=== PATIENT | male | born 1955 | race Caucasian/White ===

== ENCOUNTER → 2023-09-26 09:40 | Outpatient (REF) | payer MEDICARE, SELFPAY | LOC: RAD 09:40 | PROVIDERS: ATTENDING PHYSICIAN Family Medicine | DX: K52.9 Noninfective gastroenteritis and colitis, unspecified (principal); R10.9 Unspecified abdominal pain; G89.29 Other chronic pain; Z87.19 Personal history of other diseases of the digestive system | CPT/HCPCS: 74177; Q9967 ==

== ENCOUNTER → 2024-05-30 08:57 | Outpatient (REF) | payer MEDICARE, SELFPAY | LOC: RCS 08:57 | PROVIDERS: ATTENDING PHYSICIAN Internal Medicine Cardiovascular Disease; FAMILY PHYSICIAN Family Medicine | DX: I50.20 Unspecified systolic (congestive) heart failure (principal) | CPT/HCPCS: 93306 ==

== ENCOUNTER → 2024-09-03 07:52 | Outpatient (REF) | payer MEDICARE, SELFPAY | LOC: RAD 07:52 | PROVIDERS: ATTENDING PHYSICIAN Physician Assistant Medical | DX: M25.511 Pain in right shoulder (principal); S16.1XXA Strain of muscle, fascia and tendon at neck level, initial encounter; M54.50 Low back pain, unspecified | CPT/HCPCS: 72052; 72110; 73030 ==

== ENCOUNTER 2024-09-18 09:47 | Outpatient (RCR) | payer MEDICARE, SELFPAY | END 2024-09-18 23:59 | disposition home or self-care (01) | LOC: RPT 09:47 | PROVIDERS: ATTENDING PHYSICIAN Physician Assistant Medical; FAMILY PHYSICIAN Family Medicine | DX: S16.1XXD Strain of muscle, fascia and tendon at neck level, subsequent encounter (principal); M25.511 Pain in right shoulder; M54.59 Other low back pain; Z73.6 Limitation of activities due to disability; R26.89 Other abnormalities of gait and mobility; M19.90 Unspecified osteoarthritis, unspecified site | CPT/HCPCS: 97010; 97110; 97163; 97535 ==

== ENCOUNTER 2024-10-05 08:52 | Outpatient (RCR) | payer MEDICARE, SELFPAY | END 2024-10-05 23:59 | disposition home or self-care (01) | LOC: RPT 08:52 | PROVIDERS: ATTENDING PHYSICIAN Physician Assistant Medical; FAMILY PHYSICIAN Family Medicine | DX: S16.1XXD Strain of muscle, fascia and tendon at neck level, subsequent encounter (principal); M25.511 Pain in right shoulder; M54.59 Other low back pain; Z73.6 Limitation of activities due to disability; R26.89 Other abnormalities of gait and mobility; M19.90 Unspecified osteoarthritis, unspecified site | CPT/HCPCS: 97010; 97110; 97140 ==

== ENCOUNTER 2024-10-08 23:24 | Inpatient (IN) | payer MEDICARE, SELFPAY ==
[2024-10-08 13:17] VITALS: BP 144/75
[2024-10-08 13:48] LABS: % Basophils 0.7 % (0-2); % Eosinophils 1.4 % (0-6); % Immature Granulocytes 0.3 % (0-0.5); % Lymphocytes 15.9 % (20.5-51.1); % Monocytes 7.4 % (1.7-9.3); % Neutrophils 74.3 % (42.2-75.2); Absolute Basophils 0.1 10^3/uL (0-0.2); Absolute Eosinophils 0.1 10^3/uL (0-0.7); Absolute Lymphocytes 1.5 10^3/uL (1.2-3.4); Absolute Monocytes 0.7 10^3/uL (0.1-0.6); Absolute Neutrophils 7.1 10^3/uL (1.4-6.5); Hematocrit 37.6 % (39.0-52.0); Hemoglobin 12.9 g/dL (13.0-18.0); Mean Corp Hgb Conc. 34.3 g/dL (33.0-37.0); Mean Corpuscular Hgb 29.9 pg (27.0-31.0); Mean Platelet Volume 10.6 fL (7.4-10.4); Nucleated Red Blood Cells % 0 % (-); Platelet Count 225 10^3/uL (130-400); Red Blood Cell Count 4.32 10^6/uL (4.70-6.10); Red Cell Dist. Width 12.9 % (11.5-14.5); White Blood Cell Count 9.5 10^3/uL (4.8-10.8)
[2024-10-08 13:51] LABS: ALT (SGPT) 25 U/L (0-50); AST (SGOT) 25 U/L (17-59); Albumin 3.6 g/dl (3.5-5.0); Alkaline Phosphatase 584 U/L (38-126); Blood Urea Nitrogen 22 mg/dl (9-20); Calcium 8.5 mg/dl (8.4-10.2); Carbon Dioxide 26 mmol/L (22-30); Chloride 110 mmol/L (98-107); Glucose 141 mg/dl (70-99); Potassium 3.8 mmol/L (3.5-5.1); Sodium 141 mmol/L (135-145); Total Bilirubin 0.9 mg/dl (0.2-1.3); Total Protein 6.7 g/dl (6.3-8.2); eGFR > 60.00
[2024-10-08 14:03] LABS: NT-proBNP 2250 pg/ml; Troponin I < 0.012 ng/ml
[2024-10-08 14:04] LABS: Lipase 43 U/L (23-300)
--- NOTE | 2024-10-08 17:01 | ED.GENMED ---
History of Present Illness
General
Chief Complaint: Chest Pain
Source: patient
Exam Limitations: none
Time Seen by Provider: 10/08/24 16:52
Nursing documentation reviewed up to this point in time: agreed with
History of Present Illness
History of Present Illness:
Patient to ED with complaint of upper abdominal pain (R>L) and lower rib pain. Symptoms started approx 4 days ago. Taking ibuprofen for pain to back which started a few months ago. States this new pain is not responding to med. Brought to ED by
daughter for eval.
Past History
Past History
ED Past Medical History: GERD, HTN and Other (Kidney stone)
ED Past Surgical History: None
Social History
Tobacco: Non-smoker
Alcohol: Occasional
Personal:
Living: with family
Review of Systems
Review of Systems
Allergies reviewed?: Yes
All Other Systems: ROS reviewed and negative except as documented in HPI and ROS
Constitutional: Reports no symptoms
EENT: Reports no symptoms
Respiratory: Reports no symptoms
Cardiac: Reports no symptoms
ABD/GI: Reports abdominal pain (upper abdominal pain)
: Reports no symptoms
Musculoskeletal: Reports no symptoms
Skin: Reports no symptoms
Neurological: Reports no symptoms
Phy Exam
General Physical Exam
General Presentation: mild distress
General age: appears stated age
General Skin: warm and dry
General Habitus: normal
Cardiovascular Exam
Cardiovascular Exam: regular rate/rhythm and no edema
Pulmonary Exam
Pulmonary Exam: lungs clear and no respiratory distress
Gastrointestinal Exam
Gastrointestinal Exam: normal bowel sounds, soft, no organomegaly, no pulsatile mass, non distended and no cva tenderness
Palpation: left upper quadrant: Mild tenderness, left lower quadrant: No tenderness, right upper quadrant: Moderate tenderness and right lower quadrant: No tenderness
Neurological Exam
Neurological Exam: alert, oriented x3, CN II-XII intact, no motor deficits, no sensory deficits and speech normal
Musculoskeletal Exam
Musculoskeletal Exam: full ROM and no edema (trace edema bilateral ankles)
Skin Exam
Skin Exam: normal color, warm/dry and no rash
Psychiatric Exam
Psychiatric Exam: normal mood/affect
Scores
Heart Score for Chest Pain Patients
STEMI patient?: No
History: Slightly or Non-Suspicious
ECG: Normal
Age: >/= 65 years
Risk Factors: 1 or 2 Risk Factors
Troponin: </= Normal Limit
Heart Score for Chest Pain Patients: 3
Heart Score Risk: 2.5% MACE over next 6 weeks
Course
Orders/Labs/Results
Orders:
Orders
10/08/24 13:18
Electrocardiogram (*1) Urgent
Reason for Study: Chest Pain
10/08/24 13:31
BNP [NT-proBNP] Urgent
Complete Blood Count/With Diff Urgent
Comprehensive Metabolic Panel Urgent
Lipase Urgent
Troponin I Urgent
10/08/24 16:59
US Abdomen Complete/Upper Urgent
Comment:
Reason For Exam: upper abd. pain
10/08/24 17:00
CR Chest - 2 Views Urgent
Comment:
Reason For Exam: pain
10/08/24 18:38
Urinalysis Reflex To Culture Urgent
Date Specimen was Collected: 10/08/24
Time Specimen was Collected: 18:37
Urine Microscopic Reflex Cult Urgent
Urine Culture Urgent
CHEMO Source: U
Specimen Description:
Date Specimen was Collected: 10/08/24
Time Specimen was Collected: 18:37
10/08/24 18:52
CT Abd/pelvis W Iv Cont Urgent
Comment:
Reason For Exam: upper abd pain. Elevated alk phos
10/08/24 22:34
HYDROmorphone [Dilaudid] 0.5 mg IV NOW STA
Ondansetron Injectable [Zofran] 4 mg IV NOW STA
10/08/24 22:43
ONCOLOGY CONSULT Urgent
Consulting Provider: Meghann Quiros
Was physician already notified: Yes
10/08/24 23:00
Flush (0.9% Sodium Chloride) [Flush (Nss)] See Dose Instructions IV PER PROTOCOL
10/08/24 23:07
Admit/Transfer Patient As Directed
Co-Sign Provider:
Level of Care: Inpatient admission
Assign to:: Medical/Surgical
Physician / Group: shukri
Diagnosis: metastatic cancer
Reason for Hospitalization: metastatic cancer
Expected length of stay greater than two midnights?: Yes
ELOS- Estimated Length of Stay in days: 2
I certify the patient meets the requirements for IP care: Yes
Code Status As Directed
Resuscitation Status: Full Code
PRN Pain Medication Management As Directed
May give lesser potent ordered pain med per pt: Yes
preference::
Protocol:: Medication orders for pain may be administered in a
manner that supports deferring to patient preference
when the pt is:
- Requesting an ordered lesser potent pain medication.
Least to most potent pain medications are defined
as: acetaminophen < NSAID < tramadol < opioids
(morphine, oxycodone, hydromorphone).
- Requesting a lesser dose of the same medication IF
ORDERED.
- Requesting a less intrusive route of administration
if both routes are prescribed by the provider (PO <
IV).
10/09/24 01:28
HYDROmorphone [Dilaudid] 0.5 mg IV Q4HPRN PRN
10/09/24 01:28
Activity As Directed
Activity Level: As Tolerated
Vital Signs As Directed
Frequency: Per unit guidelines
DX Deep Vein Thrombosis Video Routine
10/09/24 05:26
Complete Blood Count/With Diff IN AM
Comprehensive Metabolic Panel IN AM
10/09/24 Breakfast
Regular
At Your Request: Full Participation
Does patient need a safe tray?: No
Reason for opting out of Assistance Coordinator order writing: Provider Decision
10/09/24 08:00
Heparin 5,000 units SC Q12
Abnormal Lab Results
10/08/24 10/08/24
13:31 18:38
RBC 4.32 L 10^6/uL
(4.70-6.10)
Hgb 12.9 L g/dL
(13.0-18.0)
Hct 37.6 L %
(39.0-52.0)
MPV 10.6 H fL
(7.4-10.4)
Absolute Neuts (auto) 7.1 H 10^3/uL
(1.4-6.5)
Absolute Monos (auto) 0.7 H 10^3/uL
(0.1-0.6)
Lymphocytes % 15.9 L %
(20.5-51.1)
Chloride 110 H mmol/L
(98-107)
BUN 22 H mg/dl
(9-20)
Glucose 141 H mg/dl
(70-99)
Alkaline Phosphatase 584 H U/L
(38-126)
Ur Occult Blood Reflex 1+ A
(Negative)
Urine WBC (Reflex) 11-15 A /HPF
(0-5)
Urine Bacteria (Reflex) Few A
(Negative)
Urine Albumin (Reflex) 1+ A
(Neg - Trace)
10/08/24 13:31
10/08/24 13:31
Vital Signs
Initial and Last Documented VS:
Initial Vital Signs
Temp Pulse Resp BP Pulse Ox
98.5 F 69 18 144/75 98
10/08/24 13:17 10/08/24 13:17 10/08/24 13:17 10/08/24 13:17 10/08/24 13:17
Last Documented Vital Signs
Temp Pulse Resp BP Pulse Ox
98.9 F 79 18 116/71 96
10/11/24 14:54 10/11/24 14:54 10/11/24 14:54 10/11/24 14:54 10/11/24 14:54
*Radiology
Radiology exam reviewed: radiology read reviewed
*Pulse Oximetry
Patient hypoxic: no
*Critical Care Note
Total Time (30-74mins, 75-104mins- exclusive of procedures): Not Applicable
Update Note
Update Note:
Patient to ED with complaint of upper abdominal pain, pain to lower ribs and back. Back pain has been ongoing for several weeks. Abdominal pain started this weekend. Labs reviewed. Alk phos of [address] tonight reveals mulitple hepatic
lesions suspicious for metastatic disease. Sclerotic lesions of vertebrae -lower thoracic and lumbar- suspicious for metastatic disease, concern for urothelial neoplasm. Case discussed with Dr. Garcia. Patient to be admitted to hospitalist
service and she will consult in AM. Discussed findings with patient and spouse.
ED Attending Note
-
Portions of this chart may have been created with voice recognition software.� Occasional wrong word or��sound alike� substitutions may have occurred due to the inherent limitations of voice recognition software.
Discharge Plan
Departure
Patient Disposition: Admit
Date of Disposition: 10/08/24
Time of Disposition: 22:35
Presentation/result/management discussed w/ accepting MD/DO: Hospitalist
Patient with high blood pressure during this ER visit?: No
Condition: Good
Covid-19: Not Applicable
Discharge Problem:
Liver lesion, Metastatic cancer to bone, Pain of metastatic malignancy
Interventions
Interventions:
*Risk Screen - Suicide Last Done: 10/08/24 13:17
*General Assessment Last Done: 10/08/24 13:17
*Neglect/Abuse Screening Last Done: 10/08/24 22:25
*ED- Fall Risk Assessment Last Done: 10/08/24 22:25
*ED COVID-19 Vaccine History Last Done: 10/08/24 22:25
*Nursing Disposition Last Done: 10/09/24 00:55
Discharge Date and Time
Discharge Date/Time: 10/09/24 00:56
[2024-10-08 17:06] VITALS: BP 146/96
[2024-10-08 18:15] VITALS: BP 139/92
[2024-10-08 18:45] LABS: Urine Albumin 1+ (Neg - Trace); Urine Bilirubin Negative (Negative); Urine Character Clear (Clear); Urine Color Yellow; Urine Glucose Negative (Negative); Urine Ketone Negative (Negative); Urine Leukocyte Negative (Negative); Urine Nitrite Negative (Negative); Urine Occult Blood 1+ (Negative); Urine Urobilinogen Negative (Neg - 1+)
[2024-10-08 18:57] LABS: Urine Red Blood Cell 0-2 /HPF (0-2); Urine Squamous Cell 0-2 /LPF (Few)
[2024-10-08 18:58] LABS: Urine Bacteria Few (Negative)
[2024-10-08 22:23] VITALS: BP 137/72
[2024-10-08] MEDS: DILAUDID 0.5 MG IV (22:49)
[2024-10-08] MEDS: ZOFRAN 4 MG IV (22:50)
[2024-10-08 23:00] VITALS: BP 141/84
--- NOTE | 2024-10-08 23:09 | HPS.HSE ---
Addendum entered and electronically signed by Junie Hudson MD 10/08/24 23:14:
Chronic lower swelling from CHF although not in CHF exacerbation.
Original Note:
Family Physician
-
Family Physician: Mike Terry PA-C
Chief Complaint
-
abdominal pain
History of Present Illness
69-year-old male past medical history of cardiomyopathy, CAD, GERD, paroxysmal vertigo, hypertension, hyperlipidemia, presenting with back pain for the past several months for which she has been taking ibuprofen with improvement. 4 days ago he
started having pain under his ribs worse on the right side. He denies nausea vomiting or diarrhea or constipation. He has gained a bit of weight and denies weight loss. Denies any urinary symptoms such as difficulty urinating, blood in the urine.
Denies chest pain. Occasionally has shortness of breath. Denies any fevers or chills.
He smokes marijuana sometimes. Denies nicotine. Alcohol rarely.
He has chronic lower extremity swelling which is stable.
His mother had leukemia requiring pheresis.
Medical History
Past Medical History
Past Medical History: Reports Other (cardiomyopathy, CAD, GERD, paroxysmal vertigo, hypertension, hyperlipidemia)
Past Surgical History: Reports None
Social History
Tobacco: Non-smoker
Alcohol: Occasional
Drug: Marijuana
Family History
Family History: Not pertinent
Allergies / Home Medications
Allergies reflects when Allergies were last updated in [employer].
Home Medications with original date entered in [employer]
Allergy/Medication List:
Allergies
Allergy/AdvReac Type Severity Reaction Status Date / Time
NKA - No Known Allergies Allergy Unknown Uncoded 10/08/24 13:19
Home Medications
aspirin 325 mg tablet 325 mg PO DAILY 12/16/20
carvedilol 12.5 mg tablet 12.5 mg PO DAILY 12/16/20
lisinopril 30 mg tablet (Zestril) 30 mg PO DAILY 12/16/20
acetaminophen 325 mg tablet 650 mg (2 x 325 mg) PO Q4HPRN PRN mild pain #1 tab 12/17/20
ibuprofen 200 mg tablet 400 - 600 mg (2 - 3 x 200 mg) PO Q6HPRN PRN moderate pain #1 tab 12/17/20
oxycodone 5 mg tablet 5 mg PO Q4HPRN PRN breakthrough/severe pain #10 tabs 12/17/20
Review of Systems
-
History Source: Patient
A 12 point ROS was completed and negative except as noted: Yes
Constitutional: Reports No Symptoms
EENT: Reports No Symptoms
Respiratory: Reports No Symptoms
Cardiac: Reports No Symptoms
Abdomen/GI: Reports No Symptoms
: Reports No Symptoms
Musculoskeletal: Reports No Symptoms
Skin: Reports No Symptoms
Neurological: Reports No Symptoms
Endocrine: Reports No Symptoms
Hematologic/Lymphatic: Reports No Symptoms
Psych: Reports No Symptoms
Physical Exam
Vital Signs
Vital Signs
Temp Pulse Resp BP Pulse Ox
98.3 F 85 25 137/72 99
10/08/24 21:11 10/08/24 22:23 10/08/24 22:23 10/08/24 22:23 10/08/24 22:23
Physical Exam
General: Well Developed, Well Nourished and No Apparent Distress
HEENT: NormoCephalic, Moist mucous membranes and Atraumatic
Respiratory: Clear
Cardiac: S1/S2 and Regular Rhythm; No Murmur or Rub
GI: Soft, Non Tender, Non Distended and Normal Bowel Sounds; No Organomegaly
Rectal: Deferred by Provider
Musculoskeletal: No Clubbing, No Cyanosis and No Edema
Skin: No Rash
Neuro: Nonfocal/grossly intact
Laboratory Results
-
10/08/24 13:31
05/19/25 13:31
Laboratory Results
Total Bilirubin 0.9 mg/dl (0.2-1.3) 10/08/24 13:31
AST 25 U/L (17-59) 10/08/24 13:31
ALT 25 U/L (0-50) 10/08/24 13:31
Alkaline Phosphatase 584 U/L (38-126) H 10/08/24 13:31
Troponin I < 0.012 ng/ml 10/08/24 13:31
Lipase 43 U/L (23-300) 10/08/24 13:31
Data Reviewed
-
Lab Data: Labs Reviewed by me
Old Records: Reviewed
Impression/Plan
-
IMPRESSION:
PLAN:
# Metastatic hepatic lesions, metastatic thoracic/lumbar spine lesions possibly secondary to urothelial neoplasm versus prostate carcinoma
-No urinary symptoms
- CT abdomen pelvis showed multiple low-density hepatic lesions which are highly suspicious for hepatic metastatic disease, sclerotic lesions within the visualized skeleton most prominent in the lower thoracic and lumbar spine likely bony metastatic
disease, duplicated left collecting system, greater dilation of the calyces of the lower pole moiety with narrowing near the left ureteropelvic junction suggesting urothelial neoplasm versus prostate carcinoma
-Abdominal ultrasound shows slightly contracted gallbladder
- UA unremarkable
- Chest x-ray negative
- Oncology consulted
- May need IR biopsy of liver lesion to discover primary
- Dilaudid for pain
CAD
- Continue aspirin
Cardiomyopathy
- Continue Lasix, spironolactone
- Continue Coreg
GERD
Paroxysmal vertigo
Essential hypertension
Hyperlipidemia
- Noncompliant with statin
Full code
DVT prophylaxis�heparin
Regular diet
[2024-10-09] VITALS: BP 124/63
[2024-10-09 01:04] VITALS: BP 120/83; BMI 27.9
[2024-10-09] MEDS: DILAUDID 0.5 MG IV ×7 (02:28→22:09)
[2024-10-09 06:52] LABS: % Basophils 0.5 % (0-2); % Eosinophils 0.6 % (0-6); % Immature Granulocytes 0.6 % (0-0.5); % Lymphocytes 18.1 % (20.5-51.1); % Monocytes 9.5 % (1.7-9.3); % Neutrophils 70.7 % (42.2-75.2); Absolute Basophils 0.1 10^3/uL (0-0.2); Absolute Eosinophils 0.1 10^3/uL (0-0.7); Absolute Immature Granulocytes 0.1 10^3/uL (0-0.05); Absolute Lymphocytes 1.8 10^3/uL (1.2-3.4); Absolute Monocytes 0.9 10^3/uL (0.1-0.6); Absolute Neutrophils 6.8 10^3/uL (1.4-6.5); Hematocrit 37.2 % (39.0-52.0); Mean Corp Hgb Conc. 34.9 g/dL (33.0-37.0); Mean Corpuscular Hgb 29.9 pg (27.0-31.0); Mean Corpuscular Volume 85.5 fL (80.0-94.0); Mean Platelet Volume 11.5 fL (7.4-10.4); Nucleated Red Blood Cells % 0 % (-); Platelet Count 246 10^3/uL (130-400); Red Blood Cell Count 4.35 10^6/uL (4.70-6.10); Red Cell Dist. Width 12.7 % (11.5-14.5); White Blood Cell Count 9.7 10^3/uL (4.8-10.8)
[2024-10-09 07:05] VITALS: BP 123/80
[2024-10-09 07:18] LABS: ALT (SGPT) 21 U/L (0-50); AST (SGOT) 23 U/L (17-59); Albumin 3.4 g/dl (3.5-5.0); Alkaline Phosphatase 593 U/L (38-126); Blood Urea Nitrogen 18 mg/dl (9-20); Calcium 8.5 mg/dl (8.4-10.2); Carbon Dioxide 26 mmol/L (22-30); Chloride 108 mmol/L (98-107); Estimated Creatinine Clearance 73 ml/min; Glucose 102 mg/dl (70-99); Sodium 140 mmol/L (135-145); Total Bilirubin 1.2 mg/dl (0.2-1.3); Total Protein 6.6 g/dl (6.3-8.2); eGFR > 60.00
[2024-10-09] MEDS: HEPARIN SC (09:13)
[2024-10-09] MEDS: LASIX 40 MG PO (09:40)
[2024-10-09] MEDS: COREG 12.5 MG PO (09:41)
[2024-10-09] MEDS: ALDACTONE 25 MG PO (09:41)
[2024-10-09] MEDS: ZESTRIL 40 MG PO (09:43)
[2024-10-09 09:58] LABS: PSA, Total - Diagnostic 1.55 ng/ml (0.0-4.0)
--- NOTE | 2024-10-09 10:57 | CM ---
CM following re: discharge planning.
Reviewed pt's chart, met with pt. pt's spouse and daughter Carmen at bedside.
Pt is a 69 year old male, admitted with primary dx of Abdominal [pain. PMH includes: cardiomyopathy, CAD, GERD, paroxysmal vertigo, hypertension, hyperlipidemia.
Pt reports he lives with spouse 2SH, 1 step to enter, has 2 supportive children. pt described himself as independent in all areas [employer]. No DME, VN or SNF history. Pt expressed his desire to return back home at discharge.
AD information provided and printed out AD form given to the pt.
PCP: Mike Terry
Pharmacy: [facility].
D/C plan:L home with anticipated no needs. family to transport at discharge.
CM will follow with discharge plan updates provided.
[2024-10-09 15:00] VITALS: BP 122/78
--- NOTE | 2024-10-09 15:15 | CON.ONC ---
Consultation
-
Date Consultation Requested: 10/08/24
Date Consultation Performed: 10/09/24
Requesting Provider: JOSE Payne
Performing Provider: Mariann Garzon MD
Reason for Consultation: metastatic disease
Impression
Impression
back/rib pain
bone mets, liver mets, suspected left ureter mass
Plan
Plan
Await MRI C/T spine
Pending results, may benefit from steroids, rad onc consult, neurosurg consult
Biopsy of liver lesion in IR
Will order urine cytology
Would start long acting (low dose) opioid (MS Contin 15mg q12h), with short acting opioid for breakthrough pain
Bowel regimen
Patient History
History of Present Illness
This is a 69yo M who noted increasing back pain over the past few months, recently worse in the right UQ and right ribs. He was ordered for outpatient MRIs, but not scheduled until December. He presented to the ER, where CT scans showed liver lesions,
bone mets, and a suspected left ureter mass.
He's been taking Advil ATC at home with some relief, better relief with opioids here in the hospital.
MRI C/T spine have been ordered to be done inpatient.
His family is at bedside.
Past-Medical/Surgical History
Past Medical History
Past Medical History: Reports Other (cardiomyopathy, CAD, GERD, paroxysmal vertigo, hypertension, hyperlipidemia)
Past Surgical History: Reports None
Social History
Tobacco: Non-smoker
Alcohol: Occasional
Drug: Marijuana
Family History
Family History: mother had leukemia
Patient Medication
�Medication �Instructions �Recorded �Confirmed �Last Taken �Type
aspirin 325 mg tablet 325 mg PO DAILY Blood Clot 12/16/20 10/09/24 10/08/24 07:00 History
Prevention/Tx
carvedilol 12.5 mg tablet 12.5 mg PO DAILY Blood Pressure 12/16/20 10/09/24 12/17/20 05:00 History
lisinopril 30 mg tablet (Zestril) 40 mg PO DAILY Blood Pressure 12/16/20 10/09/24 1 Day Ago History
~10/08/24
40
acetaminophen 325 mg tablet 650 mg (2 x 325 mg) PO Q4HPRN PRN 12/17/20 10/09/24 Unknown Rx
mild pain #1 tab
ibuprofen 200 mg tablet 400 - 600 mg (2 - 3 x 200 mg) PO 12/17/20 10/09/24 Unknown Rx
Q6HPRN PRN moderate pain #1 tab
oxycodone 5 mg tablet 5 mg PO Q4HPRN PRN 12/17/20 10/09/24 Unknown Rx
breakthrough/severe pain #10 tabs
Lasix 40 mg PO 1XD Fluid 10/09/24 10/09/24 1 Day Ago History
Retention/Swelling ~10/08/24
spironolactone 25 mg DAILY Fluid 10/09/24 10/09/24 1 Day Ago History
Retention/Swelling ~10/08/24
Active Medications
Generic Name Dose Route Start Last Admin
Trade Name Freq PRN Reason Stop Dose Admin
Carvedilol 12.5 mg 10/10/24 08:00
Carvedilol 12.5 Mg Tablet PO 11/07/24 07:59
DAILY VALERIA
Furosemide 40 mg 10/09/24 10:00 10/09/24 09:40
Furosemide 40 Mg Tablet PO 11/06/24 09:59 40 mg
DAILY VALERIA Administration
Heparin Sodium 5,000 units 10/09/24 08:00 10/09/24 09:13
Heparin 5,000 Units/Ml 1 Ml Vial SC 11/06/24 07:59 Not Given
Q12 VALERIA
Hydromorphone HCl 0.5 mg 10/09/24 02:02 10/09/24 15:04
Hydromorphone 0.5 Mg/0.5 Ml Syringe IV 10/23/24 16:00 0.5 mg
Q2HPRN PRN Administration
severe pain
Lisinopril 40 mg 10/09/24 10:00 10/09/24 09:43
Lisinopril 20 Mg Tablet PO 11/06/24 09:59 40 mg
DAILY VALERIA Administration
Morphine Sulfate 15 mg 10/09/24 20:00
Morphine 15 Mg Extended Release Tablet PO 10/23/24 19:59
Q12 VALERIA
Oxycodone HCl 5 mg 10/09/24 12:47
Oxycodone 5 Mg Regular Release Tablet PO 10/23/24 12:46
Q4HPRN PRN
breakthrough pain
Sodium Chloride 0 flush 10/08/24 23:00
Sodium Chloride 0.9% (Flush) Syringe IV 11/05/24 22:59
PER PROTOCOL VALERIA
Review of Systems
-
History Source: Patient
All Other Systems: Not reviewed unless documented
Constitutional: Reports Weight Loss, No Appetite and Sleep Disturbance
Respiratory: Denies Trouble Breathing
: Denies Dysuria, Frequency, Bleeding or Dark Urine
Musculoskeletal: Reports Joint Swelling and Other (back pain)
Physical Exam
-
General: Well Developed, Well Nourished and No Apparent Distress
HEENT: Negative Jaundice
Cardiology: Normal Sinus Rhythm
Pulmonary: Clear
GI: Soft
Musculoskeletal: Edema, Right Lower Extrem and Edema, Left Lower Extrem
Extremities: No C/C/E
Neurology: Non Focal and No Lateralizing Symptoms
Skin: Warm and Dry
Hematologic / Lymphatic: No Lymphadenopathy
Psych: Calm and Intact Judgement/Insight
Labs
Lab Results
WBC 9.7 10^3/uL (4.8-10.8) 10/09/24 05:26
RBC 4.35 10^6/uL (4.70-6.10) L 10/09/24 05:26
Hgb 13.0 g/dL (13.0-18.0) 10/09/24 05:26
Hct 37.2 % (39.0-52.0) L 10/09/24 05:26
MCV 85.5 fL (80.0-94.0) 10/09/24 05:26
MCH 29.9 pg (27.0-31.0) 10/09/24 05:26
MCHC 34.9 g/dL (33.0-37.0) 10/09/24 05:26
RDW 12.7 % (11.5-14.5) 10/09/24 05:26
Plt Count 246 10^3/uL (130-400) 10/09/24 05:26
MPV 11.5 fL (7.4-10.4) H 10/09/24 05:26
Abs Immat Gran (auto) 0.1 10^3/uL (0-0.05) H 10/09/24 05:26
Absolute Neuts (auto) 6.8 10^3/uL (1.4-6.5) H 10/09/24 05:26
Absolute Lymphs (auto) 1.8 10^3/uL (1.2-3.4) 10/09/24 05:26
Absolute Monos (auto) 0.9 10^3/uL (0.1-0.6) H 10/09/24 05:26
Absolute Eos (auto) 0.1 10^3/uL (0-0.7) 10/09/24 05:26
Absolute Basos (auto) 0.1 10^3/uL (0-0.2) 10/09/24 05:26
Immature Gran % 0.6 % (0-0.5) H 10/09/24 05:26
Neutrophils % 70.7 % (42.2-75.2) 10/09/24 05:26
Lymphocytes % 18.1 % (20.5-51.1) L 10/09/24 05:26
Monocytes % 9.5 % (1.7-9.3) H 10/09/24 05:26
Eosinophils % 0.6 % (0-6) 10/09/24 05:
Basophils % 0.5 % (0-2) 10/09/24 05:
Creatinine 1.0 mg/dL (0.7-1.3) 10/09/24 05:26
Vital Signs
Vital Signs
Temp Pulse Resp BP Pulse Ox
99.1 F 82 16 123/80 96
10/09/24 07:05 10/09/24 09:40 10/09/24 07:05 10/09/24 09:40 10/09/24 10:38
--- NOTE | 2024-10-09 15:51 | W.PN.HOSP.TC ---
Addendum entered and electronically signed by Iron Nunez MD 10/10/24 14:13:
69 male history of cardiomyopathy CAD GERD paroxysmal vertigo hypertension hyperlipidemia presented with back pain for several months and then unfortunately began to follow-up pain under his ribs that was worse on the right side with weight gain but
without weight loss. Some occasional shortness of breath no fevers or chills. Imaging studies demonstrating concerning findings for unknown primary lesion with mets to the liver thoracic/lumbar spine.
Metastatic disease with unclear primary
Will require biopsy discussing with IR to have this completed as outpatient
Continue analgesic support
If discharged home today will send with oxycodone 3 times daily for 3 days and then will need to follow-up with PCP for continued prescriptions
As we do not know the primary lesion as of right now we will need to obtain biopsies. However this can likely be done as outpatient with IR support. I am awaiting to hear back from IR if they can schedule him in the next week for this biopsy.
After this his PCP Mike Terry should receive the results and set him up with oncology follow-up.
Fortunately after evaluating him he has significant amount of neck stiffness and pain. Obtaining a MRI cervical and thoracic spine. Will rule out cord compression. May require additional support with orthopedics versus radiation oncology
depending on MRI findings.
Personally discussed case with with oncology. Will start long-acting analgesics with breakthrough short acting and continue Dilaudid for severe
Original Note:
Today's Communication/Plan
-
Pain medication switched.
As needed bowel regimen.
Plan for biopsy tomorrow.
N.p.o. midnight for procedure.
Assessment / Plan
Assessment / Plan
Assessment-69 years old male with PMHx significant for cardiomyopathy, CAD, GERD, HTN, HLD presents with back pain x 3 months and is diagnosed with metastatic lytic lesions in spine and liver. Unknown primary.
Plan-
Acute on chronic pain (for 3 months)
Secondary to metastatic lesions-hepatic, thoracic, lumbar lytic lesions as noted on the CT abdomen pelvis
Thinning of the ureteropelvic junction that suggest urothelial neoplasm versus prostate carcinoma based on radiology.
Abdominal ultrasound with evidence for slightly contracted gallbladder.
Oncology consult done, recommends inpatient liver biopsy.
IR consulted for liver biopsy. Appreciate oncology, IR service.
Aspirin last dose was in the a.m. yesterday. Will be 48-hour washout by a.m. tomorrow
Make n.p.o. after midnight for the procedure.
Pain management discussed with the patient-changed to long-acting opioids and short acting opioids.
Long-acting for management of chronic pain, short-acting for breakthrough pain.
Neck pain-
Suspect secondary to C-spine lesions.
MRI C-spine, T-spine ordered to assess for the extent of metastasis versus disc herniation or compression pain
Currently patient on optimal pain management.
Will add a prophylactic bowel regimen to prevent opioid-induced constipation.
Cardiomyopathy/clinical CHF-
Continue GDMT-carvedilol, lisinopril, spironolactone at home doses.
Continue Lasix 40 mg once a day for fluid retention/pedal edema.
Essential hypertension-
continue lisinopril and spironolactone.
DVT prophylaxis-
Patient was on heparin, held heparin for now.
Switch to sequential compression devices for procedure tomorrow.
CODE STATUS-
Full code
Anticipated Discharge: Within 24 hours
Subjective/Interval History
-
Date of Service: October 09, 2024
Patient reports of severe pain 10/10 in his neck, mostly isolated in right side of his neck, and his right hip that radiates down his right legs. He also states that he feels weak in his bilateral legs
Objective Data
-
Labs:
Laboratory Results
10/09/24
05:26
WBC 9.7
Hgb 13.0
Hct 37.2 L
Plt Count 246
Sodium 140
Potassium 4.0
Chloride 108 H
Carbon Dioxide 26
BUN 18
Creatinine 1.0
Glucose 102 H
Calcium 8.5
Total Bilirubin 1.2
AST 23
ALT 21
Alkaline Phosphatase 593 H
Vital Signs:
Vital Signs
Temp Pulse Resp BP Pulse Ox
99.1 F 82 16 123/80 96
10/09/24 07:05 10/09/24 09:40 10/09/24 07:05 10/09/24 09:40 10/09/24 10:38
Review of Systems
-
History Source: Patient
Constitutional: Reports Fatigue
EENT: Reports No Symptoms Reported
Respiratory: Reports No Symptoms
Cardiac: Reports No Symptoms
Abdomen/GI: Reports No Symptoms
Genitourinary: Reports No Symptoms
Musculoskeletal: Reports No Symptoms
Neuro: Reports Weakness
Endocrine: Reports No Symptoms
Hematologic / Lymphatic: Reports No Symptoms
Allergy / Immunology: Reports No Symptoms
Physical Exam
-
General: Pain
HEENT: Moist Mucous Membranes
Respiratory: Clear to Auscultation; Negative Wheezes, Rales, Rhonchi or Crackles
Cardiac: Regular Rhythm and S1/S2; Negative Murmur, Rub or Gallop
GI: Soft, Nontender, Nondistended and Normal Bowel Sounds
Musculoskeletal: Other (Straight leg raise test positive, bilateral 1+ pitting edema up to mid shins.)
Neuro: AO x 3, No Motor Deficits, DTR's Intact & Symmetrica and Other (No pronator drift, no dysdiadochokinesia, she will do hints test negative, Romberg's negative, [id number] test negative, )
Psych: Calm
Data Reviewed
-
Diagnostic Radiology: Image personally visualized and interpreted and Report Reviewed by me
CT Scan: Image personally visualized and interpreted and Report Reviewed by me
Labs: Labs Reviewed by me, Discussed with Physician and Discussed with Nurse
[2024-10-09] MEDS: HEPARIN 5000 UNITS SC (19:40)
[2024-10-09] MEDS: MS CONTIN (EXTENDED RELEASE) 15 MG PO (19:41)
[2024-10-10] VITALS (9 sets, daily range): BP systolic 95–125; BP diastolic 58–83; PULSE 76; O2SAT 92
[2024-10-10] MEDS: DILAUDID 0.5 MG IV ×3 (03:22→18:41)
[2024-10-10 06:34] LABS: % Basophils 0.5 % (0-2); % Eosinophils 0.8 % (0-6); % Immature Granulocytes 0.5 % (0-0.5); % Lymphocytes 17.9 % (20.5-51.1); % Monocytes 10.6 % (1.7-9.3); % Neutrophils 69.7 % (42.2-75.2); Absolute Basophils 0.1 10^3/uL (0-0.2); Absolute Eosinophils 0.1 10^3/uL (0-0.7); Absolute Immature Granulocytes 0.1 10^3/uL (0-0.05); Absolute Lymphocytes 1.7 10^3/uL (1.2-3.4); Absolute Neutrophils 6.6 10^3/uL (1.4-6.5); Hematocrit 34.9 % (39.0-52.0); Hemoglobin 12.1 g/dL (13.0-18.0); Mean Corp Hgb Conc. 34.7 g/dL (33.0-37.0); Mean Corpuscular Hgb 29.8 pg (27.0-31.0); Mean Platelet Volume 10.7 fL (7.4-10.4); Nucleated Red Blood Cells % 0 % (-); Platelet Count 212 10^3/uL (130-400); Red Blood Cell Count 4.06 10^6/uL (4.70-6.10); Red Cell Dist. Width 12.4 % (11.5-14.5); White Blood Cell Count 9.5 10^3/uL (4.8-10.8)
[2024-10-10 06:56] LABS: ALT (SGPT) 19 U/L (0-50); AST (SGOT) 23 U/L (17-59); Albumin 3.1 g/dl (3.5-5.0); Alkaline Phosphatase 636 U/L (38-126); Blood Urea Nitrogen 20 mg/dl (9-20); Calcium 8.1 mg/dl (8.4-10.2); Carbon Dioxide 25 mmol/L (22-30); Chloride 108 mmol/L (98-107); Estimated Creatinine Clearance 73 ml/min; Glucose 97 mg/dl (70-99); Potassium 3.8 mmol/L (3.5-5.1); Sodium 137 mmol/L (135-145); Total Bilirubin 1.5 mg/dl (0.2-1.3); Total Protein 6.1 g/dl (6.3-8.2); eGFR > 60.00
--- NOTE | 2024-10-10 07:19 | W.PN.ONC2 ---
Today's Communication / Plan
-
Increase/adjust narcotics for pain
Await liver biopsy and urine cytology
Await radiology interpretation of MRI of the C/T-spine.
Impression
Impression
back/rib pain
bone mets, liver mets, suspected left ureter mass
Plan
Plan
Await MRI C/T spine. It was done but has not been read.
Pending results, may benefit from steroids, rad onc consult, neurosurg consult
Biopsy of liver lesion in IR ordered and pending.
Urine cytology.
Increase narcotics from MS Contin 15 mg to 30 mg every 12; and increased breakthrough Dilaudid from 0.5 to 1 mg every 2 as needed
Bowel regimen
Subjective/Objective
Chief Complaint
ACS Heme Onc
Subjective
Patient with stiff neck. Currently pain score 6/10 but as high as 8-9/10. Patient just took Dilaudid. MRI of spine completed but not read. Liver biopsy ordered.
Vital Signs:
Vital Signs
Temp Pulse Resp BP Pulse Ox
99.4 F 81 18 122/78 96
10/09/24 15:00 10/09/24 15:00 10/09/24 15:00 10/09/24 15:00 10/09/24 15:00
Lab Results:
Laboratory Data
WBC 9.5 10^3/uL (4.8-10.8) 10/10/24 06:02
Hgb 12.1 g/dL (13.0-18.0) L 10/10/24 06:02
Plt Count 212 10^3/uL (130-400) 10/10/24 06:02
eGFR > 60.00 10/10/24 06:02
Physical Exam
Appears uncomfortable but reasonably okay without movement
HEENT: No Jaundice
Cardiology: S1 and S2
Pulmonary: Clear
GI: Soft
Extremities: No C/C/E
Orders
Orders
Orders From Last 24 Hours
10/10/24 07:19
HYDROmorphone [Dilaudid] 1 mg IV Q2HPRN PRN
10/10/24 07:19
Morphine Sulfate Extended Rel. [Ms Contin (Extended Release)] 30 mg PO Q12
[2024-10-10] MEDS: MS CONTIN (EXTENDED RELEASE) 30 MG PO ×2 (08:21→20:58)
[2024-10-10] MEDS: ZESTRIL 40 MG PO (08:21)
[2024-10-10] MEDS: COREG 12.5 MG PO (08:21)
[2024-10-10] MEDS: LASIX 40 MG PO (08:22)
[2024-10-10] MEDS: HEPARIN SC ×2 (08:22→08:48)
[2024-10-10] MEDS: DILAUDID 1 MG IV ×2 (08:31→12:49)
[2024-10-10] MEDS: ALDACTONE 25 MG PO (10:12)
--- NOTE | 2024-10-10 10:37 | PTCARENOTE ---
This RN communicated with IR, per IR patient cannot get liver biopsy today d/t taking high dose aspirin Tuesday morning, stated aspirin needs to be flushed out of patient 3-5 days, patient tentatively scheduled to get biopsy Tuesday now. This RN
communicated with MD and resident, regular diet order re-entered per this RN, patient and family member at bedside made aware.
--- NOTE | 2024-10-10 11:46 | CM ---
CM following re: discharge planning.
Reviewed pt's chart, met with pt.
Per chart review, biopsy today, Oncology following, continue supportive care.
Pt lives with spouse 2SH, 1 step to enter, has 2 supportive children and pt is independent in all areas [employer]. No DME, VN or SNF history. Pt expressed his desire to return back home at discharge.
D/C plan:L home with anticipated no needs. Family to transport at discharge.
CM will follow with discharge plan updates as hospitalization progresses
[2024-10-10] MEDS: SENOKOT-S 1 TABLET PO (15:14)
--- NOTE | 2024-10-10 15:42 | W.PN.HOSP.TC ---
Addendum entered and electronically signed by Iron Nunez MD 10/11/24 14:44:
69 male history of cardiomyopathy CAD GERD paroxysmal vertigo hypertension hyperlipidemia presented with back pain for several months and then unfortunately began to follow-up pain under his ribs that was worse on the right side with weight gain but
without weight loss. Some occasional shortness of breath no fevers or chills. Imaging studies demonstrating concerning findings for unknown primary lesion with mets to the liver thoracic/lumbar spine.
Metastatic disease with unclear primary
Will require biopsy discussing with IR to have this completed as outpatient
Continue analgesic support
If discharged home today will send with oxycodone 3 times daily for 3 days and then will need to follow-up with PCP for continued prescriptions
As we do not know the primary lesion as of right now we will need to obtain biopsies. However this can likely be done as outpatient with IR support. I am awaiting to hear back from IR if they can schedule him in the next week for this biopsy.
After this his PCP Mike Terry should receive the results and set him up with oncology follow-up.
Was able to obtain MRI thoracic cervical spine. Without evidence of cord compression/pathologic fracture. However there was abnormal signal findings with the MRI stating could possibly be hematologic in nature or myeloproliferative disorder.
Reached out to oncology about these results via [facility] or at least my resident that who states that this is all related to metastatic disease to the vertebral column. was updated.
Unfortunately unable to obtain IR guided biopsy of the liver today as he is on aspirin and is required a 72-hour to 60-hour washout. Hopefully on Tuesday able to complete. Informed him and he is agreeable with this plan that if his current pain
regimen is able to control symptomatology/pain then he can be discharged home with outpatient liver biopsy scheduled otherwise we will continue giving IV analgesic support with titration of oral agents and plan for IR guided biopsy on Tuesday.
Original Note:
Today's Communication/Plan
-
Holding parameters on Dilaudid.
Add Tylenol and ibuprofen for optimal pain management.
Lower losartan dose from a.m. tomorrow.
Assessment / Plan
Assessment / Plan
Assessment-69 years old male with PMHx significant for cardiomyopathy, CAD, GERD, HTN, HLD presents with back pain x 3 months and is diagnosed with metastatic lytic lesions in spine and liver. Unknown primary.
Plan-
Acute on chronic pain (for 3 months)
Secondary to metastatic lesions-hepatic, thoracic, lumbar lytic lesions as noted on the CT abdomen pelvis
Thinning of the ureteropelvic junction that suggest urothelial neoplasm versus prostate carcinoma based on radiology.
Abdominal ultrasound with evidence for slightly contracted gallbladder.
Oncology consult done, recommends inpatient liver biopsy.
IR consulted for liver biopsy. Appreciate oncology, IR service.
Aspirin last dose was in the a.m. yesterday. Will be 48-hour washout by a.m. tomorrow
N.p.o. changed to low-sodium diet.
Pain management discussed with the patient-changed to long-acting opioids and short acting opioids.
Long-acting for management of chronic pain, short-acting breakthrough pain, holding parameters on Dilaudid.
Soft blood pressures-
Probably secondary to opioids in the setting of essential hypertension.
Holding parameters on Dilaudid.
Reduce lisinopril dosing to 50 mg.
Continue spironolactone at 25 mg.
Add Tylenol and ibuprofen for breakthrough pain.
Neck pain-
Suspect secondary to C-spine lesions.
MRI C-spine, T-spine ordered to assess for the extent of metastasis versus disc herniation or compression pain
Currently patient on optimal pain management.
Will add a prophylactic bowel regimen to prevent opioid-induced constipation.
Cardiomyopathy/clinical CHF-
Continue GDMT-carvedilol, lisinopril, spironolactone at home doses.
Continue Lasix 40 mg once a day for fluid retention/pedal edema.
Essential hypertension-
continue lisinopril and spironolactone.
DVT prophylaxis-
Patient was on heparin, held heparin for now.
Switch to sequential compression devices for procedure tomorrow.
CODE STATUS-
Full code
Scheduled outpatient IR biopsy for Tuesday, currently patient is being kept overnight for optimal pain management.
Also coordinated with primary care physician for close follow-up.
Patient is aware to make a call to primary care physician tomorrow.
Plan for discharge tomorrow.
Anticipated Discharge: Within 24 hours
Subjective/Interval History
-
Date of Service: October 10, 2024
Patient still reports of pain.
His pain is worse in neck and right hip.
Objective Data
-
Labs:
Laboratory Results
10/10/24
06:02
WBC 9.5
Hgb 12.1 L
Hct 34.9 L
Plt Count 212
Sodium 137
Potassium 3.8
Chloride 108 H
Carbon Dioxide 25
BUN 20
Creatinine 1.0
Glucose 97
Calcium 8.1 L
Total Bilirubin 1.5 H
AST 23
ALT 19
Alkaline Phosphatase 636 H
Vital Signs:
Vital Signs
Temp Pulse Resp BP Pulse Ox
97.9 F 90 18 125/83 94
10/10/24 07:05 10/10/24 10:12 10/10/24 07:05 10/10/24 10:12 10/10/24 09:39
I&O
10/09/24 10/10/24 10/11/24
06:59 06:59 06:59
Intake Total 1680 / 1680
Output Total 975 / 975
Balance 705 / 705
Review of Systems
-
History Source: Patient
Constitutional: Reports Fatigue
Respiratory: Reports No Symptoms
Cardiac: Reports No Symptoms
Abdomen/GI: Reports No Symptoms
Breast: Reports No Symptoms
Musculoskeletal: Reports Muscle Pain, Muscle Weakness and Other (Back pain, right hip pain, neck pain.)
Neuro: Reports Weakness
Hematologic / Lymphatic: Reports No Symptoms
Allergy / Immunology: Reports No Symptoms
Physical Exam
-
General: No Apparent Distress and Comfortable
HEENT: Moist Mucous Membranes
Respiratory: Clear to Auscultation; Negative Wheezes, Rales, Rhonchi or Crackles
Cardiac: Regular Rhythm and S1/S2; Negative Murmur, Rub or Gallop
GI: Soft, Nontender, Nondistended and Normal Bowel Sounds
Musculoskeletal: No Clubbing, No Cyanosis, Edema, Right Lower Extrem and Edema, Left Lower Extrem
Neuro: AO x 3 and No Motor Deficits
Psych: Calm
--- NOTE | 2024-10-10 16:04 | PTCARENOTE ---
Patient's automatic BP taken by tech 98/63, 94/59, and 101/60 HR 76; manual BP taken by this RN 102/62 RUE. Patient laying in bed and states no complaints, says pain is controlled at this time. MD and resident made aware, holding parameters for PRN
IV Dilaudid as well as orders for PRN Tylenol and Motrin to be added by resident. Scheduled Ms Contin and PRN IV Dilaudid doses increased per onc this AM, resident aware of dosage increases.
--- NOTE | 2024-10-10 17:26 | PTOTSP ---
Pt with dx of metastatic cancer. Reports pain in L shoulder, neck, abdomen, low back and b/l hips. Currently at mod I level with basic self care, transfers and mobility in his room and bathroom without AD. No further skilled OT indicated at this
time.
[2024-10-10 18:47] LABS: Glucose - Point of Care 122 mg/dl (70-99)
[2024-10-10] MEDS: HEPARIN 5000 UNITS SC (20:51)
[2024-10-11] MEDS: DILAUDID 0.5 MG IV ×2 (02:55→10:25)
[2024-10-11 03:00] VITALS: BP 120/64
[2024-10-11 06:11] LABS: Hematocrit 32.8 % (39.0-52.0); Hemoglobin 11.2 g/dL (13.0-18.0); Mean Corp Hgb Conc. 34.1 g/dL (33.0-37.0); Mean Corpuscular Hgb 29.7 pg (27.0-31.0); Mean Platelet Volume 10.3 fL (7.4-10.4); Platelet Count 213 10^3/uL (130-400); Red Blood Cell Count 3.77 10^6/uL (4.70-6.10); Red Cell Dist. Width 12.3 % (11.5-14.5); White Blood Cell Count 8.3 10^3/uL (4.8-10.8)
[2024-10-11 06:37] LABS: Blood Urea Nitrogen 27 mg/dl (9-20); Calcium 8.2 mg/dl (8.4-10.2); Carbon Dioxide 27 mmol/L (22-30); Chloride 105 mmol/L (98-107); Estimated Creatinine Clearance 67 ml/min; Glucose 103 mg/dl (70-99); Potassium 3.9 mmol/L (3.5-5.1); Sodium 136 mmol/L (135-145); eGFR > 60.00
[2024-10-11 07:06] VITALS: BP 109/65
[2024-10-11] MEDS: MS CONTIN (EXTENDED RELEASE) 30 MG PO (08:38)
[2024-10-11] MEDS: HEPARIN SC ×2 (08:41→08:44)
--- NOTE | 2024-10-11 09:24 | PN.CDI ---
CDI
- -
CDI:
Physician Documentation Request
Admit Date: 10/08/24 23:24
Dear Doctor,
Please review the following and provide your response in the progress notes.
Clinical Indicators:
- 10/09 H&P 'Chronic lower swelling from CHF although not in CHF exacerbation'
- Progress notes 'Cardiomyopathy/clinical CHF'
- 'Continue GDMT...Continue Lasix'
Laboratory Tests
10/08/24
13:31
[id number] Pept 2250
Please provide further specificity regarding the most likely type and acuity of CHF you are evaluating, treating or monitoring.
Type Acuity
Systolic Acute
Diastolic Chronic
Combined Systolic/Diastolic Acute on Chronic
Other
Use of terms such as suspected, likely, concern for, or probable (associated with a specific diagnosis that is being evaluated, monitored, or treated as if it exists) are acceptable and can be coded in the inpatient setting, when documented at the
time of discharge.
Thank you,
Leobardo Antony RN
CDI Specialist
Please use your independent medical judgment in providing your response.
--- NOTE | 2024-10-11 09:59 | W.PN.ONC2 ---
Today's Communication / Plan
-
.
Impression
Impression
p/w back/rib pain
bone mets, liver mets, suspected left ureter mass
MRI C and T spine Abnormal bone marrow signal intensity is demonstrated throughout the thoracic spine. No vertebral compression deformity.
Plan
Plan
Plan for liver biopsy 10/16 11am in IR outpatient once ASA wash out
f/u Urine cytology.
Continue MS Contin 30 mg every 12, Currently using Dilaudid IV prn for break through pain, will need to transition to PO prn. Pt plans to follow up with PCP for refills of narcotics for now after discharge
Bowel regimen
f/u CT head
f/u CT neck
f/u Jak2
f/u SPEP
close OP follow up will be arranged upon discharge
and daughter at bedside, updates provided and questions answered
Subjective/Objective
Subjective
improved pain control
Vital Signs:
Vital Signs
Temp Pulse Resp BP Pulse Ox
98.9 F 80 16 109/65 96
10/11/24 07:06 10/11/24 07:06 10/11/24 07:06 10/11/24 07:06 10/11/24 07:06
Lab Results:
Laboratory Data
WBC 8.3 10^3/uL (4.8-10.8) 10/11/24 05:49
Hgb 11.2 g/dL (13.0-18.0) L 10/11/24 05:49
Plt Count 213 10^3/uL (130-400) 10/11/24 05:49
eGFR > 60.00 10/11/24 05:49
Physical Exam
HEENT: Moist Mucous Membranes; No Jaundice
Cardiology: Normal Sinus Rhythm
Pulmonary: Clear
GI: Soft
Extremities: Pulses Present; No Edema
--- NOTE | 2024-10-11 10:11 | W.PN.HOSP.TC ---
Addendum entered and electronically signed by Nimco Oconnell MD, Resident 10/12/24 07:50:
Chronic CHF - HFrEF - EF - 25-30% based on echocardiogram from 05/30/24.
No acute exacerbation
Addendum entered and electronically signed by Iron Nunez MD 10/11/24 15:02:
69 male history of cardiomyopathy CAD GERD paroxysmal vertigo hypertension hyperlipidemia presented with back pain for several months and then unfortunately began to follow-up pain under his ribs that was worse on the right side with weight gain but
without weight loss. Some occasional shortness of breath no fevers or chills. Imaging studies demonstrating concerning findings for unknown primary lesion with mets to the liver thoracic/lumbar spine.
Metastatic disease with unclear primary
Will require biopsy discussing with IR to have this completed as outpatient
He likely has a neck spasms. He Baldus neck pain. I was at bedside and I noted
Continue analgesic support
If discharged home today will send with oxycodone 3 times daily for 3 days/ ms cotiin for 3 days and then will need to follow-up with PCP for continued prescriptions
As we do not know the primary lesion as of right now we will need to obtain biopsies. This will be completed on Tuesday as outpatient in the morning.
Antihypertensives agents have been adjusted and decreased as blood pressure has been on the lower end after initiating analgesic therapy. PCP and cardiology was made aware of this via [place] [facility]
However this can likely be done as outpatient with IR support. I am awaiting to hear back from IR if they can schedule him in the next week for this biopsy.
PCP appointment made for Tuesday morning.
Original Note:
Today's Communication/Plan
-
Lisinopril 20 mg with holding parameters
Carvedilol 12.5 mg holding parameters
Lasix 40 mg once a day.
Aldactone 12.5 mg.
Morphine extended release-30 mg twice daily
Oxycodone 5 mg as needed Q4 hourly as needed. Plan for discharge.
Ordered a CT of the brain without contrast and soft tissue neck with contrast to evaluate for mets. Please discharge patient after the results.
Assessment / Plan
Assessment / Plan
Assessment-69 years old male with PMHx significant for cardiomyopathy, CAD, GERD, HTN, HLD presents with back pain x 3 months and is diagnosed with metastatic lytic lesions in spine and liver. Unknown primary.
Plan-
Acute on chronic pain (for 3 months)
Secondary to metastatic lesions-hepatic, thoracic, lumbar lytic lesions as noted on the CT abdomen pelvis
Thinning of the ureteropelvic junction that suggest urothelial neoplasm versus prostate carcinoma based on radiology.
Abdominal ultrasound with evidence for slightly contracted gallbladder.
Oncology consult done, recommends inpatient liver biopsy.
IR consulted for liver biopsy. Appreciate oncology, IR service.
Aspirin last dose was in the a.m. yesterday. Will be 48-hour washout by a.m. tomorrow
N.p.o. changed to low-sodium diet.
Pain management discussed with the patient-changed to long-acting opioids and short acting opioids.
Long-acting for management of chronic pain, short-acting breakthrough pain, holding parameters on Dilaudid.
Soft blood pressures-
Probably secondary to opioids in the setting of essential hypertension.
Holding parameters on Dilaudid.
Reduce lisinopril dosing to 20mg.
Continue spironolactone at 12.5mg.
Add Tylenol and ibuprofen for breakthrough pain.
Neck pain-
Suspect secondary to C-spine lesions.
MRI C-spine, T-spine ordered to assess for the extent of metastasis versus disc herniation or compression pain
Currently patient on optimal pain management.
Will add a prophylactic bowel regimen to prevent opioid-induced constipation.
chronic CHF-given his softer blood pressures-
Continue Lasix 40 mg once a day for fluid retention/pedal edema.
His medications were changed to half the doses of lisinopril and spironolactone.
Carvedilol-holding parameters were added on carvedilol.
Essential hypertension-
continue lisinopril and spironolactone.
DVT prophylaxis-
Patient was on heparin, held heparin for now.
Switch to sequential compression devices for procedure tomorrow.
CODE STATUS-
Full code
Scheduled outpatient IR biopsy for Tuesday, currently patient is being kept overnight for optimal pain management.
Also coordinated with primary care physician for close follow-up.
Patient is aware to make a call to primary care physician tomorrow.
Plan for discharge tomorrow.
Anticipated Discharge: Today
Subjective/Interval History
-
Date of Service: October 11, 2024
Patient has episodes of softer blood pressures yesterday
Medication changes were made to his regimen, however he did not get his new medication regimen yet.
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
Objective Data
-
Labs:
Laboratory Results
10/11/24
05:49
WBC 8.3
Hgb 11.2 L
Hct 32.8 L
Plt Count 213
Sodium 136
Potassium 3.9
Chloride 105
Carbon Dioxide 27
BUN 27 H
Creatinine 1.1
Glucose 103 H
Calcium 8.2 L
Vital Signs:
Vital Signs
Temp Pulse Resp BP Pulse Ox
98.9 F 80 16 109/65 96
10/11/24 07:06 10/11/24 07:06 10/11/24 07:06 10/11/24 07:06 10/11/24 07:06
I&O
10/10/24 10/11/24 10/12/24
06:59 06:59 06:59
Intake Total 1680 / 1680 1560 / 1560
Output Total 975 / 975 350 / 350
Balance 705 / 705 1210 / 1210
Review of Systems
-
History Source: Patient
Constitutional: Reports Fatigue and Other (Pain.)
Respiratory: Reports No Symptoms
Cardiac: Reports No Symptoms
Abdomen/GI: Reports No Symptoms
Genitourinary: Reports No Symptoms
Musculoskeletal: Reports No Symptoms
Physical Exam
-
General: No Apparent Distress and Comfortable
HEENT: Moist Mucous Membranes, Anicteric and [place] Conjunctivae; Negative Thrush
Respiratory: Clear to Auscultation; Negative Wheezes, Rales, Rhonchi or Crackles
Cardiac: Regular Rhythm and S1/S2; Negative Murmur, Rub or Gallop
GI: Soft, Nontender, Nondistended and Normal Bowel Sounds
Musculoskeletal: No Clubbing, No Cyanosis, Edema, Right Lower Extrem (1+ pitting around the ankle) and Edema, Left Lower Extrem (1+ pitting around the ankle)
Skin: Warm
Neuro: No Motor Deficits
Psych: Calm
Data Reviewed
-
CT Scan: Image personally visualized and interpreted, Report Reviewed by me and Discussed with Physician
MRI: Report Reviewed by me and Discussed with Physician
Labs: Labs Reviewed by me and Discussed with Physician
[2024-10-11] MEDS: COREG PO (10:20)
[2024-10-11] MEDS: MIRALAX 17 GRAMS PO (10:25)
[2024-10-11] MEDS: ALDACTONE 12.5 MG PO (10:26)
[2024-10-11] MEDS: ZESTRIL 20 MG PO (10:26)
[2024-10-11] MEDS: LASIX 40 MG PO (10:26)
--- NOTE | 2024-10-11 10:31 | W.DCSUMMARY ---
Discharge Summary
Discharge Data
Date of Admission: 10/08/24
Date of Discharge: 10/11/24
Discharge Plan
-
Patient Disposition: Home (Routine Discharge)
Discharge Diagnosis/Procedures: Acute pain syndrome, secondary to metastatic malignancy-primary unknown, scheduled for biopsy.
Condition: Fair
Diet: No restrictions and As tolerated
Activity: No restrictions
Driving Restrictions: As prior to admission
Activity Restrictions/Additional Instructions:
You have medication changes in the hospital.
Your primary care Dr. Portillo, your hunting guide Dr. Cisneros-both are updated about your medication changes.
Opioids can cause sedation, low blood pressure, low respiratory rate.
If you are breathing less than 10 times a minute, hold off your next opioid dose.
Recommend staying abstinent from alcohol if you feel sedated from opioids.
Your lisinopril is cut down to 20 mg a day.
your spironolactone/Aldactone is cut down to 12.5 mg a day.
Monitor your blood pressure at home regularly, if your blood pressure is running lower than 100-systolic or 60-diastolic please hold off taking your carvedilol.
Follow-up with your primary care physician and cardiology.
You are scheduled for a liver biopsy on Tuesday-10/11/2024.
Referrals:
Mariann Garzon MD [Active] - in one to two weeks (Schedule a follow-up appointment with Dr. Garzon in 2 weeks,-oncology.)
Neel Hayward MD [Active] - in four to six weeks
Mike Terry PA-C [Family Provider] - in one to two days
Prescriptions:
New
polyethylene glycol 3350 17 gram Powder In Packet
17 g PO DAILYPRN PRN (Reason: constipation) 30 Days Qty: 0 0RF
ibuprofen 800 mg Tablet
800 mg PO Q6HPRN PRN (Reason: mild pain) Qty: 0 0RF
lisinopril 20 mg Tablet
20 mg PO DAILY 30 Days Qty: 30 0RF
morphine 15 mg Tablet Extended Release
30 mg PO Q12 3 Days Qty: 12 0RF
Rx Instructions:
do not use if sedated or low respiratory rate <10
oxycodone 5 mg Tablet
5 mg PO Q4HPRN PRN (Reason: breakthrough pain) 3 Days Qty: 18 0RF
Rx Instructions:
do not use if sedated or low respiratory rate <10
spironolactone 25 mg Tablet
12.5 mg PO DAILY 30 Days Qty: 15 1RF
Continued
carvedilol 12.5 MG tablet
12.5 mg PO DAILY
acetaminophen 325 MG tablet
650 mg PO Q4HPRN PRN (Reason: mild pain) Qty: 1 0RF
Lasix
40 mg PO 1XD
Held
aspirin 325 MG tablet
325 mg PO DAILY
Hold Instructions: Resume on 10/18/24. Resume taking aspirin 48 hours after your biopsy.
Discontinued
lisinopril [Zestril] 30 MG tablet
40 mg PO DAILY
ibuprofen 200 MG tablet
400 - 600 mg PO Q6HPRN PRN (Reason: moderate pain) Qty: 1 0RF
oxycodone 5 MG tablet
5 mg PO Q4HPRN PRN (Reason: breakthrough/severe pain) Qty: 10 0RF
spironolactone
25 mg DAILY
Discharge Orders:
Discharge Patient (As Directed); Ordered 10/11/24
Ordered By: Nimco Oconnell
Discharge Date and Time
Print Language: COOK ISLANDER
[2024-10-11] MEDS: ALDACTONE PO (10:41)
--- NOTE | 2024-10-11 11:48 | CM ---
CM following re: discharge planning.
Reviewed pt's chart, met with pt. pt's spouse and daughter at bedside.
Discharge order noted. Both pt and his spouse and daughter are aware, expressed their agreement with discharge. IMM reviewed, placed on chart, pt has a copy.
No after care VN services indicated. pt is independent with functional ability.
D/C plan: home no needs. Spouse to transport.
--- NOTE | 2024-10-11 11:48 | W.DCSUMMARY ---
Discharge Summary
Discharge Data
Date of Admission: 10/08/24
Date of Discharge: 10/11/24
-
Pending Results: Yes
Additional Pending Results:
Serum protein electrophoresis, BILLY, kappa, lambda light chains, heavy chains.
Hospital Course
Assessment- 69 years old male with PMHx significant for cardiomyopathy, CAD, GERD, HTN, HLD presents with back pain x 3 months and is diagnosed with metastatic lytic lesions in spine and liver. Unknown primary.
PCP - Merline Jimenez DO
Hospital course -
Upon admission to the hospital for evaluation of back pain and pain under the ribs, patient is diagnosed with multiple metastatic lesions to the liver and the spine. His pain progressed to be acute and severe in his neck and in his right hip
resulting in weakness in his right leg. Hence there was suspicion for pathological fracture from lytic lesions to the bone for which an MRI of the C-spine and the thoracic spine were obtained in the hospital both of which were negative. An
oncology consult was initiated to establish patient's care with oncologist, and patient was in the hospital for 3 days for optimal pain management.
He required morphine extended release 30 Mg twice daily for his acute pain and oxycodone was prescribed for his breakthrough pain alternating with ibuprofen at a maximum dose. Tylenol was of no help for patient during the breakthrough pain.
Upon initiation of high doses of opioids patient also started to have constipation and softer blood pressures. Given his history of congestive heart failure, his medication regimens were cut down into half and holding parameters were put on his
GDMT. Also, there is a discussion about his biopsy-decision was made to proceed with liver biopsy, per ACR guideline recommendations 3 to 5 days of aspirin washout time is required but unfortunately patient received his last dose of aspirin on 10/08
before admission. Hence an outpatient liver biopsy was set up with interventional radiology for Tuesday a.m. Patient is also scheduled for a close follow-up with his primary care physician and is discharged home with a 3-day supply of opioids.
Investigative workup in the hospital-
USG abdomen - 10/08/24
IMPRESSION:
Gallbladder is slightly contracted, as patient is not nothing by mouth.
Common tail artifact arising from the gallbladder wall, which is usually associated with adenomyomatosis.
No evidence for biliary ductal dilation.
The pancreas is unable to be visualized. The upper abdominal IVC and the upper abdominal aorta are also unable to visualize.
Bilateral simple renal cysts.
Chest X ray -10/08/24
IMPRESSION:
No evidence of active cardiopulmonary disease
Abdomen/pelvis CT -10/08/24
IMPRESSION: Multiple low-density hepatic lesions, which are highly suspicious for hepatic metastatic disease.
Sclerotic lesions within the visualized skeleton, most prominent in the lower thoracic and lumbar spine, very likely representing bony metastatic disease.
Duplicated left collecting system. Greater dilation of the calyces of the lower pole moiety, with narrowing near the left ureteropelvic junction. Findings raise concern for urothelial neoplasm.
Given the sclerotic bony metastatic disease, another consideration would be prostate carcinoma.
Cervical spine MRI - 10/09/24 -
IMPRESSION:
Marrow signal alteration. Possible considerations may include normal variant, marrow reconversion, heavy smoker, obesity, metastatic disease, marrow replacement disorder, anemia, myeloproliferative disorder (multiple myeloma, leukemia, polycythemia
Vera, myelofibrosis).
No compression deformity.
Degenerative changes, as described.
C2-3: Minor right foraminal narrowing.
C3-4: Mild to moderate central canal narrowing. No cord compression. Moderate to advanced bilateral foraminal stenosis.
C4-5: Advanced left and moderate to advanced right foraminal narrowing.
C5-6: Moderate bilateral foraminal stenosis.
C6-7: Moderate central canal narrowing. Mild cord compression. Mild to moderate foraminal narrowing.
Incidental rounded 7 mm right level 5A cervical lymph node, nonspecific.
Thoracic Spine MRI - 10/09/24 -
IMPRESSION:
Abnormal bone marrow signal intensity is demonstrated throughout the thoracic spine. Possible considerations may include normal variant, marrow reconversion, metastatic disease, marrow replacement disorder, anemia, myeloproliferative disorder
(multiple myeloma, leukemia, polycythemia Vera, myelofibrosis).
No vertebral compression deformity.
No focal disc protrusion. No significant central canal or foraminal stenosis.
Neck CT-10/11/2024-
IMPRESSION:
1. No pathologic lymphadenopathy or large mass within the neck.
2. Small lung nodules within the right upper lobe measuring up to 4 mm in diameter. As per Fleischner Society recommendations, follow-up chest CT is suggested in approximately 1 year.
3. Mild degenerative disc disease within the cervical spine, most pronounced at C6-7.
Head CT-10/11/2024-
IMPRESSION:
No evidence of intracranial metastasis.
Discharge Plan
-
Patient Disposition: Home (Routine Discharge)
Discharge Diagnosis/Procedures: Acute pain syndrome, secondary to metastatic malignancy-primary unknown, scheduled for biopsy.
Condition: Fair
Diet: No restrictions and As tolerated
Activity: No restrictions
Driving Restrictions: As prior to admission
Activity Restrictions/Additional Instructions:
You have medication changes in the hospital.
Your primary care Dr. Portillo, your content production specialist Dr. Cisneros-both are updated about your medication changes.
Opioids can cause sedation, low blood pressure, low respiratory rate.
If you are breathing less than 10 times a minute, hold off your next opioid dose.
Recommend staying abstinent from alcohol if you feel sedated from opioids.
Your lisinopril is cut down to 20 mg a day.
your spironolactone/Aldactone is cut down to 12.5 mg a day.
Monitor your blood pressure at home regularly, if your blood pressure is running lower than 100-systolic or 60-diastolic please hold off taking your carvedilol.
Follow-up with your primary care physician and cardiology.
You are scheduled for a liver biopsy on Tuesday-10/11/2024.
Referrals:
Mariann Garzon MD [Active] - in one to two weeks (Schedule a follow-up appointment with Dr. Garzon in 2 weeks,-oncology.)
Neel Hayward MD [Active] - in four to six weeks
Mike Terry PA-C [Family Provider] - in one to two days
Prescriptions:
New
polyethylene glycol 3350 17 gram Powder In Packet
17 g PO DAILYPRN PRN (Reason: constipation) 30 Days Qty: 0 0RF
ibuprofen 800 mg Tablet
800 mg PO Q6HPRN PRN (Reason: mild pain) Qty: 0 0RF
lisinopril 20 mg Tablet
20 mg PO DAILY 30 Days Qty: 30 0RF
morphine 15 mg Tablet Extended Release
30 mg PO Q12 3 Days Qty: 12 0RF
Rx Instructions:
do not use if sedated or low respiratory rate <10
oxycodone 5 mg Tablet
5 mg PO Q4HPRN PRN (Reason: breakthrough pain) 3 Days Qty: 18 0RF
Rx Instructions:
do not use if sedated or low respiratory rate <10
spironolactone 25 mg Tablet
12.5 mg PO DAILY 30 Days Qty: 15 1RF
Continued
carvedilol 12.5 MG tablet
12.5 mg PO DAILY
acetaminophen 325 MG tablet
650 mg PO Q4HPRN PRN (Reason: mild pain) Qty: 1 0RF
Lasix
40 mg PO 1XD
Held
aspirin 325 MG tablet
325 mg PO DAILY
Hold Instructions: Resume on 10/18/24. Resume taking aspirin 48 hours after your biopsy.
Discontinued
lisinopril [Zestril] 30 MG tablet
40 mg PO DAILY
ibuprofen 200 MG tablet
400 - 600 mg PO Q6HPRN PRN (Reason: moderate pain) Qty: 1 0RF
oxycodone 5 MG tablet
5 mg PO Q4HPRN PRN (Reason: breakthrough/severe pain) Qty: 10 0RF
spironolactone
25 mg DAILY
Discharge Orders:
Discharge Patient (As Directed); Ordered 10/11/24
Ordered By: Nimco Oconnell
Discharge Date and Time
Print Language: MAURITANIAN
--- NOTE | 2024-10-11 11:56 | W.DS.TRANS ---
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
-
Discharge Instructions:
Discharge Diagnosis/Procedures Acute pain syndrome, secondary to metastatic
malignancy-primary unknown, scheduled for biopsy
.
Diet No restrictions,As tolerated
Activity No restrictions
Driving Restrictions As prior to admission
Instructions:
Stand-Alone Forms:
Changes to Home Medications: Yes
Discharge Medications:
DC Medications w/original date entered in ICU Metrix
aspirin 325 mg tablet 325 mg PO DAILY Blood Clot Prevention/Tx 12/16/20
carvedilol 12.5 mg tablet 12.5 mg PO DAILY Blood Pressure 12/16/20
acetaminophen 325 mg tablet 650 mg (2 x 325 mg) PO Q4HPRN PRN mild pain #1 tab 12/17/20
Lasix 40 mg PO 1XD Fluid Retention/Swelling 10/09/24
ibuprofen 800 mg tablet 800 mg PO Q6HPRN PRN mild pain #0 tabs 10/11/24
lisinopril 20 mg tablet 20 mg PO DAILY 30 days #30 tabs 10/11/24
morphine 15 mg tablet,extended release 30 mg (2 x 15 mg) PO Q12 3 days #12 tabs 10/11/24
oxycodone 5 mg tablet 5 mg PO Q4HPRN PRN breakthrough pain 3 days #18 tabs 10/11/24
polyethylene glycol 3350 17 gram oral powder packet 17 g PO DAILYPRN PRN constipation 30 days #0 ea 10/11/24
spironolactone 25 mg tablet 12.5 mg (1/2 x 25 mg) PO DAILY Cardiac 30 days #15 tabs 10/11/24
Home Medication Changes
Aspirin on hold
Carvedilol 12.5 mg has holding parameters.
Lisinopril 20 mg once a day
Spironolactone 12.5 mg once a day
Bowel regimen-MiraLAX once a day
Morphine extended release-30 mg twice a day for 2 days
Oxycodone 5 mg every 4 hours as needed for 3 days.
Pending Results: Yes
[2024-10-11 14:54] VITALS: BP 116/71
[2024-10-13 15:02] LABS: Albumin 2.84 g/dL (3.75-5.01); Alpha 1 Globulin 0.43 g/dL (0.19-0.46); Alpha 2 Globulin 0.95 g/dL (0.48-1.05); Free Kappa Light Chains,Quant 36.87 mg/L (3.30-19.40); Free Lambda Light Chains,Quant 27.08 mg/L (5.71-26.30); IgA 115 mg/dL (68-408); IgG 1271 mg/dL (768-1632); IgM 67 mg/dL (35-263); Immunofixation Electrophoresis IFE Done; Kappa/Lambda Fr Light Ratio 1.36 (0.26-1.65); Total Protein-Electrophoresis 6.1 g/dL (6.3-8.2)
[2024-10-14 14:35] LABS: Albumin 2.65 g/dL (3.75-5.01); Alpha 1 Globulin 0.45 g/dL (0.19-0.46); Alpha 2 Globulin 0.86 g/dL (0.48-1.05); Free Kappa Light Chains,Quant 38.72 mg/L (3.30-19.40); Free Lambda Light Chains,Quant 29.87 mg/L (5.71-26.30); IgA 104 mg/dL (68-408); IgG 1203 mg/dL (768-1632); IgM 66 mg/dL (35-263); Immunofixation Electrophoresis IFE Done; Total Protein-Electrophoresis 5.8 g/dL (6.3-8.2)
[2024-10-17 00:07] LABS: JAK2 Qual Mutation by PCR Not Detected; JAK2-PCR Source Whole Blood
== END 2024-10-11 16:16 | disposition home or self-care (01) | DRG 723 ==
LOC: 2 NORTH 23:24
PROVIDERS: Emergency Medicine; Nurse Practitioner; Student in an Organized Health Care Education/Training Program; ADMITTING PHYSICIAN Hospitalist; ATTENDING PHYSICIAN Hospitalist; EMERGENCY PHYSICIAN Student in an Organized Health Care Education/Training Program; FAMILY PHYSICIAN Physician Assistant Medical; OTHER PHYSICIAN Internal Medicine Hematology & Oncology
DX: C61 Malignant neoplasm of prostate (principal); C78.7 Secondary malignant neoplasm of liver and intrahepatic bile duct; C79.51 Secondary malignant neoplasm of bone; I42.8 Other cardiomyopathies; I50.22 Chronic systolic (congestive) heart failure; G89.3 Neoplasm related pain (acute) (chronic); M50.30 Other cervical disc degeneration, unspecified cervical region; M48.02 Spinal stenosis, cervical region; I25.10 Atherosclerotic heart disease of native coronary artery without angina pectoris; K21.9 Gastro-esophageal reflux disease without esophagitis; I11.0 Hypertensive heart disease with heart failure; E78.5 Hyperlipidemia, unspecified; K59.00 Constipation, unspecified; Z79.82 Long term (current) use of aspirin; Z79.899 Other long term (current) drug therapy; Z80.6 Family history of leukemia; Z91.148 Patient's other noncompliance with medication regimen for other reason
CPT/HCPCS: 70450; 70491; 71046; 72141; 72146; 74177; 76700; 80048; 80053; 81003; 81015; 81270; 82784; 82962; 83521; 83690; 83880; 84153; 84155; 84165; 84484; 85025; 85027; 86334; 87086; 88112; 93005; 96374; 96375; 97162; 97165; 97535; 99285; Q9967

== ENCOUNTER 2024-10-16 10:26 | Outpatient (REF) | payer MEDICARE, SELFPAY ==
[2024-10-16] VITALS (7 sets, daily range): BP systolic 51–142; BP diastolic 73–94; BMI 27.1
[2024-10-16 10:59] LABS: Hemoglobin 12.5 g/dL (13.0-18.0); Mean Corp Hgb Conc. 35.7 g/dL (33.0-37.0); Mean Corpuscular Hgb 29.6 pg (27.0-31.0); Mean Corpuscular Volume 82.9 fL (80.0-94.0); Mean Platelet Volume 11.7 fL (7.4-10.4); Platelet Count 256 10^3/uL (130-400); Red Blood Cell Count 4.22 10^6/uL (4.70-6.10); White Blood Cell Count 7.1 10^3/uL (4.8-10.8)
[2024-10-16 11:16] LABS: INR 1.12; PT 14.7 Sec (11.4-14.6)
[2024-10-16] MEDS: TYLENOL 650 MG PO (14:40)
== END 2024-10-16 15:30 | disposition home or self-care (01) ==
LOC: RADI 10:26
PROVIDERS: ATTENDING PHYSICIAN Family Medicine; FAMILY PHYSICIAN Physician Assistant
DX: C78.7 Secondary malignant neoplasm of liver and intrahepatic bile duct (principal); Z79.01 Long term (current) use of anticoagulants; C68.9 Malignant neoplasm of urinary organ, unspecified
CPT/HCPCS: 88307; 36415; 47000; 76942; 85027; 85610; 88341; 88342; 99152; 99153

== ENCOUNTER → 2024-10-24 12:40 | Outpatient (REF) | payer MEDICARE, SELFPAY | LOC: RAD 12:40 | PROVIDERS: ATTENDING PHYSICIAN Physician Assistant Medical | DX: R60.0 Localized edema (principal); C79.9 Secondary malignant neoplasm of unspecified site; C79.10 Secondary malignant neoplasm of unspecified urinary organs | CPT/HCPCS: 93970 ==

== ENCOUNTER → 2024-11-08 09:49 | Outpatient (REF) | payer MEDICARE, SELFPAY ==
[2024-11-08 10:16] VITALS: BP 130/70; BP_SYST 73
[2024-11-08 11:55] VITALS: BP 127/86; BP_SYST 81
[2024-11-08] MEDS: ANCEF 10 IV (11:59)
[2024-11-08 12:05] VITALS: BP 125/56
[2024-11-08 12:22] VITALS: BP 123/77
== END ==
LOC: RADI 09:49
PROVIDERS: ATTENDING PHYSICIAN Internal Medicine Hematology & Oncology; FAMILY PHYSICIAN Family Medicine
DX: C66.2 Malignant neoplasm of left ureter (principal); C78.7 Secondary malignant neoplasm of liver and intrahepatic bile duct
CPT/HCPCS: 36561; 76937; 77001; 99152; 99153

== ENCOUNTER → 2024-11-26 09:55 | Outpatient (REF) | payer MEDICARE, SELFPAY ==
[2024-11-26 10:53] LABS: Hematocrit 29.4 % (39.0-52.0); Hemoglobin 10.2 g/dL (13.0-18.0); Mean Corp Hgb Conc. 34.7 g/dL (33.0-37.0); Mean Corpuscular Volume 81.2 fL (80.0-94.0); Nucleated Red Blood Cells % 0 % (-); Platelet Count 253 10^3/uL (130-400); Red Cell Dist. Width 13.1 % (11.5-14.5)
[2024-11-26 11:42] LABS: ALT (SGPT) 30 U/L (0-50); AST (SGOT) 42 U/L (17-59); Albumin 3.3 g/dl (3.5-5.0); Blood Urea Nitrogen 47 mg/dl (9-20); Calcium 7.6 mg/dl (8.4-10.2); Carbon Dioxide 24 mmol/L (22-30); Chloride 104 mmol/L (98-107); Glucose 144 mg/dl (70-99); Potassium 3.3 mmol/L (3.5-5.1); Sodium 137 mmol/L (135-145)
[2024-11-26 11:55] LABS: Total Protein 6.5 g/dl (6.3-8.2); eGFR 49.77
[2024-11-26 12:12] LABS: Cortisol, Random 15.7 ug/dl; TSH 3.95 uIU/ml (0.47-4.68)
[2024-11-26 12:16] LABS: Alkaline Phosphatase 1305 U/L (38-126)
== END ==
LOC: REG 09:55
PROVIDERS: ATTENDING PHYSICIAN Internal Medicine
DX: Z51.11 Encounter for antineoplastic chemotherapy (principal); Z51.12 Encounter for antineoplastic immunotherapy; C79.51 Secondary malignant neoplasm of bone; C78.7 Secondary malignant neoplasm of liver and intrahepatic bile duct; C79.72 Secondary malignant neoplasm of left adrenal gland; C66.2 Malignant neoplasm of left ureter; E78.5 Hyperlipidemia, unspecified; D64.9 Anemia, unspecified
CPT/HCPCS: 36415; 80053; 82533; 84439; 84443; 85025

== ENCOUNTER → 2024-12-03 09:16 | Outpatient (REF) | payer MEDICARE, SELFPAY ==
[2024-12-04 03:24] LABS: Hepatitis B Surface Antigen Negative (Negative)
[2024-12-04 03:42] LABS: Hepatitis C Antibody Negative (Negative)
== END ==
LOC: REG 09:16
PROVIDERS: ATTENDING PHYSICIAN Internal Medicine; FAMILY PHYSICIAN Family Medicine
DX: Z51.11 Encounter for antineoplastic chemotherapy (principal); Z51.12 Encounter for antineoplastic immunotherapy; C78.7 Secondary malignant neoplasm of liver and intrahepatic bile duct; C79.72 Secondary malignant neoplasm of left adrenal gland; C66.2 Malignant neoplasm of left ureter
CPT/HCPCS: 36415; 86704; 86706; 86803; 87340

== ENCOUNTER → 2024-12-04 10:02 | Outpatient (REF) | payer MEDICARE, SELFPAY ==
[2024-12-04 10:39] LABS: Hematocrit 27.1 % (39.0-52.0); Hemoglobin 9.7 g/dL (13.0-18.0); Mean Corp Hgb Conc. 35.8 g/dL (33.0-37.0); Mean Corpuscular Volume 78.6 fL (80.0-94.0); Nucleated Red Blood Cells % 0 % (-); Platelet Count 233 10^3/uL (130-400); Red Cell Dist. Width 13.3 % (11.5-14.5)
[2024-12-04 12:18] LABS: ALT (SGPT) 48 U/L (0-50); AST (SGOT) 69 U/L (17-59); Albumin 3.0 g/dl (3.5-5.0); Blood Urea Nitrogen 24 mg/dl (9-20); Calcium 6.8 mg/dl (8.4-10.2); Carbon Dioxide 22 mmol/L (22-30); Chloride 104 mmol/L (98-107); Glucose 133 mg/dl (70-99); Potassium 2.9 mmol/L (3.5-5.1); Sodium 134 mmol/L (135-145); Total Protein 6.1 g/dl (6.3-8.2); eGFR > 60.00
[2024-12-04 12:21] LABS: Alkaline Phosphatase 1213 U/L (38-126)
== END ==
LOC: REG 10:02
PROVIDERS: ATTENDING PHYSICIAN Internal Medicine; FAMILY PHYSICIAN Family Medicine
DX: Z51.11 Encounter for antineoplastic chemotherapy (principal); Z51.12 Encounter for antineoplastic immunotherapy; C79.51 Secondary malignant neoplasm of bone; C78.7 Secondary malignant neoplasm of liver and intrahepatic bile duct; C79.72 Secondary malignant neoplasm of left adrenal gland; C66.2 Malignant neoplasm of left ureter
CPT/HCPCS: 36415; 80053; 85025

== ENCOUNTER → 2024-12-17 09:52 | Outpatient (REF) | payer MEDICARE, SELFPAY ==
[2024-12-17 10:50] LABS: Hematocrit 27.3 % (39.0-52.0); Hemoglobin 9.2 g/dL (13.0-18.0); Mean Corp Hgb Conc. 33.7 g/dL (33.0-37.0); Mean Corpuscular Volume 83.2 fL (80.0-94.0); Nucleated Red Blood Cells % 1.2 % (-); Platelet Count 277 10^3/uL (130-400); Red Cell Dist. Width 14.9 % (11.5-14.5)
[2024-12-17 11:16] LABS: ALT (SGPT) 22 U/L (0-50); AST (SGOT) 27 U/L (17-59); Albumin 3.2 g/dl (3.5-5.0); Alkaline Phosphatase 750 U/L (38-126); Blood Urea Nitrogen 24 mg/dl (9-20); Calcium 8.4 mg/dl (8.4-10.2); Carbon Dioxide 24 mmol/L (22-30); Chloride 103 mmol/L (98-107); Glucose 166 mg/dl (70-99); Potassium 3.9 mmol/L (3.5-5.1); Sodium 134 mmol/L (135-145); Total Protein 6.2 g/dl (6.3-8.2); eGFR 54.07
[2024-12-17 11:46] LABS: TSH 1.83 uIU/ml (0.47-4.68)
== END ==
LOC: REG 09:52
PROVIDERS: ATTENDING PHYSICIAN Registered Nurse Oncology
DX: C66.2 Malignant neoplasm of left ureter (principal); R53.83 Other fatigue
CPT/HCPCS: 36415; 80053; 84443; 85025

== ENCOUNTER → 2024-12-25 08:49 | Outpatient (REF) | payer MEDICARE, SELFPAY | LOC: RST 08:49 | PROVIDERS: ATTENDING PHYSICIAN Internal Medicine; FAMILY PHYSICIAN Family Medicine | DX: C79.2 Secondary malignant neoplasm of skin (principal); Z51.11 Encounter for antineoplastic chemotherapy; Z51.12 Encounter for antineoplastic immunotherapy; C66.2 Malignant neoplasm of left ureter; C78.7 Secondary malignant neoplasm of liver and intrahepatic bile duct; C79.51 Secondary malignant neoplasm of bone; C79.72 Secondary malignant neoplasm of left adrenal gland; R13.10 Dysphagia, unspecified | CPT/HCPCS: 74230; 92611 ==

== ENCOUNTER 2024-12-31 12:47 | Inpatient (IN) | payer MEDICARE, SELFPAY ==
[2024-12-31] VITALS (15 sets, daily range): BP systolic 100–137; BP diastolic 49–72; BMI 23.4; BMI 23.7
--- NOTE | 2024-12-31 08:54 | ED.GENMED ---
History of Present Illness
General
Chief Complaint: Breathing Problem
Time Seen by Provider: 12/31/24 08:17
History of Present Illness
History of Present Illness:
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 Patient notes that he recently started chemotherapy, is on his second treatment. He had a second treatment last week and
yesterday started to feel increasingly short of breath and very dry. He feels dehydrated. He has been following with [facility] Roberts. He is getting Padcev with Keytruda. Notes after his first chemotherapy, started to develop a diffuse rash with
erythema which oncology is aware of. Denies chest pain. Denies cough. Notes some chronic lower extremity edema. Denies abdominal pain or vomiting. Patient somewhat limited historian given his work of breathing. No additional history obtained
at this time.
Past History
Past History
ED Past Medical History: GERD, HTN and Other (Kidney stone)
ED Past Surgical History: None
Social History
Tobacco: Non-smoker
Alcohol: Occasional
Personal:
Living: with family
Phy Exam
Physical Exam
Physical Exam:
General: Well-appearing, dry mucous membranes, nontoxic and in no acute distress
HEENT: protecting airway
Neck: appears supple
CV: Normal heart rate, regular rhythm, no evidence of cyanosis
Resp: Tachypneic, lungs clear to auscultation bilaterally
Abd: Soft and non-distended, no tenderness to palpation
Extremities: No deformities, +1 pitting edema bilaterally
Neuro: alert, no focal neurologic deficit
: deferred
Rectal: deferred
Psych: Normal affect
Skin: Diffuse rash to the extremities and the back with scabbing and excoriations, erythema
Scores
Heart Failure Risk
Heart Failure Risk Score: Not Applicable
Course
Orders/Labs/Results
Orders:
Orders
12/31/24 08:39
Electrocardiogram (*1) Stat
Reason for Study: Other
Other Reason for Exam: chest pain
EKG- Treatment ONCE
0.9% Sodium Chloride 1000 ml [Nss] 1,000 ml IV BOLUS
CR Chest - 2 Views Urgent
Comment:
Reason For Exam: SOB
12/31/24 08:58
C-Reactive Protein Urgent
Comment: ADD ON
Complete Blood Count/With Diff Urgent
Comprehensive Metabolic Panel Urgent
Ferritin Urgent
Comment: ADD ON
Folate Urgent
Comment: ADD ON
Iron Urgent
Comment: ADD ON
NT-proBNP Urgent
PTT Urgent
Phosphorus Urgent
Comment: ADD ON
Prothrombin Time Urgent
Total Iron Binding Urgent
Comment: ADD ON
Uric Acid Urgent
Comment: ADD ON
Vitamin B12 Urgent
Comment: ADD ON
12/31/24 10:02
Calcium Gluconate 1,000 mg IV NOW STA
12/31/24 10:38
* Blood Bank Products Urgent
Blood Bank Products: *Packed RBC Leuko(PRBC's)
Quantity: 1
Transfuse Today: Yes
Reason: Anemia
12/31/24 11:00
Add On- LAB Routine
Tests Added?: ferritin, TIBC, iron level, B12 level, Folate level
12/31/24 11:04
Add On- LAB Urgent
Tests Added?: phosphate level, uric acid level
12/31/24 11:05
ONCOLOGY CONSULT Routine
Consulting Provider: Meghann Quiros
Was physician already notified: Yes
12/31/24 11:10
Type And Crossmatch [Type+Screen] Urgent
12/31/24 11:38
Add On- LAB Routine
Tests Added?: urine sodium, urine creatinine
VQ Scan [NM Lung Scan Vent/perf ] Routine
Comment:
Reason For Exam: SOB, metastatic cancer, eval for VTE
US Legs, Bilateral [US Periph Venous LOWER Ext Magdi] Urgent
Comment:
Reason For Exam: SOB, metastatic cancer, eval for VTE
12/31/24 11:39
Admit/Transfer Patient As Directed
Co-Sign Provider:
Level of Care: Inpatient admission
Assign to:: IMU- Intermediate Care
Physician / Group: Romelia/hospitalist
Diagnosis: BERTA, hypocalcemia
Reason for Hospitalization: BERTA, hypocalcemia
Expected length of stay greater than two midnights?: Yes
ELOS- Estimated Length of Stay in days: 3
I certify the patient meets the requirements for IP care: Yes
Bladder Scan As Directed
Follow Bladder Retention/Intermittent Cath Algorithm?: Yes
PRN if no void in __ hours: 6
Frequency: Per Retention Algorithm
If Bladder Scan Result >: 400
then:: Straight cath
Straight Cath As Directed
Frequency: Per Retention Algorithm
Additional Instructions: straight cath as needed per acute urinary retention algorithm for 24 hrs
Additional Instructions: for bladder scan greater than 400 mL
PRN Pain Medication Management As Directed
May give lesser potent ordered pain med per pt: Yes
preference::
Protocol:: Medication orders for pain may be administered in a
manner that supports deferring to patient preference
when the pt is:
- Requesting an ordered lesser potent pain medication.
Least to most potent pain medications are defined
as: acetaminophen < NSAID < tramadol < opioids
(morphine, oxycodone, hydromorphone).
- Requesting a lesser dose of the same medication IF
ORDERED.
- Requesting a less intrusive route of administration
if both routes are prescribed by the provider (PO <
IV).
12/31/24 11:41
Code Status As Directed
Resuscitation Status: Full Code
12/31/24 11:44
ABO2 Urgent
BBK Wristband Number:
Associate notified that ABO2 has been ordered: [id number]
Date: 12/31/24
Time: 11:15
[employer] ID: [id number]
Ionized Calcium Urgent
12/31/24 11:45
Add On- LAB Routine
Tests Added?: CRP
Blood Culture Q30M
CHEMO Source: Blood/Venous
Specimen Description:
0.9% Sodium Chloride 1000 ml [Nss] 1,000 ml IV 80 mls/hr
12/31/24 12:15
Blood Culture Q30M
CHEMO Source: Blood/Venous
Specimen Description:
12/31/24 12:47
STOOL [C difficile Antigen & Toxins] Routine
CHEMO Source: Feces/Stool
Specimen Description:
Stool Culture Routine
CHEMO Source: Feces/Stool
Specimen Description:
Abnormal Lab Results
12/31/24 12/31/24 12/31/24
08:58 11:10 11:44
WBC 3.8 L 10^3/uL
(4.8-10.8)
RBC 2.51 L 10^6/uL
(4.70-6.10)
Hgb 7.1 L g/dL
(13.0-18.0)
Hct 20.1 L* %
(39.0-52.0)
RDW 16.7 H %
(11.5-14.5)
Abs Immat Gran (auto) 0.1 H 10^3/uL
(0-0.05)
Absolute Lymphs (auto) 0.5 L 10^3/uL
(1.2-3.4)
Immature Gran % 2.4 H %
(0-0.5)
Lymphocytes % 13.8 L %
(20.5-51.1)
Monocytes % 12.0 H %
(1.7-9.3)
PT 17.1 H Sec
(11.4-14.6)
Sodium 133 L mmol/L
(135-145)
Chloride 108 H mmol/L
(98-107)
Carbon Dioxide 12 L* mmol/L
(22-30)
BUN 53 H mg/dl
(9-20)
Creatinine 2.3 H mg/dL
(0.7-1.3)
Glucose 101 H mg/dl
(70-99)
Uric Acid 12.2 H mg/dl
(3.5-8.5)
Calcium 4.8 L* mg/dl
(8.4-10.2)
Ionized Calcium 0.72 L mMOL/L
(1.15-1.33)
TIBC 200 L ug/dl
(261-462)
Ferritin 3040.0 H ng/ml
(17.9-464.0)
Alkaline Phosphatase 239 H U/L
(38-126)
C-Reactive Protein 170.70 H mg/L
(0.0-10.00)
Total Protein 5.8 L g/dl
(6.3-8.2)
Albumin 2.9 L g/dl
(3.5-5.0)
Crossmatch IS Only See Detail
12/31/24 08:58
12/31/24 08:58
Vital Signs
Initial and Last Documented VS:
Initial Vital Signs
Pulse Resp Pulse Ox
90 24 100
12/31/24 08:11 12/31/24 08:11 12/31/24 08:11
Last Documented Vital Signs
Temp Pulse Resp BP Pulse Ox
99.8 F 93 24 103/51 99
12/31/24 13:38 12/31/24 13:38 12/31/24 13:38 12/31/24 13:38 12/31/24 13:26
MDM/Problems Addressed
MDM/Problems Addressed:
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 Vital signs on arrival are normal.
On exam, patient in no acute distress, however does appear dyspneic with increased work of breathing. However, oxygenation within normal limits, no tachycardia. Lungs are clear to auscultation. Patient afebrile, lower suspicion for pneumonia.
Does have lower extremity edema, however reports chronic. Possible pulmonary edema. Patient placed on supplemental O2 for comfort. PE is a consideration history of active cancer. Again however, no hypoxia or tachycardia. Will continue to
monitor. Patient continues to report feeling dehydrated. Will start patient IV fluids and obtain laboratory analysis to evaluate for any electrolyte derangement. Chest x-ray imaging.
10:00 -chest x-ray without significant pathology. Patient is improved after 1 L of fluids. Multiple abnormalities on laboratory analysis. Patient is anemic, 7.1. Also hypocalcemic with BERTA. Will replete calcium and continue IV fluids for acute
dehydration. Did update family at bedside. Will call patient's oncologist, Dr. June for update as well. Plan for admission for acute dehydration and hypocalcemia
10:45 -did call discussed with patient's oncologist, confirms lab abnormalities. Advises transfusion, calcium repletion, fluids. Also advised to use steroid taper for rash. Communicated to hospitalist.
*Pulse Oximetry
SaO2: 99
Nasal Cannula flow liters per minute: 2
Patient hypoxic: no
*EKG
Interpreted by ED Provider?: Yes
EKG Intrepretation Date: 12/31/24
EKG Intrepretation Time: 09:51
Interpretation: abnormal
Heart Rate: 92
Rate: normal
Rhythm: sinus and PVC's
[place]: normal axis
Interval: long QT
QRS Pattern: normal QRS
Ischemia: non-specific ST changes
*Critical Care Note
Total Time (30-74mins, 75-104mins- exclusive of procedures): 37
comment:
The high probability of a clinically significant, sudden or life threatening deterioration, dehydration and electrolyte derangements/anemia, required my full and direct attention, intervention and personal management. The aggregate critical care
time was 37 minutes. This time is in addition to time spent performing reported procedures but includes the following:
[x] Data Review and interpretation
[x] Patient assessment and monitoring of vital signs
[x] Documentation
[x] Medication orders and management
ED Attending Note
-
Portions of this chart may have been created with voice recognition software.� Occasional wrong word or��sound alike� substitutions may have occurred due to the inherent limitations of voice recognition software.
Discharge Plan
Departure
Patient Disposition: Admit
Date of Disposition: 12/31/24
Time of Disposition: 10:39
Presentation/result/management discussed w/ accepting MD/DO: Hospitalist
Patient with high blood pressure during this ER visit?: No
Condition: Fair
Discharge Problem:
Shortness of breath, BERTA (acute kidney injury), Hypocalcemia
Interventions
Interventions:
*General Assessment Last Done: 12/31/24 12:24
*Neglect/Abuse Screening Last Done: 12/31/24 12:24
*ED COVID-19 Vaccine History Last Done: 12/31/24 12:23
ED- Cardiac Assessment Last Done: 12/31/24 13:25
ED- Pulmonary Assessment Last Done: 12/31/24 13:26
[2024-12-31] MEDS: NSS 1000 IV ×2 (09:07→16:55)
[2024-12-31 09:38] LABS: APTT 32.0 Sec (23.4-35.0); INR 1.36; PT 17.1 Sec (11.4-14.6)
[2024-12-31 09:50] LABS: Hematocrit 20.1 % (39.0-52.0); Hemoglobin 7.1 g/dL (13.0-18.0); Mean Corp Hgb Conc. 35.3 g/dL (33.0-37.0); Mean Corpuscular Volume 80.1 fL (80.0-94.0); Platelet Count 271 10^3/uL (130-400); Red Cell Dist. Width 16.7 % (11.5-14.5)
[2024-12-31 09:55] LABS: ALT (SGPT) 14 U/L (0-50); AST (SGOT) 27 U/L (17-59); Albumin 2.9 g/dl (3.5-5.0); Alkaline Phosphatase 239 U/L (38-126); Blood Urea Nitrogen 53 mg/dl (9-20); Calcium 4.8 mg/dl (8.4-10.2); Carbon Dioxide 12 mmol/L (22-30); Chloride 108 mmol/L (98-107); Estimated Creatinine Clearance 32 ml/min; Glucose 101 mg/dl (70-99); Potassium 3.8 mmol/L (3.5-5.1); Sodium 133 mmol/L (135-145); Total Protein 5.8 g/dl (6.3-8.2); eGFR 29.80
[2024-12-31] MEDS: CALCIUM GLUCONATE 1000 MG IV (10:15)
[2024-12-31 10:36] LABS: Nucleated Red Blood Cells % 0.5 % (-)
--- NOTE | 2024-12-31 10:53 | HPS.HSE ---
Family Physician
-
Family Physician: Merline Portillo
Chief Complaint
-
SOB
History of Present Illness
HPI: 69-year-old male with PMH metastatic ureteral cancer (follows at [facility] with Dr June [phone]), recent chemo s/p second treatment (Padcev with Keytruda) this past week; p/w shortness of breath, poor po intake and feeling dehydrated.
He also noted development of diffuse rash with erythema which his oncology is aware of.
Denies to other symptoms such as chest pain, cough, abd pain, change in BM etc.
He has chronic lower extremity edema.
Medical History
Past Medical History
Past Medical History: Reports Other
Additional Past Medical History:
cardiomyopathy,
CAD,
GERD,
paroxysmal vertigo,
hypertension,
hyperlipidemia
Metastatic ureteral cancer
Past Surgical History: Reports None
Social History
Tobacco: Non-smoker
Alcohol: Occasional
Living: With Family ( )
Family History
Family History: Not pertinent
Allergies / Home Medications
Allergies reflects when Allergies were last updated in [facility].
Home Medications with original date entered in [facility]
Allergy/Medication List:
Allergies
Allergy/AdvReac Type Severity Reaction Status Date / Time
No Known Allergies Allergy Verified 10/10/24 16:10
Home Medications
carvedilol 12.5 mg tablet 12.5 mg PO DAILY Blood Pressure 12/16/20
furosemide 40 mg tablet (Lasix) 60 mg PO DAILY Fluid Retention/Swelling ##0 10/09/24
buprenorphine HCl 2 mg sublingual tablet 1 mg sublingual DAILY Pain 12/31/24
calcium carbonate (Calcium 500) 1,000 mg PO DAILY Supplement 12/31/24
calcium carbonate (Calcium 500) 500 mg PO QPM Supplement 12/31/24
ibuprofen 200 mg tablet (Advil) 400 mg PO Q6H Pain 12/31/24
loperamide 2 mg tablet 2 mg PO BIDPRN PRN diarrhea 12/31/24
potassium chloride 20 mEq oral packet 20 meq PO BID Electrolyte Repletion 12/31/24
Review of Systems
-
Respiratory: Reports See HPI and Trouble Breathing; Denies Cough or Hemoptysis
Cardiac: Denies Chest Pain
Physical Exam
Vital Signs
Vital Signs
Temp Pulse Resp BP Pulse Ox
36.9 C 88 28 116/64 99
12/31/24 08:12 12/31/24 08:15 12/31/24 08:15 12/31/24 08:12 12/31/24 08:57
Physical Exam
General: Well Developed, Well Nourished, Comfortable and Appears Chronically Ill
HEENT: NormoCephalic, Moist mucous membranes, Atraumatic and Oxygen (2L NC)
Respiratory: Clear and Non Labored Respirations; No Accessory Resp Muscle Use
Cardiac: S1/S2 and Regular Rhythm; No Murmur or Rub
GI: Soft, Non Tender, Non Distended and Normal Bowel Sounds; No Organomegaly
Rectal: Deferred by Provider
Musculoskeletal: No Clubbing, No Cyanosis, Edema, Left Lower Extremity and Edema, Right Lower Extremity
Skin: Rash (diffuse erythematous rash ) and IV/Catheter Site (chemoport )
Neuro: Awake and Alert
Psych: Calm and Intact Judgment/Insight
Laboratory Results
-
12/31/24 08:58
12/31/24 08:58
Laboratory Results
PT 17.1 Sec (11.4-14.6) H 12/31/24 08:58
INR 1.36 12/31/24 08:58
APTT 32.0 Sec (23.4-35.0) 12/31/24 08:58
Total Bilirubin 1.0 mg/dl (0.2-1.3) 12/31/24 08:58
AST 27 U/L (17-59) 08/11/25 08:58
ALT 14 U/L (0-50) 12/31/24 08:58
Alkaline Phosphatase 239 U/L (38-126) H 12/31/24 08:58
Data Reviewed
-
Diagnostic Radiology: Image Personally Visualized and interpreted and Report Reviewed by me
Lab Data: Labs Reviewed by me
Impression/Plan
-
HPI: 69-year-old male with PMH metastatic ureteral cancer (follows at [facility] with Dr June [phone]), recent chemo s/p second treatment (Padcev with Keytruda) this past week; p/w shortness of breath, poor po intake and feeling dehydrated.
He also noted development of diffuse rash with erythema which his oncology is aware of.
Denies to other symptoms such as chest pain, cough, abd pain, change in BM etc.
He has chronic lower extremity edema.
A/P:
# Dyspnea, ?2/2 anemia vs others
Placed on 2L NC for symptoms
CXR NAD
Noted BNP 4000 on admission
Hgb 7.1 on admission, from baseline 9.7
transfuse 1 units PRBC
Check iron panel, B12/folate
Monitor Hb
Check BL LE US and VQ scan for VTE eval as part of dyspnea work up in setting of metastatic cancer
# Poor PO intake, dehydration, Prerenal BERTA
# Metabolic acidosis
SCr 2.3 from baseline around 1.0
s/p 1 L NSS IVF, cont maintenance IVF
Monitor SCr
bladder scan and straight cath PRN
Consider renal CS if SCr does not improve
Clears liquid diet for now, can advance after evaluated/cleared by SPL
# hypocalcemia
corrected calcium level 5.7
concern for tumor lysis syndrome with recent chemo treatment
stat uric acid high at 12
follow phosphate level
s/p calcium gluconate 1000 mg, to give additional 2000 mg
Cont IVF
Onc CS and eval for rasburicase
# Diffuse skin rash
ED d/w outpt oncologist Dr June, who recc steroid over 2 weeks
Start empiric prednisone 40 mg
wound care CS
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
pt c/o intermittent chills at home, check CRP and blood culture for empiric infection r/o
low dose IV lasix 20 mg BID for chronic edema and pt receiving blood/IVF
DVT ppx: HSQ
FC for now until further notified by pt
DW daughter at bedside
DW Oncologist
CC timr 45 min
[2024-12-31 11:33] LABS: Iron 67 ug/dl (49-181); Uric Acid 12.2 mg/dl (3.5-8.5)
--- NOTE | 2024-12-31 11:35 | CON.ONC ---
Consultation
-
Date Consultation Requested: 12/31/24
Date Consultation Performed: 12/31/24
Requesting Provider: Dr. Jayla León
Performing Provider: Dr. Modesta Quiros
Reason for Consultation: metastatic urethelial carcinoma
Impression
Impression
metastatic urothelial carcinoma s/p C2 Padcev with keytruda at [facility] last week
rash secondary to antineoplastic therapy
hypocalcemia secondary to xgeva
jazmin likely dehydration with poor oral intake, diarrhea, and continue lasix use at home
cancer pain
SOB
Anemia
leukopenia/lymphopenia
elevated BNP
Plan
Plan
Padcev most common SE include but not limited to fatigue, peripheral neuropathy, decreased appetite, rash, nausea, diarrhea
monitor for immune mediated SE of keytruda. He
symptoms support, antiemetics
calcium repletion, hold xgeva for resolution of hypocalcemia
prednisone 1mg/kg/day -taper as outpatient by primary oncologist- PPI while on steroids
if stool culture and c.diff negative then Imodium prn
transfuse prn
OP follow up with [facility] upon discharge for continued management of metastatic urothelial carcinoma
Patient History
History of Present Illness
69yo M presented to with shortness of breath. His SOB started yesterday. He also notes poor oral intake resulting in dehydration. His initial evaluation is notable for WBC 3.8, ANC 2.5, ALC 0.5, Hgb 7.1g/dL, MCV 80, platelet count 271,000, Na
133, BUN 53, creatinine 2.3, urate 12.2, calcium 4.8, Tbili 1, AST 27, ALT 14, Alk phos 239, CRP 170, BNP 4290, albumin 2.9. His CXR showed no acute cardiopulmonary abnormality.
In brief, he presented to September 2024 with back and rib pain. His imaging showed a suspected left ureter mass, liver lesions, and bone mets. Urine cytology was positive for high grade carcinoma. Liver biopsy showed metastatic carcinoma consistent
with urothelial primary. He opted to follow up with [facility] for systemic therapy. He tells me that he received his 2nd cycle of chemotherapy last week, Padcev with keytruda. He has also received xgeva for bone ppx. His treatment course has been
complicated by rash with erythema, poor oral intake, decreased urine output, and diarrhea. His diarrhea over the weekend was responsive to imodium. He has lost at least 20lb since September 2024. His MS contin was recently changed to buprenorphine for
cancer pain.
Afebrile, no hypotension, 2L NC
at bedside provided updates and questions anwered.
Past-Medical/Surgical History
PMH cardiomyopathy, CAD, GERD, paroxysmal vertigo, hypertension, hyperlipidemia
PSH liver biopsy
Family mother lymphoma
Social: never smoker, denies ETOH, uses marijuana, Lives with
Patient Medication
�Medication �Instructions �Recorded �Confirmed �Last Taken �Type
carvedilol 12.5 mg tablet 12.5 mg PO DAILY Blood Pressure 12/16/20 12/31/24 12/30/24 History
furosemide 40 mg tablet (Lasix) 60 mg PO DAILY Fluid 10/09/24 12/31/24 12/30/24 History
Retention/Swelling ##0
buprenorphine HCl 2 mg sublingual 1 mg sublingual DAILY Pain 12/31/24 12/31/24 12/30/24 History
tablet
calcium carbonate (Calcium 500) 1,000 mg PO DAILY Supplement 12/31/24 12/31/24 12/30/24 History
calcium carbonate (Calcium 500) 500 mg PO QPM Supplement 12/31/24 12/31/24 12/30/24 History
ibuprofen 200 mg tablet (Advil) 400 mg PO Q6H Pain 12/31/24 12/31/24 12/30/24 History
loperamide 2 mg tablet 2 mg PO BIDPRN PRN diarrhea 12/31/24 12/31/24 12/30/24 History
potassium chloride 20 mEq oral 20 meq PO BID Electrolyte Repletion 0812/31/24 12/30/24 History
packet
Review of Systems
-
ROS is notable for HPI, otherwise negative
Physical Exam
-
General: Respiratory Distress and Appears in Distress
HEENT: Other (dry); Negative Jaundice
Cardiology: Normal Sinus Rhythm
Pulmonary: Clear
GI: Soft; Negative Distended
Extremities: Pulses Present and Edema (b/l LE)
Neurology: Non Focal
Skin: Rash (diffuse dry skin with diffuse pruritic rash with scabs from itching)
Psych: Calm
Labs
Lab Results
WBC 3.8 10^3/uL (4.8-10.8) L 12/31/24 08:58
RBC 2.51 10^6/uL (4.70-6.10) L 12/31/24 08:58
Hgb 7.1 g/dL (13.0-18.0) L 12/31/24 08:58
Hct 20.1 % (39.0-52.0) L* 12/31/24 08:58
MCV 80.1 fL (80.0-94.0) 12/31/24 08:58
MCH 28.3 pg (27.0-31.0) 12/31/24 08:58
MCHC 35.3 g/dL (33.0-37.0) 12/31/24 08:58
RDW 16.7 % (11.5-14.5) H 12/31/24 08:58
Plt Count 271 10^3/uL (130-400) 12/31/24 08:58
MPV 10.0 fL (7.4-10.4) 12/31/24 08:58
Abs Immat Gran (auto) 0.1 10^3/uL (0-0.05) H 12/31/24 08:58
Absolute Neuts (auto) 2.5 10^3/uL (1.4-6.5) 12/31/24 08:58
Absolute Lymphs (auto) 0.5 10^3/uL (1.2-3.4) L 12/31/24 08:58
Absolute Monos (auto) 0.5 10^3/uL (0.1-0.6) 12/31/24 08:58
Absolute Eos (auto) 0.2 10^3/uL (0-0.7) 12/31/24 08:58
Absolute Basos (auto) 0.0 10^3/uL (0-0.2) 12/31/24 08:58
Immature Gran % 2.4 % (0-0.5) H 12/31/24 08:58
Neutrophils % 66.7 % (42.2-75.2) 12/31/24 08:58
Lymphocytes % 13.8 % (20.5-51.1) L 12/31/24 08:58
Monocytes % 12.0 % (1.7-9.3) H 12/31/24 08:58
Eosinophils % 4.3 % (0-6) 12/31/24 08:58
Basophils % 0.8 % (0-2) 12/31/24 08:58
Creatinine 2.3 mg/dL (0.7-1.3) H 12/31/24 08:58
Vital Signs
Vital Signs
Temp Pulse Resp BP Pulse Ox
98.4 F 88 28 116/64 99
12/31/24 08:12 12/31/24 08:15 12/31/24 08:15 12/31/24 08:12 12/31/24 08:57
[2024-12-31 11:45] LABS: Total Iron Binding Capacity 200 ug/dl (261-462)
[2024-12-31 12:20] LABS: C-Reactive Protein 170.70 mg/L (0.0-10.00)
[2024-12-31 12:36] LABS: Folate 3.7 ng/ml (2.76-20); Vitamin B12 485 pg/ml (239-931)
[2024-12-31 12:55] LABS: Ferritin 3040.0 ng/ml (17.9-464.0)
[2024-12-31] MEDS: MORPHINE SULFATE 4 MG IV (13:07)
--- NOTE | 2024-12-31 14:01 | CM ---
Met with patient's at the bedside in the ED; patient was asleep
Pharmacy verified: [facility] [place] @ [address]
No medication plan; utilizes [facility]
reported they live in a multilevel home; 1 step to enter another step to Living Room; railings on stairs; powder room 1st floor; he uses 2nd floor bath w/ stall shower
PLOF: reported he was independent w/ ambulation, stairs and ADLs; Drives; Retired
No DME
No SNF or Home Health utilization history
/family will provide transport home
Plan: Discharge to home when medically stable with home health services; agency options identified; preference is [facility]; referral sent to liaison via [facility]
[2024-12-31] MEDS: CALCIUM GLUCONATE 100 IV (16:56)
[2024-12-31] MEDS: DILAUDID 0.5 MG IV ×2 (18:26→22:26)
[2024-12-31] MEDS: DECADRON 4 MG IV (18:27)
[2024-12-31] MEDS: OSCAL CAL 500 PO (18:29)
[2024-12-31] MEDS: NSS (PRESERVATIVE FREE) 10 ML IV (18:29)
[2024-12-31] MEDS: PROTONIX IV 40 MG IV (18:29)
--- NOTE | 2024-12-31 18:32 | PTCARENOTE ---
Patient arrived to the IMU with diagnosis BERTA, hypocalcemia. Patient was unable to void, bladder scan 686, patient straight cath for 700 of sabino urine. Pain on back treated with Dilaudid with relief. Patient oriented to the room and family educated
about plan of care, isolation precautions. Enhanced precautions due to recent diarrhea,Patient is NPO due to signs of aspiration and recent history of choking on food. Full body rash assessed along with MASD on buttocks.
[2024-12-31] MEDS: HEPARIN 5000 UNITS SC (20:55)
[2024-12-31] MEDS: LASIX 20 MG IV (20:57)
--- NOTE | 2024-12-31 21:45 | PTCARENOTE ---
Caring for pt overnight. aaox3, but forgetful, pt pulling gown off and attempting to get OOB. Bed alarm on. NSR frequent PVC mono, poly, bigeminy. BP sable. Remains on RA 97% but tachypneic & SOB at rest. Seems anxious & forgetful. +2 BLE edema,
good pulses. Urinal at bedside, DTV @ midnight. Rash throughout body, denies itchiness, 2 areas raw & open--R elbow & L armpit, dressings applied. No Bm's so far. Pt c.o diff. swallowing, clear liquid diet ordered. Swallow screen preformed bedside
with this RN, pt able to swallow but is slow and has to think about it before doing so, no gurgle or wet voice after, no coughing. Allowing pt to sip on clears with HOB 90degrees and supervised. SPL eval tomorrow. IVF running. Rport. IVsteroids,
IVlasix. unable to take PO meds. No other issues. Will continue to monitor.
[2025-01-01] VITALS (26 sets, daily range): BP systolic 98–169; BP diastolic 48–100; BMI 24.1
[2025-01-01] MEDS: DECADRON 4 MG IV (01:20)
[2025-01-01 02:09] LABS: Hematocrit 23.4 % (39.0-52.0); Hemoglobin 8.2 g/dL (13.0-18.0); Mean Corp Hgb Conc. 35.0 g/dL (33.0-37.0); Mean Corpuscular Volume 78.8 fL (80.0-94.0); Platelet Count 291 10^3/uL (130-400); Red Cell Dist. Width 16.7 % (11.5-14.5)
[2025-01-01 02:47] LABS: Blood Urea Nitrogen 46 mg/dl (9-20); Calcium 5.1 mg/dl (8.4-10.2); Carbon Dioxide 10 mmol/L (22-30); Chloride 113 mmol/L (98-107); Estimated Creatinine Clearance 49 ml/min; Glucose 116 mg/dl (70-99); Magnesium 1.6 mg/dl (1.6-2.3); Potassium 3.5 mmol/L (3.5-5.1); Sodium 138 mmol/L (135-145); Uric Acid 12.0 mg/dl (3.5-8.5); eGFR 49.77
[2025-01-01] MEDS: ATIVAN PO (03:17)
[2025-01-01] MEDS: CALCIUM GLUCONATE 100 IV ×2 (03:23→09:47)
[2025-01-01] MEDS: MAGNESIUM SULFATE 50 IV ×2 (03:37→22:56)
[2025-01-01] MEDS: ATIVAN 0.25 MG PO ×2 (03:44→23:17)
[2025-01-01 03:45] LABS: Troponin I 0.035 ng/ml
[2025-01-01] MEDS: NSS 1000 IV (05:27)
--- NOTE | 2025-01-01 07:28 | W.PN.UPDATE ---
Update Note
Progress Note Update
~ Midnight, Pt unable to void, bladder scanned for > 823 mls. Order placed for huffman for urinary retention.
Patient having panic attacks, hyper ventilating, saying he is cold and doesn't feel well. Vital signs are stable: BP 106/60, HR 94, RR 30, 98% on room air, oral temp 98.0.
Ordered Ativan 0.25 mg PO x 1 dose. AM labs drawn early. Ordered Troponin, result 0.035�
~�@ 2:31:47 Patient had approximately 76 beats of Vtach that self-terminated.�
Ca 5.1,� ordered Calcium 2g IV
Mag 1.6, �Ordered Magnesium 2 g IV due to cardiac arrythmias
--- NOTE | 2025-01-01 07:31 | PTCARENOTE ---
Pt hyperventilating most of the night d/t anxiety. Towards 2am pt getting very restless & not feeling well, despite all VSS. Pt couldnt specify what hsi symptoms were. 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 Around 0230 pt went into 50 beat run VT, pt
awake and talking, never lost a pulse. BP stable at that time. Labs came back, Ca rider & mg rider ordered and given. During infusion pt went into another 20 beat VT, pt was symptomatic this time, staring & unresponsive asking what is happening. BP
stable. IVF running. After iv riders no other runs of VT. Though, pt continues to have frequent PVC, mono, poly, triplet, & bigeminy. Pt still hyperventilating and very anxious, was able to have pt swallow 0.25 ativan. After ativan pt slept & resp.
WNL. called multiple times, she was updated on the phone, said she would be in around 0830. Will continue to monitor.
--- NOTE | 2025-01-01 08:16 | W.PN.HOSP.TC ---
Today's Communication/Plan
-
see A/P
Assessment / Plan
Assessment / Plan
HPI: 69-year-old male with PMH metastatic ureteral cancer (follows at [facility] with Dr June [phone]), recent chemo s/p second treatment (Padcev with Keytruda) this past week; p/w shortness of breath, poor po intake and feeling dehydrated.
He also noted development of diffuse rash with erythema which his oncology is aware of.
Denies to other symptoms such as chest pain, cough, abd pain, change in BM etc.
He has chronic lower extremity edema.
A/P:
# Dyspnea, ?2/2 anemia vs others
Placed on 2L NC for symptoms, sat 100%
CXR NAD
Hgb 7.1 on admission (from baseline 9.7), transfused 1 units PRBC, Hgb today 8.2, cont to monitor
iron panel consistent with ACD, B12/folate WNL
BL LE US neg for DVT,
check VQ scan for VTE eval as part of dyspnea work up in setting of metastatic cancer
Noted BNP 4000 on admission
low dose IV lasix 20 mg BID for chronic edema and pt received blood/IVF
# Poor PO intake, dehydration, Prerenal and postrenal BERTA
# Metabolic acidosis
# Obstructive uropathy
SCr 2.3 -> 1.5; baseline SCr around 1.0
Change IVF to Bicarb drip low rate
Monitor SCr
huffman placed 12/31 for urinary retention
Cont clears liquid diet for now, can advance after evaluated/cleared by SPL
# hypocalcemia
corrected calcium level at 6 today
Less likely tumor lysis syndrome per discussion with Onc
replete calcium IV
# non-sustained VT noted on tele
replete Mag and Calcium IV
Also improve K level with K rider
Card CS
# Hyperuricemia likely 2/2 BERTA per Onc, less likely tumor lysis syndrome
# Diffuse skin rash
ED d/w outpt oncologist Dr June, who recc steroid over 2 weeks
IV Decadron ordered , GI ppx with IV Protonix
wound care CS
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
pt c/o intermittent chills at home, CRP elevated (could be 2/2 current inflammatory response), follow blood cultures for empiric infection r/o
DVT ppx: HSQ
FC for now until further notified by pt
DW RN
updated on the phone
CC Mx for severe electrolyte abnormality, CC time 45 min
Anticipated Discharge: > 48 hours
Subjective/Interval History
-
Date of Service: January 01, 2025
Objective Data
-
Labs:
Laboratory Results
01/01/25 01/01/25
01:50 01:50
WBC 2.9 L
Hgb 8.2 L
Hct 23.4 L
Plt Count 291
Sodium 138
Potassium 3.5
Chloride 113 H
Carbon Dioxide 10 L*
BUN 46 H
Creatinine 1.5 H
Glucose 116 H
Calcium 5.1 L* 5.1 L*
Vital Signs:
Vital Signs
Temp Pulse Resp BP Pulse Ox
36.9 C 95 23 144/78 100
01/01/25 07:15 01/01/25 06:00 01/01/25 06:00 01/01/25 06:00 01/01/25 06:00
I&O
12/31/24 01/01/25 01/02/25
06:59 06:59 06:59
Intake Total 250 / 250
Output Total 1675 / 1675
Balance -1425 / -1425
Review of Systems
-
History Source: Patient
Respiratory: Reports Trouble Breathing (improved )
Physical Exam
-
General: Well Developed, No Apparent Distress, Comfortable, Conversant and Appears Chronically Ill
HEENT: Oxygen (2L NC placed for comfort ); Negative Thrush
Respiratory: Clear to Auscultation and Non Labored Respirations; Negative Wheezes, Rales, Rhonchi, Crackles or Accessory Resp Muscle Use
Cardiac: Regular Rhythm and S1/S2; Negative Murmur, Rub or Gallop
GI: Soft, Nontender, Nondistended and Normal Bowel Sounds
Musculoskeletal: No Clubbing, No Cyanosis, Edema, Right Lower Extrem (improved ) and Edema, Left Lower Extrem (improved )
Skin: Warm
Neuro: Awake
Psych: Calm and Intact Judgement/Insight
Data Reviewed
-
Ultrasound: Report Reviewed by me
Labs: Labs Reviewed by me, Discussed with Nurse, Discussed with Patient and Discussed with Family
--- NOTE | 2025-01-01 08:20 | PTCARENOTE ---
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 Patient resting comfortably in room. AAO, VSS. Patient is currently on 2L N/C, usually Room Air, will try and wean. Patient with 50 beat V-tach run overnight followed by a 20 beat run with some chest pain,
troponin was drawn. Labs were drawn early and magnesium and calcium repleated. No complaints of pain at this time. Continuing steroids. Patient scheduled for V/Q scan, no other testing scheduled at this time. Call whitman in reach.
--- NOTE | 2025-01-01 09:12 | W.PN.ONC2 ---
Today's Communication / Plan
-
continue dexamethasone, added topical hydrocort, claritin
f/u stool cx & C.diff
at bedside provided updates and questions answered
Impression
Impression
metastatic urothelial carcinoma s/p C2 Padcev with keytruda at [facility] last week
rash secondary to antineoplastic therapy
hypocalcemia secondary to xgeva
jazmin likely dehydration with poor oral intake, diarrhea, and continue NSAIDs & lasix use at home -improved creatinine to 1.5 today
cancer pain
SOB
Anemia s/p 1U prbc 01/01 with Hgb improved to >8g/dL
leukopenia/lymphopenia
elevated BNP
diarrhea
Plan
Plan
Padcev most common SE include but not limited to fatigue, peripheral neuropathy, decreased appetite, rash, nausea, diarrhea
monitor for immune mediated SE of keytruda.
symptoms support, antiemetics
calcium repletion, hold xgeva for resolution of hypocalcemia
claritin daily, topical hydrocortisone to skin folds, prednisone 1mg/kg/day -transitioned to 12mg dexamethasone until able to tolerate orals -taper as outpatient by primary oncologist- PPI while on steroids
f/u wound consult
if stool culture and c.diff negative then Imodium prn
transfuse prn
OP follow up with [facility] upon discharge for continued management of metastatic urothelial carcinoma
Subjective/Objective
Subjective
improved rash and itching
improved SOB
denies overt pain
improved diarrhea
Vital Signs:
Vital Signs
Temp Pulse Resp BP Pulse Ox
98.5 F 95 23 144/78 100
01/01/25 07:15 01/01/25 06:00 01/01/25 06:00 01/01/25 06:00 01/01/25 06:00
Lab Results:
Laboratory Data
WBC 2.9 10^3/uL (4.8-10.8) L 01/01/25 01:50
Hgb 8.2 g/dL (13.0-18.0) L 01/01/25 01:50
Plt Count 291 10^3/uL (130-400) 01/01/25 01:50
PT 17.1 Sec (11.4-14.6) H 12/31/24 08:58
INR 1.36 12/31/24 08:58
APTT 32.0 Sec (23.4-35.0) 12/31/24 08:58
eGFR 49.77 01/01/25 01:50
Physical Exam
improved erythematous rash
HEENT: Moist Mucous Membranes; No Jaundice
Pulmonary: Other (unlabored)
GI: Soft
Extremities: Pulses Present and Edema
Neuro: Non Focal
Orders
Orders
Orders From Last 24 Hours
12/31/24 12:47
STOOL [C difficile Antigen & Toxins] Routine
Stool Culture Routine
12/31/24 13:41
Stool for occult blood [Hemetest Stools] As Directed
12/31/24 15:00
Pantoprazole [Protonix] 40 mg PO DAILY
Prednisone [Deltasone] 80 mg PO DAILY
01/01/25 01:50
PTH Related Peptide LC-MS/MS [S] IN AM
PTH [Intact PTH Includes Calcium] IN AM
--- NOTE | 2025-01-01 09:53 | CON.CAR ---
Addendum entered and electronically signed by Brady Peguero DO 01/01/25 21:10:
I saw and examined the patient.
The Machine Iii Coremaker's note was reviewed and I agree with the note.
Comment:
Plan:
He presented 12/30/2024 with worsening shortness of breath, edema, significant fatigue with poor oral intake, nausea and diffuse rash and was found to have acute anemia with metabolic acidosis and electrolyte derangement.
-BERTA with creat 2.3 on presentation likely secondary to dehydration with poor oral intake, diarrhea, and continued Lasix use at home. Improved to 1.5 following IVF resuscitation. He had episode of VT Jan 01 and PVCs in setting of electrolyte
imbalance.
Cont to replete lytes as needed including keep in K>4 and Mg >2.
Cont monitor
Cont Coreg
Cont gentle diuresis with NICM EF 25-30% hx. Consider echo prior to d/c however currently in a lot of skin pain so will try to defer echo for now.
Cont med tx of nonMI trop and trend until it peaks.
Metastatic urothelial carcinoma s/p C2 Padcev with keytruda at [facility] last week. Has started with rash secondary to antineoplastic therapy. Oncology following with recommendations of continuing dexamethasone, topical hydrocortisone and Claritin
Original Note:
Consultation
Consultation Request
Date/Time Consultation Requested: 01/01/2025
Date/Time Consultation Performed: 01/01/2025
Requesting Provider: Dr. León
Performing Provider: Lorelei Rojas PA-C for Dr. Peguero
Reason for Consultation: Ventricular tachycardia
Medical History
-
History of Present Illness:
Patient is a 77-year-old male with past medical history of longstanding nonischemic cardiomyopathy (declined ICD in past), heart failure with reduced ejection fraction, frequent PVCs, hypertension, hyperlipidemia and recently diagnosed metastatic
urethral carcinoma with recent initiation of Padcev with keytruda at [facility] (Dr. June) who presents to emergency department 12/31/2024 with worsening shortness of breath, edema, significant fatigue with poor oral intake, nausea and diffuse rash with
erythema which started after initiation of cancer treatment. On presentation patient noted to have acute anemia with hemoglobin of 7.1 and was transfused 1 unit of packed RBCs. Also found to have elevated proBNP 4290. Found to have metabolic
acidosis with BERTA with creatinine of 2.3 and electrolyte derangements. Troponin 0.035. EKG demonstrated sinus rhythm with frequent PVCs. Lower extremity Doppler was negative for DVT. Chest x-ray showed no acute cardiopulmonary abnormality.
Patient underwent IV fluid resuscitation for BERTA with improvement of creatinine. Electrolytes ongoing repletion. Cardiology being asked to see patient for sustained ventricular tachycardia. Patient was rather asymptomatic except had somewhat of a
blank stare per nursing.
PMH:
Longstanding nonischemic cardiomyopathy
Chronic heart failure with reduced ejection fraction
Frequent PVCs
Hypertension
Hyperlipidemia
Metastatic urethral carcinoma s/p C2 Padcev with keytruda at [facility] (Dr. June)
Past Medical History
Past Medical History: Other (See HPI)
Past Surgical History: Tonsilectomy and Other (Right inguinal hernia repair in 2020)
Social History
Tobacco: Non-Smoker
Alcohol: Other (rare)
Drug: Narcotics (Opioids for metastatic cancer)
Personal:
Living: With Family
Family History
Family History: Other (Father at 81 had stroke, Mother at 86 of leukemia)
Allergies / Home Medications
Allergy/AdvReac Type Severity Reaction Status Date / Time
No Known Allergies Allergy Verified 10/10/24 16:10
�Medication �Instructions �Recorded �Confirmed �Type
carvedilol 12.5 mg tablet 12.5 mg PO DAILY Blood Pressure 12/16/20 12/31/24 History
furosemide 40 mg tablet (Lasix) 60 mg PO DAILY Fluid 10/09/24 12/31/24 History
Retention/Swelling ##0
buprenorphine HCl 2 mg sublingual 1 mg sublingual DAILY Pain 12/31/24 12/31/24 History
tablet
calcium carbonate (Calcium 500) 1,000 mg PO DAILY Supplement 12/31/24 12/31/24 History
calcium carbonate (Calcium 500) 500 mg PO QPM Supplement 12/31/24 12/31/24 History
ibuprofen 200 mg tablet (Advil) 400 mg PO Q6H Pain 12/31/24 12/31/24 History
loperamide 2 mg tablet 2 mg PO BIDPRN PRN diarrhea 12/31/24 12/31/24 History
potassium chloride 20 mEq oral 20 meq PO BID Electrolyte Repletion 12/31/24 12/31/24 History
packet
Review of Systems
-
History Source: Patient and Family
All other systems: Negative unless noted
Physical Exam
Vital Signs
Temp Pulse Resp BP Pulse Ox
98.5 F 95 23 144/78 100
01/01/25 07:15 01/01/25 06:00 01/01/25 06:00 01/01/25 06:00 01/01/25 06:00
GEN: Chronically ill gentleman, sitting in bed, awake no acute distress
HEENT: supple, anicteric, mmm
LUNGS: CTA, no wheezes/rales
CV: Reg with occasional ectopy, S1/S2, no murmur, rub or gallop
ABD: soft, BS+, NT/ND
EXT: +1 LE edema, trace to +1 edema in upper extremities
NEURO: Gross non-focal, flat affect
SKIN: Diffuse rash with erythema
Lab Results
01/01/25 01:50
01/01/25 01:50
Troponin I 0.035 ng/ml H* 01/01/25 02:47
Izl-W-Ftslxvrijyt Pept 4290 pg/ml 12/31/24 08:58
Impression / Plan
-
PCP: Merline Portillo
Landscaping Manager: Neel Suarez
Oncologist: Dr. June [facility]
Impression:
Presents 12/30/2024 with worsening shortness of breath, edema, significant fatigue with poor oral intake, nausea and diffuse rash
Acute anemia
Status post 1 unit packed RBCs 12/30/2024
Hypocalcemia secondary to xgeva
Hypomagnesemia
Hypokalemia
BERTA likely secondary to dehydration with poor oral intake, diarrhea, and continued lasix use at home
Metastatic urothelial carcinoma s/p C2 Padcev with keytruda at [facility] last week
Rash secondary to antineoplastic therapy
leukopenia/lymphopenia
Acute on chronic heart failure with reduced ejection fraction, proBNP 4290
Abnormal troponin, suspect nonischemic myocardial injury
VT in setting of severe electrolyte derangement, BERTA
Longstanding nonischemic cardiomyopathy
Chronic heart failure with reduced ejection fraction
Frequent PVCs
Hypertension
Hyperlipidemia
Echo May 2024: EF 25 to 30%, mildly reduced RV systolic function, mild MR, severe left atrial dilation
Lexiscan nuclear stress test December 2015: Small area of mildly decreased perfusion that is fixed in apical segment. No evidence of reversible ischemia. Global hypokinesis, EF 31%
Cardiac catheterization 2005: Mild nonobstructive coronary artery disease
Plan:
-Presents 12/30/2024 with worsening shortness of breath, edema, significant fatigue with poor oral intake, nausea and diffuse rash and was found to have acute anemia with metabolic acidosis and electrolyte derangement.
-BERTA (creat 2.3)on presentation likely secondary to dehydration with poor oral intake, diarrhea, and continued Lasix use at home. Improved to 1.5 following IVF resuscitation. Would be cautious not to give too much volume given patient has history
of longstanding nonischemic cardiomyopathy with EF of 25 to 30%
-Significant electrolyte derangement with hypocalcemia, hypomagnesemia and hypokalemia. Ongoing electrolyte repletion.
-Ventricular tachycardia (50 beats) 01/01/2025 and frequent PVCs in setting of electrolyte derangement. Patient was rather asymptomatic and spontaneously converted. Continue to replete electrolytes. Keep K+ greater than 4, magnesium greater than
2. Continue Coreg. Patient was only getting once a day. Will change to 6.25 mg twice daily. Can be uptitrated as blood pressure allows
-Acute on chronic heart failure with reduced ejection fraction, proBNP 4290. Initially presented with BERTA. Creatinine has improved to 1.5 with IV fluid. Would continue gentle IV diuresis with Lasix 20 mg IV twice daily and close monitoring of
renal function and electrolytes
-Abnormal troponin, 0.035. Suspect nonischemic myocardial injury secondary to electrolyte derangement, acute anemia, metabolic acidosis. Continue to trend to peak.
-Will need eventual echo once patient is more stable
-Acute anemia, s/p 1 unit packed RBCs 12/30/2024. Hgb stable improved 8.2
-Metastatic urothelial carcinoma s/p C2 Padcev with keytruda at [facility] last week. Has started with rash secondary to antineoplastic therapy. Oncology following with recommendations of continuing dexamethasone, topical hydrocortisone and Claritin
Plan discussed with patient, patient's at bedside, nursing and hospitalist.
I spent 76 minutes reviewing outpatient records from multiple collaborating providers, inpatient records from multiple collaborating providers, laboratory studies, imaging, [id number] encounter, treatment plan and decision and documentation
HPI 01/01/2025:
Patient is a 77-year-old male with past medical history of longstanding nonischemic cardiomyopathy (declined ICD in past), heart failure with reduced ejection fraction, frequent PVCs, hypertension, hyperlipidemia and recently diagnosed metastatic
urethral carcinoma with recent initiation of Padcev with keytruda at [facility] (Dr. June) who presents to emergency department 12/31/2024 with worsening shortness of breath, edema, significant fatigue with poor oral intake, nausea and diffuse rash with
erythema which started after initiation of cancer treatment. On presentation patient noted to have acute anemia with hemoglobin of 7.1 and was transfused 1 unit of packed RBCs. Also found to have elevated proBNP 4290. Found to have metabolic
acidosis with BERTA with creatinine of 2.3 and electrolyte derangements. Troponin 0.035. EKG demonstrated sinus rhythm with frequent PVCs. Lower extremity Doppler was negative for DVT. Chest x-ray showed no acute cardiopulmonary abnormality.
Patient underwent IV fluid resuscitation for BERTA with improvement of creatinine. Electrolytes ongoing repletion. Cardiology being asked to see patient for sustained ventricular tachycardia. Patient was rather asymptomatic except had somewhat of a
blank stare per nursing.
Data Reviewed
-
EKG: Report Reviewed by me, Discussed with Physician, Discussed with Nurse, Discussed with Patient and Discussed with Family
Radiology: Report Reviewed by me, Discussed with Physician, Discussed with Nurse, Discussed with Patient and Discussed with Family
Ultrasound: Report Reviewed by me, Discussed with Physician, Discussed with Nurse, Discussed with Patient and Discussed with Family
Labs: Labs Reviewed by me, Discussed with Physician, Discussed with Nurse, Discussed with Patient and Discussed with Family
Old Records: Reviewed
[2025-01-01] MEDS: DECADRON 12 MG IV (09:54)
[2025-01-01] MEDS: LASIX 20 MG IV ×2 (09:54→17:24)
[2025-01-01] MEDS: PROTONIX IV 40 MG IV (09:54)
[2025-01-01] MEDS: NSS (PRESERVATIVE FREE) 10 ML IV (09:54)
[2025-01-01] MEDS: CLARITIN 10 MG PO (09:55)
[2025-01-01] MEDS: COREG 12.5 MG PO (09:55)
[2025-01-01] MEDS: HEPARIN 5000 UNITS SC ×2 (09:55→21:30)
[2025-01-01] MEDS: SUBUTEX 1 MG SL (09:55)
[2025-01-01] MEDS: KCL 270 MEQ IV (09:56)
[2025-01-01] MEDS: OSCAL CAL 500 PO ×2 (09:56→17:24)
[2025-01-01] MEDS: SODIUM BICARBONATE 1150 MEQ IV (09:56)
--- NOTE | 2025-01-01 12:38 | VNURNOTE ---
Home Health Liaison met with patient, spouse, and daughter at bedside to discuss [facility] nurse/therapy, visits, schedule and homebound status. Patient is agreeable and understands that visits at home will be 2-3 x per week to assess and teach
medical management. Patient is aware that [facility] will contact them for start of care in 1-2 days after discharge from . Noted pt on 02 nasal cannula- will watch for home 02 needs.
[facility] referral completed in Care Port.
[2025-01-01 12:46] LABS: Troponin I 0.030 ng/ml
--- NOTE | 2025-01-01 12:56 | PTOTSP ---
Speech Therapy Evaluation:
Pt with acute on chronic risk factors of dysphagia including hx of metastatic ureteral cancer and GERD, compounded by generalized weakness in the setting of dehydration and very limited PO intake over the past week.
Recent OP VSE completed 12/25/2024 due to complaints of difficulty initiating swallow. During assessment, pt unable to initiate AP transfer with pudding, resulting in expectoration. With thin and thickened liquids, oral and pharyngeal stages of
swallow WFL with no persistent penetration/aspiration. Recommendations made for thin liquids and soft/moist solids.
At bedside, pt without s/sx of aspiration with thin liquids or puree, however pt endorsed globus sensation and demonstrated multiple swallows per bolus. RR and O2 stable.
Given improvement in ability to transfer small amounts of puree at bedside, no overt s/sx of aspiration, low O2 requirement, and CXR without pneumonia, recommend initiation of puree and thin liquids.
Recommend:
1. Puree and thin liquids
2. Medications as best tolerated one at a time
3. Strict aspiration and GERD precautions
4. Close supervision with PO intake following diet initiation
5. D/c oral diet if pt demonstrating worsening in swallow function or if c/f aspiration arises
6. STAMPING MACHINE OPERATOR to closely follow to monitor tolerance of diet and determine if pt requires further modifications/repeat imaging, however repeat imaging does not appear warranted at this time given adequate airway protection on VSE with no oral/pharyngeal
weakness
[2025-01-01] MEDS: HYDROCORTISONE 1% CREAM 1 APPLIC TOPICAL ×2 (14:10→21:36)
[2025-01-01] MEDS: DILAUDID 0.5 MG IV ×2 (14:11→21:29)
--- NOTE | 2025-01-01 14:20 | CM ---
CM reviewed chart- pt in IMU
PT/OT evals holding until outcome of VQ scan
Referral made for [facility] by previous CM and pt accepted for service
CM will continue to follow for dc planning
Discharge Disposition- anticipate home with [facility]
--- NOTE | 2025-01-01 15:25 | WOUNDNOTE ---
[facility] RN note: Patient admitted with shortness of breath, acute kidney injury and hypocalcemia.
See H&P for complete history. Lives with at home.
PMH: HPI: 69-year-old male with PMH metastatic ureteral cancer (follows at [facility] with Dr June [phone]), recent chemo s/p second treatment (Padcev with Keytruda) this past week; p/w shortness of breath, poor po intake and feeling dehydrated.
He also noted development of diffuse rash with erythema which his oncology is aware of.
Wound Location and type/assessment: Patient admitted with: rash all over body, mostly scabbed but has weepy areas on b/l antecubital's and axilla's. at bedside reports rash improving since on IV steroids. Medial feet with serous filled
blisters, no drainage. b/l Forefoot with small blisters. Oncologist following patient, reviewed note and states that rash is a reaction to recent chemotherapy. Topical steroid cream on order, nurse Gallo applied to weeping area under R axilla,
patient tolerated. Drainage serous and scant. Patient turned self to sides, back with scattered dry scabs and buttocks with few shallow dry open blisters. Heels intact.
Appetite: Poor, on clears.
Pressure redistribution devices in place: On air mattress, turns self. Pillow under calves.
Plan: local wound care applied with Vaseline gauze and dry dressing to weeping areas. Vaseline gauze and silicone foams on medial feet applied. Will order mineral oil to apply remainder of dry scabs on body.
Will confirm orders with hospitalist and updated nurse.
Updated care plan and will follow as needed.
Note to case management of equipment requested for discharge: VN
Recommend follow up with oncologist.
[2025-01-01] MEDS: BENADRYL 25 MG PO (17:24)
[2025-01-01] MEDS: COREG 6.25 MG PO (21:30)
[2025-01-01 22:12] LABS: ALT (SGPT) 15 U/L (0-50); AST (SGOT) 27 U/L (17-59); Albumin 2.7 g/dl (3.5-5.0); Alkaline Phosphatase 175 U/L (38-126); Blood Urea Nitrogen 41 mg/dl (9-20); Calcium 4.5 mg/dl (8.4-10.2); Carbon Dioxide 19 mmol/L (22-30); Chloride 111 mmol/L (98-107); Estimated Creatinine Clearance 67 ml/min; Glucose 172 mg/dl (70-99); Magnesium 1.7 mg/dl (1.6-2.3); Potassium 3.6 mmol/L (3.5-5.1); Sodium 137 mmol/L (135-145); Total Protein 5.4 g/dl (6.3-8.2); eGFR > 60.00
--- NOTE | 2025-01-01 22:23 | W.PN.UPDATE ---
Update Note
Progress Note Update
Discussed with nursing. Checked CMP and Mg. Will replete with KCL 40 meq Elixir and 2gm Magnesium rider. Keep K>4 and Mg >2
[2025-01-01] MEDS: KCL ELIXIR 40 MEQ PO (23:00)
[2025-01-02] VITALS (20 sets, daily range): BP systolic 118–160; BP diastolic 53–109; PULSE 86; O2SAT 99
--- NOTE | 2025-01-02 00:31 | PTCARENOTE ---
Repeat labs requested by Cariology (Sudhir), mag and k replenishment ordered by night FAMILY NURSE PRACTITIONER at request of Cardiology after resulted. Pt having complaints of anxiety. Pt having complaitns of pain in bottom/ back. Repositioning attempted creating more
pain prn pain medication given, see mar. Pt saying it is 'everything going on'. FAMILY NURSE PRACTITIONER made aware, order placed for one time Ativan.
[2025-01-02 05:33] LABS: Hematocrit 22.3 % (39.0-52.0); Hemoglobin 7.7 g/dL (13.0-18.0); Mean Corp Hgb Conc. 34.5 g/dL (33.0-37.0); Mean Corpuscular Volume 79.6 fL (80.0-94.0); Platelet Count 270 10^3/uL (130-400); Red Cell Dist. Width 17.1 % (11.5-14.5)
[2025-01-02 05:50] LABS: Blood Urea Nitrogen 40 mg/dl (9-20); Calcium 4.4 mg/dl (8.4-10.2); Carbon Dioxide 21 mmol/L (22-30); Chloride 112 mmol/L (98-107); Estimated Creatinine Clearance 73 ml/min; Glucose 159 mg/dl (70-99); Magnesium 2.2 mg/dl (1.6-2.3); Potassium 4.0 mmol/L (3.5-5.1); Sodium 137 mmol/L (135-145); Uric Acid 10.6 mg/dl (3.5-8.5); eGFR > 60.00
[2025-01-02] MEDS: DILAUDID 0.5 MG IV ×2 (05:57→11:21)
--- NOTE | 2025-01-02 06:10 | PTCARENOTE ---
Pt morning labs resulting WBC 2.3 Ca 4.4. Night STAIN REMOVER made aware.
[2025-01-02] MEDS: CALCIUM GLUCONATE 100 IV ×2 (06:47→07:49)
--- NOTE | 2025-01-02 08:25 | W.PN.ONC2 ---
Today's Communication / Plan
-
Continue current steroid dose. Dex 12 mg is equivalent to Prednisone 80 mg PO QD (1 mg/kg). Can be switched to PO when taking Po w/o difficulty.
Impression
Impression
metastatic urothelial carcinoma s/p C2 Padcev with keytruda at [facility] last week
rash secondary to antineoplastic therapy
hypocalcemia secondary to xgeva
jazmin likely dehydration with poor oral intake, diarrhea, and continue NSAIDs & lasix use at home -improved creatinine to 1.5 today
cancer pain
SOB
Anemia s/p 1U prbc 01/01 with Hgb improved to >8g/dL
leukopenia/lymphopenia
elevated BNP
diarrhea
Plan
Plan
Padcev most common SE include but not limited to fatigue, peripheral neuropathy, decreased appetite, rash, nausea, diarrhea
monitor for immune mediated SE of keytruda.
symptoms support, antiemetics
calcium repletion, hold xgeva for resolution of hypocalcemia
claritin daily, topical hydrocortisone to skin folds, prednisone 1mg/kg/day - transitioned to 12mg dexamethasone (Dex 12 mg is equivalent to Prednisone 80 mg PO QD (1 mg/kg) - until able to tolerate orals -taper as outpatient by primary oncologist-
PPI while on steroids
f/u wound consult
if stool culture and c.diff negative then Imodium prn
transfuse prn
OP follow up with [facility] upon discharge for continued management of metastatic urothelial carcinoma
Subjective/Objective
Chief Complaint
ACS Heme Onc
Subjective
Still has 'terrible' rash. Leg swelling. SOB. Very weak. Seems no better today although stated it was improving yesterday.
Vital Signs:
Vital Signs
Temp Pulse Resp BP Pulse Ox
98 F 83 28 141/73 99
01/02/25 06:07 01/02/25 06:00 01/02/25 06:00 01/02/25 06:00 01/02/25 06:00
Lab Results:
Laboratory Data
WBC 2.3 10^3/uL (4.8-10.8) L* 01/02/25 05:08
Hgb 7.7 g/dL (13.0-18.0) L 01/02/25 05:08
Plt Count 270 10^3/uL (130-400) 01/02/25 05:08
PT 17.1 Sec (11.4-14.6) H 12/31/24 08:58
INR 1.36 12/31/24 08:58
APTT 32.0 Sec (23.4-35.0) 12/31/24 08:58
eGFR > 60.00 01/02/25 05:08
Physical Exam
HEENT: Moist Mucous Membranes; No Jaundice
Cardiology: S1 and S2
Pulmonary: Clear
GI: Soft
Extremities: Edema and Other (angry erythematous rash.)
--- NOTE | 2025-01-02 08:27 | W.PN.HOSP.TC ---
Addendum entered and electronically signed by Jayla León MD 01/02/25 16:08:
Okay to start soft and bite-size solids per speech therapist, ordered
Addendum entered and electronically signed by Jayla León MD 01/02/25 13:05:
per RN, pt c/o huffman irritation. Can remover huffman and start TOV today. Cont bladder scan when huffman removed.
Addendum entered and electronically signed by Jayla León MD 01/02/25 12:35:
# nonischemic myocardial injury
Addendum entered and electronically signed by Jayla León MD 01/02/25 09:21:
admission blood cultures x2 came back positive for GPC.
Start empiric vancomycin and ceftriaxone, check repeat blood cultures today and tmr, ID CS
Original Note:
Today's Communication/Plan
-
see A/P
Assessment / Plan
Assessment / Plan
HPI: 69-year-old male with PMH metastatic ureteral cancer (follows at [facility] with Dr June [phone]), recent chemo s/p second treatment (Padcev with Keytruda) this past week; p/w shortness of breath, poor po intake and feeling dehydrated.
He also noted development of diffuse rash with erythema which his oncology is aware of.
Denies to other symptoms such as chest pain, cough, abd pain, change in BM etc.
He has chronic lower extremity edema.
A/P:
# Dyspnea, ?2/2 anemia vs others
Placed on 2L NC for symptoms, sat 100%
CXR NAD
Hgb 7.1 on admission (from baseline 9.7), transfused 1 units PRBC, Hgb today 7.7, cont to monitor
iron panel consistent with ACD, B12/folate WNL
BL LE US neg for DVT,
check VQ scan for VTE eval as part of dyspnea work up in setting of metastatic cancer
Noted BNP 4000 on admission
cont low dose IV lasix 20 mg BID for chronic edema
# Poor PO intake, dehydration, Prerenal and postrenal BERTA
# Metabolic acidosis , improved
# Obstructive uropathy
SCr 2.3 -> 1.0; baseline SCr around 1.0
s/p Bicarb drip low rate
Monitor SCr
huffman placed 12/31 for urinary retention
diet advanced to pureed per SPL
# hypocalcemia
[place] likely 2/2 xgeva S/E
Less likely tumor lysis syndrome per discussion with Onc
corrected calcium level at 5.4 today
replete calcium IV and monitor level
# non-sustained VT noted on tele
# non-CA troponin elevation
replete Calcium IV
Cont Coreg
Card on board
# Hyperuricemia likely 2/2 BERTA per Onc, less likely tumor lysis syndrome
# Diffuse skin rash
ED d/w outpt oncologist Dr June, who recc steroid over 2 weeks
IV Decadron started, GI ppx with IV Protonix
wound care on board
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
pt c/o intermittent chills at home, CRP elevated (could be 2/2 current inflammatory response), blood cultures x2 so far negative
DVT ppx: HSQ
FC for now until further notified by pt
DW RN
updated on the phone
CC Mx for severe electrolyte abnormality, CC time 45 min
Anticipated Discharge: > 48 hours
Subjective/Interval History
-
Date of Service: January 02, 2025
Objective Data
-
Labs:
Laboratory Results
01/01/25 01/02/25
21:34 05:08
WBC 2.3 L*
Hgb 7.7 L
Hct 22.3 L
Plt Count 270
Sodium 137 137
Potassium 3.6 4.0
Chloride 111 H 112 H
Carbon Dioxide 19 L 21 L
BUN 41 H 40 H
Creatinine 1.1 1.0
Glucose 172 H 159 H
Calcium 4.5 L* 4.4 L*
Total Bilirubin 0.7
AST 27
ALT 15
Alkaline Phosphatase 175 H
Vital Signs:
Vital Signs
Temp Pulse Resp BP Pulse Ox
36.6 C 83 28 141/73 99
01/02/25 06:07 01/02/25 06:00 01/02/25 06:00 01/02/25 06:00 01/02/25 06:00
I&O
01/01/25 01/02/25 01/03/25
06:59 06:59 06:59
Intake Total 250 / 250 1500 / 1500
Output Total 1675 / 1675 2400 / 2400
Balance -1425 / -1425 -900 / -900
Review of Systems
-
History Source: Patient
All other systems: Reviewed and negative
Physical Exam
-
General: Well Developed, No Apparent Distress, Comfortable, Conversant and Appears Chronically Ill
HEENT: Oxygen (2L NC placed for comfort ); Negative Thrush
Respiratory: Clear to Auscultation and Non Labored Respirations; Negative Wheezes, Rales, Rhonchi, Crackles or Accessory Resp Muscle Use
Cardiac: Regular Rhythm and S1/S2; Negative Murmur, Rub or Gallop
GI: Soft, Nontender, Nondistended and Normal Bowel Sounds
Musculoskeletal: No Clubbing, No Cyanosis, Edema, Right Lower Extrem and Edema, Left Lower Extrem
Skin: Warm
Neuro: Awake
Psych: Calm and Intact Judgement/Insight
Data Reviewed
-
Ultrasound: Report Reviewed by me
Labs: Labs Reviewed by me, Discussed with Nurse, Discussed with Patient and Discussed with Family
--- NOTE | 2025-01-02 09:05 | PTCARENOTE ---
Patient received from film processing shift supervisor. Patient resting comfortably in room. AAO, VSS. Patient remains on 2L N/C, will try to wean usually Room Air, will try and wean. Patient with 25 beat V-tach run at shift change, hospitalist and cardiology made
aware. Patient already receiving Ca. Continues with complaints of whole body pain due to the rash and scabs. Continuing steroids. No testing scheduled at this time. Call whitman in reach.
[2025-01-02] MEDS: OSCAL CAL 500 PO ×2 (09:19→16:45)
--- NOTE | 2025-01-02 09:21 | W.PN.CARDCBS ---
Today's Communication / Plan
-
Asymptomatic run of nonsustained VT this a.m.
Continue to replete Ca/K/Mg
Continue BB
Monitor on tele
Impression / Plan
-
PCP: Merline Portillo
Cushion Cover Inspector: Neel Hayward
Oncologist: Dr. [facility]
Impression:
Presents 12/30/2024 with worsening shortness of breath, edema, significant fatigue with poor oral intake, nausea and diffuse rash
Acute anemia
Status post 1 unit packed RBCs 12/30/2024
Hypocalcemia secondary to xgeva
Hypomagnesemia
Hypokalemia
BERTA likely secondary to dehydration with poor oral intake, diarrhea, and continued lasix use at home
Metastatic urothelial carcinoma s/p C2 Padcev with keytruda at [facility] last week
Rash secondary to antineoplastic therapy
leukopenia/lymphopenia
Acute on chronic heart failure with reduced ejection fraction, proBNP 4290
Abnormal troponin, suspect nonischemic myocardial injury
VT in setting of severe electrolyte derangement, BERTA
Longstanding nonischemic cardiomyopathy
Chronic heart failure with reduced ejection fraction
Frequent PVCs
Hypertension
Hyperlipidemia
Echo May 2024: EF 25 to 30%, mildly reduced RV systolic function, mild MR, severe left atrial dilation
Lexiscan nuclear stress test December 2015: Small area of mildly decreased perfusion that is fixed in apical segment. No evidence of reversible ischemia. Global hypokinesis, EF 31%
Cardiac catheterization 2006: Mild nonobstructive coronary artery disease
Plan:
-Presents 12/30/2024 with worsening shortness of breath, edema, significant fatigue with poor oral intake, nausea and diffuse rash and was found to have acute anemia with metabolic acidosis and electrolyte derangement.
-BERTA (creat 2.3) on presentation likely secondary to dehydration with poor oral intake, diarrhea and continued Lasix use at home. Improved to 1.0 following IVF resuscitation. Would be cautious not to give too much volume given patient has history
of longstanding nonischemic cardiomyopathy with EF of 25 to 30%
-Significant electrolyte derangement with hypocalcemia, hypomagnesemia and hypokalemia. Ongoing electrolyte repletion.
-Ventricular tachycardia (50 beats) 01/01/2025 and frequent PVCs in setting of electrolyte derangement. Patient was rather asymptomatic and spontaneously converted. Continue to replete electrolytes. Keep K+ greater than 4, magnesium greater than
2. Continue Coreg. Patient was only getting once a day. Will change to 6.25 mg twice daily. Can be uptitrated as blood pressure allows.
-Acute on chronic heart failure with reduced ejection fraction, proBNP 4290. Initially presented with BERTA. Would continue gentle IV diuresis with Lasix 20 mg IV twice daily and close monitoring of renal function and electrolytes.
-Abnormal troponin, 0.035. Suspect nonischemic myocardial injury secondary to electrolyte derangement, acute anemia, metabolic acidosis. Continue to trend to peak.
-Metastatic urothelial carcinoma s/p C2 Padcev with keytruda at [facility] last week. Has started with rash secondary to antineoplastic therapy. Oncology following with recommendations of continuing dexamethasone, topical hydrocortisone and Claritin
HPI 01/01/2025:
Patient is a 77-year-old male with past medical history of longstanding nonischemic cardiomyopathy (declined ICD in past), heart failure with reduced ejection fraction, frequent PVCs, hypertension, hyperlipidemia and recently diagnosed metastatic
urethral carcinoma with recent initiation of Padcev with keytruda at [facility] (Dr. June) who presents to emergency department 12/31/2024 with worsening shortness of breath, edema, significant fatigue with poor oral intake, nausea and diffuse rash with
erythema which started after initiation of cancer treatment. On presentation patient noted to have acute anemia with hemoglobin of 7.1 and was transfused 1 unit of packed RBCs. Also found to have elevated proBNP 4290. Found to have metabolic
acidosis with BERTA with creatinine of 2.3 and electrolyte derangements. Troponin 0.035. EKG demonstrated sinus rhythm with frequent PVCs. Lower extremity Doppler was negative for DVT. Chest x-ray showed no acute cardiopulmonary abnormality.
Patient underwent IV fluid resuscitation for BERTA with improvement of creatinine. Electrolytes ongoing repletion. Cardiology being asked to see patient for sustained ventricular tachycardia. Patient was rather asymptomatic except had somewhat of a
blank stare per nursing.
Progress Note - Cushion Cover Inspector
Subjective
Date of Service: January 02, 2025
NAOE. Remais in IMU. No cardiac complaints. Tells me his main issues are pruritic rash and ongoing anxiety. Tele reviewed, run of NSVT this AM, patient was asymptomatic with this.
Objective
Labs:
01/02/25 05:08
01/02/25 05:08
Labs
Hgb 7.7 g/dL (13.0-18.0) L 01/02/25 05:08
Hct 22.3 % (39.0-52.0) L 01/02/25 05:08
Plt Count 270 10^3/uL (130-400) 01/02/25 05:08
PT 17.1 Sec (11.4-14.6) H 12/31/24 08:58
INR 1.36 12/31/24 08:58
APTT 32.0 Sec (23.4-35.0) 12/31/24 08:58
Sodium 137 mmol/L (135-145) 01/02/25 05:08
Potassium 4.0 mmol/L (3.5-5.1) 01/02/25 05:08
BUN 40 mg/dl (9-20) H 01/02/25 05:08
Creatinine 1.0 mg/dL (0.7-1.3) 01/02/25 05:08
Glucose 159 mg/dl (70-99) H 01/02/25 05:08
Troponins
01/01/25 01/01/25 01/01/25
02:47 12:00 18:45
Troponin I 0.035 H* 0.030 Cancelled
Vital Signs and I&O:
Vital Signs
Temp Pulse Resp BP Pulse Ox
98 F 83 28 141/73 99
01/02/25 06:07 01/02/25 06:00 01/02/25 06:00 01/02/25 06:00 01/02/25 06:00
Vital Signs
Temp Pulse Resp BP Pulse Ox
98 F 83 28 141/73 99
01/02/25 06:07 01/02/25 06:00 01/02/25 06:00 01/02/25 06:00 01/02/25 06:00
Intake & Output
12/31/24 01/01/25 01/02/25 01/03/25
06:59 06:59 06:59 06:59
Intake Total 250 / 250 1500 / 1500
Output Total 1675 / 1675 2400 / 2400
Balance -1425 / -1425 -900 / -900
Physical Exam
Physical Exam
Gen: NAD, AA
HEENT: NC/AT, sclera anicteric
Neck: No JVD
CV: RRR, NL s1/s2
Lungs: No increase WOB on 2L O2
Abd: S/ND
Ext: Trace LE edema
Skin: Warm, dry, skin excoriations
Neuro: Non-focal
[2025-01-02] MEDS: COREG 6.25 MG PO ×2 (09:33→20:49)
[2025-01-02] MEDS: SUBUTEX 1 MG SL (09:33)
[2025-01-02] MEDS: CLARITIN 10 MG PO (09:34)
--- NOTE | 2025-01-02 09:34 | PHA.VAN.IN ---
Assessment
- Assessment
Renal Function: Unknown baseline (SCR decreased from admission 2.3 --> 1)
Concomitant Antimicrobials: ceftriaxone
AUC Dosing Plan
- Dosing Variables
Dosing Weight (kg): 78
Dosing CrCl (ml/min): 73
Vd coefficient (L/kg): 0.7
- Empiric Dosing
Initial / Loading Dose: 1000mg - administration pending
Maintenance Regimen: Vanc 750mg Q12H starting at 1800 in lieu of load
Estimated AUC (mcg*h/mL): 436
Estimated Peak (mcg*h/mL): 25.4
Estimated Trough (mcg/ml): 12.4
Estimated Half Life (H): 10.7
- Monitoring
No levels ordered at this time: consider in next few days; follow BUN trend
Pharmacokinetics Vancomycin I
- -
Patient Age: 69
Patient Sex: Male
Vancomycin Day #: 1
Indication: Bacteremia
Requesting Provider: Dr. León
Pertinent Antimicrobial Allergies:
NKDA
Height / Weight:
Height 5 ft 11 in
Actual Weight 78.2 kg
Pertinent Past Medical History: Metastatic ureteral cancer
- Vital Signs / Lab Results
Temp Pulse Resp BP Pulse Ox
98 F 83 28 141/73 99
01/02/25 06:07 01/02/25 06:00 01/02/25 06:00 01/02/25 06:00 01/02/25 06:00
Lab Results - Hematology
12/31/24 01/01/25 01/02/25
08:58 01:50 05:08
WBC 3.8 L 2.9 L 2.3 L*
Lab Results - Chemistry
12/31/24 01/01/25 01/01/25
08:58 01:50 21:34
BUN 53 H 46 H 41 H
Creatinine 2.3 H 1.5 H 1.1
Estimated Creat Clear 32 49 67
Albumin 2.9 L 2.7 L
01/02/25
05:08
BUN 40 H
Creatinine 1.0
Estimated Creat Clear 73
Albumin
Microbiology Results
01/01/25 02:00 Blood Culture - Preliminary
Blood/Venous Positive culture in progress
Gram Stain - Preliminary
01/01/25 02:48 Blood Culture - Preliminary
Blood/Venous Positive culture in progress
Gram Stain - Preliminary
01/01/25 01:50 MRSA Screen - Final
Nose No Methicillin Resistant Staphylococcus aureus isolated.
[2025-01-02] MEDS: NSS (PRESERVATIVE FREE) 10 ML IV (09:35)
[2025-01-02] MEDS: ROCEPHIN 2000 MG IV (09:35)
[2025-01-02] MEDS: PROTONIX IV 40 MG IV (09:35)
[2025-01-02] MEDS: STERILE WATER FOR INJECTION 20 ML IV (09:35)
[2025-01-02] MEDS: LASIX 20 MG IV ×2 (09:35→16:45)
[2025-01-02] MEDS: HYDROCORTISONE 1% CREAM 1 APPLIC TOPICAL (09:36)
[2025-01-02] MEDS: DECADRON 12 MG IV (09:36)
[2025-01-02] MEDS: HEPARIN 5000 UNITS SC ×2 (09:36→20:48)
[2025-01-02] MEDS: HYDROPHOR 1 APPLIC TOPICAL (09:37)
--- NOTE | 2025-01-02 10:58 | CON.ID ---
Consultation
-
Date/Time Consultation Requested: 01/02/2025 0914
Date/Time Consultation Performed: 01/02/2025 1050
Requesting Provider: Dr. León
Performing Provider: Dr. Mcghee
Reason for Consultation: Bacteremia
Chief Complaint / Past History
History of Present Illness
Darrius Carmona is a 69-year-old man with a significant past medical history of ureteral cancer (followed at [facility]) being evaluated at the request of Dr. León in regards to bacteremia. History is obtained from chart review, along with patient interview.
The patient presents to [facility] on 12/31 following progressive shortness of breath, poor oral intake and dehydration over the past several days to week. Additionally, he developed an outpatient diffuse rash. He recently received his
second treatment of Padcev and Keytruda.
Late on 12/31, he was found to be in urinary retention, with bladder scanning showing greater than 823 mL and a Denny catheter was placed. Blood cultures were obtained at admission, and are now positive for Staph aureus. Infectious Diseases is asked
to comment upon further antimicrobial management.
Per the patient's who is present at the bedside patient has been having constant diarrhea for 5 to 6 days prior to admission and decreased oral intake for several days just prior to admission. He has had a rash develop on his body starting
late last week, which is known to his heme-onc physician. No history of fevers. No history of blood in the stool.
Port-A-Cath was placed around October 30.
Past History
Additional Past Medical History:
Metastatic ureteral cancer (bone, liver)
Cardiomyopathy
CAD
GERD
Vertigo
HTN
HLD
Additional Past Surgical History:
Right ACW Port-A-Cath placement (10/30/2024)
Allergy History:
No Known Allergies Allergy (Verified 10/10/24 16:10)
Medications Reviewed: Yes
Current Antibiotics:
Ceftriaxone 2 gm IV q.24 hours
Vancomycin 750 mg IV q.12 hours
Social History
Tobacco: Non-Smoker
Alcohol: Occasional
Drug: None
Personal:
Living: With Family
Employment: Retired
Family History
Family History: Not Pertinent
Review of Systems
Vital Signs
Temp Pulse Resp BP Pulse Ox
98 F 90 28 133/74 99
01/02/25 06:07 01/02/25 09:33 01/02/25 06:00 01/02/25 09:33 01/02/25 06:00
Physical Exam
Physical Exam
Constitutional: Acutely Ill, Chronically Ill and Non-toxic
Head: Normocephalic
Eyes: Pupils Equal, Pupils Round, No Conjunctival Hemorrhage and Sclera Anicteric
Cardiovascular: Regular Rate and S1/S2; Negative S3/S4 or Murmur
Pulmonary: Clear and Non Labored; Negative Wheezes or Rales
Gastrointestinal: Soft, Non Tender, Non Distended and Normal Bowel Sounds
Genito-Urinary: Denny and Clear Urine; Negative Turbid Urine
Extremities: Edema
Wound: Other (Diffuse crusted rash over extremities and trunk. Right upper extremity rash appears somewhat purulent.)
Neurological: Awake and Alert
Psychological: Calm
.
Lab / Diagnostic Study Results
01/02/25 05:08
01/02/25 05:08
Abs Immat Gran (auto) 0.1 10^3/uL (0-0.05) H 12/31/24 08:58
Absolute Neuts (auto) 2.5 10^3/uL (1.4-6.5) 12/31/24 08:58
Absolute Lymphs (auto) 0.5 10^3/uL (1.2-3.4) L 12/31/24 08:58
Absolute Monos (auto) 0.5 10^3/uL (0.1-0.6) 12/31/24 08:58
Absolute Basos (auto) 0.0 10^3/uL (0-0.2) 12/31/24 08:58
Immature Gran % 2.4 % (0-0.5) H 12/31/24 08:58
Neutrophils % 66.7 % (42.2-75.2) 12/31/24 08:58
Lymphocytes % 13.8 % (20.5-51.1) L 12/31/24 08:58
Monocytes % 12.0 % (1.7-9.3) H 12/31/24 08:58
Eosinophils % 4.3 % (0-6) 12/31/24 08:58
Basophils % 0.8 % (0-2) 12/31/24 08:58
PT 17.1 Sec (11.4-14.6) H 12/31/24 08:58
INR 1.36 12/31/24 08:58
C-Reactive Protein 170.70 mg/L (0.0-10.00) H 12/31/24 08:58
Microbiology Results
Micro:
01/01/25 02:00 Blood Culture - Preliminary
Blood/Venous Staphylococcus aureus
Gram Stain - Preliminary
01/01/25 02:48 Blood Culture - Preliminary
Blood/Venous Positive culture in progress
Gram Stain - Preliminary
01/01/25 01:50 MRSA Screen - Final
Nose No Methicillin Resistant Staphylococcus aureus isolated.
Imaging:
12/31/2024 CXR (2 view): no focal airspace disease noted. No pleural effusion or pneumothorax.
Assessment / Plan
Staph aureus bacteremia
- Potential source: port, skin, urine, other
Leukopenia
Anemia
BERTA; improved
Elevated CRP
Metastatic ureteral cancer (liver, bone; followed at [facility], on Padcev and Keytruda)
Cardiomyopathy
CAD
GERD
Vertigo
HTN
HLD
Recommendations:
Patient has been started on empiric vancomycin and ceftriaxone.
PCR testing of isolate does not reveal MEC gene, making MRSA less likely.
Repeat blood cultures been ordered. Follow to assess clearance.
Transition ceftriaxone to cefazolin. Continue vancomycin until isolate confirmed to not be MRSA.
Monitor white count and temperature curve.
Monitor Vanco levels to prevent nephrotoxicity.
Further recommendations as additional data is returned.
[2025-01-02] MEDS: VANCOCIN 200 IV (11:21)
--- NOTE | 2025-01-02 11:38 | PN.CDI ---
CDI
- -
CDI:
Physician Documentation Request
Admit Date: 12/31/24 12:47
Dear Doctor Romelia,
Patient admitted for BERTA, dyspnea, hypocalcemia.
Troponin noted to be elevated.
Hospitalist note states ' non-[place] troponin elevation'
Cardiology note states 'Abnormal troponin, suspect nonischemic myocardial injury
In an attempt to clarify potentially conflicting documentation, please clarify the etiology of the elevated troponin
nonischemic myocardial injury
non-[place] troponin elevation
Other
Use of terms such as suspected, likely, concern for, or probable (associated with a specific diagnosis that is being evaluated, monitored, or treated as if it exists) are acceptable and can be coded in the inpatient setting, when documented at the
time of discharge.
Thank you,
Rebecca Brasher RN, BSN
CDI Specialist
tiger text
Please use your independent medical judgment in providing your response.
--- NOTE | 2025-01-02 13:04 | CM ---
CM following for discharge planning. Pt referred to [facility] for home care services, however current recommendation is for SNF transfer pending medical stability.
Plan: CM will continue to follow for dc planning to SNF based on recommendation of PT/OT.
[2025-01-02] MEDS: ANCEF 10 IV ×2 (13:54→20:48)
--- NOTE | 2025-01-02 17:00 | PTCARENOTE ---
Blood cultures drawn at 1649 were through the sub q port. Spoke with Infectious Disease and they ok'd the draw. Due to patient total body rash and scabs and extremely limited space to draw blood cultures.
[2025-01-02] MEDS: VANCOCIN 150 IV (17:36)
--- NOTE | 2025-01-02 21:19 | PTCARENOTE ---
Caring for patient overnight. aaox3, anxious involving care. at bedside. NSR PVC. VSS. Rash throughout body. IVF, IvABX. R port. Sitting up and standing on side of bed, weak but pt states its better than when he first come to the hospital.
huffman was pulled during day shift, DTV at 2030 but pt voided 350cc, will bladder scan appropriately. Bed alarm on. PT able to swallow pills with water but coughed a couple times. no other issues. Will monitor.
[2025-01-03] VITALS (13 sets, daily range): BP systolic 128–164; BP diastolic 58–88; BMI 23.7
[2025-01-03] MEDS: BENADRYL 25 MG PO (00:06)
[2025-01-03] MEDS: HYDROCORTISONE 1% CREAM TOPICAL ×2 (00:08→20:43)
[2025-01-03 00:41] LABS: Blood Urea Nitrogen 42 mg/dl (9-20); Calcium 4.6 mg/dl (8.4-10.2); Carbon Dioxide 22 mmol/L (22-30); Chloride 109 mmol/L (98-107); Estimated Creatinine Clearance 73 ml/min; Glucose 129 mg/dl (70-99); Magnesium 1.9 mg/dl (1.6-2.3); Potassium 4.0 mmol/L (3.5-5.1); Sodium 137 mmol/L (135-145); Uric Acid 10.1 mg/dl (3.5-8.5); eGFR > 60.00
[2025-01-03 00:44] LABS: C-Reactive Protein 81.70 mg/L (0.0-10.00)
--- NOTE | 2025-01-03 01:08 | PTCARENOTE ---
18 run VT @ 2355. VSS, pt awake. MEDIA CONSULTANT TT, labs drawn. K 4.0 Ca 4.6 Mg 1.9. Mg rider and Ca rider ordered.
Pt unable to urinate, scanned for >600cc. Straight cathed for 650cc yellow urine. DTV 0645.
[2025-01-03 01:13] LABS: Hematocrit 23.0 % (39.0-52.0); Hemoglobin 7.9 g/dL (13.0-18.0); Mean Corp Hgb Conc. 34.3 g/dL (33.0-37.0); Mean Corpuscular Volume 81.0 fL (80.0-94.0); Platelet Count 320 10^3/uL (130-400); Red Cell Dist. Width 17.2 % (11.5-14.5)
[2025-01-03] MEDS: MAGNESIUM SULFATE 50 IV (01:41)
[2025-01-03] MEDS: CALCIUM GLUCONATE 100 IV ×2 (01:43→09:59)
[2025-01-03] MEDS: ANCEF 10 IV ×3 (05:14→20:42)
[2025-01-03] MEDS: VANCOCIN 150 IV ×2 (05:15→16:37)
[2025-01-03 05:52] LABS: Hematocrit 23.1 % (39.0-52.0); Hemoglobin 8.0 g/dL (13.0-18.0); Mean Corp Hgb Conc. 34.6 g/dL (33.0-37.0); Mean Corpuscular Volume 80.2 fL (80.0-94.0); Platelet Count 305 10^3/uL (130-400); Red Cell Dist. Width 17.1 % (11.5-14.5)
[2025-01-03 06:06] LABS: Blood Urea Nitrogen 40 mg/dl (9-20); Calcium 4.6 mg/dl (8.4-10.2); Carbon Dioxide 20 mmol/L (22-30); Chloride 112 mmol/L (98-107); Estimated Creatinine Clearance 81 ml/min; Glucose 154 mg/dl (70-99); Magnesium 2.4 mg/dl (1.6-2.3); Potassium 4.0 mmol/L (3.5-5.1); Sodium 139 mmol/L (135-145); eGFR > 60.00
--- NOTE | 2025-01-03 06:13 | W.PN.UPDATE ---
Update Note
Progress Note Update
MN 18 beats of V tach, lab ordered, patient asymptomatic, VS at base
Mag 1.9 2 g Mag rider given
Corrected calcium 5.2 Calcium gluconate 2g Iv ordered
Vitamin D level ordered
[2025-01-03 07:11] LABS: Vitamin D, 25-OH*** 15.5 ng/mL (30-80)
--- NOTE | 2025-01-03 07:17 | PTCARENOTE ---
PACKER DRIED BEEF aware of Ca this morning, no new riders ordered, vit d lab ordered.
Pt was able to urinate on his own this morning. Voided 350cc PVR 46cc.
[2025-01-03] MEDS: SUBUTEX 1 MG SL (07:53)
[2025-01-03] MEDS: CLARITIN 10 MG PO (07:53)
[2025-01-03] MEDS: COREG 6.25 MG PO ×2 (07:57→12:40)
[2025-01-03] MEDS: OSCAL CAL 500 1000 MG PO (07:57)
[2025-01-03] MEDS: DECADRON 12 MG IV (08:05)
[2025-01-03] MEDS: LASIX 20 MG IV ×2 (08:07→16:38)
[2025-01-03] MEDS: HEPARIN 5000 UNITS SC ×2 (08:12→20:43)
--- NOTE | 2025-01-03 08:12 | PHA.VAN.FU ---
Vancomycin Assessment / Plan
- Assessment
Renal Function: Stable
WBC's are: Stable
In the past 24 hrs, patient has been: Afebrile
Concomitant Antimicrobials: cefazolin
- Dosing Plan
Continue: Vanc 750mg Q12H
- Monitoring Plan
No level(s) ordered at this time: consider levels in next few days
- Follow Up
Pharmacy will continue to follow.
Vancomycin Follow UP
- -
Patient Age: 69
Patient Sex: Male
Vancomycin Day #: 2
Indication: Bacteremia
Requesting Provider: Dr. León
Pertinent Antimicrobial Allergies:
NKDA
Height / Weight:
Height 5 ft 11 in
Actual Weight 77.1 kg
Pertinent Past Medical History: Metastatic ureteral cancer
- Vital Signs / Lab Results
Temp Pulse Resp BP Pulse Ox
97.2 F 92 17 146/62 98
01/03/25 07:30 01/03/25 07:57 01/03/25 04:02 01/03/25 07:57 01/03/25 04:02
Lab Results - Hematology
12/31/24 01/01/25 01/02/25
08:58 01:50 05:08
WBC 3.8 L 2.9 L 2.3 L*
01/03/25 01/03/25
00:13 05:26
WBC 2.7 L 2.4 L*
Lab Results - Chemistry
12/31/24 01/01/25 01/01/25
08:58 01:50 21:34
BUN 53 H 46 H 41 H
Creatinine 2.3 H 1.5 H 1.1
Estimated Creat Clear 32 49 67
Albumin 2.9 L 2.7 L
01/02/25 01/03/25 01/03/25
05:08 00:13 00:27
BUN 40 H 42 H Cancelled
Creatinine 1.0 1.0 Cancelled
Estimated Creat Clear 73 73 Cancelled
Albumin Cancelled
01/03/25
05:26
BUN 40 H
Creatinine 0.9
Estimated Creat Clear 81
Albumin
Microbiology Results
01/02/25 11:58 C. difficile GDH Antigen & Toxins - Final
Feces/Stool Negative for toxigenic C.difficile
01/01/25 02:00 Blood Culture - Preliminary
Blood/Venous Staphylococcus aureus
Gram Stain - Preliminary
01/01/25 02:48 Blood Culture - Preliminary
Blood/Venous Positive culture in progress
Gram Stain - Preliminary
01/01/25 01:50 MRSA Screen - Final
Nose No Methicillin Resistant Staphylococcus aureus isolated.
[2025-01-03] MEDS: NSS (PRESERVATIVE FREE) 10 ML IV (08:16)
[2025-01-03] MEDS: PROTONIX IV 40 MG IV (08:16)
--- NOTE | 2025-01-03 09:57 | PN.CDI ---
CDI
- -
CDI:
Physician Documentation Request
Admit Date: 12/31/24 12:47
Dear Doctor Romelia,
Patient presents to ED for shortness of breath.
12/31 BNP 4290. Patient has received IV Lasix.
History of cardiomyopathy and takes Lasix po as outpatient. Echo from 05/30/2024 shows an EF of 25-30%
01/01 cardiology consult states 'Cont gentle diuresis with NICM EF 25-30% hx... chronic heart failure with reduced ejection fraction' and also 'acute on chronic heart failure with reduced ejection fraction, proBNP 4290... wound continue gentle IC
diuresis with Lasix 20 mg IV twice daily and close monitoring of renal function and electrolytes.'
Please clarify which of the following accurately represents the acuity of the HF
Acute on Chronic
Chronic
____ Other
Use of terms such as suspected, likely, concern for, or probable (associated with a specific diagnosis that is being evaluated, monitored, or treated as if it exists) are acceptable and can be coded in the inpatient setting, when documented at the
time of discharge.
Thank you,
Rebecca Brasher RN, BSN
CDI Specialist
tiger text
Please use your independent medical judgment in providing your response.
--- NOTE | 2025-01-03 11:15 | W.PN.ONC2 ---
Today's Communication / Plan
-
continue steroids -transition to prednisone 80mg daily once able to tolerate PO
Impression
Impression
metastatic urothelial carcinoma s/p C2 Padcev with keytruda at [facility] last week
rash secondary to antineoplastic therapy
hypocalcemia secondary to xgeva
jazmin likely dehydration with poor oral intake, diarrhea, and continue NSAIDs & lasix use at home -improved creatinine to 1.5 today
cancer pain
SOB
Anemia s/p 1U prbc 01/01 with Hgb improved to >8g/dL
leukopenia/lymphopenia
elevated BNP
diarrhea
Plan
Plan
Padcev most common SE include but not limited to fatigue, peripheral neuropathy, decreased appetite, rash, nausea, diarrhea
monitor for immune mediated SE of keytruda.
symptoms support, antiemetics
calcium repletion, hold xgeva for resolution of hypocalcemia
claritin daily, topical hydrocortisone to skin folds, prednisone 1mg/kg/day - transitioned to 12mg dexamethasone (Dex 12 mg is equivalent to Prednisone 80 mg PO QD (1 mg/kg) - until able to tolerate orals -taper as outpatient by primary oncologist-
PPI while on steroids
Imodium prn
transfuse prn
OP follow up with [facility] upon discharge for continued management of metastatic urothelial carcinoma
Subjective/Objective
Subjective
no new complaints
Vital Signs:
Vital Signs
Temp Pulse Resp BP Pulse Ox
97.2 F 78 19 134/76 97
01/03/25 07:30 01/03/25 10:38 01/03/25 10:38 01/03/25 10:38 01/03/25 10:45
Lab Results:
Laboratory Data
WBC 2.4 10^3/uL (4.8-10.8) L* 01/03/25 05:26
Hgb 8.0 g/dL (13.0-18.0) L 01/03/25 05:26
Plt Count 305 10^3/uL (130-400) 01/03/25 05:26
PT 17.1 Sec (11.4-14.6) H 12/31/24 08:58
INR 1.36 12/31/24 08:58
APTT 32.0 Sec (23.4-35.0) 12/31/24 08:58
eGFR > 60.00 01/03/25 05:26
Physical Exam
improved erythematous rash
HEENT: Moist Mucous Membranes; No Jaundice
Pulmonary: Other (unlabored)
GI: Soft
Extremities: Pulses Present and Edema
Neuro: Non Focal
--- NOTE | 2025-01-03 11:16 | W.PN.CARDCBS ---
Today's Communication / Plan
-
Increase carvedilol to 12.5 mg twice daily
Defer management of hypocalcemia to primary team
Continue IV Lasix for now, though edema may likely represent hypoalbuminemia rather than HFpEF
Impression / Plan
-
PCP: Merline Portillo
Tax Analyst: Neel Hayward
Oncologist: Dr. June [facility]
Impression:
Presents 12/30/2024 with worsening shortness of breath, edema, significant fatigue with poor oral intake, nausea and diffuse rash
Acute anemia
Status post 1 unit packed RBCs 12/30/2024
Hypocalcemia secondary to xgeva
Hypomagnesemia
Hypokalemia
BERTA likely secondary to dehydration with poor oral intake, diarrhea, and continued lasix use at home
Metastatic urothelial carcinoma s/p C2 Padcev with keytruda at [facility] last week
Rash secondary to antineoplastic therapy
leukopenia/lymphopenia
Acute on chronic heart failure with reduced ejection fraction, proBNP 4290
Abnormal troponin, suspect nonischemic myocardial injury
VT in setting of severe electrolyte derangement, BERTA
Longstanding nonischemic cardiomyopathy
Chronic heart failure with reduced ejection fraction
Frequent PVCs
Hypertension
Hyperlipidemia
Staph aureus bacteremia
Echo May 2024: EF 25 to 30%, mildly reduced RV systolic function, mild MR, severe left atrial dilation
Lexiscan nuclear stress test December 2015: Small area of mildly decreased perfusion that is fixed in apical segment. No evidence of reversible ischemia. Global hypokinesis, EF 31%
Cardiac catheterization 2005: Mild nonobstructive coronary artery disease
Plan:
From a cardiac standpoint he seems largely unchanged. Still with some nonsustained VT. Will double carvedilol to 12.5 twice daily.
He has lower extremity edema but not much evidence of left heart failure. His edema may relate to hypoalbuminemia rather than acute HFrEF. Will continue IV furosemide at this time.
Defer management of hypocalcemia to primary team
HPI 01/01/2025:
Patient is a 77-year-old male with past medical history of longstanding nonischemic cardiomyopathy (declined ICD in past), heart failure with reduced ejection fraction, frequent PVCs, hypertension, hyperlipidemia and recently diagnosed metastatic
urethral carcinoma with recent initiation of Padcev with keytruda at [facility] (Dr. June) who presents to emergency department 12/31/2024 with worsening shortness of breath, edema, significant fatigue with poor oral intake, nausea and diffuse rash with
erythema which started after initiation of cancer treatment. On presentation patient noted to have acute anemia with hemoglobin of 7.1 and was transfused 1 unit of packed RBCs. Also found to have elevated proBNP 4290. Found to have metabolic
acidosis with BERTA with creatinine of 2.3 and electrolyte derangements. Troponin 0.035. EKG demonstrated sinus rhythm with frequent PVCs. Lower extremity Doppler was negative for DVT. Chest x-ray showed no acute cardiopulmonary abnormality.
Patient underwent IV fluid resuscitation for BERTA with improvement of creatinine. Electrolytes ongoing repletion. Cardiology being asked to see patient for sustained ventricular tachycardia. Patient was rather asymptomatic except had somewhat of a
blank stare per nursing.
Progress Note - Tax Analyst
Subjective
Date of Service: January 03, 2025:
77-year-old man, nonischemic CM, refuses ICD, frequent PVCs, urothelial cancer on Keytruda and Padcev. Having PVCs and nonsustained VT in the setting of anemia and acute on chronic HFrEF with BERTA and detectable troponin.
PMH: Nonischemic cardiomyopathy, chronic HFrEF, nonsustained VT/PVCs, hypertension hyperlipidemia, metastatic urothelial cancer. Has Staph aureus in blood
Medications: Subutex, calcium, furosemide 20 mg IV twice daily, subcu heparin, pantoprazole, dexamethasone 12 mg a day, carvedilol 6.25 twice daily, vancomycin and cefazolin
No specific complaints
weight is 77.1 kg down 1.1 kg if accurate weight in October was 89.4 kg, 134/76, pulse 78, respiratory rate 19 afebrile, intake and output if accurate -1.9 L, appears chronically ill, was sleeping, at bedside lungs are relatively clear, regular
rate and rhythm, soft systolic murmur neck veins okay, 1+ to 2+ edema
ECG sinus rhythm, incomplete left bundle branch block
White count 2.4, hemoglobin 8, platelets 305, BUN and creatinine are 40 and 0.9, potassium is 4, calcium is 4.6, magnesium 2.4, troponin was 0.035, proBNP was 4290, albumin is 2.7
Echo May 2024: EF 25 to 30%, mildly reduced RV systolic function, mild MR, severe left atrial dilation
Objective
Labs:
01/03/25 05:
01/03/25 05:
Labs
Hgb 8.0 g/dL (13.0-18.0) L 01/03/25 05:
Hct 23.1 % (39.0-52.0) L 01/03/25:
Plt Count 305 10^3/uL (130-400) 01/03/25 05:
PT 17.1 Sec (11.4-14.6) H 12/31/24 08:58
INR 1.36 12/31/24 08:58
APTT 32.0 Sec (23.4-35.0) 12/31/24 08:58
Sodium 139 mmol/L (135-145) 01/03/25 05:
Potassium 4.0 mmol/L (3.5-5.1) 01/03/25:
BUN 40 mg/dl (9-20) H 01/03/25 05:
Creatinine 0.9 mg/dL (0.7-1.3) 01/03/25:
Glucose 154 mg/dl (70-99) H 01/03/25:
Troponins
01/01/25 01/01/25 01/01/25
02:47 12:00 18:45
Troponin I 0.035 H* 0.030 Cancelled
Vital Signs and I&O:
Vital Signs
Temp Pulse Resp BP Pulse Ox
36.4 C 78 19 134/76 97
01/03/25 11:16 01/03/25 10:38 01/03/25 10:38 01/03/25 10:38 01/03/25 10:45
Vital Signs
Temp Pulse Resp BP Pulse Ox
36.4 C 78 19 134/76 97
01/03/25 11:16 01/03/25 10:38 01/03/25 10:38 01/03/25 10:38 01/03/25 10:45
Intake & Output
01/01/25 01/02/25 01/03/25 01/04/25
07:59 07:59 07:59 07:59
Intake Total 250 / 250 1500 / 1500 220 / 220
Output Total 1675 / 1675 2400 / 2400 2100 / 2100
Balance -1425 / -1425 -900 / -900 -2100 / -2100 220 / 220
Physical Exam
Physical Exam
See above
[2025-01-03] MEDS: HYDROCORTISONE 1% CREAM 1 APPLIC TOPICAL (12:05)
[2025-01-03] MEDS: HYDROPHOR 1 APPLIC TOPICAL (12:06)
--- NOTE | 2025-01-03 12:42 | W.PN.ID1 ---
Date of Service
Date of Service: January 03, 2025
Today's Communication
Continue antibiotics.
Assessment / Plan
Staph aureus bacteremia
- Potential source: port, skin, urine, other
Leukopenia
Anemia
BERTA; improved
Elevated CRP
Metastatic ureteral cancer (liver, bone; followed at [facility], on Padcev and Keytruda)
Cardiomyopathy
CAD
GERD
Vertigo
HTN
HLD
Recommendations:
Blood cultures with Staph aureus. PCR testing of isolate does not reveal MEC gene, making MRSA less likely.
Repeat blood cultures been ordered. Follow to assess clearance.
Continue cefazolin. Continue vancomycin until isolate confirmed to not be MRSA.
Monitor white count and temperature curve.
Monitor Vanco levels closely to prevent nephrotoxicity.
����������������������������������������������������������
Chief Complaint
-: Bacteremia
Subjective / Review of Systems
Review of Systems: No Fever and No Chills
Vital Signs / Physical Exam
Vital Signs
Vital Signs
Temp Pulse Resp BP Pulse Ox
97.5 F 84 19 141/61 97
01/03/25 11:16 01/03/25 12:40 01/03/25 10:38 01/03/25 12:40 01/03/25 10:45
Physical Exam
Constitutional: No Acute Distress, Comfortable and Non-toxic
Eyes: Sclera Anicteric
Cardiovascular: Regular Rate and S1/S2; Negative S3/S4 or Murmur
Pulmonary: Negative Wheezes or Rales
Gastrointestinal: Soft and Non Tender
Skin: Rash (Drying rash noted on upper extremities)
Neurological: Awake and Alert
Psychological: Calm
Lines: Port (Right ACW; accessed. No surrounding erythema or tenderness.)
Objective Data
Lab Data
Lab Results
01/03/25 05:26
01/03/25 05:26
PT 17.1 Sec (11.4-14.6) H 12/31/24 08:58
INR 1.36 12/31/24 08:58
APTT 32.0 Sec (23.4-35.0) 12/31/24 08:58
Estimated Creat Clear 81 ml/min 01/03/25 05:26
Total Bilirubin Cancelled 01/03/25 00:27
AST Cancelled 01/03/25 00:27
ALT Cancelled 01/03/25 00:27
Alkaline Phosphatase Cancelled 01/03/25 00:27
C-Reactive Protein 81.70 mg/L (0.0-10.00) H 01/03/25 00:13
Most recent labs reviewed.
Micro Results:
01/01/25 02:00 Blood Culture - Preliminary
Blood/Venous Staphylococcus aureus
Gram Stain - Preliminary
01/01/25 02:48 Blood Culture - Preliminary
Blood/Venous Positive culture in progress
Gram Stain - Preliminary
01/02/25 10:50 Blood Culture - Preliminary
Blood/Venous No Growth in 24 hours- Final report to follow
01/02/25 11:58 Salmonella/Shigella Culture - Pending
Feces/Stool Campylobacter Culture - Pending
Shiga Toxin Test - Final
No E. coli Shiga Toxin 1 or 2 detected.
01/03/25 05:26 Blood Culture - Pending
Blood/Venous
01/02/25 16:49 Blood Culture - Pending
Blood/Venous
01/02/25 11:58 C. difficile GDH Antigen & Toxins - Final
Feces/Stool Negative for toxigenic C.difficile
01/01/25 01:50 MRSA Screen - Final
Nose No Methicillin Resistant Staphylococcus aureus isolated.
Imaging:
12/31/2024 CXR (2 view): no focal airspace disease noted. No pleural effusion or pneumothorax.
--- NOTE | 2025-01-03 13:58 | PTCARENOTE ---
Patient was sitting on the side of his bed this morning eating breakfast, awake and alert. Stating that he is feeling much better. Patient has been able to urinate on his own 300ml twice this shift. Able to take medications and skin ointment
applied to skin lesions. Calcium replaced orally and IV.
--- NOTE | 2025-01-03 14:52 | W.PN.HOSP.TC ---
Today's Communication/Plan
-
Continue with repletion of calcium, and antibiotics as per ID, IV Lasix
Assessment / Plan
Assessment / Plan
HPI: 69-year-old male with PMH metastatic ureteral cancer (follows at [facility] with Dr June [phone]), recent chemo s/p second treatment (Padcev with Keytruda) this past week; p/w shortness of breath, poor po intake and feeling dehydrated. He also
noted development of diffuse rash with erythema which his oncology is aware of.
A/P:
# Dyspnea 2/2 anemia
Placed on 2L NC for symptoms, sat 100%
CXR NAD
Hgb 7.1 on admission (from baseline 9.7), transfused 1 units PRBC, Hgb stable at 7.8, continue to monitor H&H
iron panel consistent with ACD, B12/folate WNL
BL LE US neg for DVT
Noted BNP 4000 on admission
cont low dose IV lasix 20 mg BID for chronic edema
# Poor PO intake, dehydration, Prerenal and postrenal BERTA
# Metabolic acidosis , improved
# Obstructive uropathy
SCr 2.3 -> 1.0; baseline SCr around 1.0
s/p Bicarb drip low rate
Monitor SCr
huffman placed 12/31 for urinary retention
diet advanced to pureed per SPL
# hypocalcemia
[place] likely 2/2 xgeva S/E
Less likely tumor lysis syndrome per discussion with Onc
corrected calcium level at 5.5 today
replete calcium IV again and monitor level
# non-sustained VT noted on tele
# non-NM troponin elevation
replete Calcium IV
Cont Coreg
Cards on board
# Hyperuricemia likely 2/2 BERTA per Onc, less likely tumor lysis syndrome
# Diffuse skin rash
ED d/w outpt oncologist Dr June, who recc steroid over 2 weeks
IV Decadron started, changed to p.o. and tolerating orals, GI ppx with IV Protonix
wound care on board
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
pt c/o intermittent chills at home, CRP elevated (could be 2/2 current inflammatory response), blood cultures x2 so far negative
DVT ppx: HSQ
FC for now until further notified by pt
Anticipated Discharge: > 48 hours
Subjective/Interval History
-
Date of Service: January 03, 2025
Patient denies any acute issues overnight, no chest pain or palpitations
Objective Data
-
Labs:
Laboratory Results
01/03/25
05:26
WBC 2.4 L*
Hgb 8.0 L
Hct 23.1 L
Plt Count 305
Sodium 139
Potassium 4.0
Chloride 112 H
Carbon Dioxide 20 L
BUN 40 H
Creatinine 0.9
Glucose 154 H
Calcium 4.6 L*
Vital Signs:
Vital Signs
Temp Pulse Resp BP Pulse Ox
97.5 F 82 44 155/81 98
01/03/25 11:16 01/03/25 14:00 01/03/25 14:00 01/03/25 14:00 01/03/25 14:00
I&O
01/02/25 01/03/25 01/04/25
06:59 06:59 06:59
Intake Total 1500 / 1500 220 / 220
Output Total 2400 / 2400 1750 / 1750 675 / 675
Balance -900 / -900 -1750 / -1750 -455 / -455
Review of Systems
-
All other systems: Reviewed and negative
Physical Exam
-
General: No Apparent Distress
HEENT: Moist Mucous Membranes, Anicteric and PERRLA
Respiratory: Clear to Auscultation; Negative Wheezes, Rales or Rhonchi
Cardiac: Regular Rhythm and S1/S2; Negative Murmur, Rub or Gallop
GI: Soft, Nontender, Nondistended and Normal Bowel Sounds
Musculoskeletal: No Edema
Skin: Warm and Dry; Negative Rash, Ulcers or Lesions
Neuro: Awake and AO x 3
Hematologic / Lymphatic: No Lymphadenopathy
Psych: Calm
[2025-01-03] MEDS: DILAUDID 0.25 MG IV ×2 (15:48→20:58)
[2025-01-03] MEDS: OSCAL CAL 500 500 MG PO (18:37)
[2025-01-03] MEDS: COREG 12.5 MG PO (20:43)
[2025-01-04] VITALS (16 sets, daily range): BP systolic 120–161; BP diastolic 53–110; PULSE 82–86; O2SAT 96; BMI 23.0
[2025-01-04] MEDS: DILAUDID 0.25 MG IV (04:27)
[2025-01-04] MEDS: ANCEF 10 IV ×3 (04:27→20:22)
[2025-01-04] MEDS: VANCOCIN 150 IV (05:02)
[2025-01-04 05:06] LABS: Blood Urea Nitrogen 34 mg/dl (9-20); Calcium 4.0 mg/dl (8.4-10.2); Carbon Dioxide 22 mmol/L (22-30); Chloride 110 mmol/L (98-107); Estimated Creatinine Clearance 92 ml/min; Glucose 133 mg/dl (70-99); Potassium 3.9 mmol/L (3.5-5.1); Sodium 138 mmol/L (135-145); eGFR > 60.00
[2025-01-04 05:09] LABS: C-Reactive Protein 51.30 mg/L (0.0-10.00)
[2025-01-04 05:11] LABS: Hematocrit 22.1 % (39.0-52.0); Hemoglobin 7.5 g/dL (13.0-18.0); Mean Corp Hgb Conc. 33.9 g/dL (33.0-37.0); Mean Corpuscular Volume 80.1 fL (80.0-94.0); Platelet Count 267 10^3/uL (130-400); Red Cell Dist. Width 17.1 % (11.5-14.5)
[2025-01-04] MEDS: KCL 160 MEQ IV (05:27)
[2025-01-04] MEDS: CALCIUM GLUCONATE 100 IV ×3 (05:27→21:44)
[2025-01-04 05:34] LABS: Magnesium 2.0 mg/dl (1.6-2.3)
--- NOTE | 2025-01-04 05:37 | PTCARENOTE ---
Caring for pt overnight. aaox3, but periods of forgetfulness & confusion. Bed alarm on. NSR, PVC. 10 run VT overnight. Labs this morning, ca 4.0, k 3.9, mg 2.0, hgb 7.5, wbc 2.2. [employer] aware. K & ca riders ordered. all other VSS. C/o generalized pain,
prn dilaudid. Remains on RA. IVabx. Urinated on his own overnight. DTV around 0630. Will monitor.
[2025-01-04 07:50] LABS: Nucleated Red Blood Cells % 0.9 % (-)
--- NOTE | 2025-01-04 08:11 | W.PN.ONC2 ---
Today's Communication / Plan
-
transition to prednisone 80mgdaily once able to tolerate PO -taper per OP oncologist
abx per ID
Impression
Impression
metastatic urothelial carcinoma s/p C2 Padcev with keytruda at [facility] last week
rash secondary to antineoplastic therapy
hypocalcemia secondary to xgeva
jazmin likely dehydration with poor oral intake, diarrhea, and continue NSAIDs & lasix use at home -improved creatinine to 1.5 today
cancer pain
SOB
Anemia s/p 1U prbc 01/01 with Hgb improved to >8g/dL
leukopenia/lymphopenia
elevated BNP
diarrhea
MSSA bacteremia
Plan
Plan
Padcev most common SE include but not limited to fatigue, peripheral neuropathy, decreased appetite, rash, nausea, diarrhea
monitor for immune mediated SE of keytruda.
symptoms support, antiemetics
calcium repletion, hold xgeva for resolution of hypocalcemia
claritin daily, topical hydrocortisone to skin folds, prednisone 1mg/kg/day - transitioned to 12mg dexamethasone (Dex 12 mg is equivalent to Prednisone 80 mg PO QD (1 mg/kg) - until able to tolerate orals -taper as outpatient by primary oncologist-
PPI while on steroids
Imodium prn
transfuse prn
Abx per ID, consider echo, has port
OP follow up with [facility] upon discharge for continued management of metastatic urothelial carcinoma
Subjective/Objective
Subjective
no new compliant
Vital Signs:
Vital Signs
Temp Pulse Resp BP Pulse Ox
97.9 F 79 21 131/56 97
01/04/25 06:56 01/04/25 08:00 01/04/25 08:00 01/04/25 06:21 01/04/25 08:00
Lab Results:
Laboratory Data
WBC 2.2 10^3/uL (4.8-10.8) L* 01/04/25 04:21
Hgb 7.5 g/dL (13.0-18.0) L 01/04/25 04:21
Plt Count 267 10^3/uL (130-400) 01/04/25 04:21
PT 17.1 Sec (11.4-14.6) H 12/31/24 08:58
INR 1.36 12/31/24 08:58
APTT 32.0 Sec (23.4-35.0) 12/31/24 08:58
eGFR > 60.00 01/04/25 04:21
Physical Exam
improved erythematous rash
HEENT: Moist Mucous Membranes; No Jaundice
Pulmonary: Other (unlabored)
GI: Soft
Extremities: Pulses Present and Edema
Neuro: Non Focal
[2025-01-04] MEDS: SUBUTEX 1 MG SL (08:59)
[2025-01-04] MEDS: COREG 12.5 MG PO ×2 (09:09→20:28)
[2025-01-04] MEDS: CLARITIN 10 MG PO (09:10)
[2025-01-04] MEDS: OSCAL CAL 500 1000 MG PO (09:11)
[2025-01-04] MEDS: HEPARIN 5000 UNITS SC ×2 (09:11→20:29)
[2025-01-04] MEDS: DECADRON 12 MG IV (09:12)
[2025-01-04] MEDS: LASIX 20 MG IV ×2 (09:13→16:56)
[2025-01-04] MEDS: HYDROPHOR 1 APPLIC TOPICAL (09:14)
[2025-01-04] MEDS: HYDROCORTISONE 1% CREAM 1 APPLIC TOPICAL (09:16)
--- NOTE | 2025-01-04 10:11 | W.PN.ID1 ---
Date of Service
Date of Service: January 04, 2025
Today's Communication
Continue antibiotics. Check echocardiogram.
Assessment / Plan
Staph aureus bacteremia
- Potential source: port, skin, urine, other
Leukopenia
Anemia
BERTA; improved
Elevated CRP
Metastatic ureteral cancer (liver, bone; followed at [facility], on Padcev and Keytruda)
Cardiomyopathy
CAD
GERD
Vertigo
HTN
HLD
Recommendations:
Blood cultures with Staph aureus (MSSA).
Repeat blood cultures been pending. Following to assess clearance.
Continue cefazolin. Discontinue further vancomycin.
Check echocardiogram.
Monitor white count and temperature curve.
Local care to upper extremity wounds.
����������������������������������������������������������
Chief Complaint
-: Bacteremia
Subjective / Review of Systems
Review of Systems: No Fever and No Chills
Vital Signs / Physical Exam
Vital Signs
Vital Signs
Temp Pulse Resp BP Pulse Ox
97.9 F 86 20 154/87 97
01/04/25 06:56 01/04/25 08:36 01/04/25 08:36 01/04/25 08:36 01/04/25 08:36
Physical Exam
Constitutional: No Acute Distress, Comfortable and Non-toxic
Eyes: Sclera Anicteric
Cardiovascular: Regular Rate and S1/S2; Negative S3/S4 or Murmur
Pulmonary: Negative Wheezes or Rales
Gastrointestinal: Soft and Non Tender
Skin: Rash (Drying rash noted on upper extremities)
Neurological: Awake and Alert
Psychological: Calm
Lines: Port (Right ACW; accessed. No surrounding erythema or tenderness.)
Objective Data
Lab Data
Lab Results
01/04/25 04:21
PT 17.1 Sec (11.4-14.6) H 12/31/24 08:58
INR 1.36 12/31/24 08:58
APTT 32.0 Sec (23.4-35.0) 12/31/24 08:58
Estimated Creat Clear 92 ml/min 01/04/25 04:21
Total Bilirubin Cancelled 01/03/25 00:27
AST Cancelled 01/03/25 00:27
ALT Cancelled 01/03/25 00:27
Alkaline Phosphatase Cancelled 01/03/25 00:27
C-Reactive Protein 51.30 mg/L (0.0-10.00) H 01/04/25 04:21
Most recent labs reviewed.
Micro Results:
01/02/25 11:58 Salmonella/Shigella Culture - Final
Feces/Stool No Salmonella, Shigella, Aeromonas or Plesiomonas species
isolated.
Campylobacter Culture - Final
No Campylobacter species isolated.
Shiga Toxin Test - Final
No E. coli Shiga Toxin 1 or 2 detected.
01/03/25 05:26 Blood Culture - Preliminary
Blood/Venous No Growth in 24 hours- Final report to follow
01/01/25 02:48 Blood Culture - Preliminary
Blood/Venous S aureus-Methicillin Sensitive
Gram Stain - Preliminary
01/01/25 02:00 Blood Culture - Preliminary
Blood/Venous S aureus-Methicillin Sensitive
Gram Stain - Preliminary
01/02/25 16:49 Blood Culture - Preliminary
Blood/Venous No Growth in 24 hours- Final report to follow
01/02/25 10:50 Blood Culture - Preliminary
Blood/Venous No Growth in 24 hours- Final report to follow
01/02/25 11:58 C. difficile GDH Antigen & Toxins - Final
Feces/Stool Negative for toxigenic C.difficile
01/01/25 01:50 MRSA Screen - Final
Nose No Methicillin Resistant Staphylococcus aureus isolated.
Imaging:
12/31/2024 CXR (2 view): no focal airspace disease noted. No pleural effusion or pneumothorax.
Care Review
Plan reviewed with: Nurse and Physician (Hospitalist)
[2025-01-04] MEDS: PROTONIX IV 40 MG IV (12:14)
[2025-01-04] MEDS: NSS (PRESERVATIVE FREE) 10 ML IV (12:15)
--- NOTE | 2025-01-04 12:44 | PN.CDI ---
CDI
- -
CDI:
Physician Documentation Request
Admit Date: 12/31/24 12:47
Dear Doctor Cory,
Patient presents to ED for shortness of breath.
12/31 BNP 4290. Patient has received IV Lasix.
History of cardiomyopathy and takes Lasix po as outpatient. Echo from 05/30/2024 shows an EF of 25-30%
01/01 cardiology consult states 'Cont gentle diuresis with NICM EF 25-30% hx... chronic heart failure with reduced ejection fraction' and also 'acute on chronic heart failure with reduced ejection fraction, proBNP 4290... wound continue gentle IC
diuresis with Lasix 20 mg IV twice daily and close monitoring of renal function and electrolytes.'
Please clarify which of the following accurately represents the acuity of the HF:
Acute on Chronic
Chronic
____ Other
Use of terms such as suspected, likely, concern for, or probable (associated with a specific diagnosis that is being evaluated, monitored, or treated as if it exists) are acceptable and can be coded in the inpatient setting, when documented at the
time of discharge.
Thank you,
Rebecca Brasher RN, BSN
CDI Specialist
tiger text
Please use your independent medical judgment in providing your response.
--- NOTE | 2025-01-04 12:52 | PN.CDI ---
CDI
- -
CDI:
Physician Documentation Request
Admit Date: 12/31/24 12:47
Dear Doctor Cory,
Patient presents with dyspnea, BRETA , hypocalcemia
Patient has remained afebrile,
12/31 presenting heart rate documented 88-126, respiratory rate 24-31
12/31 WBC 3.8
Blood cultures from 01/01 positive for Staph aureus bacteremia
Please clarify which most accurately describes the patient:
Sepsis
Systemic manifestations of infection, with 2 or more SIRS criteria which include:
Fever > 100.4 degrees F or hypothermia < 96.8 degrees F
Leukocytosis - WBC > 12,000 or leukopenia, WBC < 4,000 or > 10% bands
Tachycardia - > 90 beats per minute
Tachypnea - RR > 20 breaths per minute or PaCO2 < 32 mmHg
Source: Merck Manual 2013
SIRS due to a non-infectious source
Indicate the known or suspected etiology
Indicate if there is associated organ dysfunction, such as renal or respiratory failure
Other
Use of terms such as suspected, likely, concern for, or probable (associated with a specific diagnosis that is being evaluated, monitored, or treated as if it exists) are acceptable and can be coded in the inpatient setting, when documented at the
time of discharge.
Thank you,
Rebecca Brasher RN, BSN
CDI Specialist
tiger text
Please use your independent medical judgment in providing your response.
--- NOTE | 2025-01-04 13:01 | PN.CDI ---
CDI
- -
CDI:
Physician Documentation Request
Admit Date: 12/31/24 12:47
Dear Doctor Cory,
Patient presents with dyspnea, BERTA , hypocalcemia
Patient has remained afebrile,
12/31 presenting heart rate documented 88-126, respiratory rate 24-31
12/31 WBC 3.8
Blood cultures from 01/01 positive for 'Staph aureus bacteremia' per ID note
Please clarify which most accurately describes the patient:
Sepsis
- Systemic manifestations of infection, with 2 or more SIRS criteria which include:
- Fever >100.9 degrees F or hypothermia < 96.8 degrees F
- Leukocytosis - WBC > 12,000 or leukopenia - WBC < 4,000 or > 10% bands
- Tachycardia > 90 beats per minute
- Tachypnea - RR > 20 breaths per minute or PaCO2 , 32mmHg
Source: Merck Manual 2012
SIRS due to a non-infectious source
-Indicate the known or suspected etiology
-Indicate if there is associated organ dysfunction, such as renal or respiratory failure
Bacteremia only
- Abnormal lab finding only, does not indicate systemic illness
Other
Use of terms such as suspected, likely, concern for, or probable (associated with a specific diagnosis that is being evaluated, monitored, or treated as if it exists) are acceptable and can be coded in the inpatient setting, when documented at the
time of discharge.
Thank you,
Rebecca Brasher RN, BSN
CDI Specialist
tiger text
Please use your independent medical judgment in providing your response.
--- NOTE | 2025-01-04 13:03 | W.PN.CARDCBS ---
Today's Communication / Plan
-
Nonsustained VT has resolved on higher dose of Coreg
Continue IV Lasix for edema which may be due to low albumin and not CHF
Impression / Plan
-
PCP: Merline Portillo
Public Speaker: Neel Hayward
Oncologist: Dr. June [facility]
Impression:
Presents 12/30/2024 with worsening shortness of breath, edema, significant fatigue with poor oral intake, nausea and diffuse rash
Acute anemia
Status post 1 unit packed RBCs 12/30/2024
Hypocalcemia secondary to xgeva
BERTA likely secondary to dehydration with poor oral intake, diarrhea, and continued lasix use at home
Metastatic urothelial carcinoma s/p C2 Padcev with keytruda at [facility] last week
Rash secondary to antineoplastic therapy
leukopenia/lymphopenia
Acute on chronic heart failure with reduced ejection fraction, proBNP 4290
Abnormal troponin, suspect nonischemic myocardial injury
VT in setting of severe electrolyte derangement, BERTA
Longstanding nonischemic cardiomyopathy
Chronic heart failure with reduced ejection fraction
Frequent PVCs
Hypertension
Hyperlipidemia
Staph aureus bacteremia
Echo May 2024: EF 25 to 30%, mildly reduced RV systolic function, mild MR, severe left atrial dilation
Lexiscan nuclear stress test December 2015: Small area of mildly decreased perfusion that is fixed in apical segment. No evidence of reversible ischemia. Global hypokinesis, EF 31%
Cardiac catheterization 2005: Mild nonobstructive coronary artery disease
Plan:
Nonsustained VT has resolved on higher dose of Coreg
He continues with lower extremity edema which may be due to hypoalbuminemia but will continue IV Lasix
HPI 01/01/2025:
Patient is a 77-year-old male with past medical history of longstanding nonischemic cardiomyopathy (declined ICD in past), heart failure with reduced ejection fraction, frequent PVCs, hypertension, hyperlipidemia and recently diagnosed metastatic
urethral carcinoma with recent initiation of Padcev with keytruda at [facility] (Dr. June) who presents to emergency department 12/31/2024 with worsening shortness of breath, edema, significant fatigue with poor oral intake, nausea and diffuse rash with
erythema which started after initiation of cancer treatment. On presentation patient noted to have acute anemia with hemoglobin of 7.1 and was transfused 1 unit of packed RBCs. Also found to have elevated proBNP 4290. Found to have metabolic
acidosis with BERTA with creatinine of 2.3 and electrolyte derangements. Troponin 0.035. EKG demonstrated sinus rhythm with frequent PVCs. Lower extremity Doppler was negative for DVT. Chest x-ray showed no acute cardiopulmonary abnormality.
Patient underwent IV fluid resuscitation for BERTA with improvement of creatinine. Electrolytes ongoing repletion. Cardiology being asked to see patient for sustained ventricular tachycardia. Patient was rather asymptomatic except had somewhat of a
blank stare per nursing.
Progress Note - Public Speaker
Subjective
Date of Service: January 04, 2025
No chest pain or shortness of breath
Objective
Labs:
01/04/25 04:21
Labs
Hgb 7.5 g/dL (13.0-18.0) L 01/04/25 04:21
Hct 22.1 % (39.0-52.0) L 01/04/25 04:21
Plt Count 267 10^3/uL (130-400) 01/04/25 04:21
PT 17.1 Sec (11.4-14.6) H 12/31/24 08:58
INR 1.36 12/31/24 08:58
APTT 32.0 Sec (23.4-35.0) 12/31/24 08:58
Sodium 138 mmol/L (135-145) 01/04/25 04:21
Potassium 3.9 mmol/L (3.5-5.1) 01/04/25 04:21
BUN 34 mg/dl (9-20) H 01/04/25 04:21
Creatinine 0.8 mg/dL (0.7-1.3) 01/04/25 04:21
Glucose 133 mg/dl (70-99) H 01/04/25 04:21
Troponins
01/01/25
18:45
Troponin I Cancelled
Vital Signs and I&O:
Vital Signs
Temp Pulse Resp BP Pulse Ox
97.2 F 71 24 151/79 97
01/04/25 11:02 01/04/25 12:00 01/04/25 11:51 01/04/25 12:00 01/04/25 08:36
Vital Signs
Temp Pulse Resp BP Pulse Ox
97.2 F 71 24 151/79 97
01/04/25 11:02 01/04/25 12:00 01/04/25 11:51 01/04/25 12:00 01/04/25 08:36
Intake & Output
01/02/25 01/03/25 01/04/25 01/05/25
06:59 06:59 06:59 06:59
Intake Total 1500 / 1500 220 / 220
Output Total 2400 / 2400 1750 / 1750 1700 / 1700 300 / 300
Balance -900 / -900 -1750 / -1750 -1480 / -1480 -300 / -300
Physical Exam
Physical Exam
General: Well developed, well nourished in NAD.
Neck: Supple, no JVD, HJR, carotids +2 B/L, no bruits bilaterally.
Heart: Non displaced PMI, RRR, no murmurs, No S3, S4, no rubs.
Lungs: Scattered rhonchi
Extremities: Moderate lower extremity edema bilaterally
Skin: Erythema throughout
Neuro: Grossly nonfocal, awake, alert and oriented x3.
[2025-01-04 13:49] LABS: Blood Urea Nitrogen 31 mg/dl (9-20); Calcium 4.5 mg/dl (8.4-10.2); Carbon Dioxide 22 mmol/L (22-30); Chloride 109 mmol/L (98-107); Estimated Creatinine Clearance 91 ml/min; Glucose 131 mg/dl (70-99); Potassium 3.7 mmol/L (3.5-5.1); Sodium 138 mmol/L (135-145); eGFR > 60.00
--- NOTE | 2025-01-04 14:08 | W.PN.HOSP.TC ---
Today's Communication/Plan
-
Continue with repletion of calcium, and antibiotics as per ID, IV Lasix
Assessment / Plan
Assessment / Plan
69M with metastatic ureteral cancer (follows at [facility] with Dr Juen [phone]), recent chemo s/p second treatment (Padcev with Keytruda) this past week; p/w shortness of breath, poor po intake and feeling dehydrated. He also noted development of
diffuse rash with erythema. Found to have severe anemia and hypocalcemia.
A/P:
# Dyspnea 2/2 anemia
Placed on 2L NC for symptoms, sat 100%
CXR NAD
Hgb 7.1 on admission (from baseline 9.7), transfused 1 units PRBC, Hgb stable at 7.8, continue to monitor H&H
iron panel consistent with ACD, B12/folate WNL
BL LE US neg for DVT
Noted BNP 4000 on admission
cont low dose IV lasix 20 mg BID for chronic edema
# severe hypocalcemia
[place] likely 2/2 xgeva S/E
corrected calcium level at 5.5 today
replete calcium IV again and monitor level
Not much improvement despite repeat repletions
tele monitor
# non-sustained VT noted on tele
# non-[place] troponin elevation
replete Calcium IV
Cont Coreg
Cards on board
# Diffuse skin rash
ED d/w outpt oncologist Dr June, who recc steroid over 2 weeks
IV Decadron started, changed to p.o. and tolerating orals, GI ppx with IV Protonix - not tolerating po yet
wound care on board
# MSSA bacteremia
ID managing, currently on cefazolin, vanc stopped.
# Prerenal and postrenal BERTA- resolved
# Metabolic acidosis , improved
# Obstructive uropathy
SCr 2.3 -> 1.0; baseline SCr around 1.0
notgably poor intake
s/p Bicarb ip low rate
Monitor SCr
huffman placed 12/31 for urinary retention
diet advanced to pureed per SPL
# Hyperuricemia likely 2/2 BERTA per Onc, less likely tumor lysis syndrome
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
pt c/o intermittent chills at home, CRP elevated (could be 2/2 current inflammatory response), blood cultures x2 so far negative
DVT ppx: HSQ
FC
Anticipated Discharge: > 48 hours
Subjective/Interval History
-
Date of Service: January 04, 2025
Patient denies any acute issues overnight, denies chest pain or palpitations. Denies numbness or tingling. Had some oozing from his rash on his arms after his wrap was removed
Objective Data
-
Labs:
Laboratory Results
01/04/25 01/04/25 01/04/25
04:21 12:25 16:00
WBC 2.2 L*
Hgb 7.5 L
Hct 22.1 L
Plt Count 267
Sodium 138 138 Pending
Potassium 3.9 3.7 Pending
Chloride 110 H 109 H Pending
Carbon Dioxide 22 22 Pending
BUN 34 H 31 H Pending
Creatinine 0.8 0.8 Pending
Glucose 133 H 131 H Pending
Calcium 4.0 L* 4.5 L* Pending
01/04/25
20:00
WBC
Hgb
Hct
Plt Count
Sodium Pending
Potassium Pending
Chloride Pending
Carbon Dioxide Pending
BUN Pending
Creatinine Pending
Glucose Pending
Calcium Pending
Vital Signs:
Vital Signs
Temp Pulse Resp BP Pulse Ox
97.2 F 71 24 151/79 97
01/04/25 11:02 01/04/25 12:00 01/04/25 11:51 01/04/25 12:00 01/04/25 13:45
I&O
01/03/25 01/04/25 01/05/25
06:59 06:59 06:59
Intake Total 220 / 220
Output Total 1750 / 1750 1700 / 1700 300 / 300
Balance -1750 / -1750 -1480 / -1480 -300 / -300
Review of Systems
-
All other systems: Reviewed and negative
Physical Exam
-
General: No Apparent Distress
HEENT: Moist Mucous Membranes, Anicteric and PERRLA
Respiratory: Clear to Auscultation; Negative Wheezes, Rales or Rhonchi
Cardiac: S1/S2 and Irregular Rhythm; Negative Murmur, Rub or Gallop
GI: Soft, Nontender, Nondistended and Normal Bowel Sounds
Musculoskeletal: Negative No Edema
Skin: Warm, Dry, Rash (Diffuse erythematous rash with multiple areas of scabbing) and Lesions; Negative Ulcers
Neuro: Awake and AO x 3
Hematologic / Lymphatic: No Lymphadenopathy
Psych: Calm
Data Reviewed
-
Labs: Labs Reviewed by me, Discussed with Physician and Discussed with Patient
--- NOTE | 2025-01-04 16:30 | PTCARENOTE ---
Patient out of bed with therapy , ambulated in room with assistance x1 and rolling walker. Appetite poor. Patient eating only about 20% of his meals. Monitoring calcium levels. Patient was 4.0 this AM. Administering calcium gluconate as ordered.
Monitoring urine output and bladder scan as needed. SR with PVC's on monitor. HR 80-90's.
[2025-01-04] MEDS: OSCAL CAL 500 500 MG PO (16:57)
--- NOTE | 2025-01-04 19:00 | PTCARENOTE ---
Reviewed with night RN new lab results. Texted MD, awaiting orders.
[2025-01-04 19:14] LABS: Blood Urea Nitrogen 30 mg/dl (9-20); Calcium 4.7 mg/dl (8.4-10.2); Carbon Dioxide 22 mmol/L (22-30); Chloride 109 mmol/L (98-107); Estimated Creatinine Clearance 91 ml/min; Glucose 141 mg/dl (70-99); Potassium 4.0 mmol/L (3.5-5.1); Sodium 137 mmol/L (135-145); eGFR > 60.00
[2025-01-04] MEDS: HYDROCORTISONE 1% CREAM TOPICAL (20:23)
--- NOTE | 2025-01-04 20:46 | PTCARENOTE ---
Assumed care of patient and reported 1830 BMP calcium results to [employer]. A BMP is ordered for 1999, this is drawn and sent to lab per order.
[2025-01-04 21:21] LABS: Blood Urea Nitrogen 30 mg/dl (9-20); Calcium 4.7 mg/dl (8.4-10.2); Carbon Dioxide 20 mmol/L (22-30); Chloride 108 mmol/L (98-107); Estimated Creatinine Clearance 91 ml/min; Glucose 138 mg/dl (70-99); Potassium 3.8 mmol/L (3.5-5.1); Sodium 137 mmol/L (135-145); eGFR > 60.00
--- NOTE | 2025-01-04 21:53 | PTCARENOTE ---
calcium result 4.7, IV Calcium Gluconate infusion initiated
[2025-01-05] VITALS (11 sets, daily range): BP systolic 126–181; BP diastolic 50–106; BMI 23.1
--- NOTE | 2025-01-05 00:16 | PTCARENOTE ---
Patient resting quietly in bed with and daughter at bedside at the begin of this shift. updated on 1829 calcium levels and plan of care. Pt drowsy and feels full after small amount of dinner. He denies pain and had just voided 700ml yellow
urine with a PVR scan of 117. 2 gram Calcium Gluconate IV rider infused without event. NSR with PVCs HR70-90. Room air with pulse ox 96%. Pt was able to swallow small pills slowly but complains of poor appetite and some difficulty tolerating meds in
applesauce. Pt sleeping at intervals, arouses easily to verbal cues and then settles back to sleep.
[2025-01-05] MEDS: HYDROCORTISONE 1% CREAM 1 APPLIC TOPICAL ×2 (00:55→21:25)
[2025-01-05] MEDS: DILAUDID 0.25 MG IV ×3 (01:00→23:04)
[2025-01-05 01:15] LABS: Blood Urea Nitrogen 28 mg/dl (9-20); Calcium 5.0 mg/dl (8.4-10.2); Carbon Dioxide 22 mmol/L (22-30); Chloride 110 mmol/L (98-107); Estimated Creatinine Clearance 104 ml/min; Glucose 122 mg/dl (70-99); Potassium 3.8 mmol/L (3.5-5.1); Sodium 138 mmol/L (135-145); eGFR > 60.00
--- NOTE | 2025-01-05 01:20 | PTCARENOTE ---
Patient awoke with restlessness, itching and pulling his dressing off his arms, pt reports pain 8/10 in lower back and requests pain medication. Pt provided with hygiene, used urinal and voided, dressings replaced and hydrocortisone cream applied to
itching areas. Pt medicated with IV Dilaudid and repositioned in bed.
--- NOTE | 2025-01-05 01:27 | PTCARENOTE ---
Calcium 5.0, ELECT[employer]ICIAN SUPER[employer] notified and calcium gluconate infusion ordered and administration begun
[2025-01-05] MEDS: CALCIUM GLUCONATE 100 IV ×3 (01:31→10:01)
[2025-01-05] MEDS: BENADRYL 25 MG PO ×2 (03:50→21:24)
[2025-01-05] MEDS: ANCEF 10 IV ×3 (03:51→21:24)
[2025-01-05 05:39] LABS: Hematocrit 22.4 % (39.0-52.0); Hemoglobin 7.7 g/dL (13.0-18.0); Mean Corp Hgb Conc. 34.4 g/dL (33.0-37.0); Mean Corpuscular Volume 81.2 fL (80.0-94.0); Platelet Count 304 10^3/uL (130-400); Red Cell Dist. Width 17.2 % (11.5-14.5)
[2025-01-05 05:54] LABS: ALT (SGPT) 20 U/L (0-50); AST (SGOT) 44 U/L (17-59); Albumin 2.7 g/dl (3.5-5.0); Alkaline Phosphatase 152 U/L (38-126); Blood Urea Nitrogen 27 mg/dl (9-20); Calcium 5.4 mg/dl (8.4-10.2); Carbon Dioxide 22 mmol/L (22-30); Chloride 110 mmol/L (98-107); Estimated Creatinine Clearance 91 ml/min; Glucose 118 mg/dl (70-99); Magnesium 1.9 mg/dl (1.6-2.3); Potassium 3.8 mmol/L (3.5-5.1); Sodium 138 mmol/L (135-145); Total Protein 5.4 g/dl (6.3-8.2); eGFR > 60.00
[2025-01-05 05:55] LABS: PTH Related Peptide LC-MS/MS 4.6 pmol/L (0.0-2.3)
[2025-01-05 06:30] LABS: Absolute Neutrophils -Man Diff 0.7 10^3/uL (1.4-6.5)
[2025-01-05 06:31] LABS: Anisocytosis 2+; Normal RBC Morphology No; Platelets Checked Yes; Total Cells Counted 100
[2025-01-05] MEDS: NSS (PRESERVATIVE FREE) 10 ML IV (09:27)
[2025-01-05] MEDS: PROTONIX IV 40 MG IV (09:27)
[2025-01-05] MEDS: HEPARIN 5000 UNITS SC ×2 (09:27→21:24)
[2025-01-05] MEDS: CLARITIN 10 MG PO (09:28)
[2025-01-05] MEDS: DELTASONE 80 MG PO (09:28)
[2025-01-05] MEDS: COREG 12.5 MG PO (09:28)
--- NOTE | 2025-01-05 09:28 | W.PN.ID1 ---
Date of Service
Date of Service: January 05, 2025
Today's Communication
Continue antibiotics
Assessment / Plan
Staph aureus bacteremia
- Potential source: port, skin, urine, other
Leukopenia
Anemia
BERTA; improved
Elevated CRP
Metastatic ureteral cancer (liver, bone; followed at [facility], on Padcev and Keytruda)
Cardiomyopathy
CAD
GERD
Vertigo
HTN
HLD
Recommendations:
Initial blood cultures with Staph aureus (MSSA).
Repeat blood cultures negative. Following to assess clearance.
Continue cefazolin; will need 14 days IV abx from first negative blood culture.
Echocardiogram without vegetations.
Monitor white count and temperature curve.
Local care to upper extremity wounds.
����������������������������������������������������������
Chief Complaint
-: Bacteremia
Subjective / Review of Systems
Patient seen and examined. Reports some discomfort in the upper extremities secondary to dryness and crusting. No fevers or chills.
Review of Systems: No Fever and No Chills
Vital Signs / Physical Exam
Vital Signs
Vital Signs
Temp Pulse Resp BP Pulse Ox
97.8 F 78 25 155/79 99
01/05/25 06:33 01/05/25 06:00 01/05/25 06:00 01/05/25 06:00 01/05/25 04:28
Physical Exam
Constitutional: No Acute Distress, Comfortable and Non-toxic
Eyes: Sclera Anicteric
Cardiovascular: Regular Rate and S1/S2; Negative S3/S4 or Murmur
Pulmonary: Negative Wheezes or Rales
Gastrointestinal: Soft and Non Tender
Skin: Rash (Drying rash noted on upper extremities)
Neurological: Awake and Alert
Psychological: Calm
Lines: Port (Right ACW; accessed. No surrounding erythema or tenderness.)
Objective Data
Lab Data
Lab Results
01/05/25 05:00
01/05/25 20:00
PT 17.1 Sec (11.4-14.6) H 12/31/24 08:58
INR 1.36 12/31/24 08:58
APTT 32.0 Sec (23.4-35.0) 12/31/24 08:58
Estimated Creat Clear Cancelled 01/05/25 20:00
Total Bilirubin 0.7 mg/dl (0.2-1.3) 01/05/25 05:02
AST 44 U/L (17-59) 01/05/25 05:02
ALT 20 U/L (0-50) 01/05/25 05:02
Alkaline Phosphatase 152 U/L (38-126) H 01/05/25 05:02
C-Reactive Protein 51.30 mg/L (0.0-10.00) H 01/04/25 04:21
Most recent labs reviewed.
Micro Results:
01/03/25 05:26 Blood Culture - Preliminary
Blood/Venous No Growth in 48 hours- Final report to follow
01/02/25 16:49 Blood Culture - Preliminary
Blood/Venous No Growth in 48 hours- Final report to follow
01/02/25 10:50 Blood Culture - Preliminary
Blood/Venous No Growth in 48 hours- Final report to follow
01/02/25 11:58 Salmonella/Shigella Culture - Final
Feces/Stool No Salmonella, Shigella, Aeromonas or Plesiomonas species
isolated.
Campylobacter Culture - Final
No Campylobacter species isolated.
Shiga Toxin Test - Final
No E. coli Shiga Toxin 1 or 2 detected.
01/01/25 02:48 Blood Culture - Preliminary
Blood/Venous S aureus-Methicillin Sensitive
Gram Stain - Preliminary
01/01/25 02:00 Blood Culture - Preliminary
Blood/Venous S aureus-Methicillin Sensitive
Gram Stain - Preliminary
01/02/25 11:58 C. difficile GDH Antigen & Toxins - Final
Feces/Stool Negative for toxigenic C.difficile
01/01/25 01:50 MRSA Screen - Final
Nose No Methicillin Resistant Staphylococcus aureus isolated.
Imaging:
12/31/2024 CXR (2 view): no focal airspace disease noted. No pleural effusion or pneumothorax.
[2025-01-05] MEDS: OSCAL CAL 500 1000 MG PO (09:29)
[2025-01-05] MEDS: SUBUTEX 1 MG SL (09:30)
[2025-01-05] MEDS: HYDROPHOR 1 APPLIC TOPICAL (09:32)
[2025-01-05] MEDS: LASIX 20 MG IV ×2 (09:37→17:13)
[2025-01-05] MEDS: MAGNESIUM SULFATE 102 GRAMS IV (10:01)
--- NOTE | 2025-01-05 10:24 | W.PN.CARDCBS ---
Today's Communication / Plan
-
Recurrent nonsustained V. tach
Increase Coreg to 25 mg p.o. twice daily
Impression / Plan
-
PCP: Merline Portillo
Rn School: Neel Hayward
Oncologist: Dr. June [facility]
Impression:
Presents 12/30/2024 with worsening shortness of breath, edema, significant fatigue with poor oral intake, nausea and diffuse rash
Acute anemia
Status post 1 unit packed RBCs 12/30/2024
Hypocalcemia secondary to xgeva
BERTA likely secondary to dehydration with poor oral intake, diarrhea, and continued lasix use at home
Metastatic urothelial carcinoma s/p C2 Padcev with keytruda at [facility] last week
Rash secondary to antineoplastic therapy
leukopenia/lymphopenia
Acute on chronic heart failure with reduced ejection fraction, proBNP 4290
Abnormal troponin, suspect nonischemic myocardial injury
VT
Longstanding nonischemic cardiomyopathy
Chronic heart failure with reduced ejection fraction
Frequent PVCs
Hypertension
Hyperlipidemia
Staph aureus bacteremia
Echo May 2024: EF 25 to 30%, mildly reduced RV systolic function, mild MR, severe left atrial dilation
Lexiscan nuclear stress test December 2015: Small area of mildly decreased perfusion that is fixed in apical segment. No evidence of reversible ischemia. Global hypokinesis, EF 31%
Cardiac catheterization 2005: Mild nonobstructive coronary artery disease
Plan:
Recurrent VT noted on telemetry
Will increase Coreg to 25 mg p.o. twice daily
Edema appears to have improved on IV Lasix. Consider change to oral Lasix on 01/06
HPI 01/01/2025:
Patient is a 77-year-old male with past medical history of longstanding nonischemic cardiomyopathy (declined ICD in past), heart failure with reduced ejection fraction, frequent PVCs, hypertension, hyperlipidemia and recently diagnosed metastatic
urethral carcinoma with recent initiation of Padcev with keytruda at [facility] (Dr. June) who presents to emergency department 12/31/2024 with worsening shortness of breath, edema, significant fatigue with poor oral intake, nausea and diffuse rash with
erythema which started after initiation of cancer treatment. On presentation patient noted to have acute anemia with hemoglobin of 7.1 and was transfused 1 unit of packed RBCs. Also found to have elevated proBNP 4290. Found to have metabolic
acidosis with BERTA with creatinine of 2.3 and electrolyte derangements. Troponin 0.035. EKG demonstrated sinus rhythm with frequent PVCs. Lower extremity Doppler was negative for DVT. Chest x-ray showed no acute cardiopulmonary abnormality.
Patient underwent IV fluid resuscitation for BERTA with improvement of creatinine. Electrolytes ongoing repletion. Cardiology being asked to see patient for sustained ventricular tachycardia. Patient was rather asymptomatic except had somewhat of a
blank stare per nursing.
Progress Note - Rn School
Subjective
Date of Service: January 05, 2025
No complaints
Objective
Labs:
01/05/25 05:00
01/05/25 20:00
Labs
Hgb 7.7 g/dL (13.0-18.0) L 01/05/25 05:00
Hct 22.4 % (39.0-52.0) L 01/05/25 05:00
Plt Count 304 10^3/uL (130-400) 01/05/25 05:00
PT 17.1 Sec (11.4-14.6) H 12/31/24 08:58
INR 1.36 12/31/24 08:58
APTT 32.0 Sec (23.4-35.0) 12/31/24 08:58
Sodium Cancelled 01/05/25 20:00
Potassium Cancelled 01/05/25 20:00
BUN Cancelled 01/05/25 20:00
Creatinine Cancelled 01/05/25 20:00
Glucose Cancelled 01/05/25 20:00
Vital Signs and I&O:
Vital Signs
Temp Pulse Resp BP Pulse Ox
97.8 F 78 25 155/79 99
01/05/25 06:33 01/05/25 06:00 01/05/25 06:00 01/05/25 06:00 01/05/25 04:28
Vital Signs
Temp Pulse Resp BP Pulse Ox
97.8 F 78 25 155/79 99
01/05/25 06:33 01/05/25 06:00 01/05/25 06:00 01/05/25 06:00 01/05/25 04:28
Intake & Output
01/03/25 01/04/25 01/05/25 01/06/25
06:59 06:59 06:59 06:59
Intake Total 220 / 220 1105 / 1105
Output Total 1750 / 1750 1700 / 1700 1625 / 1625
Balance -1750 / -1750 -1480 / -1480 -520 / -520
Physical Exam
Physical Exam
General: Well developed, well nourished in NAD.
Neck: Supple, no JVD, HJR, carotids +2 B/L, no bruits bilaterally.
Heart: Non displaced PMI, RRR, no murmurs, No S3, S4, no rubs.
Lungs: Scattered rhonchi at the bases
Extremities: No clubbing, cyanosis or edema bilaterally.
Neuro: Grossly nonfocal, awake, alert and oriented x3.
[2025-01-05 10:25] LABS: Blood Urea Nitrogen 25 mg/dl (9-20); Calcium 5.5 mg/dl (8.4-10.2); Carbon Dioxide 22 mmol/L (22-30); Chloride 111 mmol/L (98-107); Estimated Creatinine Clearance 104 ml/min; Glucose 107 mg/dl (70-99); Potassium 3.4 mmol/L (3.5-5.1); Sodium 138 mmol/L (135-145); eGFR > 60.00
--- NOTE | 2025-01-05 12:17 | W.PN.HOSP.TC ---
Today's Communication/Plan
-
Monitor vital signs
see plan
Replete calcium, magnesium aggressively
Replete potassium
Replete vitamin D
cw lasix
coreg
Assessment / Plan
Assessment / Plan
69M with metastatic ureteral cancer (follows at [facility] with Dr June [phone]), recent chemo s/p second treatment (Padcev with Keytruda) this past week; p/w shortness of breath, poor po intake and feeling dehydrated. He also noted development of
diffuse rash with erythema. Found to have severe anemia and hypocalcemia.
A/P:
# Dyspnea 2/2 anemia
Placed on 2L NC for symptoms, wean oxygen as tolerated
CXR NAD
Hgb 7.1 on admission (from baseline 9.7), transfused 1 units PRBC, Hgb stable at 7.7, continue to monitor H&H
iron panel consistent with ACD, B12/folate WNL
BL LE US neg for DVT
Noted BNP 4000 on admission
cont low dose IV lasix 20 mg BID for chronic edema
# severe hypocalcemia
[place] likely 2/2 xgeva S/E
Replete calcium aggressively, BMP every 8 hours
Vitamin D 01/03 was 15. Give 50,000 units today
Replete magnesium
replete calcium IV again and monitor level
Not much improvement despite repeat repletions
tele monitor
# non-sustained VT noted on tele
# non-[place] troponin elevation
replete Calcium IV
Cont Coreg
Cardiology following
Hypokalemia
Replete
# Diffuse skin rash
ED d/w outpt oncologist Dr June, who recc steroid over 2 weeks
IV Decadron started, changed to p.o. and tolerating orals, GI ppx with IV Protonix - not tolerating po yet
wound care on board
# MSSA bacteremia
ID managing, currently on cefazolin, vanc stopped.
Blood culture from 8/13, 01/03 NGTD
# Prerenal and postrenal BERTA- resolved
# Metabolic acidosis , improved
# Obstructive uropathy
SCr 2.3 -> 1.0; baseline SCr around 1.0
notgably poor intake
s/p Bicarb drip low rate
Monitor SCr
huffman placed 12/31 for urinary retention
diet advanced to pureed per SPL
# Hyperuricemia likely 2/2 BERTA per Onc, less likely tumor lysis syndrome
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
pt c/o intermittent chills at home, CRP elevated (could be 2/2 current inflammatory response), blood cultures x2 so far negative
DVT ppx: HSQ
FC
General: No Apparent Distress
HEENT: Moist Mucous Membranes, Anicteric and PERRLA
Respiratory: Clear to Auscultation; Negative Wheezes, Rales or Rhonchi
Cardiac: S1/S2 and Irregular Rhythm; Negative Murmur, Rub or Gallop
GI: Soft, Nontender, Nondistended and Normal Bowel Sounds
Musculoskeletal: Negative No Edema
Skin: Warm, Dry, Rash (Diffuse erythematous rash with multiple areas of scabbing) and Lesions; Negative Ulcers
Neuro: Awake and AO x 3
Psych: Calm
I spent a total of 53 minutes with the patient or on the floor. More than 50% of this time involved counseling and coordination of care.
Anticipated Discharge: > 48 hours
Subjective/Interval History
-
Date of Service: January 05, 2025
lethargic
Objective Data
-
Labs:
Laboratory Results
01/05/25 01/05/25 01/05/25
00:36 05:00 05:02
WBC 2.1 L*
Hgb 7.7 L
Hct 22.4 L
Plt Count 304
Sodium 138 Pending 138
Potassium 3.8 Pending 3.8
Chloride 110 H Pending 110 H
Carbon Dioxide 22 Pending 22
BUN 28 H Pending 27 H
Creatinine 0.7 Pending 0.8
Glucose 122 H Pending 118 H
Calcium 5.0 L* Pending 5.4 L*
Total Bilirubin 0.7
AST 44
ALT 20
Alkaline Phosphatase 152 H
01/05/25 01/05/25 01/05/25
08:00 09:54 12:00
WBC
Hgb
Hct
Plt Count
Sodium Cancelled 138 Cancelled
Potassium Cancelled 3.4 L Cancelled
Chloride Cancelled 111 H Cancelled
Carbon Dioxide Cancelled 22 Cancelled
BUN Cancelled 25 H Cancelled
Creatinine Cancelled 0.7 Cancelled
Glucose Cancelled 107 H Cancelled
Calcium Cancelled 5.5 L* Cancelled
Total Bilirubin
AST
ALT
Alkaline Phosphatase
01/05/25 01/05/25 01/05/25
16:00 17:04 20:00
WBC
Hgb
Hct
Plt Count
Sodium Cancelled Pending Cancelled
Potassium Cancelled Pending Cancelled
Chloride Cancelled Pending Cancelled
Carbon Dioxide Cancelled Pending Cancelled
BUN Cancelled Pending Cancelled
Creatinine Cancelled Pending Cancelled
Glucose Cancelled Pending Cancelled
Calcium Cancelled Pending Cancelled
Total Bilirubin
AST
ALT
Alkaline Phosphatase
Vital Signs:
Vital Signs
Temp Pulse Resp BP Pulse Ox
98.9 F 75 25 150/82 99
01/05/25 11:10 01/05/25 10:00 01/05/25 06:00 01/05/25 08:00 01/05/25 04:28
I&O
08/15/25 08/16/25 08/17/25
06:59 06:59 06:59
Intake Total 220 / 220 1105 / 1105
Output Total 1700 / 1700 1625 / 1625
Balance -1480 / -1480 -520 / -520
[2025-01-05] MEDS: KCL 270 MEQ IV ×2 (13:08→19:30)
[2025-01-05] MEDS: DRISDOL (VITAMIN D2) 50000 UNITS PO (13:08)
[2025-01-05] MEDS: OSCAL CAL 500 500 MG PO (17:14)
[2025-01-05 18:00] LABS: Blood Urea Nitrogen 19 mg/dl (9-20); Calcium 4.2 mg/dl (8.4-10.2); Carbon Dioxide 16 mmol/L (22-30); Chloride 119 mmol/L (98-107); Estimated Creatinine Clearance 122 ml/min; Glucose 122 mg/dl (70-99); Potassium 3.1 mmol/L (3.5-5.1); Sodium 140 mmol/L (135-145); eGFR > 60.00
--- NOTE | 2025-01-05 19:18 | PTCARENOTE ---
AAOx3, x/o pain back '11/03, 01/30' - IV Dilaudid given once this am- OOB to bathroom, bsc, recliner intermittently throughout the day. Wound care completed- ANDREAS, RA. 1 episode VT on tele x15sec this am- relayed to provider. Appetite poor, po
fluids adequate. PM labs relayed to provider- orders obtained. at bedside.
[2025-01-05] MEDS: CALCIUM GLUCONATE 280 MG IV (19:22)
[2025-01-05] MEDS: COREG 25 MG PO (21:24)
--- NOTE | 2025-01-05 22:18 | PTCARENOTE ---
Jami called and updated via phone
--- NOTE | 2025-01-05 23:13 | PTCARENOTE ---
Addendum entered by Heladio Alcazar RN 01/06/25 01:33:
Results of 0100 BMP/ magnesium reported to JOSE. Order for 2g IV Calcium gluconate received.
Original Note:
Telemetry alarming vtach. Patient with 10 beats of Vtach. Asymptomatic. JOSE Nunn made aware. Plan to recheck BMP & mag at 0100.
--- NOTE | 2025-01-05 23:59 | PTCARENOTE ---
Patient had 45 beats of Vtach on the monitor. Patient converted back to NSR with PVCs without intervention. Patient was woken up, denied any chest pain or sob. BP 126/67. JOSE Nunn made aware.
[2025-01-06] VITALS (11 sets, daily range): BP systolic 91–148; BP diastolic 57–88; BMI 22.9
[2025-01-06 01:29] LABS: Blood Urea Nitrogen 26 mg/dl (9-20); Calcium 5.8 mg/dl (8.4-10.2); Carbon Dioxide 19 mmol/L (22-30); Chloride 112 mmol/L (98-107); Estimated Creatinine Clearance 91 ml/min; Glucose 109 mg/dl (70-99); Magnesium 1.8 mg/dl (1.6-2.3); Potassium 3.9 mmol/L (3.5-5.1); Sodium 137 mmol/L (135-145); eGFR > 60.00
[2025-01-06] MEDS: CALCIUM GLUCONATE 100 IV ×2 (01:55→22:03)
[2025-01-06] MEDS: DILAUDID 0.25 MG IV ×2 (03:16→19:43)
[2025-01-06] MEDS: ANCEF 10 IV ×3 (03:17→19:51)
[2025-01-06 05:52] LABS: Hematocrit 22.2 % (39.0-52.0); Hemoglobin 7.7 g/dL (13.0-18.0); Mean Corp Hgb Conc. 34.7 g/dL (33.0-37.0); Mean Corpuscular Volume 81.3 fL (80.0-94.0); Platelet Count 292 10^3/uL (130-400); Red Cell Dist. Width 17.5 % (11.5-14.5)
[2025-01-06 06:02] LABS: Magnesium 1.8 mg/dl (1.6-2.3)
[2025-01-06] MEDS: SUBUTEX 1 MG SL (07:56)
[2025-01-06] MEDS: DELTASONE 80 MG PO (08:00)
[2025-01-06] MEDS: OSCAL CAL 500 1000 MG PO (08:00)
[2025-01-06] MEDS: LASIX 20 MG IV (08:01)
[2025-01-06] MEDS: HEPARIN 5000 UNITS SC ×2 (08:01→19:48)
[2025-01-06] MEDS: CLARITIN 10 MG PO (08:01)
[2025-01-06] MEDS: PROTONIX IV 40 MG IV (08:01)
[2025-01-06] MEDS: NSS (PRESERVATIVE FREE) 10 ML IV (08:02)
[2025-01-06] MEDS: HYDROPHOR 1 APPLIC TOPICAL (08:02)
[2025-01-06] MEDS: HYDROCORTISONE 1% CREAM 1 APPLIC TOPICAL (08:03)
[2025-01-06] MEDS: COREG 25 MG PO ×2 (08:15→19:48)
--- NOTE | 2025-01-06 08:20 | W.PN.CARDCBS ---
Today's Communication / Plan
-
No further VT after Coreg increased on 01/05
Change Lasix to p.o.
Impression / Plan
-
PCP: Merline Portillo
Dairy Chemist: Neel Hayward
Oncologist: Dr. June [facility]
Impression:
Presents 12/30/2024 with worsening shortness of breath, edema, significant fatigue with poor oral intake, nausea and diffuse rash
Acute anemia
Status post 1 unit packed RBCs 12/30/2024
Hypocalcemia secondary to xgeva
BERTA likely secondary to dehydration with poor oral intake, diarrhea, and continued lasix use at home
Metastatic urothelial carcinoma s/p C2 Padcev with keytruda at [facility] last week
Rash secondary to antineoplastic therapy
leukopenia/lymphopenia
Acute on chronic heart failure with reduced ejection fraction, proBNP 4290
Abnormal troponin, suspect nonischemic myocardial injury
VT
Longstanding nonischemic cardiomyopathy
Chronic heart failure with reduced ejection fraction
Frequent PVCs
Hypertension
Hyperlipidemia
Staph aureus bacteremia
Echo May 2024: EF 25 to 30%, mildly reduced RV systolic function, mild MR, severe left atrial dilation
Lexiscan nuclear stress test December 2015: Small area of mildly decreased perfusion that is fixed in apical segment. No evidence of reversible ischemia. Global hypokinesis, EF 31%
Cardiac catheterization 2005: Mild nonobstructive coronary artery disease
Plan:
No further VT with raising Coreg on 01/05/2025
Will change Lasix to p.o. as edema appears to have resolved.
HPI 01/01/2025:
Patient is a 77-year-old male with past medical history of longstanding nonischemic cardiomyopathy (declined ICD in past), heart failure with reduced ejection fraction, frequent PVCs, hypertension, hyperlipidemia and recently diagnosed metastatic
urethral carcinoma with recent initiation of Padcev with keytruda at [facility] (Dr. June) who presents to emergency department 12/31/2024 with worsening shortness of breath, edema, significant fatigue with poor oral intake, nausea and diffuse rash with
erythema which started after initiation of cancer treatment. On presentation patient noted to have acute anemia with hemoglobin of 7.1 and was transfused 1 unit of packed RBCs. Also found to have elevated proBNP 4290. Found to have metabolic
acidosis with BERTA with creatinine of 2.3 and electrolyte derangements. Troponin 0.035. EKG demonstrated sinus rhythm with frequent PVCs. Lower extremity Doppler was negative for DVT. Chest x-ray showed no acute cardiopulmonary abnormality.
Patient underwent IV fluid resuscitation for BERTA with improvement of creatinine. Electrolytes ongoing repletion. Cardiology being asked to see patient for sustained ventricular tachycardia. Patient was rather asymptomatic except had somewhat of a
blank stare per nursing.
Progress Note - Dairy Chemist
Subjective
Date of Service: January 06, 2025
No chest pain or shortness of breath.
Objective
Labs:
01/06/25 05:22
Labs
Hgb 7.7 g/dL (13.0-18.0) L 01/06/25 05:22
Hct 22.2 % (39.0-52.0) L 01/06/25 05:22
Plt Count 292 10^3/uL (130-400) 01/06/25 05:22
PT 17.1 Sec (11.4-14.6) H 12/31/24 08:58
INR 1.36 12/31/24 08:58
APTT 32.0 Sec (23.4-35.0) 12/31/24 08:58
Sodium 137 mmol/L (135-145) 01/06/25 00:55
Potassium 3.9 mmol/L (3.5-5.1) D 01/06/25 00:55
BUN 26 mg/dl (9-20) H 01/06/25 00:55
Creatinine 0.8 mg/dL (0.7-1.3) 01/06/25 00:55
Glucose 109 mg/dl (70-99) H 01/06/25 00:55
Vital Signs and I&O:
Vital Signs
Temp Pulse Resp BP Pulse Ox
97.9 F 71 20 91/71 96
01/06/25 07:47 01/06/25 06:01 01/06/25 06:01 01/06/25 06:01 01/06/25 06:01
Vital Signs
Temp Pulse Resp BP Pulse Ox
97.9 F 71 20 91/71 96
01/06/25 07:47 01/06/25 06:01 01/06/25 06:01 01/06/25 06:01 01/06/25 06:01
Intake & Output
01/04/25 01/05/25 01/06/25 01/07/25
06:59 06:59 06:59 06:59
Intake Total 220 / 220 1105 / 1105 2240 / 2240
Output Total 1700 / 1700 1625 / 1625 1825 / 1825
Balance -1480 / -1480 -520 / -520 415 / 415
Physical Exam
Physical Exam
General: Well developed, well nourished in NAD.
Neck: Supple, no JVD, HJR, carotids +2 B/L, no bruits bilaterally.
Heart: Non displaced PMI, RRR, no murmurs, No S3, S4, no rubs.
Lungs: Scattered rhonchi
Extremities: No clubbing, cyanosis or edema bilaterally.
Neuro: Grossly nonfocal, awake, alert and oriented x3.
[2025-01-06 08:40] LABS: Nucleated Red Blood Cells % 1.5 % (-)
--- NOTE | 2025-01-06 09:22 | W.PN.ID1 ---
Date of Service
Date of Service: January 06, 2025
Today's Communication
Continue current antibiotics.
Assessment / Plan
Staph aureus bacteremia
- Potential source: port, skin, urine, other
Leukopenia / Neutropenia
Anemia
BERTA; improved
Elevated CRP
Metastatic ureteral cancer (liver, bone; followed at [facility], on Padcev and Keytruda)
Cardiomyopathy
CAD
GERD
Vertigo
HTN
HLD
Recommendations:
Initial blood cultures with Staph aureus (MSSA).
Repeat blood cultures negative as of 01/02/2025. Continuing to follow to assess clearance.
Continue cefazolin; will need 14 days IV abx from first negative blood culture. (Tentatively 01/16 as of today)
Echocardiogram without vegetations.
Monitor white count and temperature curve.
Local care to upper extremity wounds.
����������������������������������������������������������
Chief Complaint
-: Bacteremia
Subjective / Review of Systems
Review of Systems: No Fever and No Chills
Vital Signs / Physical Exam
Vital Signs
Vital Signs
Temp Pulse Resp BP Pulse Ox
97.9 F 73 17 110/87 97
01/06/25 07:47 01/06/25 08:00 01/06/25 08:00 01/06/25 08:00 01/06/25 08:00
Physical Exam
Constitutional: No Acute Distress, Comfortable and Non-toxic
Eyes: Sclera Anicteric
Cardiovascular: Regular Rate
Pulmonary: Non Labored
Gastrointestinal: Soft and Non Distended
Skin: Rash (Drying rash noted on upper extremities)
Neurological: Awake and Alert
Psychological: Calm
Lines: Port (Right ACW; accessed. No surrounding erythema or tenderness.)
Objective Data
Lab Data
Lab Results
01/06/25 05:22
PT 17.1 Sec (11.4-14.6) H 12/31/24 08:58
INR 1.36 12/31/24 08:58
APTT 32.0 Sec (23.4-35.0) 12/31/24 08:58
Estimated Creat Clear 91 ml/min 01/06/25 00:55
Total Bilirubin 0.7 mg/dl (0.2-1.3) 01/05/25 05:02
AST 44 U/L (17-59) 01/05/25 05:02
ALT 20 U/L (0-50) 01/05/25 05:02
Alkaline Phosphatase 152 U/L (38-126) H 01/05/25 05:02
C-Reactive Protein 51.30 mg/L (0.0-10.00) H 01/04/25 04:21
Most recent labs reviewed.
Micro Results:
01/03/25 05:26 Blood Culture - Preliminary
Blood/Venous No Growth in 72 hours- Final report to follow
01/02/25 16:49 Blood Culture - Preliminary
Blood/Venous No Growth in 72 hours- Final report to follow
01/02/25 10:50 Blood Culture - Preliminary
Blood/Venous No Growth in 72 hours- Final report to follow
01/02/25 11:58 Salmonella/Shigella Culture - Final
Feces/Stool No Salmonella, Shigella, Aeromonas or Plesiomonas species
isolated.
Campylobacter Culture - Final
No Campylobacter species isolated.
Shiga Toxin Test - Final
No E. coli Shiga Toxin 1 or 2 detected.
01/01/25 02:48 Blood Culture - Preliminary
Blood/Venous S aureus-Methicillin Sensitive
Gram Stain - Preliminary
01/01/25 02:00 Blood Culture - Preliminary
Blood/Venous S aureus-Methicillin Sensitive
Gram Stain - Preliminary
01/02/25 11:58 C. difficile GDH Antigen & Toxins - Final
Feces/Stool Negative for toxigenic C.difficile
01/01/25 01:50 MRSA Screen - Final
Nose No Methicillin Resistant Staphylococcus aureus isolated.
Imaging:
12/31/2024 CXR (2 view): no focal airspace disease noted. No pleural effusion or pneumothorax.
[2025-01-06] MEDS: MAGNESIUM SULFATE 50 IV (09:40)
[2025-01-06 10:16] LABS: Blood Urea Nitrogen 24 mg/dl (9-20); Calcium 5.7 mg/dl (8.4-10.2); Carbon Dioxide 22 mmol/L (22-30); Chloride 110 mmol/L (98-107); Estimated Creatinine Clearance 103 ml/min; Glucose 151 mg/dl (70-99); Potassium 3.5 mmol/L (3.5-5.1); Sodium 136 mmol/L (135-145); eGFR > 60.00
--- NOTE | 2025-01-06 10:45 | W.PN.HOSP.TC ---
Today's Communication/Plan
-
Monitor vital signs and see plan
PT/OT
Replete potassium, magnesium, calcium aggressively
Serial BMP
Continue with antibiotic
Assessment / Plan
Assessment / Plan
69M with metastatic ureteral cancer (follows at [facility] with Dr June [phone]), recent chemo s/p second treatment (Padcev with Keytruda) this past week; p/w shortness of breath, poor po intake and feeling dehydrated. He also noted development of
diffuse rash with erythema. Found to have severe anemia and hypocalcemia.
A/P:
# Dyspnea 2/2 anemia
Placed on 2L NC for symptoms, wean oxygen as tolerated
CXR NAD
Hgb 7.1 on admission (from baseline 9.7), transfused 1 units PRBC, Hgb stable at 7.7, continue to monitor H&H
iron panel consistent with ACD, B12/folate WNL
BL LE US neg for DVT
Noted BNP 4000 on admission
was low dose IV lasix 20 mg BID for chronic edema; PO lasix starting tomorrow
# severe hypocalcemia
[place] likely 2/2 xgeva S/E
Replete calcium aggressively, serial BMP
Vitamin D 01/03 was 15. s/p 50,000 units t8/16
Replete magnesium,potassium
replete calcium IV again and monitor level
Not much improvement despite repeat repletions
tele monitor
If electrolyte continues to be depleted then consider nephrology evaluation
# non-sustained VT noted on tele
# non-OR troponin elevation
replete Calcium IV
Cont Coreg
Cardiology following
Hypokalemia
Replete
# Diffuse skin rash
ED d/w outpt oncologist Dr June, who recc steroid over 2 weeks
IV Decadron started, changed to p.o. and tolerating orals, GI ppx with IV Protonix - not tolerating po yet
wound care on board
# MSSA bacteremia
ID managing, currently on cefazolin, vanc stopped. Continue cefazolin per ID
Blood culture from 01/02, 01/03 NGTD
# Prerenal and postrenal BERTA- resolved
# Metabolic acidosis , improved
# Obstructive uropathy
SCr 2.3 -> 0.7; baseline SCr around 1.0
notgably poor intake
s/p Bicarb drip low rate
Monitor SCr
huffman placed 12/31 for urinary retention
diet advanced to IDDS 6
# Hyperuricemia likely 2/2 BERTA per Onc, less likely tumor lysis syndrome
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
pt c/o intermittent chills at home, CRP elevated (could be 2/2 current inflammatory response), blood cultures x2 so far negative
DVT ppx: HSQ
FC
General: No Apparent Distress
HEENT: Moist Mucous Membranes, Anicteric and PERRLA
Respiratory: Clear to Auscultation; Negative Wheezes, Rales or Rhonchi
Cardiac: S1/S2 and Irregular Rhythm; Negative Murmur, Rub or Gallop
GI: Soft, Nontender, Nondistended and Normal Bowel Sounds
Musculoskeletal: Negative No Edema
Skin: Warm, Dry, Rash (Diffuse erythematous rash with multiple areas of scabbing) and Lesions; Negative Ulcers
Neuro: Awake and AO x 3
Psych: Calm
I spent a total of 52 minutes with the patient or on the floor. More than 50% of this time involved counseling and coordination of care.
Anticipated Discharge: > 48 hours
Subjective/Interval History
-
Date of Service: January 06, 2025
denies pain
Objective Data
-
Labs:
Laboratory Results
01/06/25 01/06/25 01/06/25
00:55 05:22 09:38
WBC 2.1 L*
Hgb 7.7 L
Hct 22.2 L
Plt Count 292
Sodium 137 136
Potassium 3.9 D 3.5
Chloride 112 H 110 H
Carbon Dioxide 19 L 22
BUN 26 H 24 H
Creatinine 0.8 0.7
Glucose 109 H 151 H
Calcium 5.8 L* D 5.7 L*
01/06/25
17:04
WBC
Hgb
Hct
Plt Count
Sodium Pending
Potassium Pending
Chloride Pending
Carbon Dioxide Pending
BUN Pending
Creatinine Pending
Glucose Pending
Calcium Pending
Vital Signs:
Vital Signs
Temp Pulse Resp BP Pulse Ox
97.9 F 73 17 110/87 96
01/06/25 07:47 01/06/25 08:00 01/06/25 08:00 01/06/25 08:00 01/06/25 09:55
I&O
01/05/25 01/06/25 01/07/25
06:59 06:59 06:59
Intake Total 1105 / 1105 2240 / 2240 290 / 290
Output Total 1625 / 1625 1825 / 1825
Balance -520 / -520 415 / 415 290 / 290
[2025-01-06] MEDS: CALCIUM GLUCONATE 280 MG IV (11:03)
[2025-01-06] MEDS: KCL 270 MEQ IV (11:31)
--- NOTE | 2025-01-06 13:50 | PTCARENOTE ---
Assumed care of patient at beginning of this shift from previous RN. Patient drowsy but easily arousable. Ca 5.7; K+ 3.5; Mg 1.8; all repleted as ordered. Patient had 23 beat run of vtach; asymptomatic. Dr Judd and Dr Shah made aware via TT with
picture of telemetry strips attached. WBC 2.1, abs neurtrophils 0.7; Dr Mcghee made aware when on the unit to see patient. Neutropenic precautions maintained; sign posted outside room. Patient Ox3, flat affect and forgetful at times; periods of
restlessness/movement. See worklist for full assessment and vital signs; see MAR for med administration. Daughters at bedside and updated.
--- NOTE | 2025-01-06 14:56 | PTCARENOTE ---
Ok for patient to be OOB to chair as per Dr Judd.
--- NOTE | 2025-01-06 14:56 | PTCARENOTE ---
Patient's asking if patient should be taking vitamin D along with calcium; TT sent to Dr Shah.
[2025-01-06] MEDS: OSCAL CAL 500 500 MG PO (17:48)
[2025-01-06] MEDS: HYDROCORTISONE 1% CREAM TOPICAL (19:51)
[2025-01-06 20:19] LABS: Blood Urea Nitrogen 23 mg/dl (9-20); Calcium 6.4 mg/dl (8.4-10.2); Carbon Dioxide 20 mmol/L (22-30); Chloride 110 mmol/L (98-107); Estimated Creatinine Clearance 103 ml/min; Glucose 137 mg/dl (70-99); Potassium 3.9 mmol/L (3.5-5.1); Sodium 135 mmol/L (135-145); eGFR > 60.00
--- NOTE | 2025-01-06 20:36 | PTCARENOTE ---
Addendum entered by Heladio Alcazar RN 01/07/25 00:56:
Patient had 10-14 beats non sustained VT on monitor worker while RN in the room; asymptomatic. JOSE De La Garza aware.
Original Note:
Calcium result of 6.7 reported to JOSE De La Garza. Order for IV Calcium gluconate received.
[2025-01-07] VITALS (13 sets, daily range): BP systolic 111–147; BP diastolic 60–93; BMI 22.9
[2025-01-07] MEDS: DILAUDID 0.25 MG IV ×2 (00:23→20:56)
[2025-01-07] MEDS: ANCEF 10 IV ×3 (03:53→19:39)
--- NOTE | 2025-01-07 04:11 | PTCARENOTE ---
Patient restless overnight, sitting at edge of bed and laying back down frequently. Taking off warm blankets provided by staff after assisting into a comfortable position. Takes off BP cuff and pulse ox. Offered PRN Benadryl for itchiness, pt
declined. PRN Dilaudid provided for pain per pt request; pt able to sleep in short intervals. Pt is slightly forgetful but cooperative with care. called for update at bedtime.
Bed alarm set for safety. Call whitman and tray table within reach.
[2025-01-07 04:40] LABS: Hematocrit 22.5 % (39.0-52.0); Hemoglobin 7.7 g/dL (13.0-18.0); Mean Corp Hgb Conc. 34.2 g/dL (33.0-37.0); Mean Corpuscular Volume 81.2 fL (80.0-94.0); Platelet Count 290 10^3/uL (130-400); Red Cell Dist. Width 17.9 % (11.5-14.5)
[2025-01-07 04:54] LABS: Calcium 6.3 mg/dl (8.4-10.2)
[2025-01-07 04:55] LABS: Blood Urea Nitrogen 19 mg/dl (9-20); Calcium 6.3 mg/dl (8.4-10.2); Carbon Dioxide 20 mmol/L (22-30); Chloride 111 mmol/L (98-107); Estimated Creatinine Clearance 103 ml/min; Glucose 104 mg/dl (70-99); Magnesium 1.8 mg/dl (1.6-2.3); Potassium 3.7 mmol/L (3.5-5.1); Sodium 135 mmol/L (135-145); eGFR > 60.00
[2025-01-07] MEDS: CALCIUM GLUCONATE 280 MG IV (05:35)
[2025-01-07 08:07] LABS: Absolute Neutrophils -Man Diff 1.0 10^3/uL (1.4-6.5)
[2025-01-07 08:08] LABS: Anisocytosis 1+; Hypochromasia 1+; Normal RBC Morphology No; Platelets Checked Yes; Total Cells Counted 100
[2025-01-07] MEDS: LASIX 60 MG PO (08:18)
[2025-01-07] MEDS: CLARITIN 10 MG PO (08:18)
[2025-01-07] MEDS: COREG 25 MG PO ×2 (08:18→19:40)
[2025-01-07] MEDS: SUBUTEX 1 MG SL (08:18)
[2025-01-07] MEDS: OSCAL CAL 500 1000 MG PO (08:18)
[2025-01-07] MEDS: NSS (PRESERVATIVE FREE) 10 ML IV (08:19)
[2025-01-07] MEDS: HEPARIN 5000 UNITS SC ×2 (08:19→19:40)
[2025-01-07] MEDS: DELTASONE 80 MG PO (08:19)
[2025-01-07] MEDS: PROTONIX IV 40 MG IV (08:19)
[2025-01-07] MEDS: HYDROPHOR 1 APPLIC TOPICAL (08:20)
[2025-01-07] MEDS: HYDROCORTISONE 1% CREAM TOPICAL ×2 (08:21→19:48)
--- NOTE | 2025-01-07 09:00 | W.PN.ID1 ---
Date of Service
Date of Service: January 07, 2025
Today's Communication
Continue antibiotics. See below�
Assessment / Plan
Staph aureus bacteremia
- Source unclear, but potential sources include: port, skin, urine, other
- cleared
Leukopenia / Neutropenia
Anemia
BERTA; improved
Elevated CRP
Metastatic ureteral cancer (liver, bone; followed at [facility], on Padcev and Keytruda)
Cardiomyopathy
CAD
GERD
Vertigo
HTN
HLD
Recommendations:
Initial blood cultures with Staph aureus (MSSA).
Repeat blood cultures negative as of 01/02/2025. Continuing to follow to assess clearance.
Echocardiogram without vegetations.
Continue cefazolin; to complete 14 days IV abx from first negative blood culture.
IV antibiotic Home infusion prescription placed on paper chart.
Continue to monitor white count and temperature curve.
Local care to upper extremity wounds.
����������������������������������������������������������
Chief Complaint
-: Bacteremia (MSSA)
Subjective / Review of Systems
Review of Systems: No Fever and No Chills
Vital Signs / Physical Exam
Vital Signs
Vital Signs
Temp Pulse Resp BP Pulse Ox
98.1 F 96 18 145/76 97
01/07/25 04:11 01/07/25 06:31 01/07/25 06:31 01/07/25 08:18 01/07/25 02:00
Physical Exam
Constitutional: No Acute Distress, Comfortable and Non-toxic
Eyes: No Conjunctival Hemorrhage and Sclera Anicteric
Cardiovascular: Irregular Rate and S1/S2; Negative S3/S4
Pulmonary: Non Labored
Gastrointestinal: Soft, Non Tender and Non Distended
Extremities: Negative Edema
Skin: Rash (Drying rash noted on upper extremities)
Neurological: Awake and Alert
Psychological: Calm
Lines: Port (Right ACW; accessed. No surrounding erythema or tenderness.)
Objective Data
Lab Data
Lab Results
01/07/25 04:00
PT 17.1 Sec (11.4-14.6) H 12/31/24 08:58
INR 1.36 12/31/24 08:58
APTT 32.0 Sec (23.4-35.0) 12/31/24 08:58
Estimated Creat Clear 103 ml/min 01/07/25 04:00
Total Bilirubin 0.7 mg/dl (0.2-1.3) 01/05/25 05:02
AST 44 U/L (17-59) 01/05/25 05:02
ALT 20 U/L (0-50) 01/05/25 05:02
Alkaline Phosphatase 152 U/L (38-126) H 01/05/25 05:02
C-Reactive Protein 51.30 mg/L (0.0-10.00) H 01/04/25 04:21
Most recent labs reviewed.
Micro Results:
01/03/25 05:26 Blood Culture - Preliminary
Blood/Venous No Growth in 4 days- Final report to follow
01/01/25 02:00 Blood Culture - Final
Blood/Venous S aureus-Methicillin Sensitive
Gram Stain - Final
01/01/25 02:48 Blood Culture - Final
Blood/Venous S aureus-Methicillin Sensitive
Gram Stain - Final
01/02/25 16:49 Blood Culture - Preliminary
Blood/Venous No Growth in 4 days- Final report to follow
01/02/25 10:50 Blood Culture - Preliminary
Blood/Venous No Growth in 4 days- Final report to follow
01/02/25 11:58 Salmonella/Shigella Culture - Final
Feces/Stool No Salmonella, Shigella, Aeromonas or Plesiomonas species
isolated.
Campylobacter Culture - Final
No Campylobacter species isolated.
Shiga Toxin Test - Final
No E. coli Shiga Toxin 1 or 2 detected.
01/02/25 11:58 C. difficile GDH Antigen & Toxins - Final
Feces/Stool Negative for toxigenic C.difficile
01/01/25 01:50 MRSA Screen - Final
Nose No Methicillin Resistant Staphylococcus aureus isolated.
Imaging:
12/31/2024 CXR (2 view): no focal airspace disease noted. No pleural effusion or pneumothorax.
--- NOTE | 2025-01-07 10:25 | PTCARENOTE ---
Assumed care of patient at beginning of this shift from previous RN. Patient with 17 beat run vtach as well as frequent PVCs t/o. Telemetry strip shown to Dr Judd when he was on unit seeing patient.
Patient OOB to commode with one episode of liquid stool mixed with urine. Continues with decreased appetite.
at bedside; requested patient be seen by PT, WOC, asset protection assistant and ST. TT sent to PT, WOC and ST. Joseph to see for ST. This RN spoke with Leslie from dietary who asked to have consult put in; patient with current consult order. New nsg level
consult entered with request patient to be seen/followed today.
See worklist for full assessment and vital signs.
--- NOTE | 2025-01-07 10:25 | W.PN.CARDCBS ---
Today's Communication / Plan
-
More VT despite high dose Coreg
Discussed with EP will not add amiodarone for now
Stable volume status on oral Lasix
Impression / Plan
-
PCP: Merline Portillo
Hospice Home Care Coordinator: Neel Hayward
Oncologist: Dr. June [facility]
Impression:
Presents 12/30/2024 with worsening shortness of breath, edema, significant fatigue with poor oral intake, nausea and diffuse rash
Acute anemia
Status post 1 unit packed RBCs 12/30/2024
Hypocalcemia secondary to xgeva
BERTA likely secondary to dehydration with poor oral intake, diarrhea, and continued lasix use at home
Metastatic urothelial carcinoma s/p C2 Padcev with keytruda at [facility] last week
Rash secondary to antineoplastic therapy
leukopenia/lymphopenia
Acute on chronic heart failure with reduced ejection fraction, proBNP 4290
Abnormal troponin, suspect nonischemic myocardial injury
VT
Longstanding nonischemic cardiomyopathy
Chronic heart failure with reduced ejection fraction
Frequent PVCs
Hypertension
Hyperlipidemia
Staph aureus bacteremia
Echo May 2024: EF 25 to 30%, mildly reduced RV systolic function, mild MR, severe left atrial dilation
Lexiscan nuclear stress test December 2015: Small area of mildly decreased perfusion that is fixed in apical segment. No evidence of reversible ischemia. Global hypokinesis, EF 31%
Cardiac catheterization 2006: Mild nonobstructive coronary artery disease
Plan:
He continues with episodes of VT despite high dose Coreg
Discussed with EP and will not add amiodarone for now
Unclear if patient is a candidate for ICD will need to be discussed with primary ironing machine operator
Volume status reasonable on p.o. Lasix
HPI 01/01/2025:
Patient is a 77-year-old male with past medical history of longstanding nonischemic cardiomyopathy (declined ICD in past), heart failure with reduced ejection fraction, frequent PVCs, hypertension, hyperlipidemia and recently diagnosed metastatic
urethral carcinoma with recent initiation of Padcev with keytruda at [facility] (Dr. June) who presents to emergency department 12/31/2024 with worsening shortness of breath, edema, significant fatigue with poor oral intake, nausea and diffuse rash with
erythema which started after initiation of cancer treatment. On presentation patient noted to have acute anemia with hemoglobin of 7.1 and was transfused 1 unit of packed RBCs. Also found to have elevated proBNP 4290. Found to have metabolic
acidosis with BERTA with creatinine of 2.3 and electrolyte derangements. Troponin 0.035. EKG demonstrated sinus rhythm with frequent PVCs. Lower extremity Doppler was negative for DVT. Chest x-ray showed no acute cardiopulmonary abnormality.
Patient underwent IV fluid resuscitation for BERTA with improvement of creatinine. Electrolytes ongoing repletion. Cardiology being asked to see patient for sustained ventricular tachycardia. Patient was rather asymptomatic except had somewhat of a
blank stare per nursing.
Progress Note - Hospice Home Care Coordinator
Subjective
Date of Service: January 07, 2025
No complaints
Objective
Labs:
01/07/25 04:00
Labs
Hgb 7.7 g/dL (13.0-18.0) L 01/07/25 04:00
Hct 22.5 % (39.0-52.0) L 01/07/25 04:00
Plt Count 290 10^3/uL (130-400) 01/07/25 04:00
PT 17.1 Sec (11.4-14.6) H 12/31/24 08:58
INR 1.36 12/31/24 08:58
APTT 32.0 Sec (23.4-35.0) 12/31/24 08:58
Sodium 135 mmol/L (135-145) 01/07/25 04:00
Potassium 3.7 mmol/L (3.5-5.1) 01/07/25 04:00
BUN 19 mg/dl (9-20) 01/07/25 04:00
Creatinine 0.7 mg/dL (0.7-1.3) 01/07/25 04:00
Glucose 104 mg/dl (70-99) H 01/07/25 04:00
Vital Signs and I&O:
Vital Signs
Temp Pulse Resp BP Pulse Ox
98.1 F 82 18 145/76 96
01/07/25 04:11 01/07/25 08:17 01/07/25 06:31 01/07/25 08:18 01/07/25 10:15
Vital Signs
Temp Pulse Resp BP Pulse Ox
98.1 F 82 18 145/76 96
01/07/25 04:11 01/07/25 08:17 01/07/25 06:31 01/07/25 08:18 01/07/25 10:15
Intake & Output
01/05/25 01/06/25 01/07/25 01/08/25
06:59 06:59 06:59 06:59
Intake Total 1105 / 1105 2240 / 2240 1040 / 1040
Output Total 1625 / 1625 1825 / 1825 2024 / 2024
Balance -520 / -520 415 / 415 -985 / -985
Physical Exam
Physical Exam
General: Well developed, well nourished in NAD.
Neck: Supple, no JVD, HJR, carotids +2 B/L, no bruits bilaterally.
Heart: Non displaced PMI, RRR, no murmurs, No S3, S4, no rubs.
Lungs: Scattered rhonchi
Extremities: No clubbing, cyanosis or edema bilaterally.
Neuro: Grossly nonfocal, awake, alert and oriented x3.
[2025-01-07 14:46] LABS: Blood Urea Nitrogen 18 mg/dl (9-20); Calcium 6.9 mg/dl (8.4-10.2); Carbon Dioxide 24 mmol/L (22-30); Chloride 106 mmol/L (98-107); Estimated Creatinine Clearance 103 ml/min; Glucose 145 mg/dl (70-99); Potassium 4.1 mmol/L (3.5-5.1); Sodium 135 mmol/L (135-145); eGFR > 60.00
--- NOTE | 2025-01-07 15:21 | WOUNDNOTE ---
WON RN NOTE: Followed up today as requested by for ulcers on buttocks. Compared to last seen, open ulcers are in same location as last time, suspect from rash, not pressure injuries. Patient reports they are sore but able to turn and position
self onto sides. Rash on body much improved, now mostly flaky peeling skin with some scabbing, mineral oil in use. Recommend for buttocks apply pieces of silver alginate over open ulcers followed by silicone foam daily. Remaining dry skin on
buttocks apply A&D ointment daily. Updated nurse Paris, will update wound care orders and care plan.
--- NOTE | 2025-01-07 16:04 | W.PN.HOSP.TC ---
Addendum entered and electronically signed by Kandis Ray MD 01/08/25 07:41:
for CDI reviewer, already says below MSSA due to Bacteremia
Original Note:
Today's Communication/Plan
-
Continue to aggressively replete replete IV calcium
Continue telemetry monitoring and cards mgmt for VT
When closer to discharge will need PICC for home IV antibiotic
Assessment / Plan
Assessment / Plan
69M with metastatic ureteral cancer (follows at [facility] with Dr June [phone]), recent chemo s/p second treatment (Padcev with Keytruda) this past week; p/w shortness of breath, poor po intake and feeling dehydrated. He also noted development of
diffuse rash with erythema. Found to have severe anemia and hypocalcemia.
A/P:
1. Dyspnea 2/2 anemia
Placed on 2L NC for symptoms, wean oxygen as tolerated
CXR NAD
Hgb 7.1 on admission (from baseline 9.7), transfused 1 units PRBC, Hgb stable at 7.7, continue to monitor H&H
iron panel consistent with ACD, B12/folate WNL
BL LE US neg for DVT
Noted BNP 4000 on admission
s/p low dose IV lasix 20 mg BID for chronic edema changed to PO lasix
2. Severe hypocalcemia
[place] likely 2/2 xgeva S/E
Replete calcium aggressively, serial BMP
Vitamin D 01/03 was 15. s/p 50,000 units 01/05
Replete magnesium, potassium prn
replete calcium IV again and monitor level
Slowly starting to improve latest is 6.9, corrected to 7.9
tele monitor
3. non-sustained VT noted on tele
troponin elevation
replete Calcium IV
Cont Coreg
Cardiology following
Unclear if patient is a candidate for ICD will need to be discussed with primary fire claims adjuster
4. Hypokalemia
Resolved
5. Diffuse skin rash
ED d/w outpt oncologist Dr June, who recc steroid over 2 weeks
IV Decadron started, changed to p.o. and tolerating orals, GI ppx with IV Protonix - change to oral
wound care on board
6,. MSSA bacteremia
ID managing, currently on cefazolin, vanc stopped. Continue cefazolin per ID until 14 days from 1st negative culture
Blood culture from 01/02, 01/03 NGTD. No veg on echo
# Prerenal and postrenal BERTA- resolved
# Metabolic acidosis , improved
# Obstructive uropathy
SCr 2.3 -> 0.7; baseline SCr around 1.0
notgably poor intake
s/p Bicarb drip low rate
Monitor SCr
huffman placed 12/31 for urinary retention
diet advanced to IDDS 6
# Hyperuricemia likely 2/2 BERTA per Onc, less likely tumor lysis syndrome
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
pt c/o intermittent chills at home, CRP elevated (could be 2/2 current inflammatory response), blood cultures x2 so far negative
DVT ppx: HSQ
FC
Anticipated Discharge: > 48 hours
Subjective/Interval History
-
Date of Service: January 07, 2025
Patient denies any issues overnight, no spasms or numbness, denies palpitations. Still having VT runs but patient is asymptomatic. is at bedside.
Objective Data
-
Labs:
Laboratory Results
01/07/25 01/07/25 01/07/25
04:00 04:00 13:05
WBC 2.6 L
Hgb 7.7 L
Hct 22.5 L
Plt Count 290
Sodium 135 135
Potassium 3.7 4.1
Chloride 111 H 106
Carbon Dioxide 20 L 24
BUN 19 18
Creatinine 0.7 0.7
Glucose 104 H 145 H
Calcium 6.3 L* 6.3 L* 6.9 L*
Vital Signs:
Vital Signs
Temp Pulse Resp BP Pulse Ox
98.1 F 77 22 132/79 96
01/07/25 04:11 01/07/25 14:00 01/07/25 10:00 01/07/25 14:00 01/07/25 10:40
I&O
01/06/25 01/07/25 01/08/25
06:59 06:59 06:59
Intake Total 2240 / 2240 1040 / 1040
Output Total 1825 / 1825 2024
Balance 415 / 415 -985 / -985
Review of Systems
-
All other systems: Reviewed and negative
Physical Exam
-
General: No Apparent Distress
HEENT: Moist Mucous Membranes, Anicteric and PERRLA
Respiratory: Clear to Auscultation; Negative Wheezes, Rales or Rhonchi
Cardiac: S1/S2 and Irregular Rhythm; Negative Murmur, Rub or Gallop
GI: Soft, Nontender, Nondistended and Normal Bowel Sounds
Musculoskeletal: Negative No Edema
Skin: Warm, Dry, Rash (Diffuse erythematous rash with multiple areas of scabbing) and Lesions; Negative Ulcers
Neuro: Awake and AO x 3
Hematologic / Lymphatic: No Lymphadenopathy
Psych: Calm
Data Reviewed
-
Labs: Labs Reviewed by me, Discussed with Nurse, Discussed with Patient and Discussed with Family
--- NOTE | 2025-01-07 16:31 | CM ---
Chart reviewed and both patient and spouse do not want skilled placement, per spouse she has 13 steps into home and patient needs more therapy with stairs, patient may need IV ABX, spouse is agreeable to [facility]. May have to use
medicare certified home carte agency for home infusion.
Plan; Home with spouse, IV ABX and homecare PT/OT and nursing.
[2025-01-07] MEDS: CALCIUM GLUCONATE 100 IV (16:50)
[2025-01-07] MEDS: OSCAL CAL 500 500 MG PO (17:18)
--- NOTE | 2025-01-07 21:34 | PTCARENOTE ---
Received patient at change of shift from previous RN. RN reports no further loose bm, none thus far this shift as well. Patient aao x3, affect flat, c/o pain to lower back, prn medication adminstered per orders. Patient NSR on the monitor, PVCs
noted, bigeminy at times. LS cta, diminished at b/l bases. Patient initially refused hydrophor to b/l UE's, then accepted treatment during pm hygiene. Call whitman within reach, bed alarm on. Will continue to monitor patient closely.
[2025-01-08] VITALS (14 sets, daily range): BP systolic 101–147; BP diastolic 58–89; PULSE 71; BMI 21.9
[2025-01-08] MEDS: ULTRAM 25 MG PO (00:56)
--- NOTE | 2025-01-08 01:12 | PTCARENOTE ---
Addendum entered by Taylor Trevino RN 01/08/25 02:54:
Patient with 19 beats of vtach around 00:30, asymptomatic at that time. APPLIED PSYCHOLOGY PROFESSOR notified.
Addendum entered by Taylor Trevino RN 01/08/25 02:35:
Patient states zero pain relief with Ultram. PRN Diluadid administered per order. Right SQ port dressing peeling back, VAT RN contacted and currently at bedside to redress sq port. Will continue to monitor.
Original Note:
Patient states previous prn medication did not provide much pain relief. Pain currently 9/10, generalized. RN notified APPLIED PSYCHOLOGY PROFESSOR, new order placed for Ultram 1x dose. Medication reviewed with patient, administered per orders. Will continue to monitor
closely.
[2025-01-08] MEDS: DILAUDID 0.25 MG IV ×2 (02:02→20:03)
[2025-01-08] MEDS: ANCEF 10 IV ×3 (03:15→19:39)
[2025-01-08 03:35] LABS: Hematocrit 21.8 % (39.0-52.0); Hemoglobin 7.4 g/dL (13.0-18.0); Mean Corp Hgb Conc. 33.9 g/dL (33.0-37.0); Mean Corpuscular Volume 82.3 fL (80.0-94.0); Nucleated Red Blood Cells % 1.2 % (-); Platelet Count 278 10^3/uL (130-400); Red Cell Dist. Width 18.1 % (11.5-14.5)
[2025-01-08 04:31] LABS: Blood Urea Nitrogen 17 mg/dl (9-20); Calcium 5.8 mg/dl (8.4-10.2); Carbon Dioxide 22 mmol/L (22-30); Chloride 108 mmol/L (98-107); Estimated Creatinine Clearance 121 ml/min; Glucose 108 mg/dl (70-99); Potassium 3.3 mmol/L (3.5-5.1); Sodium 135 mmol/L (135-145); eGFR > 60.00
[2025-01-08] MEDS: CALCIUM GLUCONATE 100 IV ×2 (05:05→20:09)
[2025-01-08] MEDS: KCL 270 MEQ IV (06:15)
[2025-01-08] MEDS: DELTASONE 80 MG PO (08:46)
[2025-01-08] MEDS: OSCAL CAL 500 1000 MG PO (08:46)
[2025-01-08] MEDS: CLARITIN 10 MG PO (08:46)
[2025-01-08] MEDS: LASIX 60 MG PO (08:47)
[2025-01-08] MEDS: SUBUTEX 1 MG SL (08:50)
[2025-01-08] MEDS: PROTONIX IV 40 MG IV (08:50)
[2025-01-08] MEDS: HEPARIN 5000 UNITS SC ×2 (08:51→19:39)
[2025-01-08] MEDS: COREG 25 MG PO ×2 (08:51→19:39)
[2025-01-08] MEDS: NSS (PRESERVATIVE FREE) 10 ML IV (08:51)
--- NOTE | 2025-01-08 11:55 | W.PN.ONC ---
Today's Communication / Plan
-
Rash improving on steroids. Will reduce to 60mg pred starting 01/09, then 40mg on 01/11. Would wean off over the next 1-2 weeks if able.
Continue PPI for GI ppx
Calcium repletion
Monitor CBC daily -- WBC is improving, H/H stable
OOB, PT for deconditioning
Encouraged increased calorie/protein intake
Wound care ongoing
OP follow up with [facility] upon discharge for continued management of metastatic urothelial carcinoma
Impression
Impression
metastatic urothelial carcinoma s/p C2 Padcev with keytruda at [facility] week prior to admission
rash secondary to antineoplastic therapy, improving on steroids
hypocalcemia secondary to xgeva
jazmin likely dehydration with poor oral intake, diarrhea, and continue NSAIDs & lasix use at home
cancer pain
SOB
Anemia s/p 1U prbc 01/01 with Hgb improved to >8g/dL
leukopenia/lymphopenia
elevated BNP
diarrhea
MSSA bacteremia
Plan
Plan
Rash improving on steroids. Will reduce to 60mg pred starting 01/09, then 40mg on 01/11. Would wean off over the next 1-2 weeks if able.
Continue PPI for GI ppx
Calcium repletion
Ab per ID/primary team
Monitor CBC daily -- WBC is improving, H/H stable
OOB, PT for deconditioning
Encouraged increased calorie/protein intake
Wound care ongoing
OP follow up with [facility] upon discharge for continued management of metastatic urothelial carcinoma
Subjective/Objective
Subjective/Objective
appetite is poor, not enjoying soft diet. Swallowing better.
Pain at buttocks from sitting so much
Skin getting better
Worked w/ PT this am, walked slowly in halls, now sitting in chair
at bedside
Vital Signs:
Vital Signs
Temp Pulse Resp BP Pulse Ox
98.4 F 76 13 141/82 94
01/08/25 08:08 01/08/25 10:01 01/08/25 10:01 01/08/25 10:00 01/08/25 11:26
Lab Results:
Laboratory Data
WBC 3.2 10^3/uL (4.8-10.8) L 01/08/25 03:20
Hgb 7.4 g/dL (13.0-18.0) L 01/08/25 03:20
Plt Count 278 10^3/uL (130-400) 01/08/25 03:20
PT 17.1 Sec (11.4-14.6) H 12/31/24 08:58
INR 1.36 12/31/24 08:58
APTT 32.0 Sec (23.4-35.0) 12/31/24 08:58
eGFR > 60.00 01/08/25 03:20
Orders
Orders
Orders From Last 24 Hours
01/09/25 08:00
Prednisone [Deltasone] 60 mg PO DAILY
--- NOTE | 2025-01-08 12:49 | W.PN.HOSP.TC ---
Today's Communication/Plan
-
Continue to aggressively replete replete IV calcium and potassium
Continue telemetry monitoring and cards mgmt for VT
When closer to discharge will need PICC for home IV antibiotic hopefully next day or so
Assessment / Plan
Assessment / Plan
69M with metastatic ureteral cancer (follows at [facility] with Dr June [phone]), recent chemo s/p second treatment (Padcev with Keytruda) this past week; p/w shortness of breath, poor po intake and feeling dehydrated. He also noted development of
diffuse rash with erythema. Found to have severe anemia and hypocalcemia.
A/P:
1. Dyspnea 2/2 anemia
Placed on 2L NC for symptoms, wean oxygen as tolerated
CXR NAD
Hgb 7.1 on admission (from baseline 9.7), transfused 1 units PRBC, Hgb stable at 7.7, continue to monitor H&H
iron panel consistent with ACD, B12/folate WNL
BL LE US neg for DVT
Noted BNP 4000 on admission
s/p low dose IV lasix 20 mg BID for chronic edema changed to PO lasix (not an exacerbation of heart failure)
2. Severe hypocalcemia
[place] likely 2/2 xgeva S/E
Replete calcium aggressively, serial BMP
Vitamin D 01/03 was 15. s/p 50,000 units 01/05
Replete magnesium, potassium prn
replete calcium IV again and monitor level
yesterday Slowly starting to improve latest is 6.9, corrected to 7.9 , today back down to 5.8 corrects to 6.8. Will discuss with oncology when this can be treated with only orals
tele monitor
3. non-sustained VT noted on tele
troponin elevation
replete Calcium IV
Cont Coreg
Cardiology following
Unclear if patient is a candidate for ICD will need to be discussed with primary concession manager
4. Hypokalemia
Resolved
5. Diffuse skin rash
ED d/w outpt oncologist Dr June, who recc steroid over 2 weeks
IV Decadron started, changed to p.o. and tolerating orals, GI ppx with Protonix - changed to oral
wound care on board
6,. MSSA bacteremia
ID managing, currently on cefazolin, vanc stopped. Continue cefazolin per ID until 14 days from 1st negative culture
Blood culture from 01/02, 01/03 NGTD. No veg on echo
# Prerenal and postrenal BERTA- resolved
# Metabolic acidosis , improved
# Obstructive uropathy
SCr 2.3 -> 0.7; baseline SCr around 1.0
notgably poor intake
s/p Bicarb drip low rate
Monitor SCr
huffman placed 12/31 for urinary retention
diet advanced to IDDS 6
# Hyperuricemia likely 2/2 BERTA per Onc, less likely tumor lysis syndrome
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
pt c/o intermittent chills at home, CRP elevated (could be 2/2 current inflammatory response), blood cultures x2 so far negative
DVT ppx: HSQ
FC
Anticipated Discharge: 24 - 48 hours
Subjective/Interval History
-
Date of Service: January 08, 2025
Patient feeling demoralized wants to go home. Denies chest pain or difficulty breathing.
Objective Data
-
Labs:
Laboratory Results
01/08/25 01/08/25 01/08/25
03:20 12:21 18:00
WBC 3.2 L
Hgb 7.4 L
Hct 21.8 L
Plt Count 278
Sodium 135 Pending Pending
Potassium 3.3 L Pending Pending
Chloride 108 H Pending Pending
Carbon Dioxide 22 Pending Pending
BUN 17 Pending Pending
Creatinine 0.6 L Pending Pending
Glucose 108 H Pending Pending
Calcium 5.8 L* Pending Pending
Vital Signs:
Vital Signs
Temp Pulse Resp BP Pulse Ox
97.8 F 76 13 141/82 94
01/08/25 12:15 01/08/25 10:01 01/08/25 10:01 01/08/25 10:00 01/08/25 11:26
I&O
01/07/25 01/08/25 01/09/25
06:59 06:59 06:59
Intake Total 1040 / 1040 960 / 960
Output Total 2024 1900 / 190 200 / 200
Balance -985 / -985 -940 / -940 -200 / -200
Review of Systems
-
All other systems: Reviewed and negative
Physical Exam
-
General: No Apparent Distress
HEENT: Moist Mucous Membranes, Anicteric and PERRLA
Respiratory: Clear to Auscultation; Negative Wheezes, Rales or Rhonchi
Cardiac: S1/S2 and Irregular Rhythm; Negative Murmur, Rub or Gallop
GI: Soft, Nontender, Nondistended and Normal Bowel Sounds
Musculoskeletal: Negative No Edema
Skin: Warm, Dry, Rash (Diffuse erythematous rash with multiple areas of scabbing) and Lesions; Negative Ulcers
Neuro: Awake and AO x 3
Hematologic / Lymphatic: No Lymphadenopathy
Psych: Calm
Data Reviewed
-
Labs: Labs Reviewed by me, Discussed with Physician and Discussed with Patient
[2025-01-08] MEDS: HYDROCORTISONE 1% CREAM 1 APPLIC TOPICAL ×2 (12:56→19:41)
[2025-01-08] MEDS: HYDROPHOR 1 APPLIC TOPICAL (12:56)
--- NOTE | 2025-01-08 13:16 | W.PN.ID1 ---
Date of Service
Date of Service: January 08, 2025
Today's Communication
Continue antibiotics.
Assessment / Plan
Staph aureus bacteremia
- Source unclear, but potential sources include: port, skin, urine, other
- cleared
Leukopenia / Neutropenia
Anemia
BERTA; improved
Elevated CRP
Metastatic ureteral cancer (liver, bone; followed at [facility], on Padcev and Keytruda)
Cardiomyopathy
CAD
GERD
Vertigo
HTN
HLD
Recommendations:
Initial blood cultures with Staph aureus (MSSA).
Repeat blood cultures negative as of 01/02/2025. Continuing to follow to assess clearance.
Echocardiogram without vegetations.
Continue cefazolin; to complete 14 days IV abx from first negative blood culture.
IV antibiotic Home infusion prescription placed on paper chart.
Continue to monitor white count and temperature curve.
Local care to upper extremity wounds.
����������������������������������������������������������
Chief Complaint
-: Bacteremia (MSSA)
Subjective / Review of Systems
Review of Systems: No Fever
Vital Signs / Physical Exam
Vital Signs
Vital Signs
Temp Pulse Resp BP Pulse Ox
97.8 F 76 13 141/82 94
01/08/25 12:15 01/08/25 10:01 01/08/25 10:01 01/08/25 10:00 01/08/25 11:26
Physical Exam
Constitutional: No Acute Distress, Comfortable and Non-toxic
Pulmonary: Non Labored
Gastrointestinal: Non Distended
Extremities: Negative Edema
Skin: Rash (Drying rash noted on upper extremities)
Psychological: Calm
Lines: Port (Right ACW; accessed. No surrounding erythema or tenderness.)
Objective Data
Lab Data
Lab Results
01/08/25 03:20
PT 17.1 Sec (11.4-14.6) H 12/31/24 08:58
INR 1.36 12/31/24 08:58
APTT 32.0 Sec (23.4-35.0) 12/31/24 08:58
Estimated Creat Clear 121 ml/min 01/08/25 03:20
Total Bilirubin 0.7 mg/dl (0.2-1.3) 01/05/25 05:02
AST 44 U/L (17-59) 01/05/25 05:02
ALT 20 U/L (0-50) 01/05/25 05:02
Alkaline Phosphatase 152 U/L (38-126) H 01/05/25 05:02
C-Reactive Protein 51.30 mg/L (0.0-10.00) H 01/04/25 04:21
Most recent labs reviewed.
Micro Results:
01/03/25 05:26 Blood Culture - Final
Blood/Venous No Growth - Final Report
01/02/25 16:49 Blood Culture - Final
Blood/Venous No Growth - Final Report
01/02/25 10:50 Blood Culture - Final
Blood/Venous No Growth - Final Report
01/01/25 02:00 Blood Culture - Final
Blood/Venous S aureus-Methicillin Sensitive
Gram Stain - Final
01/01/25 02:48 Blood Culture - Final
Blood/Venous S aureus-Methicillin Sensitive
Gram Stain - Final
01/02/25 11:58 Salmonella/Shigella Culture - Final
Feces/Stool No Salmonella, Shigella, Aeromonas or Plesiomonas species
isolated.
Campylobacter Culture - Final
No Campylobacter species isolated.
Shiga Toxin Test - Final
No E. coli Shiga Toxin 1 or 2 detected.
01/02/25 11:58 C. difficile GDH Antigen & Toxins - Final
Feces/Stool Negative for toxigenic C.difficile
01/01/25 01:50 MRSA Screen - Final
Nose No Methicillin Resistant Staphylococcus aureus isolated.
Imaging:
12/31/2024 CXR (2 view): no focal airspace disease noted. No pleural effusion or pneumothorax.
[2025-01-08 13:22] LABS: Blood Urea Nitrogen 16 mg/dl (9-20); Calcium 6.1 mg/dl (8.4-10.2); Carbon Dioxide 22 mmol/L (22-30); Chloride 107 mmol/L (98-107); Estimated Creatinine Clearance 99 ml/min; Glucose 172 mg/dl (70-99); Potassium 3.6 mmol/L (3.5-5.1); Sodium 135 mmol/L (135-145); eGFR > 60.00
--- NOTE | 2025-01-08 15:06 | PTCARENOTE ---
Patient out of bed to chair this morning, participated in Physical Therapy, walked in hallway. Patient is now on Regular diet, fair appetite. Drank 100% of Boost shake. Patient voided 650 of yellow urine in urine without difficulty. Patients pain
managed with standing order of Subutex. Skin is improved, lesions have dried up. Calcium and Potassium levels reassessed and lab results notified to Dr. Ray.
[2025-01-08 15:07] LABS: ALT (SGPT) 17 U/L (0-50); AST (SGOT) 25 U/L (17-59)
--- NOTE | 2025-01-08 15:16 | W.PN.CARDCBS ---
Today's Communication / Plan
-
Follow telemetry
Check metabolic panel
Check LFTs
Continue Coreg for now
Asymptomatic NSVT
He has a class III indication i.e. contraindication for ICD at this time given staff aureus bacteremia of unclear source
We will follow with you
Impression / Plan
-
PCP: Merline Portillo
Front Of House Manager: Neel Hayward
Oncologist: Dr. June [facility]
Impression:
Presents 12/30/2024 with worsening shortness of breath, edema, significant fatigue with poor oral intake, nausea and diffuse rash
Acute anemia
Status post 1 unit packed RBCs 12/30/2024
Pancytopenia
Hypocalcemia secondary to xgeva
BERTA likely secondary to dehydration with poor oral intake, diarrhea, and continued lasix use at home
Metastatic urothelial carcinoma s/p C2 Padcev with keytruda at [facility] last week
Rash secondary to antineoplastic therapy
leukopenia/lymphopenia
Acute on chronic heart failure with reduced ejection fraction, proBNP 4290
Abnormal troponin, suspect nonischemic myocardial injury
VT
Longstanding nonischemic cardiomyopathy
Chronic heart failure with reduced ejection fraction
Frequent PVCs and NSVT
Hypertension
Hyperlipidemia
Staph aureus bacteremia-unclear source although has a port
Echo May 2024: EF 25 to 30%, mildly reduced RV systolic function, mild MR, severe left atrial dilation
Lexiscan nuclear stress test December 2015: Small area of mildly decreased perfusion that is fixed in apical segment. No evidence of reversible ischemia. Global hypokinesis, EF 31%
Cardiac catheterization 2005: Mild nonobstructive coronary artery disease
Plan:
He has nonsustained VT on Coreg. He has a known history of cardiomyopathy for many years and I did discuss with his primary urban sociologist goals of care. The patient and his primary urban sociologist have not had discussion for years regarding ICD in the
past the patient has not been interested. I would posit that his life expectancy may be less than 1 year and clearly he has a class III indication i.e. contraindication to device placement at this time given ongoing staph aureus bacteremia as well
as endovascular hardware�port which may be infected and need removal. As such any discussion for ICD implant would not occur during this admission and we would need to see him clear his staph bacteremia for many months as well as to see an upturn
in his clinical situation as currently he has multiple blood dyscrasias, electrolyte imbalances and serious medical issues. My discussion with the patient also centered upon goals of care and he is currently not interested in ICD implant even if he
did not have these contraindications.
Continue Coreg for now. His VT is asymptomatic. His VT is nonsustained. Goals of care are important and defer to all the primary teams to have ongoing discussions about his goals of care given his myriad of medical issues.
I added on a comprehensive metabolic panel to assess his LFTs. We would need to know what his LFTs look like given his multiple other electrolyte imbalances and blood dyscrasias if he were to need a medication such as amiodarone.
Volume status reasonable on p.o. Lasix
We will follow with you
HPI 01/01/2025:
Patient is a 77-year-old male with past medical history of longstanding nonischemic cardiomyopathy (declined ICD in past), heart failure with reduced ejection fraction, frequent PVCs, hypertension, hyperlipidemia and recently diagnosed metastatic
urethral carcinoma with recent initiation of Padcev with keytruda at [facility] (Dr. June) who presents to emergency department 12/31/2024 with worsening shortness of breath, edema, significant fatigue with poor oral intake, nausea and diffuse rash with
erythema which started after initiation of cancer treatment. On presentation patient noted to have acute anemia with hemoglobin of 7.1 and was transfused 1 unit of packed RBCs. Also found to have elevated proBNP 4290. Found to have metabolic
acidosis with BERTA with creatinine of 2.3 and electrolyte derangements. Troponin 0.035. EKG demonstrated sinus rhythm with frequent PVCs. Lower extremity Doppler was negative for DVT. Chest x-ray showed no acute cardiopulmonary abnormality.
Patient underwent IV fluid resuscitation for BERTA with improvement of creatinine. Electrolytes ongoing repletion. Cardiology being asked to see patient for sustained ventricular tachycardia. Patient was rather asymptomatic except had somewhat of a
blank stare per nursing.
Progress Note - Front Of House Manager
Subjective
Date of Service: January 08, 2025
Telemetry reviewed
Objective
Labs:
01/08/25 03:20
Labs
Hgb 7.4 g/dL (13.0-18.0) L 01/08/25 03:20
Hct 21.8 % (39.0-52.0) L 01/08/25 03:20
Plt Count 278 10^3/uL (130-400) 01/08/25 03:20
PT 17.1 Sec (11.4-14.6) H 12/31/24 08:58
INR 1.36 12/31/24 08:58
APTT 32.0 Sec (23.4-35.0) 12/31/24 08:58
Sodium 135 mmol/L (135-145) 01/08/25 12:21
Potassium 3.6 mmol/L (3.5-5.1) 01/08/25 12:21
BUN 16 mg/dl (9-20) 01/08/25 12:21
Creatinine 0.7 mg/dL (0.7-1.3) 01/08/25 12:21
Glucose 172 mg/dl (70-99) H 01/08/25 12:21
Vital Signs and I&O:
Vital Signs
Temp Pulse Resp BP Pulse Ox
97.8 F 78 26 101/58 99
01/08/25 12:15 01/08/25 14:00 01/08/25 14:00 01/08/25 14:00 01/08/25 14:00
Vital Signs
Temp Pulse Resp BP Pulse Ox
97.8 F 78 26 101/58 99
01/08/25 12:15 01/08/25 14:00 01/08/25 14:00 01/08/25 14:00 01/08/25 14:00
Intake & Output
01/06/25 01/07/25 01/08/25 01/09/25
06:59 06:59 06:59 06:59
Intake Total 2240 / 2240 1040 / 1040 960 / 960 370 / 370
Output Total 1825 / 1825 2025 / 2025 1900 / 1900 850 / 850
Balance 415 / 415 -985 / -985 -940 / -940 -480 / -480
Physical Exam
Physical Exam
����Physical Exam
���������������������General:��no apparent distress, not acutely ill
Right sided port
���������������������������Neck:��supple. no meningeal signs. normal psoterior pharynx
������������������������
���������������������������Heart:��s1/s2 regular rate and rhythm, no murmur. equal radial pulses.
��������������������������Lungs: ��no acute respiratory distress. clear bilaterally
����������������������Abdomen:�normal bowel sounds. not tender. no CVAT
��������������������������Neuro:��alert and oriented. no focal neurological deficits
������������������������������Skin: ��no rash
�����������������������Psychiatric:�well kept. interactive and cooperative
�����������������������Extremities:��no edema. no calf tenderness. negative homans. good distal pulses
��
�
--- NOTE | 2025-01-08 15:27 | CM ---
Chart reviewed. Patient will need IV abx at discharge.
Met w/ patient bedside, was made aware yesterday of home IV abx need. Patient agreeable to [facility].
Script and clinicals provided to Alyssa/[facility] nurse liaison, will review insurance and let CM know patient's out of pocket cost. Patient will need Medicare certified home care agency for nursing.
No PICC order at this time, hopefully another day or so per hospitalist
Plan: Home w/ IV abx through [facility]
[2025-01-08] MEDS: OSCAL CAL 500 500 MG PO (16:15)
[2025-01-08 19:17] LABS: Blood Urea Nitrogen 17 mg/dl (9-20); Calcium 5.9 mg/dl (8.4-10.2); Carbon Dioxide 22 mmol/L (22-30); Chloride 107 mmol/L (98-107); Estimated Creatinine Clearance 99 ml/min; Glucose 161 mg/dl (70-99); Potassium 3.8 mmol/L (3.5-5.1); Sodium 135 mmol/L (135-145); eGFR > 60.00
--- NOTE | 2025-01-08 21:31 | PTCARENOTE ---
Received patient at change of shift. Patient c/o 9/10 pain throughout, prn dilaudid administered per orders. Lab results received, Calcium 5.9. CYTOLOGY SUPERVISOR notified, 2gm calcium rider ordered and administered at that time. Patient asleep upon return for
pain assessment. Will continue to monitor patient closely.
[2025-01-08] MEDS: BENADRYL 25 MG PO (23:24)
[2025-01-09] VITALS (14 sets, daily range): BP systolic 104–133; BP diastolic 54–87; PULSE 85; O2SAT 97; BMI 22.4
[2025-01-09] MEDS: DILAUDID 0.25 MG IV (00:12)
--- NOTE | 2025-01-09 02:46 | DOWNTIME ---
There was a [employer] Client Tile [employer]er Downtime on 01/09/2025 from 0100 to 01/09/2025 at 0235. Downtime documentation of patient's care, including medication administrations, has been reconciled in the electronic record per guidelines. Refer to the
patient's paper chart under the miscellaneous tab to see printed paper medication records and downtime forms.
[2025-01-09] MEDS: ANCEF 10 IV ×3 (03:16→20:41)
[2025-01-09 03:51] LABS: Hematocrit 23.7 % (39.0-52.0); Hemoglobin 8.2 g/dL (13.0-18.0); Mean Corp Hgb Conc. 34.6 g/dL (33.0-37.0); Mean Corpuscular Volume 82.6 fL (80.0-94.0); Nucleated Red Blood Cells % 1.1 % (-); Platelet Count 323 10^3/uL (130-400); Red Cell Dist. Width 18.6 % (11.5-14.5)
[2025-01-09 04:23] LABS: ALT (SGPT) 15 U/L (0-50); AST (SGOT) 23 U/L (17-59); Albumin 2.8 g/dl (3.5-5.0); Alkaline Phosphatase 132 U/L (38-126); Blood Urea Nitrogen 16 mg/dl (9-20); Calcium 5.9 mg/dl (8.4-10.2); Carbon Dioxide 24 mmol/L (22-30); Chloride 108 mmol/L (98-107); Estimated Creatinine Clearance 99 ml/min; Glucose 102 mg/dl (70-99); Potassium 3.5 mmol/L (3.5-5.1); Sodium 137 mmol/L (135-145); Total Protein 5.3 g/dl (6.3-8.2); eGFR > 60.00
[2025-01-09] MEDS: CALCIUM GLUCONATE 100 IV ×3 (05:26→21:58)
[2025-01-09] MEDS: SUBUTEX 1 MG SL (08:15)
[2025-01-09] MEDS: KCL ELIXIR 40 MEQ PO (08:15)
[2025-01-09] MEDS: PROTONIX 40 MG PO (08:37)
[2025-01-09] MEDS: LASIX 60 MG PO (08:37)
[2025-01-09] MEDS: CLARITIN 10 MG PO (08:37)
--- NOTE | 2025-01-09 08:37 | W.PN.ID1 ---
Date of Service
Date of Service: January 09, 2025
Today's Communication
Continue with cefazolin.
Assessment / Plan
Staph aureus bacteremia
- cleared
Leukopenia / Neutropenia
Anemia
BERTA; improved
Elevated CRP
Metastatic ureteral cancer (liver, bone; followed at [facility], on Padcev and Keytruda)
Cardiomyopathy
CAD
GERD
Vertigo
HTN
HLD
Recommendations:
Initial blood cultures with Staph aureus (MSSA).
Repeat blood cultures negative as of 01/02/2025. Continuing to follow to assess clearance.
Echocardiogram without vegetations.
Continue cefazolin; to complete 14 days IV abx from first negative blood culture. (through 01/16/25).
- may use port for infusions.
IV antibiotic Home infusion prescription placed on paper chart.
Continue to monitor white count and temperature curve.
Local care to upper extremity wounds.
Follow amount and consistency of stooling.
����������������������������������������������������������
Chief Complaint
-: Bacteremia (MSSA)
Subjective / Review of Systems
Patient seen and examined. Reports some abdominal discomfort, crampy in nature and nursing has noted diarrhea today.
Review of Systems: No Fever and No Chills
Vital Signs / Physical Exam
Vital Signs
Vital Signs
Temp Pulse Resp BP Pulse Ox
98.2 F 72 21 133/56 97
01/09/25 07:16 01/09/25 06:00 01/09/25 04:00 01/09/25 06:00 01/09/25 06:00
Physical Exam
Constitutional: No Acute Distress, Comfortable and Non-toxic
Cardiovascular: S1/S2; Negative S3/S4
Pulmonary: Non Labored
Gastrointestinal: Soft, Tender (mild; lower abd) and Non Distended
Extremities: Negative Edema
Skin: Rash (Drying rash noted on upper extremities. Resolving rash on back.)
Neurological: Awake and Alert
Psychological: Calm
Lines: Port (Right ACW; accessed. No surrounding erythema or tenderness.)
Objective Data
Lab Data
Lab Results
01/09/25 03:32
PT 17.1 Sec (11.4-14.6) H 12/31/24 08:58
INR 1.36 12/31/24 08:58
APTT 32.0 Sec (23.4-35.0) 12/31/24 08:58
Estimated Creat Clear 99 ml/min 01/09/25 03:32
Total Bilirubin 0.8 mg/dl (0.2-1.3) 01/09/25 03:32
AST 23 U/L (17-59) 01/09/25 03:32
ALT 15 U/L (0-50) 01/09/25 03:32
Alkaline Phosphatase 132 U/L (38-126) H 01/09/25 03:32
C-Reactive Protein 51.30 mg/L (0.0-10.00) H 01/04/25 04:21
Most recent labs reviewed.
Micro Results:
01/03/25 05:26 Blood Culture - Final
Blood/Venous No Growth - Final Report
01/02/25 16:49 Blood Culture - Final
Blood/Venous No Growth - Final Report
01/02/25 10:50 Blood Culture - Final
Blood/Venous No Growth - Final Report
01/01/25 02:00 Blood Culture - Final
Blood/Venous S aureus-Methicillin Sensitive
Gram Stain - Final
01/01/25 02:48 Blood Culture - Final
Blood/Venous S aureus-Methicillin Sensitive
Gram Stain - Final
01/02/25 11:58 Salmonella/Shigella Culture - Final
Feces/Stool No Salmonella, Shigella, Aeromonas or Plesiomonas species
isolated.
Campylobacter Culture - Final
No Campylobacter species isolated.
Shiga Toxin Test - Final
No E. coli Shiga Toxin 1 or 2 detected.
01/02/25 11:58 C. difficile GDH Antigen & Toxins - Final
Feces/Stool Negative for toxigenic C.difficile
01/01/25 01:50 MRSA Screen - Final
Nose No Methicillin Resistant Staphylococcus aureus isolated.
Imaging:
12/31/2024 CXR (2 view): no focal airspace disease noted. No pleural effusion or pneumothorax.
[2025-01-09] MEDS: COREG 25 MG PO ×2 (08:38→20:42)
[2025-01-09] MEDS: DELTASONE 60 MG PO (08:39)
[2025-01-09] MEDS: OSCAL CAL 500 1000 MG PO (08:40)
[2025-01-09] MEDS: HYDROPHOR 1 APPLIC TOPICAL (08:40)
[2025-01-09] MEDS: HYDROCORTISONE 1% CREAM 1 APPLIC TOPICAL ×2 (08:41→20:43)
[2025-01-09] MEDS: HEPARIN 5000 UNITS SC ×2 (08:42→20:42)
[2025-01-09 09:20] LABS: Blood Urea Nitrogen 16 mg/dl (9-20); Calcium 6.0 mg/dl (8.4-10.2); Carbon Dioxide 23 mmol/L (22-30); Chloride 109 mmol/L (98-107); Estimated Creatinine Clearance 101 ml/min; Glucose 106 mg/dl (70-99); Potassium 3.1 mmol/L (3.5-5.1); Sodium 137 mmol/L (135-145); eGFR > 60.00
--- NOTE | 2025-01-09 09:27 | PTCARENOTE ---
Repeat calcium level 6.0, potassium level 3.1. Notified Dr. Ray of results. Patient had a yellow liquid stool this morning, notified MD. Heme test negative. Patient was able to take oral medications including potassium dose. Ordered breakfast,
desire to eat today.
--- NOTE | 2025-01-09 10:17 | W.PN.CARDCBS ---
Today's Communication / Plan
-
EP input appreciated, no plan at present for ICD and pt declines this.
Continue to replete potassium and magnesium to maintain potassium greater than or equal to 4 and magnesium greater than or equal to 2.
Potassium 40 mEq. this a.m. and potassium rider 40 mEq IV, start KCL 40 meq daily.
Check magnesium and replete if needed.
Continue Coreg. Last nonsustained VT was January 08.
Ongoing discussions of goals of care.
For now would avoid amiodarone if possible given multiple electrolyte imbalances and blood dyscrasias, however transaminases were within normal limits January 09, 2025.
Continue oral Lasix. Appears euvolemic.
Impression / Plan
-
.
PCP: Merline Portillo
Septic Tank Installer: Neel Hayward
Oncologist: Dr. June [facility]
Impression:
Presents 12/30/2024 with worsening shortness of breath, edema, significant fatigue with poor oral intake, nausea and diffuse rash
Acute anemia
Status post 1 unit packed RBCs 12/30/2024
Pancytopenia
Hypocalcemia secondary to xgeva
BERTA likely secondary to dehydration with poor oral intake, diarrhea, and continued lasix use at home
Metastatic urothelial carcinoma s/p C2 Padcev with keytruda at [facility] last week
Rash secondary to antineoplastic therapy
leukopenia/lymphopenia
Acute on chronic heart failure with reduced ejection fraction, proBNP 4290
Abnormal troponin, suspect nonischemic myocardial injury
Longstanding nonischemic cardiomyopathy
Chronic heart failure with reduced ejection fraction
Frequent PVCs and NSVT
Hypertension
Hyperlipidemia
Staph aureus bacteremia-unclear source although has a port
Echo May 2024: EF 25 to 30%, mildly reduced RV systolic function, mild MR, severe left atrial dilation
Lexiscan nuclear stress test December 2015: Small area of mildly decreased perfusion that is fixed in apical segment. No evidence of reversible ischemia. Global hypokinesis, EF 31%
Cardiac catheterization 2005: Mild nonobstructive coronary artery disease
Plan:
EP input appreciated, no plan at present for ICD and pt declines this.
Continue to replete potassium and magnesium to maintain potassium greater than or equal to 4 and magnesium greater than or equal to 2.
Potassium 40 mEq. this a.m. and potassium rider 40 mEq IV, start KCL 40 meq daily.
Check magnesium and replete if needed.
Continue Coreg. Last nonsustained VT was January 08.
Ongoing discussions of goals of care.
For now would avoid amiodarone if possible given multiple electrolyte imbalances and blood dyscrasias, however transaminases were within normal limits January 09, 2025.
Continue oral Lasix. Appears euvolemic.
Continue telemetry monitoring.
HPI 01/01/2025:
Patient is a 77-year-old male with past medical history of longstanding nonischemic cardiomyopathy (declined ICD in past), heart failure with reduced ejection fraction, frequent PVCs, hypertension, hyperlipidemia and recently diagnosed metastatic
urethral carcinoma with recent initiation of Padcev with keytruda at [facility] (Dr. June) who presents to emergency department 12/31/2024 with worsening shortness of breath, edema, significant fatigue with poor oral intake, nausea and diffuse rash with
erythema which started after initiation of cancer treatment. On presentation patient noted to have acute anemia with hemoglobin of 7.1 and was transfused 1 unit of packed RBCs. Also found to have elevated proBNP 4290. Found to have metabolic
acidosis with BERTA with creatinine of 2.3 and electrolyte derangements. Troponin 0.035. EKG demonstrated sinus rhythm with frequent PVCs. Lower extremity Doppler was negative for DVT. Chest x-ray showed no acute cardiopulmonary abnormality.
Patient underwent IV fluid resuscitation for BERTA with improvement of creatinine. Electrolytes ongoing repletion. Cardiology being asked to see patient for sustained ventricular tachycardia. Patient was rather asymptomatic except had somewhat of a
blank stare per nursing.
Progress Note - Septic Tank Installer
Subjective
Date of Service: January 09, 2025
Pt seen and examined. No complaints. No chest pain or shortness of breath.
Objective
Labs:
01/09/25 03:32
01/09/25 08:27
Labs
Hgb 8.2 g/dL (13.0-18.0) L 01/09/25 03:32
Hct 23.7 % (39.0-52.0) L 01/09/25 03:32
Plt Count 323 10^3/uL (130-400) 01/09/25 03:32
PT 17.1 Sec (11.4-14.6) H 12/31/24 08:58
INR 1.36 12/31/24 08:58
APTT 32.0 Sec (23.4-35.0) 12/31/24 08:58
Sodium 137 mmol/L (135-145) 01/09/25 08:27
Potassium 3.1 mmol/L (3.5-5.1) L 01/09/25 08:27
BUN 16 mg/dl (9-20) 01/09/25 08:27
Creatinine 0.7 mg/dL (0.7-1.3) 01/09/25 08:27
Glucose 106 mg/dl (70-99) H 01/09/25 08:27
Vital Signs and I&O:
Vital Signs
Temp Pulse Resp BP Pulse Ox
98.2 F 77 19 121/68 98
01/09/25 07:16 01/09/25 08:38 01/09/25 08:00 01/09/25 08:38 01/09/25 08:53
Vital Signs
Temp Pulse Resp BP Pulse Ox
98.2 F 77 19 121/68 98
01/09/25 07:16 01/09/25 08:38 01/09/25 08:00 01/09/25 08:38 01/09/25 08:53
Intake & Output
01/07/25 01/08/25 01/09/25 01/10/25
06:59 06:59 06:59 06:59
Intake Total 1040 / 1040 960 / 960 370 / 370
Output Total 2024 / 2024 1900 / 1900 1600 / 1600
Balance -985 / -985 -940 / -940 -1230 / -1230
Physical Exam
Physical Exam
General: No acute distress, AAOX3
Neck: Negative JVD
Heart: Regular, Negative S3 positive S1/S2, Negative S4, No murmur
Lungs: CTA b/l, negative wheezes/rales/rhonchi
Abd: Positive BS, NT/ND, neg rebound/rigidity/guarding
Ext: Negative cyanosis/clubbing/edema
Neuro: nonfocal
--- NOTE | 2025-01-09 10:32 | CM ---
Patient seen at bedside in IMU. Patient co pay for IV antibiotics per week is 213.00. Patient would like [facility] but due to insurance will need a different VN. CM will review with patient. CM will continue to follow for discharge planning needs.
Plan; home with [facility] and [facility]
[2025-01-09] MEDS: KCL 270 MEQ IV (10:44)
[2025-01-09 10:59] LABS: Magnesium 1.5 mg/dl (1.6-2.3)
--- NOTE | 2025-01-09 11:37 | CM ---
Addendum entered by Lisa Gatica 01/09/25 12:55:
[facility] accepted and CM spoke with Liaison and she will communicate with [facility] to plan for discharge.
Original Note:
Patient indicated [facility] was fine and CM will send referral.
--- NOTE | 2025-01-09 11:41 | PTCARENOTE ---
Patient out of bed walking in hallway with therapy. Ate a bagel with cream cheese for breakfast. Electrolytes replaced as per doctors orders.
--- NOTE | 2025-01-09 12:08 | W.PN.HOSP.TC ---
Today's Communication/Plan
-
Discussed with oncology okay to go home with oral calcium as long as tolerating p.o., and to have close follow-up with [facility] oncologist
Discussed with ID patient can have his antibiotics via the port, discussed with CM, home health infusion company is being set up and can be delivered as early as tomorrow
Discussed with , she is not ready for him to come home today but she could be ready tomorrow or Tuesday
Wean off IV Dilaudid, monitor diarrhea, another dose of IV calcium gluconate, monitor calcium levels, potassium supplementation
Possible discharge or Tuesday
Assessment / Plan
Assessment / Plan
69M with metastatic ureteral cancer (follows at [facility] with Dr June [phone]), recent chemo s/p second treatment (Padcev with Keytruda) this past week; p/w shortness of breath, poor po intake and feeling dehydrated. He also noted development of
diffuse rash with erythema. Found to have severe anemia and hypocalcemia.
A/P:
1. Severe hypocalcemia
[place] likely 2/2 xgeva S/E
Replete calcium aggressively, serial BMP
Vitamin D 01/03 was 15. s/p 50,000 units 01/05
Replete magnesium, potassium prn
replete calcium IV again and monitor level
As per discussion with oncology will be able to transition to orals on discharge as patient is not tolerating p.o.
tele monitor
2. non-sustained VT noted on tele
troponin elevation
replete Calcium IV
Cont Coreg
Cardiology following
no ICD; due to patient having bacteremia as well as patient not wanting ICD
3. Hypokalemia
Resolved
4. Diffuse skin rash
ED d/w outpt oncologist Dr June, who recc steroid over 2 weeks
IV Decadron started, changed to p.o. and tolerating orals, GI ppx with Protonix - changed to oral
wound care on board
aquaphor
5,. MSSA bacteremia
ID managing, currently on cefazolin, vanc stopped. Continue cefazolin per ID until 14 days from 1st negative culture
Blood culture from 01/02, 01/03 NGTD. No veg on echo
Arrangements have been made for outpatient home antibiotic infusion via port
7. Resolved. Dyspnea 2/2 anemia
Placed on 2L NC for symptoms, wean oxygen as tolerated
CXR NAD
Hgb 7.1 on admission (from baseline 9.7), transfused 1 units PRBC, Hgb stable at 7.7, continue to monitor H&H
iron panel consistent with ACD, B12/folate WNL
BL LE US neg for DVT
Noted BNP 4000 on admission
s/p low dose IV lasix 20 mg BID for chronic edema changed to PO lasix (not an exacerbation of heart failure)
# Prerenal and postrenal BERTA- resolved
# Metabolic acidosis , improved
# Obstructive uropathy
SCr 2.3 -> 0.7; baseline SCr around 1.0
notgably poor intake
s/p Bicarb drip low rate
Monitor SCr
huffman placed 12/31 for urinary retention
diet advanced to IDDS 6
# Hyperuricemia likely 2/2 BERTA per Onc, less likely tumor lysis syndrome
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
outpt f.u with [facility]
Control pain with oral Dilaudid and subutex
DVT ppx: SCDs
FC
Anticipated Discharge: 24 - 48 hours
Subjective/Interval History
-
Date of Service: January 09, 2025
Patient very badly wanting to go home, nurse notes he had an episode of diarrhea, can begin to see patient when was at bedside, she notes she has been needing IV Dilaudid while here.
Objective Data
-
Labs:
Laboratory Results
01/09/25 01/09/25
03:32 08:27
WBC 4.5 L
Hgb 8.2 L
Hct 23.7 L
Plt Count 323
Sodium 137 137
Potassium 3.5 3.1 L
Chloride 108 H 109 H
Carbon Dioxide 24 23
BUN 16 16
Creatinine 0.7 0.7
Glucose 102 H 106 H
Calcium 5.9 L* 6.0 L*
Total Bilirubin 0.8
AST 23
ALT 15
Alkaline Phosphatase 132 H
Vital Signs:
Vital Signs
Temp Pulse Resp BP Pulse Ox
98.0 F 85 22 121/87 97
01/09/25 11:37 01/09/25 11:10 01/09/25 10:00 01/09/25 11:10 01/09/25 11:10
I&O
01/08/25 01/09/25 01/10/25
06:59 06:59 06:59
Intake Total 960 / 960 370 / 370 487 / 487
Output Total 1900 / 1900 1600 / 1600
Balance -940 / -940 -1230 / -1230 487 / 487
Review of Systems
-
All other systems: Reviewed and negative
Physical Exam
-
General: No Apparent Distress
HEENT: Moist Mucous Membranes, Anicteric and PERRLA
Respiratory: Clear to Auscultation; Negative Wheezes, Rales or Rhonchi
Cardiac: S1/S2 and Irregular Rhythm; Negative Murmur, Rub or Gallop
GI: Soft, Nontender, Nondistended and Normal Bowel Sounds
Musculoskeletal: Negative No Edema
Skin: Warm, Dry, Rash (Diffuse erythematous rash with multiple areas of scabbing) and Lesions; Negative Ulcers
Neuro: Awake and AO x 3
Hematologic / Lymphatic: No Lymphadenopathy
Psych: Calm
Data Reviewed
-
Labs: Labs Reviewed by me, Discussed with Physician and Discussed with Patient
[2025-01-09] MEDS: MAGNESIUM OXIDE 400 MG PO ×2 (17:00→20:42)
[2025-01-09] MEDS: OSCAL CAL 500 500 MG PO (17:00)
[2025-01-09] MEDS: DILAUDID 2 MG PO (21:15)
[2025-01-09 21:26] LABS: ALT (SGPT) 15 U/L (0-50); AST (SGOT) 27 U/L (17-59); Albumin 2.9 g/dl (3.5-5.0); Alkaline Phosphatase 126 U/L (38-126); Blood Urea Nitrogen 18 mg/dl (9-20); Calcium 6.6 mg/dl (8.4-10.2); Carbon Dioxide 23 mmol/L (22-30); Chloride 108 mmol/L (98-107); Estimated Creatinine Clearance 101 ml/min; Glucose 129 mg/dl (70-99); Potassium 3.9 mmol/L (3.5-5.1); Sodium 136 mmol/L (135-145); Total Protein 5.5 g/dl (6.3-8.2); eGFR > 60.00
--- NOTE | 2025-01-09 21:33 | PTCARENOTE ---
Patient aao x3 at start of shift. Affect remains flat, speech slow, able to make needs known. Patient ambulated to bathroom with assist x1 and use of RW, gait steady at that time. Patient c/o pain 01/30 a short time ago. PRN Dilaudid po administered
per orders. Spouse requesting [facility] rn to visit tomorrow to review wound care prior to patient discharge (planned for thursday 01/11). Spouse planning to visit tomorrow around noon for IV abt training with [facility] nurse and hoping to review wound
care at that time as well. Will update oncoming rn in am.
Patient currently resting in bed, call whitman within reach. Will continue to monitor.
[2025-01-09] MEDS: BENADRYL 25 MG PO (22:57)
[2025-01-10] VITALS (13 sets, daily range): BP systolic 109–156; BP diastolic 55–99; PULSE 79–113; O2SAT 97–98; BMI 21.9
[2025-01-10] MEDS: ANCEF 10 IV ×2 (03:36→14:15)
[2025-01-10 04:04] LABS: Hematocrit 23.7 % (39.0-52.0); Hemoglobin 8.0 g/dL (13.0-18.0); Mean Corp Hgb Conc. 33.8 g/dL (33.0-37.0); Mean Corpuscular Volume 83.2 fL (80.0-94.0); Nucleated Red Blood Cells % 0.8 % (-); Platelet Count 300 10^3/uL (130-400); Red Cell Dist. Width 19.7 % (11.5-14.5)
[2025-01-10 04:26] LABS: ALT (SGPT) 12 U/L (0-50); AST (SGOT) 22 U/L (17-59); Albumin 2.7 g/dl (3.5-5.0); Alkaline Phosphatase 126 U/L (38-126); Blood Urea Nitrogen 16 mg/dl (9-20); Calcium 6.0 mg/dl (8.4-10.2); Carbon Dioxide 24 mmol/L (22-30); Chloride 109 mmol/L (98-107); Estimated Creatinine Clearance 87 ml/min; Glucose 113 mg/dl (70-99); Magnesium 1.5 mg/dl (1.6-2.3); Potassium 3.5 mmol/L (3.5-5.1); Sodium 138 mmol/L (135-145); Total Protein 5.0 g/dl (6.3-8.2); eGFR > 60.00
[2025-01-10] MEDS: CALCIUM GLUCONATE 100 IV (04:43)
--- NOTE | 2025-01-10 07:51 | W.PN.ONC ---
Today's Communication / Plan
-
Rash improving on steroids. Will reduce to 60mg pred starting 01/09, then 40mg on 01/11. Would wean off over the next 1-2 weeks if able.
Continue PPI for GI ppx
Electrolyte repletion
Continue antibiotics as per infectious disease
Wound care
Monitor CBC daily WBC normalized hemoglobin stable at 8.0 g/dL
PT
OP follow up with [facility] upon discharge for continued management of metastatic urothelial carcinoma
Impression
Impression
metastatic urothelial carcinoma s/p C2 Padcev with keytruda at [facility] week prior to admission
rash secondary to antineoplastic therapy, improving on steroids
hypocalcemia secondary to xgeva
[place] likely dehydration with poor oral intake, diarrhea, and continue NSAIDs & lasix use at home
cancer pain
SOB
Anemia s/p 1U prbc 01/01 with Hgb improved to >8g/dL
leukopenia/lymphopenia
elevated BNP
diarrhea
MSSA bacteremia
Subjective/Objective
Subjective/Objective
Patient sitting up in bed. Denies new complaints.
Vital Signs:
Vital Signs
Temp Pulse Resp BP Pulse Ox
98.4 F 67 19 139/85 96
01/10/25 03:49 01/10/25 06:00 01/10/25 06:00 01/10/25 06:00 01/10/25 06:00
Physical exam: Unchanged
Lab Results:
Laboratory Data
WBC 5.1 10^3/uL (4.8-10.8) 01/10/25 03:40
Hgb 8.0 g/dL (13.0-18.0) L 01/10/25 03:40
Plt Count 300 10^3/uL (130-400) 01/10/25 03:40
PT 17.1 Sec (11.4-14.6) H 12/31/24 08:58
INR 1.36 12/31/24 08:58
APTT 32.0 Sec (23.4-35.0) 12/31/24 08:58
eGFR > 60.00 01/10/25 03:40
[2025-01-10] MEDS: SUBUTEX 1 MG SL (08:33)
[2025-01-10] MEDS: KCL 40 MEQ PO (08:33)
[2025-01-10] MEDS: OSCAL CAL 500 1000 MG PO (08:35)
[2025-01-10] MEDS: DELTASONE 60 MG PO (08:36)
[2025-01-10] MEDS: CLARITIN 10 MG PO (08:36)
[2025-01-10] MEDS: MAGNESIUM OXIDE 400 MG PO ×2 (08:36→09:44)
[2025-01-10] MEDS: COREG 25 MG PO (08:37)
[2025-01-10] MEDS: LASIX 60 MG PO (08:38)
[2025-01-10] MEDS: HEPARIN 5000 UNITS SC (08:39)
[2025-01-10] MEDS: PROTONIX 40 MG PO (08:39)
[2025-01-10] MEDS: HYDROPHOR 1 APPLIC TOPICAL (08:39)
[2025-01-10] MEDS: HYDROCORTISONE 1% CREAM 1 APPLIC TOPICAL (08:40)
--- NOTE | 2025-01-10 09:18 | W.PN.CARDCBS ---
Today's Communication / Plan
-
Telemetry with no further events. No plans for ICD at this time.
Continue Lasix 60 mg daily. Increase daily potassium to 40 mill equivalents in a.m. and 20 mill equivalents in p.m.
Continue magnesium oxide supplementation with 400 mg twice daily. Extra 40 mg today.
Continue carvedilol 25 mg p.o. twice daily.
Continue treatment for advanced cancer with Keytruda.
Impression / Plan
-
.
PCP: Merline Portillo
Automatic Door Mechanic: Neel Hayward
Oncologist: Dr. June [facility]
Impression:
Presents 12/30/2024 with worsening shortness of breath, edema, significant fatigue with poor oral intake, nausea and diffuse rash
Acute anemia
Status post 1 unit packed RBCs 12/30/2024
Pancytopenia
Hypocalcemia secondary to xgeva
BERTA likely secondary to dehydration with poor oral intake, diarrhea, and continued lasix use at home
Metastatic urothelial carcinoma s/p C2 Padcev with keytruda at [facility] last week
Rash secondary to antineoplastic therapy
leukopenia/lymphopenia
Acute on chronic heart failure with reduced ejection fraction, proBNP 4290
Abnormal troponin, suspect nonischemic myocardial injury
Longstanding nonischemic cardiomyopathy
Chronic heart failure with reduced ejection fraction
Frequent PVCs and NSVT
Hypertension
Hyperlipidemia
Staph aureus bacteremia-unclear source although has a port
Echo May 2024: EF 25 to 30%, mildly reduced RV systolic function, mild MR, severe left atrial dilation
Lexiscan nuclear stress test December 2015: Small area of mildly decreased perfusion that is fixed in apical segment. No evidence of reversible ischemia. Global hypokinesis, EF 31%
Cardiac catheterization 2005: Mild nonobstructive coronary artery disease
Plan:
EP input appreciated, no plan at present for ICD and pt declines this.
Continue to replete potassium and magnesium to maintain potassium greater than or equal to 4 and magnesium greater than or equal to 2.
Increase daily potassium to 40 meq in a.m. and 20 meq once in p.m.
Check magnesium and replete if needed.
Continue Coreg. Last nonsustained VT was January 08. No further events on telemetry.
Ongoing discussions of goals of care.
For now would avoid amiodarone if possible given multiple electrolyte imbalances and blood dyscrasias, however transaminases were within normal limits January 09, 2025.
Continue oral Lasix. Appears euvolemic.
Continue telemetry monitoring.
HPI 01/01/2025:
Patient is a 77-year-old male with past medical history of longstanding nonischemic cardiomyopathy (declined ICD in past), heart failure with reduced ejection fraction, frequent PVCs, hypertension, hyperlipidemia and recently diagnosed metastatic
urethral carcinoma with recent initiation of Padcev with keytruda at [facility] (Dr. June) who presents to emergency department 12/31/2024 with worsening shortness of breath, edema, significant fatigue with poor oral intake, nausea and diffuse rash with
erythema which started after initiation of cancer treatment. On presentation patient noted to have acute anemia with hemoglobin of 7.1 and was transfused 1 unit of packed RBCs. Also found to have elevated proBNP 4290. Found to have metabolic
acidosis with BERTA with creatinine of 2.3 and electrolyte derangements. Troponin 0.035. EKG demonstrated sinus rhythm with frequent PVCs. Lower extremity Doppler was negative for DVT. Chest x-ray showed no acute cardiopulmonary abnormality.
Patient underwent IV fluid resuscitation for BERTA with improvement of creatinine. Electrolytes ongoing repletion. Cardiology being asked to see patient for sustained ventricular tachycardia. Patient was rather asymptomatic except had somewhat of a
blank stare per nursing.
Progress Note - Automatic Door Mechanic
Subjective
Date of Service: January 10, 2025
Direct chest pains, palpitations, or shortness of breath.
Objective
Labs:
01/10/25 03:40
01/10/25 03:40
Labs
Hgb 8.0 g/dL (13.0-18.0) L 01/10/25 03:40
Hct 23.7 % (39.0-52.0) L 01/10/25 03:40
Plt Count 300 10^3/uL (130-400) 01/10/25 03:40
PT 17.1 Sec (11.4-14.6) H 12/31/24 08:58
INR 1.36 12/31/24 08:58
APTT 32.0 Sec (23.4-35.0) 12/31/24 08:58
Sodium 138 mmol/L (135-145) 01/10/25 03:40
Potassium 3.5 mmol/L (3.5-5.1) 01/10/25 03:40
BUN 16 mg/dl (9-20) 01/10/25 03:40
Creatinine 0.8 mg/dL (0.7-1.3) 01/10/25 03:40
Glucose 113 mg/dl (70-99) H 01/10/25 03:40
Vital Signs and I&O:
Vital Signs
Temp Pulse Resp BP Pulse Ox
97.9 F 79 19 156/99 96
01/10/25 08:09 01/10/25 08:37 01/10/25 06:00 01/10/25 08:37 01/10/25 06:00
Vital Signs
Temp Pulse Resp BP Pulse Ox
97.9 F 79 19 156/99 96
01/10/25 08:09 01/10/25 08:37 01/10/25 06:00 01/10/25 08:37 01/10/25 06:00
Intake & Output
01/08/25 01/09/25 01/10/25 01/11/25
06:59 06:59 06:59 06:59
Intake Total 960 / 960 370 / 370 827 / 827
Output Total 1900 / 1900 1600 / 1600 525 / 525
Balance -940 / -940 -1230 / -1230 302 / 302
Physical Exam
Physical Exam
GEN: No distress, awake, Ox3
HEENT: supple, anicteric, mmm
LUNGS: CTA, no wheezes/rales
CV: Reg, S1/S2, 1/6 syst LSB, no gallop
ABD: soft, BS+, NT/ND
EXT: No edema
NEURO: Gross non-focal
SKIN: No rash
--- NOTE | 2025-01-10 09:27 | PTCARENOTE ---
Patient received from customer resource specialist. Patient resting comfortably in room. AAO, VSS. Patient remains on Room Air. OOB to chair today. Continues with complaints of whole body pain mostly in the knees but is tolerable and not needing medication at
this time. Continuing PO steroids. Continuing ABX. No testing scheduled at this time. Possible discharge today or tomorrow. Call whitman in reach.
--- NOTE | 2025-01-10 11:48 | W.PN.ID1 ---
Date of Service
Date of Service: January 10, 2025
Today's Communication
Continue antibiotics
Assessment / Plan
Staph aureus bacteremia
- cleared
Leukopenia / Neutropenia
Anemia
BERTA; improved
Elevated CRP
Metastatic ureteral cancer (liver, bone; followed at [facility], on Padcev and Keytruda)
Cardiomyopathy
CAD
GERD
Vertigo
HTN
HLD
Recommendations:
Initial blood cultures with Staph aureus (MSSA).
Repeat blood cultures negative as of 01/02/2025.
Echocardiogram without vegetations.
Continue cefazolin; to complete 14 days IV abx from first negative blood culture. (through 01/16/25).
- may use port for infusions.
IV antibiotic Home infusion prescription placed on paper chart.
Local care to upper extremity wounds; currently crusted
����������������������������������������������������������
Chief Complaint
-: Bacteremia (MSSA)
Subjective / Review of Systems
Review of Systems: No Fever and No Chills
Vital Signs / Physical Exam
Vital Signs
Vital Signs
Temp Pulse Resp BP Pulse Ox
97.9 F 79 19 156/99 96
01/10/25 08:09 01/10/25 08:37 01/10/25 06:00 01/10/25 08:37 01/10/25 09:18
Physical Exam
Constitutional: No Acute Distress, Comfortable and Non-toxic
Cardiovascular: S1/S2; Negative S3/S4
Pulmonary: Non Labored
Gastrointestinal: Soft, Tender (mild; lower abd) and Non Distended
Extremities: Negative Edema
Skin: Rash (Drying rash noted on upper extremities. Resolving rash on back.)
Neurological: Awake and Alert
Psychological: Calm
Lines: Port (Right ACW; accessed. No surrounding erythema or tenderness.)
Objective Data
Lab Data
Lab Results
01/10/25 03:40
01/10/25 03:40
PT 17.1 Sec (11.4-14.6) H 12/31/24 08:58
INR 1.36 12/31/24 08:58
APTT 32.0 Sec (23.4-35.0) 12/31/24 08:58
Estimated Creat Clear 87 ml/min 01/10/25 03:40
Total Bilirubin 0.7 mg/dl (0.2-1.3) 01/10/25 03:40
AST 22 U/L (17-59) 01/10/25 03:40
ALT 12 U/L (0-50) 01/10/25 03:40
Alkaline Phosphatase 126 U/L (38-126) 01/10/25 03:40
C-Reactive Protein 51.30 mg/L (0.0-10.00) H 01/04/25 04:21
Most recent labs reviewed.
Micro Results:
01/03/25 05:26 Blood Culture - Final
Blood/Venous No Growth - Final Report
01/02/25 16:49 Blood Culture - Final
Blood/Venous No Growth - Final Report
01/02/25 10:50 Blood Culture - Final
Blood/Venous No Growth - Final Report
01/01/25 02:00 Blood Culture - Final
Blood/Venous S aureus-Methicillin Sensitive
Gram Stain - Final
01/01/25 02:48 Blood Culture - Final
Blood/Venous S aureus-Methicillin Sensitive
Gram Stain - Final
01/02/25 11:58 Salmonella/Shigella Culture - Final
Feces/Stool No Salmonella, Shigella, Aeromonas or Plesiomonas species
isolated.
Campylobacter Culture - Final
No Campylobacter species isolated.
Shiga Toxin Test - Final
No E. coli Shiga Toxin 1 or 2 detected.
01/02/25 11:58 C. difficile GDH Antigen & Toxins - Final
Feces/Stool Negative for toxigenic C.difficile
01/01/25 01:50 MRSA Screen - Final
Nose No Methicillin Resistant Staphylococcus aureus isolated.
Imaging:
12/31/2024 CXR (2 view): no focal airspace disease noted. No pleural effusion or pneumothorax.
--- NOTE | 2025-01-10 13:23 | CM ---
Addendum entered by Lisa Gatica 01/10/25 16:21:
Patient did not feel comfortable signing form patient indicated that she would come back at supper to sign form and provide to patient nurse. Patient did not want CM to email form to her.
Addendum entered by Lisa Gatica 01/10/25 16:07:
Patient accepted to [facility] following PT/OT assessment. Please call report to [phone]/fax [phone]. CM will complete IMM with patient .
Addendum entered by Lisa Gatica 01/10/25 13:26:
Patient stated that she has talked to PM&R PA and that she will be here shortly.
Original Note:
Patient seen at bedside in IMU. Per , [facility] will be here at 1:30 and [facility] will also be here. Patient stated that she had asked for PM&R assessment and CM indicated that a referral would be sent to [facility]. CM also provided IMM to
patient and for review. Patient discharge order is in at this time. CM will continue to follow for discharge planning needs.
Plan; home with [facility]/ referral to [facility] for assess/PM&R
--- NOTE | 2025-01-10 15:13 | CON.MD ---
Documented by User: Elina Gurrola PA-C 01/10/25 17:58
Consultation - Medical
-
Referring Provider:�Kandis Mares
Chief Complaint:�Debility
�
History of Present Illness:�Patient is a 69 year old Male with PMH of (longstanding nonischemic cardiomyopathy�declined ICD in the past, heart failure with reduced ejection fracture, and frequent PVCs, hypertension, hyperlipidemia, metastatic
ureteral cancer (follows at [facility] with Dr June [phone]), recent chemo s/p second treatment (Padcev with Keytruda) this past week; presented to [facility] on 12/31/2024 with shortness of breath, poor po intake and feeling dehydrated that started on
12/30.. He also noted development of diffuse rash with erythema that started after chemo due to antineoplastic therapy.. Found to have severe anemia with hemoglobin of 7.1 and was transfused 1 unit of packed RBCs And hypocalcemia. . Also found to
have elevated proBNP 4290. Found to have metabolic acidosis with BERTA with creatinine of 2.3 and electrolyte derangements. Troponin 0.035. EKG demonstrated sinus rhythm with frequent PVCs. Lower extremity Doppler was negative for DVT. Chest
x-ray showed no acute cardiopulmonary abnormality. During course of hospitalization electrolytes have been replenished. Continues to have severe hypokalemia. Found to have MSSA bacteremia. Initial blood cultures with Staph aureus. Repeat blood
cultures negative as of 01/02/2025. Echocardiogram without vegetations. Seen by ID. Recommended continuing cefazolin to complete 14 days of IV antibiotic from first negative blood culture.(Through 01/16/2025) may use port for infusions. IV
antibiotic home infusion prescription placed on paper chart. Continue local care to upper extremity wounds
�Past Medical History:�Cardiomyopathy, CAD, GERD, paroxysmal vertigo, hypertension, hyperlipidemia, metastatic urethral cancer with mets, anemia
Procedure History:�Right hernia repair
Family History:�Mom - Leukemia, DM, Dad- smoker, amputations
�
Social History:�
Functional Level Premorbidly:�Independent with all activities�
Functional Level Currently:�Mild delay in processing information, eating�set up, grooming�supervision, toileting�min assist, lower extremity self-care�mod assist, toilet transfer�min assist, bed mobility�supervision, transfer�min assist, assist
needed for standing from bed and lowering into chair. Static supported standing�min assist, ambulation-unsteady without a device which she is his baseline, narrow base of support, flexed posture, decreased lower extremity clearance and step length,
cues needed for upright posture to look up noted to be short of breath however room air pulse ox 98%, reported leg, knee and back pain with mobility rated at 8/10 30 feet time 1, bathroom, 15 feet time 1 both without a device and min assist. Seated
rest break in chair. 30 feet x 2 with rolling walker and min assist for contact-guard. Assist needed for monitor
�
Tobacco:�Denies�
Alcohol:�Denies�
Drug use:�Denies�
�
Lives with:�Family
24-hour assistance available:�
Number of floors:�2
# steps to enter:�1+1
# steps to second floor: FF
Potential First floor set up:�?
Driving:�No driving since September 2024
Occupation:�retired
�
�
Allergies:�
Allergy/AdvReac Type Severity Reaction Status Date / Time
No Known Allergies Allergy Verified 10/10/24 16:10
�
Review of Systems:�
Constitutional: (x) abNormal _fatigue
Eye: (x) Normal _
Ear/Nose/Throat: (x) Normal _
Respiratory: (x) Normal _
Cardiovascular: (x) abNormal _nonischemic cardiomyopathy
Gastrointestinal: (x) aNormal _poor appetite
Genitourinary: (x) abNormal _ureteral carcinoma with mets
Musculoskeletal: (x) abNormal _back, legs , knee pain
Integumentary: (x) abNormal _generalized rash back and upper extremity, wound-bilateral buttocks
Neurologic: (x) Normal _
Psychiatric: (x) Normal _
Endocrine: (x) Normal _
Hematologic/Lymphatic: (x) abNormal _carcinoma
Allergic/Immunologic: (x) Normal _
�
Medications:�
Active Current Visit Medication List
Category Date Time Status
Buprenorphine [Subutex] Med 01/01/25 08:00 Active
1 mg SL DAILY
Calcium 300mg(Ca. Carb. 750mg) [Tums Ex (Extra Strength Med 01/07/25 14:19 Active
) Chewable Tablet]
300 mg PO Q6HPRN PRN
Calcium Carbonate [Oscal Bharathi 500] Med 01/01/25 08:00 Active
1,000 mg PO DAILY
Calcium Carbonate [Oscal Bharathi 500] Med 12/31/24 18:00 Active
500 mg PO QPM
Carvedilol [Coreg] Med 01/05/25 20:00 Active
25 mg PO BID
CeFAZolin 2 GRAM [Ancef] Med 01/02/25 12:00 Active
2 grams in 10 ml IV Q8H
Diphenhydramine [Benadryl] Med 01/01/25 17:09 Active
25 mg PO Q6HPRN PRN
Docusate W/Senna [Senokot-S] Med 12/31/24 17:20 Active
1 tablet PO BIDPRN PRN
Flush (0.9% Sodium Chloride) [Flush (Nss)] Med 12/31/24 15:00 Active
See Dose Instructions IV PER PROTOCOL
Furosemide [Lasix] Med 01/07/25 08:00 Active
60 mg PO DAILY
HYDROmorphone [Dilaudid] Med 01/02/25 14:24 Active
0.25 mg IV Q4HPRN PRN
HYDROmorphone [Dilaudid] Med 01/09/25 12:09 Active
2 mg PO Q4HPRN PRN
Heparin Med 12/31/24 20:00 Active
5,000 units SC Q12
Heparin Pf [Heparin Lock Flush] Med 01/05/25 10:00 Active
500 unit IV PER PROTOCOL
Hydrocortisone [Hydrocortisone 1% Cream] Med 01/01/25 11:00 Active
See Dose Instructions TOPICAL BID
Loratadine [Claritin] Med 01/01/25 10:00 Active
10 mg PO DAILY
Magnesium Oxide Med 01/09/25 14:00 Active
400 mg PO BID
Ondansetron Injectable [Zofran] Med 12/31/24 17:20 Active
4 mg IV Q6HPRN PRN
Pantoprazole [Protonix] Med 01/09/25 08:00 Active
40 mg PO DAILY
Petrolatum/Mineral Oil [Hydrophor] Med 01/02/25 08:00 Active
See Dose Instructions TOPICAL DAILY
Polyethylene Glycol Powder [Miralax] Med 12/31/24 17:20 Active
17 grams PO DAILYPRN PRN
Potassium Chloride [KCl] Med 01/10/25 15:00 Active
20 meq PO DAILY@1500
Potassium Chloride [KCl] Med 01/10/25 08:00 Active
40 meq PO DAILY
Prednisone [Deltasone] Med 01/11/25 08:00 Active
40 mg PO DAILY
�
Vitals:�
Temp Pulse Resp BP Pulse Ox
97.7 F 79 19 156/99 96
01/10/25 15:46 01/10/25 08:37 01/10/25 06:00 01/10/25 08:37 01/10/25 09:18
Height 5 ft 11 in
Actual Weight 71.2 kg
Body Mass Index (BMI) 21.9
�
Physical Exam:�
General Appearance/Observation: Well-developed, well-nourished individual in no apparent distress.�
Pain/Comfort Assessment: back, knee,
Mood/Affect: Appropriate, pleasant�
�
Integumentary/Operative Site:�
�� Pressure Ulcer Evaluation: absent over heels.�
��
�� Other Type of Wound: rash- whole back- resolving , b/l UE- resolving
�
�
Eyes: Conjunctiva/Lids: normal���� Pupils: pupils equal round and reactive to light and Accommodation�
Ears/Nose/Throat: oral mucosa moist,� throat clear.������������ Lips/Teeth/Gums: normal�
Neck: No muscle spasm or tenderness�
Cardiovascular: Heart: regular, no murmur�
Pulses: dorsalis pedis 2+ bilaterally�
Respiratory: Respiratory Effort/Chest Expansion: normal������� Auscultation: Clear to auscultation bilaterally�
Gastrointestinal: abdomen not tender, no distension, normal abdominal bowel sounds
Genitourinary: No Huffman�
Extremities:�Edema: none�Cyanosis: None�Trophic�changes: None
�
Neurology Exam:
Orientation: Alert, Oriented to self, Time, Place�
Memory: Intact for immediate medical concerns
Comprehension: Intact
Two step command: Intact
Naming: Intact
Cranial Nerves:
�� CNII:�Pupillary light reflex: Intact����Visual Field: Intact
�� CN III, IV, : Extraocular muscles: Intact�
�� CN V:�Facial Sensation�at�Forehead: Intact,�Maxilla: Intact,�Mandible: Intact
�� CN VII:�Facial movement: Symmetric
�� CN VIII:�Hearing: Normal
�� CN IX/X:�Speech & swallow: Normal,�Position of Uvula: Midline
�� CN XI:�Shoulder shrug: Symmetric
�� CN XII:�Tongue protrusion: Midline
Sensory:
�� Light touch: Intact in bilateral upper and lower extremities
�
�
Reflexes:
�� Biceps: 2+ bilaterally
�� Brachioradialis: 2+ bilaterally
�� Triceps: 2+ bilaterally
�� Patellar: 2+ bilaterally
�� Achilles: 2+ bilaterally
�� Babinski: Down going bilaterally
�� Clonus: None
�� Dickson: Negative bilaterally�
Cerebellar: Dysmetria/Ataxia: None�
Musculoskeletal:
Motor: (Manual muscle scale 0-5)�
Muscle SA EF WE EE FF FA HF KE DF EHL PF
Right� 5 5 5 5 5 5 5 5 5 5 5
Left 5 5 5 5 5 5 5 5 5 5 5
�
Tone: Normal in all extremities�
Range of Motion: Passively within normal limits in all extremities�
�
Lab Results
Labs
WBC 5.1 10^3/uL (4.8-10.8) 01/10/25 03:40
RBC 2.85 10^6/uL (4.70-6.10) L 01/10/25 03:40
Hgb 8.0 g/dL (13.0-18.0) L 01/10/25 03:40
Hct 23.7 % (39.0-52.0) L 01/10/25 03:40
MCV 83.2 fL (80.0-94.0) 01/10/25 03:40
MCH 28.1 pg (27.0-31.0) 01/10/25 03:40
MCHC 33.8 g/dL (33.0-37.0) 01/10/25 03:40
RDW 19.7 % (11.5-14.5) H 01/10/25 03:40
Plt Count 300 10^3/uL (130-400) 01/10/25 03:40
Plt Count Comment Yes 01/07/25 04:00
MPV 10.3 fL (7.4-10.4) 01/10/25 03:40
Abs Immat Gran (auto) 0.1 10^3/uL (0-0.05) H 01/10/25 03:40
Absolute Neuts (auto) 2.8 10^3/uL (1.4-6.5) 01/10/25 03:40
Absolute Lymphs (auto) 1.2 10^3/uL (1.2-3.4) 01/10/25 03:40
Absolute Monos (auto) 1.0 10^3/uL (0.1-0.6) H 01/10/25 03:40
Absolute Eos (auto) 0.0 10^3/uL (0-0.7) 01/10/25 03:40
Absolute Basos (auto) 0.0 10^3/uL (0-0.2) 01/10/25 03:40
CBC Comment 01/07/25 04:00
Total Counted 100 01/07/25 04:00
Immature Gran % 2.0 % (0-0.5) H 01/10/25 03:40
Neutrophils % 54.9 % (42.2-75.2) 01/10/25 03:40
Lymphocytes % 22.9 % (20.5-51.1) 01/10/25 03:40
Monocytes % 20.0 % (1.7-9.3) H 01/10/25 03:40
Eosinophils % 0.0 % (0-6) 01/10/25 03:40
Basophils % 0.2 % (0-2) 01/10/25 03:40
Nucleated RBC % 0.8 % (-) 01/10/25 03:40
Abs Neuts (Manual) 1.0 10^3/uL (1.4-6.5) L 01/07/25 04:00
Segmented Neutrophils 40 % (42-75) L 01/07/25 04:00
Band Neutrophils 0 % (0-3) 01/07/25 04:00
Lymphocytes (Manual) 42 % (20-51) 01/07/25 04:00
Monocytes (Manual) 17 % (2-9) H 01/07/25 04:00
Metamyelocytes 1 % (-) 01/07/25 04:00
Normal RBC Morphology No 01/07/25 04:00
Hypochromasia 1+ 01/07/25 04:00
Anisocytosis 1+ 01/07/25 04:00
PT 17.1 Sec (11.4-14.6) H 12/31/24 08:58
INR 1.36 12/31/24 08:58
APTT 32.0 Sec (23.4-35.0) 12/31/24 08:58
Sodium 138 mmol/L (135-145) 01/10/25 03:40
Potassium 3.5 mmol/L (3.5-5.1) 01/10/25 03:40
Chloride 109 mmol/L (98-107) H 01/10/25 03:40
Carbon Dioxide 24 mmol/L (22-30) 01/10/25 03:40
BUN 16 mg/dl (9-20) 01/10/25 03:40
Creatinine 0.8 mg/dL (0.7-1.3) 01/10/25 03:40
Estimated Creat Clear 87 ml/min 01/10/25 03:40
eGFR > 60.00 01/10/25 03:40
Glucose 113 mg/dl (70-99) H 01/10/25 03:40
Uric Acid 10.1 mg/dl (3.5-8.5) H 01/03/25 00:13
Calcium 6.0 mg/dl (8.4-10.2) L* 01/10/25 03:40
Ionized Calcium 0.70 mMOL/L (1.15-1.33) L 01/04/25 18:33
Phosphorus 2.5 mg/dl (2.5-4.5) 01/05/25 05:02
Magnesium 1.5 mg/dl (1.6-2.3) L 01/10/25 03:40
Iron 67 ug/dl (49-181) 12/31/24 08:58
TIBC 200 ug/dl (261-462) L 12/31/24 08:58
% Saturation 33 % (20-50) 12/31/24 08:58
Ferritin 3040.0 ng/ml (17.9-464.0) H 12/31/24 08:58
Total Bilirubin 0.7 mg/dl (0.2-1.3) 01/10/25 03:40
AST 22 U/L (17-59) 01/10/25 03:40
ALT 12 U/L (0-50) 01/10/25 03:40
Alkaline Phosphatase 126 U/L (38-126) 01/10/25 03:40
Troponin I Cancelled 01/01/25 18:45
C-Reactive Protein 51.30 mg/L (0.0-10.00) H 01/04/25 04:21
Sfi-G-Gztttkqyrrv Pept 4290 pg/ml 12/31/24 08:58
Total Protein 5.0 g/dl (6.3-8.2) L 01/10/25 03:40
Albumin 2.7 g/dl (3.5-5.0) L 01/10/25 03:40
Vitamin B12 485 pg/ml (239-931) 12/31/24 08:58
Vitamin D 25-Hydroxy 15.5 ng/mL (30-80) L 01/03/25 06:29
Folate 3.7 ng/ml (2.76-20) 12/31/24 08:58
PTH Intact 307.4 pg/ml (13.6-85.8) H 01/07/25 04:00
PTH Related Peptide 4.6 pmol/L (0.0-2.3) H 01/01/25 01:50
Blood Type O POS 12/31/24 11:10
Blood Type Confirm O POS 12/31/24 11:44
Antibody Screen Negative (Negative) 12/31/24 11:10
Crossmatch IS Only See Detail 12/31/24 11:10
�
Diagnostic Results:�as per HPI�
PROCEDURE: US Periph Venous LOWER Ext Magdi- 12/31/2024
INDICATION: 69-year-old with shortness of breath.
TECHNIQUE: Duplex ultrasound examination of both lower extremities was performed. Bar Supervisor compression grayscale and color Doppler images with spectral analysis saved and recorded.
COMPARISON: 10/24/2024
FINDINGS:
RIGHT leg:
The right common femoral, femoral, popliteal, posterior tibial, and peroneal veins are patent without sonographic evidence for deep venous thrombosis.
LEFT leg:
The left common femoral, femoral, popliteal, posterior tibial, and peroneal veins are patent without sonographic evidence for deep venous thrombosis.
IMPRESSION:
No sonographic evidence for lower extremity venous thrombosis.
Chest x-ray�12/31/2024
PROCEDURE: CR Chest - 2 Views
INDICATION: 69-year-old with shortness of breath.
TECHNIQUE: Frontal and lateral views of the chest
COMPARISON: 10/08/2024
FINDINGS:
Lines/Tubes/Devices: Right chest wall port
Lungs/Pleura: No focal airspace disease. No pleural effusions or pneumothorax.
Mediastinum/Heart: Within normal limits.
Bones: No suspicious lesions.
IMPRESSION:
No radiographic evidence of acute cardiopulmonary abnormality.
Echo May 2024: EF 25 to 30%, mildly reduced RV systolic function, mild MR, severe left atrial dilation
Assessment: 69 year old Male with PMH of (longstanding nonischemic cardiomyopathy�declined ICD in the past, heart failure with reduced ejection fracture, and frequent PVCs, hypertension, hyperlipidemia, metastatic ureteral cancer with shortness of
breath, poor po intake and feeling dehydrated found to have severe anemia with hemoglobin of 7.1 transfused 1 unit of packed RBCs And also with hypocalcemia. .
�
Plan�
PM&R�PT/OT to increase independence with ADLs, improve balance, coordination, endurance, strength, mobility, community reintegration, decreased burden of care on others and family education.�
�
Debility: PT/OT
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
outpatient follow up with oncology
Control pain with oral Dilaudid and subutex
MSSA bacteremia
ID managing, currently on cefazolin, vanc stopped. Continue cefazolin per ID until 14 days from 1st negative culture
Blood culture from 01/02, 01/03 NGTD. No veg on echo
Arrangements have been made for outpatient home antibiotic infusion via port EOT 01/16/2025
Dyspnea secondary to anemia
Placed on 2L NC for symptoms, wean oxygen as tolerated- seen in room off oxygen
CXR NAD
Hgb 7.1 on admission (from baseline 9.7), transfused 1 units PRBC, Hgb stable at 7.7, continue to monitor H&H
iron panel consistent with ACD, B12/folate WNL
BL LE US neg for DVT
Noted BNP 4000 on admission
s/p low dose IV lasix 20 mg BID for chronic edema changed to PO lasix (not an exacerbation of heart failure)
BERTA�prerenal and postrenal�resolved
Hyperuricemia likely 2/2 BERTA per Oncology, less likely tumor lysis syndrome
Metabolic acidosis , improved
Obstructive uropathy :SCr 2.3 -> 0.7; baseline SCr around 1.0. notably poor intake
s/p Bicarb drip low rate
Monitor SCr
huffman placed 12/31 for urinary retention- discontinued on 01/02
Severe hypocalcemia
[place] likely 2/2 xgeva S/E.
Replete calcium aggressively, serial BMP
Vitamin D 01/03 was 15. s/p 50,000 units 01/05
As per discussion with oncology will be able to transition to orals on discharge as patient is now tolerating p.o.
Hypomagnesium, hypokalemia :replete magnesium, potassium prn
non-sustained VT noted on telemetry
troponin elevation
replete Calcium IV
Cont Coreg
Increase daily potassium to 40 meq in a.m. and 20 meq once in p.m.
no ICD; due to patient having bacteremia as well as patient not wanting ICD
Chronic heart failure with reduced ejection fraction: cont lasix
Diffuse skin rash�improving
ED d/w outpt oncologist Dr June, who recc steroid over 2 weeks
IV Decadron started, changed to p.o. and tolerating orals, will taper off in next 2 weeks, GI ppx with Protonix while on steroid
wound care on board . Aquaphor. Benadryl 25mg q 6 hours prn
HTN: monitor closely�
HLD: Statin�
Anemia: Hgb 8 . ranges in the 7's. Likely multifactorial.� Continue to monitor.�
Psych: Psychology consult.� Monitor mood, adjust medications as needed.�
Pain: acetaminophen, Hydromorphone 2mg q 4 hours and 0.25mg IV q 4 hours as needed.�
Bowel: Colace and Senna, PRN bisacodyl.�
Bladder: Time void, PVRs, PRN straight cath.�
GI Prophylaxis: Pantoprazole�
DVT Prophylaxis: Mechanical and heparin 5000 units q 12 hours
Pulmonary: Incentive spirometry�
�Safety: Continue to reinforce assistance with all transfers.�
Code Status:� Full code
Dispo�(date/plan/equipment needs): Home with family care.� Social history reviewed.�
�
Functional and Medical Goals:�Modified Independent with ADL�s, ambulation, transfers�
�
Discharge Destination:�Would benefit from Acute inpatient rehabilitation for PT/OT to improve balance, coordination, endurance, strength, mobility, community reintegration, decreased burden of care on others and family education.�
Summary of Recommendation:
Pain: acetaminophen, Hydromorphone 2mg q 4 hours and 0.25mg IV q 4 hours as needed.� Pain must be controlled on oral medications. No IV upon transfer
Thank you for allowing me to care for your patient. Please contact me with any questions or concerns.

Documented by User: Adria Vernon MD 01/10/25 22:15
Consultation - Medical
-
Referring Provider:�Kandis Mares
Chief Complaint:�Debility
�
History of Present Illness:�Patient is a 69 year old Right handed Male with PMH of (longstanding nonischemic cardiomyopathy�declined ICD in the past, heart failure with reduced ejection fracture, and frequent PVCs, hypertension, hyperlipidemia,
metastatic ureteral cancer (follows at [facility] with Dr June [phone]), recent chemo s/p second treatment (Padcev with Keytruda) this past week; presented to [facility] on 12/31/2024 with shortness of breath, poor po intake and feeling dehydrated that
started on 12/30.. He also noted development of diffuse rash with erythema that started after chemo due to antineoplastic therapy.. Found to have severe anemia with hemoglobin of 7.1 and was transfused 1 unit of packed RBCs And hypocalcemia. .
Also found to have elevated proBNP 4290. Found to have metabolic acidosis with BERTA with creatinine of 2.3 and electrolyte derangements. Troponin 0.035. EKG demonstrated sinus rhythm with frequent PVCs. Lower extremity Doppler was negative for
DVT. Chest x-ray showed no acute cardiopulmonary abnormality. During course of hospitalization electrolytes have been replenished. Continues to have severe hypokalemia. Found to have MSSA bacteremia. Initial blood cultures with Staph aureus.
Repeat blood cultures negative as of 01/02/2025. Echocardiogram without vegetations. Seen by ID. Recommended continuing cefazolin to complete 14 days of IV antibiotic from first negative blood culture.(Through 01/16/2025) may use port for
infusions. IV antibiotic home infusion prescription placed on paper chart. Continue local care to upper extremity wounds
�Past Medical History:�Cardiomyopathy, CAD, GERD, paroxysmal vertigo, hypertension, hyperlipidemia, metastatic urethral cancer with mets, anemia
Procedure History:�Right hernia repair
Family History:�Mom - Leukemia, DM, Dad- smoker, amputations
�
Social History:�
Functional Level Premorbidly:�Independent with all activities�
Functional Level Currently:�Mild delay in processing information, eating�set up, grooming�supervision, toileting�min assist, lower extremity self-care�mod assist, toilet transfer�min assist, bed mobility�supervision, transfer�min assist, assist
needed for standing from bed and lowering into chair. Static supported standing�min assist, ambulation-unsteady without a device which she is his baseline, narrow base of support, flexed posture, decreased lower extremity clearance and step length,
cues needed for upright posture to look up noted to be short of breath however room air pulse ox 98%, reported leg, knee and back pain with mobility rated at 12/30 30 feet time 1, bathroom, 15 feet time 1 both without a device and min assist. Seated
rest break in chair. 30 feet x 2 with rolling walker and min assist for contact-guard. Assist needed for monitor
�
Tobacco:�Denies�
Alcohol:�Denies�
Drug use:�Denies�
�
Lives with:�
24-hour assistance available:�Yes
Number of floors:�2
# steps to enter:�1+1
# steps to second floor: full flight
Potential First floor set up:�Unclear
Driving:�No driving since September 2024
Occupation:�retired
�
�
Allergies:�
Allergy/AdvReac Type Severity Reaction Status Date / Time
No Known Allergies Allergy Verified 10/10/24 16:10
�
Review of Systems:�
Constitutional: (x) abNormal _fatigue
Eye: (x) Normal _
Ear/Nose/Throat: (x) Normal _
Respiratory: (x) Normal _
Cardiovascular: (x) abNormal _nonischemic cardiomyopathy
Gastrointestinal: (x) aNormal _poor appetite
Genitourinary: (x) abNormal _ureteral carcinoma with mets
Musculoskeletal: (x) abNormal _back, legs , knee pain
Integumentary: (x) abNormal _generalized rash back and upper extremity, wound-bilateral buttocks
Neurologic: (x) Normal _
Psychiatric: (x) Normal _
Endocrine: (x) Normal _
Hematologic/Lymphatic: (x) abNormal _carcinoma
Allergic/Immunologic: (x) Normal _
�
Medications:�
Active Current Visit Medication List
Category Date Time Status
Buprenorphine [Subutex] Med 01/01/25 08:00 Active
1 mg SL DAILY
Calcium 300mg(Ca. Carb. 750mg) [Tums Ex (Extra Strength Med 01/07/25 14:19 Active
) Chewable Tablet]
300 mg PO Q6HPRN PRN
Calcium Carbonate [Oscal Bharathi 500] Med 01/01/25 08:00 Active
1,000 mg PO DAILY
Calcium Carbonate [Oscal Bharathi 500] Med 12/31/24 18:00 Active
500 mg PO QPM
Carvedilol [Coreg] Med 01/05/25 20:00 Active
25 mg PO BID
CeFAZolin 2 GRAM [Ancef] Med 01/02/25 12:00 Active
2 grams in 10 ml IV Q8H
Diphenhydramine [Benadryl] Med 01/01/25 17:09 Active
25 mg PO Q6HPRN PRN
Docusate W/Senna [Senokot-S] Med 12/31/24 17:20 Active
1 tablet PO BIDPRN PRN
Flush (0.9% Sodium Chloride) [Flush (Nss)] Med 12/31/24 15:00 Active
See Dose Instructions IV PER PROTOCOL
Furosemide [Lasix] Med 01/07/25 08:00 Active
60 mg PO DAILY
HYDROmorphone [Dilaudid] Med 01/02/25 14:24 Active
0.25 mg IV Q4HPRN PRN
HYDROmorphone [Dilaudid] Med 01/09/25 12:09 Active
2 mg PO Q4HPRN PRN
Heparin Med 12/31/24 20:00 Active
5,000 units SC Q12
Heparin Pf [Heparin Lock Flush] Med 01/05/25 10:00 Active
500 unit IV PER PROTOCOL
Hydrocortisone [Hydrocortisone 1% Cream] Med 01/01/25 11:00 Active
See Dose Instructions TOPICAL BID
Loratadine [Claritin] Med 01/01/25 10:00 Active
10 mg PO DAILY
Magnesium Oxide Med 01/09/25 14:00 Active
400 mg PO BID
Ondansetron Injectable [Zofran] Med 12/31/24 17:20 Active
4 mg IV Q6HPRN PRN
Pantoprazole [Protonix] Med 01/09/25 08:00 Active
40 mg PO DAILY
Petrolatum/Mineral Oil [Hydrophor] Med 01/02/25 08:00 Active
See Dose Instructions TOPICAL DAILY
Polyethylene Glycol Powder [Miralax] Med 12/31/24 17:20 Active
17 grams PO DAILYPRN PRN
Potassium Chloride [KCl] Med 01/10/25 15:00 Active
20 meq PO DAILY@1500
Potassium Chloride [KCl] Med 01/10/25 08:00 Active
40 meq PO DAILY
Prednisone [Deltasone] Med 01/11/25 08:00 Active
40 mg PO DAILY
�
Vitals:�
Temp Pulse Resp BP Pulse Ox
97.7 F 79 19 156/99 96
01/10/25 15:46 01/10/25 08:37 01/10/25 06:00 01/10/25 08:37 01/10/25 09:18
Height 5 ft 11 in
Actual Weight 71.2 kg
Body Mass Index (BMI) 21.9
�
Physical Exam:�
General Appearance/Observation: Well-developed, well-nourished male in no apparent distress.�
Pain/Comfort Assessment: back, knee,
Mood/Affect: Appropriate, pleasant�
�
Integumentary/Operative Site:�
�� Pressure Ulcer Evaluation: absent over heels.�
�� �� Other Type of Wound: rash- whole back- resolving , b/l UE- resolving
�
�
Eyes: Conjunctiva/Lids: normal���� Pupils: pupils equal round and reactive to light and Accommodation�
Ears/Nose/Throat: oral mucosa moist,� throat clear.������������ Lips/Teeth/Gums: normal�
Neck: No muscle spasm or tenderness�
Cardiovascular: Heart: regular, no murmur�
Pulses: dorsalis pedis 2+ bilaterally�
Respiratory: Respiratory Effort/Chest Expansion: normal������� Auscultation: Clear to auscultation bilaterally�
Gastrointestinal: abdomen not tender, no distension, normal abdominal bowel sounds
Genitourinary: No Huffman�
Extremities:�Edema: none�Cyanosis: None�Trophic�changes: None
�
Neurology Exam:
Orientation: Alert, Oriented to self, Time, Place�
Memory: Intact for immediate medical concerns
Comprehension: Intact
Two step command: Intact
Naming: Intact
Cranial Nerves:
�� CNII:�Pupillary light reflex: Intact����Visual Field: Intact
�� CN III, IV, : Extraocular muscles: Intact�
�� CN V:�Facial Sensation�at�Forehead: Intact,�Maxilla: Intact,�Mandible: Intact
�� CN VII:�Facial movement: Symmetric
�� CN VIII:�Hearing: Normal
�� CN IX/X:�Speech & swallow: Normal,�Position of Uvula: Midline
�� CN XI:�Shoulder shrug: Symmetric
�� CN XII:�Tongue protrusion: Midline
Sensory:
�� Light touch: Intact in bilateral upper and lower extremities
�
�
Reflexes:
�� Biceps: 2+ bilaterally
�� Brachioradialis: 2+ bilaterally
�� Triceps: 2+ bilaterally
�� Patellar: 2+ bilaterally
�� Achilles: 2+ bilaterally
�� Babinski: Down going bilaterally
�� Clonus: None
�� Dickson: Negative bilaterally�
Cerebellar: Dysmetria/Ataxia: None�
Musculoskeletal: Motor: (Manual muscle scale 0-5)�
Muscle SA EF WE EE FF FA HF KE DF EHL PF
Right� 5 5 5 5 5 4 4 5 5 5 5
Left 5 5 5 5 5 4 4 5 5 5 5
�
Tone: Normal in all extremities�
Range of Motion: Passively within normal limits in all extremities�
�
Lab Results
Labs
WBC 5.1 10^3/uL (4.8-10.8) 01/10/25 03:40
RBC 2.85 10^6/uL (4.70-6.10) L 01/10/25 03:40
Hgb 8.0 g/dL (13.0-18.0) L 01/10/25 03:40
Hct 23.7 % (39.0-52.0) L 01/10/25 03:40
MCV 83.2 fL (80.0-94.0) 01/10/25 03:40
MCH 28.1 pg (27.0-31.0) 01/10/25 03:40
MCHC 33.8 g/dL (33.0-37.0) 01/10/25 03:40
RDW 19.7 % (11.5-14.5) H 01/10/25 03:40
Plt Count 300 10^3/uL (130-400) 01/10/25 03:40
Plt Count Comment Yes 01/07/25 04:00
MPV 10.3 fL (7.4-10.4) 01/10/25 03:40
Abs Immat Gran (auto) 0.1 10^3/uL (0-0.05) H 01/10/25 03:40
Absolute Neuts (auto) 2.8 10^3/uL (1.4-6.5) 01/10/25 03:40
Absolute Lymphs (auto) 1.2 10^3/uL (1.2-3.4) 01/10/25 03:40
Absolute Monos (auto) 1.0 10^3/uL (0.1-0.6) H 01/10/25 03:40
Absolute Eos (auto) 0.0 10^3/uL (0-0.7) 01/10/25 03:40
Absolute Basos (auto) 0.0 10^3/uL (0-0.2) 01/10/25 03:40
CBC Comment 01/07/25 04:00
Total Counted 100 01/07/25 04:00
Immature Gran % 2.0 % (0-0.5) H 01/10/25 03:40
Neutrophils % 54.9 % (42.2-75.2) 01/10/25 03:40
Lymphocytes % 22.9 % (20.5-51.1) 01/10/25 03:40
Monocytes % 20.0 % (1.7-9.3) H 01/10/25 03:40
Eosinophils % 0.0 % (0-6) 01/10/25 03:40
Basophils % 0.2 % (0-2) 01/10/25 03:40
Nucleated RBC % 0.8 % (-) 01/10/25 03:40
Abs Neuts (Manual) 1.0 10^3/uL (1.4-6.5) L 01/07/25 04:00
Segmented Neutrophils 40 % (42-75) L 01/07/25 04:00
Band Neutrophils 0 % (0-3) 01/07/25 04:00
Lymphocytes (Manual) 42 % (20-51) 01/07/25 04:00
Monocytes (Manual) 17 % (2-9) H 01/07/25 04:00
Metamyelocytes 1 % (-) 01/07/25 04:00
Normal RBC Morphology No 01/07/25 04:00
Hypochromasia 1+ 01/07/25 04:00
Anisocytosis 1+ 01/07/25 04:00
PT 17.1 Sec (11.4-14.6) H 12/31/24 08:58
INR 1.36 12/31/24 08:58
APTT 32.0 Sec (23.4-35.0) 12/31/24 08:58
Sodium 138 mmol/L (135-145) 01/10/25 03:40
Potassium 3.5 mmol/L (3.5-5.1) 01/10/25 03:40
Chloride 109 mmol/L (98-107) H 01/10/25 03:40
Carbon Dioxide 24 mmol/L (22-30) 01/10/25 03:40
BUN 16 mg/dl (9-20) 01/10/25 03:40
Creatinine 0.8 mg/dL (0.7-1.3) 01/10/25 03:40
Estimated Creat Clear 87 ml/min 01/10/25 03:40
eGFR > 60.00 01/10/25 03:40
Glucose 113 mg/dl (70-99) H 01/10/25 03:40
Uric Acid 10.1 mg/dl (3.5-8.5) H 01/03/25 00:13
Calcium 6.0 mg/dl (8.4-10.2) L* 01/10/25 03:40
Ionized Calcium 0.70 mMOL/L (1.15-1.33) L 01/04/25 18:33
Phosphorus 2.5 mg/dl (2.5-4.5) 01/05/25 05:02
Magnesium 1.5 mg/dl (1.6-2.3) L 01/10/25 03:40
Iron 67 ug/dl (49-181) 12/31/24 08:58
TIBC 200 ug/dl (261-462) L 12/31/24 08:58
% Saturation 33 % (20-50) 12/31/24 08:58
Ferritin 3040.0 ng/ml (17.9-464.0) H 12/31/24 08:58
Total Bilirubin 0.7 mg/dl (0.2-1.3) 01/10/25 03:40
AST 22 U/L (17-59) 01/10/25 03:40
ALT 12 U/L (0-50) 01/10/25 03:40
Alkaline Phosphatase 126 U/L (38-126) 01/10/25 03:40
Troponin I Cancelled 01/01/25 18:45
C-Reactive Protein 51.30 mg/L (0.0-10.00) H 01/04/25 04:21
Tze-A-Tvpnwuowhoq Pept 4290 pg/ml 12/31/24 08:58
Total Protein 5.0 g/dl (6.3-8.2) L 01/10/25 03:40
Albumin 2.7 g/dl (3.5-5.0) L 01/10/25 03:40
Vitamin B12 485 pg/ml (239-931) 12/31/24 08:58
Vitamin D 25-Hydroxy 15.5 ng/mL (30-80) L 01/03/25 06:29
Folate 3.7 ng/ml (2.76-20) 12/31/24 08:58
PTH Intact 307.4 pg/ml (13.6-85.8) H 01/07/25 04:00
PTH Related Peptide 4.6 pmol/L (0.0-2.3) H 01/01/25 01:50
Blood Type O POS 12/31/24 11:10
Blood Type Confirm O POS 12/31/24 11:44
Antibody Screen Negative (Negative) 12/31/24 11:10
Crossmatch IS Only See Detail 12/31/24 11:10
�
Diagnostic Results:�as per HPI�
PROCEDURE: US Periph Venous LOWER Ext Magdi- 12/31/2024
INDICATION: 69-year-old with shortness of breath.
TECHNIQUE: Duplex ultrasound examination of both lower extremities was performed. Bar Supervisor compression grayscale and color Doppler images with spectral analysis saved and recorded.
COMPARISON: 10/24/2024
FINDINGS:
RIGHT leg:
The right common femoral, femoral, popliteal, posterior tibial, and peroneal veins are patent without sonographic evidence for deep venous thrombosis.
LEFT leg:
The left common femoral, femoral, popliteal, posterior tibial, and peroneal veins are patent without sonographic evidence for deep venous thrombosis.
IMPRESSION:
No sonographic evidence for lower extremity venous thrombosis.
Chest x-ray�12/31/2024
PROCEDURE: CR Chest - 2 Views
INDICATION: 69-year-old with shortness of breath.
TECHNIQUE: Frontal and lateral views of the chest
COMPARISON: 10/08/2024
FINDINGS:
Lines/Tubes/Devices: Right chest wall port
Lungs/Pleura: No focal airspace disease. No pleural effusions or pneumothorax.
Mediastinum/Heart: Within normal limits.
Bones: No suspicious lesions.
IMPRESSION:
No radiographic evidence of acute cardiopulmonary abnormality.
Echo May 2024: EF 25 to 30%, mildly reduced RV systolic function, mild MR, severe left atrial dilation
Assessment:
69 year old Right handed Male M PMH (longstanding nonischemic cardiomyopathy�declined ICD in the past, heart failure with reduced ejection fracture, and frequent PVCs, hypertension, hyperlipidemia, metastatic ureteral cancer) with shortness of
breath, poor po intake, dehydrated, with bacteremia, severe anemia requiring transfusion and hypocalcemia resulting in ADL and ambulatory dysfunction.
�
Plan�
PM&R�PT/OT to increase independence with ADLs, improve balance, coordination, endurance, strength, mobility, community reintegration, decreased burden of care on others and family education.�
�
Debility: PT/OT
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
-outpatient follow up with oncology
-Control pain with oral Dilaudid and subutex
MSSA bacteremia
-ID managing, currently on cefazolin, vanc stopped. Continue cefazolin per ID until 14 days from 1st negative culture
-Blood culture from 01/02, 01/03 NGTD. No veg on echo
-antibiotic infusion via port EOT 01/16/2025
Dyspnea secondary to anemia
-Placed on 2L NC for symptoms, wean oxygen as tolerated- seen in room off oxygen
-CXR NAD
-Hgb 7.1 on admission (from baseline 9.7), transfused 1 units PRBC, Hgb stable at 7.7, continue to monitor H&H
iron panel consistent with ACD, B12/folate WNL
-BL LE US neg for DVT
-Noted BNP 4000 on admission
-s/p low dose IV lasix 20 mg BID for chronic edema changed to PO lasix (not an exacerbation of heart failure)
BERTA�prerenal and postrenal�resolved
Hyperuricemia likely 2/2 BERTA per Oncology, less likely tumor lysis syndrome
Metabolic acidosis , improved
Obstructive uropathy :SCr 2.3 -> 0.7; baseline SCr around 1.0. notably poor intake
- s/p Bicarb drip low rate
-Monitor Creatinine
-huffman placed 12/31 for urinary retention- discontinued on 01/02
Severe hypocalcemia
-thought likely 2/2 xgeva S/E.
-Replete calcium aggressively, serial BMP
-Vitamin D 01/03 was 15. s/p 50,000 units 01/05
-As per discussion with oncology will be able to transition to orals on discharge as patient is now tolerating p.o.
Hypomagnesium, hypokalemia: replete magnesium, potassium prn
non-sustained VT noted on telemetry
-troponin elevation
-repleted Calcium
- Coreg
-Potassium to 40 meq in a.m. and 20 meq once in p.m.
-no ICD; due to patient having bacteremia as well as patient not wanting ICD
Chronic heart failure with reduced ejection fraction: cont lasix
Diffuse skin rash�improving
-Per oncologist Dr June, steroid taper over 2 weeks
-IV Decadron started, changed to p.o. and tolerating orals, will taper off in next 2 weeks, GI ppx with Protonix while on steroid
-wound care following. Aquaphor. Benadryl 25mg q 6 hours prn
HTN: monitor closely�
HLD: Statin�
Anemia: Hgb 8 . ranges in the 7's. Likely multifactorial.� Continue to monitor.�
Psych: Psychology consult as able.� Monitor mood, medications as needed. Per patient has had up and down mood, refusing medications.
Pain: acetaminophen, Hydromorphone 2mg q 4 hours and 0.25mg IV q 4 hours as needed.� Stop IV.
Bowel: Colace and Senna, PRN bisacodyl.�
Bladder: Time void, PVRs, PRN straight cath.�
GI Prophylaxis: Pantoprazole�
DVT Prophylaxis: Mechanical and heparin 5000 units q 12 hours
Pulmonary: Incentive spirometry�
Safety: Continue to reinforce assistance with all transfers.�
Code Status:� Full code
Dispo�(date/plan/equipment needs): Home with family care.� Social history reviewed.�
Functional and Medical Goals:�Modified Independent with ADL�s, ambulation, transfers�
Discharge Destination:�Would benefit from Acute inpatient rehabilitation for PT/OT to improve balance, coordination, endurance, strength, mobility, community reintegration, decreased burden of care on others and family education.�
Attending Statement:
I saw and examined the patient today.� Reviewed care plan with patient, therapy, nursing, and physician printing assistant.� I agree with the above subjective and physical exam, and plan as documented by SEKOU Gurrola with adjustments made as necessary.
Thank you for allowing me to care for your patient. Please contact me with any questions or concerns.
--- NOTE | 2025-01-10 15:13 | W.PN.HOSP.TC ---
Today's Communication/Plan
-
Discharge meds and recommendations placed pending clearance by PT, PM&R consult ordered per 's request, if they recommend home he can go when home antibiotics are set up which should be today, if they recommend rehab then CM can request a bed.
Assessment / Plan
Assessment / Plan
69M with metastatic ureteral cancer (follows at [facility] with Dr June [phone]), recent chemo s/p second treatment (Padcev with Keytruda) this past week; p/w shortness of breath, poor po intake and feeling dehydrated. He also noted development of
diffuse rash with erythema. Found to have severe anemia and hypocalcemia.
A/P:
1. Severe hypocalcemia
[place] likely 2/2 xgeva S/E
Replete calcium aggressively, serial BMP
Vitamin D 01/03 was 15. s/p 50,000 units 01/05
Replete magnesium, potassium prn
replete calcium IV again and monitor level
As per discussion with oncology will be able to transition to orals on discharge as patient is now tolerating p.o.
tele monitor
2. non-sustained VT noted on tele
troponin elevation
replete Calcium IV
Cont Coreg
Cardiology following appreciate recommendations for outpatient medication
no ICD; due to patient having bacteremia as well as patient not wanting ICD
3. Hypokalemia
Replete as needed
4. Diffuse skin rash�improving
ED d/w outpt oncologist Dr June, who recc steroid over 2 weeks
IV Decadron started, changed to p.o. and tolerating orals, will taper off in next 2 weeks, GI ppx with Protonix while on steroid
wound care on board
aquaphor
5,. MSSA bacteremia
ID managing, currently on cefazolin, vanc stopped. Continue cefazolin per ID until 14 days from 1st negative culture
Blood culture from 01/02, 01/03 NGTD. No veg on echo
Arrangements have been made for outpatient home antibiotic infusion via port EOT 01/16/2025
7. Resolved. Dyspnea 2/2 anemia
Placed on 2L NC for symptoms, wean oxygen as tolerated
CXR NAD
Hgb 7.1 on admission (from baseline 9.7), transfused 1 units PRBC, Hgb stable at 7.7, continue to monitor H&H
iron panel consistent with ACD, B12/folate WNL
BL LE US neg for DVT
Noted BNP 4000 on admission
s/p low dose IV lasix 20 mg BID for chronic edema changed to PO lasix (not an exacerbation of heart failure)
# Prerenal and postrenal BERTA- resolved
# Metabolic acidosis , improved
# Obstructive uropathy
SCr 2.3 -> 0.7; baseline SCr around 1.0
notgably poor intake
s/p Bicarb drip low rate
Monitor SCr
huffman placed 12/31 for urinary retention
diet advanced to IDDS 6
# Hyperuricemia likely 2/2 BERTA per Onc, less likely tumor lysis syndrome
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
outpt f.u with [facility]
Control pain with oral Dilaudid and subutex
#Deconditioning
Patient has been seen by PT and OT who are recommending home with outpatient therapy, is requesting physiatry eval for patient to go to [place] rehab
Consulted PM&R
DVT ppx: SCDs
FC
Anticipated Discharge: 24 - 48 hours
Subjective/Interval History
-
Date of Service: January 10, 2025
Patient reports feeling well, denies any diarrhea
Objective Data
-
Labs:
Laboratory Results
01/10/25
03:40
WBC 5.1
Hgb 8.0 L
Hct 23.7 L
Plt Count 300
Sodium 138
Potassium 3.5
Chloride 109 H
Carbon Dioxide 24
BUN 16
Creatinine 0.8
Glucose 113 H
Calcium 6.0 L*
Total Bilirubin 0.7
AST 22
ALT 12
Alkaline Phosphatase 126
Vital Signs:
Vital Signs
Temp Pulse Resp BP Pulse Ox
98.2 F 79 19 156/99 96
01/10/25 12:03 01/10/25 08:37 01/10/25 06:00 01/10/25 08:37 01/10/25 09:18
I&O
01/09/25 01/10/25 01/11/25
06:59 06:59 06:59
Intake Total 370 / 370 827 / 827
Output Total 1600 / 1600 525 / 525
Balance -1230 / -1230 302 / 302
Review of Systems
-
All other systems: Reviewed and negative
Physical Exam
-
General: No Apparent Distress
HEENT: Moist Mucous Membranes, Anicteric and PERRLA
Respiratory: Clear to Auscultation; Negative Wheezes, Rales or Rhonchi
Cardiac: S1/S2 and Irregular Rhythm; Negative Murmur, Rub or Gallop
GI: Soft, Nontender, Nondistended and Normal Bowel Sounds
Musculoskeletal: Negative No Edema
Skin: Warm, Dry, Rash (Diffuse erythematous rash with multiple areas of scabbing) and Lesions; Negative Ulcers
Neuro: Awake and AO x 3
Hematologic / Lymphatic: No Lymphadenopathy
Psych: Calm
Data Reviewed
-
Labs: Labs Reviewed by me, Discussed with Physician and Discussed with Patient
[2025-01-10] MEDS: DILAUDID 2 MG PO (15:54)
[2025-01-10] MEDS: KCL 20 MEQ PO (15:58)
[2025-01-10] MEDS: OSCAL CAL 500 500 MG PO (17:30)
--- NOTE | 2025-01-10 18:33 | PTCARENOTE ---
Patient transferred to [facility]. Patient left with all known belongings, at bedside.
== END 2025-01-10 18:27 | DRG 683 ==
LOC: IMU 12:47
PROVIDERS: Internal Medicine; Nurse Practitioner Acute Care; Nurse Practitioner Family; Nurse Practitioner Gerontology; Physician Assistant Medical; ADMITTING PHYSICIAN Internal Medicine; ATTENDING PHYSICIAN Internal Medicine; CONSULT PHYSICIAN Internal Medicine Hematology & Oncology; CONSULT PHYSICIAN Nuclear Medicine Nuclear Cardiology; CONSULT PHYSICIAN Physical Medicine & Rehabilitation; EMERGENCY PHYSICIAN Student in an Organized Health Care Education/Training Program; FAMILY PHYSICIAN Family Medicine; OTHER PHYSICIAN Internal Medicine Infectious Disease; REFERRING PHYSICIAN Internal Medicine
PROC: 30243N1 Transfusion of Nonautologous Red Blood Cells into Central Vein, Percutaneous Approach (ICD-10-PCS; 2024-12-31)
DX: N17.9 Acute kidney failure, unspecified (principal); C66.9 Malignant neoplasm of unspecified ureter; E87.20 Acidosis, unspecified; I42.8 Other cardiomyopathies; I47.20 Ventricular tachycardia, unspecified; R78.81 Bacteremia; I5A Non-ischemic myocardial injury (non-traumatic); C79.51 Secondary malignant neoplasm of bone; C78.7 Secondary malignant neoplasm of liver and intrahepatic bile duct; D61.818 Other pancytopenia; I50.22 Chronic systolic (congestive) heart failure; E83.51 Hypocalcemia; E86.0 Dehydration; E78.5 Hyperlipidemia, unspecified; K21.9 Gastro-esophageal reflux disease without esophagitis; T45.1X5A Adverse effect of antineoplastic and immunosuppressive drugs, initial encounter; B95.61 Methicillin susceptible Staphylococcus aureus infection as the cause of diseases classified elsewhere; E83.42 Hypomagnesemia; E87.6 Hypokalemia; G89.3 Neoplasm related pain (acute) (chronic); I11.0 Hypertensive heart disease with heart failure; I25.10 Atherosclerotic heart disease of native coronary artery without angina pectoris; I34.0 Nonrheumatic mitral (valve) insufficiency; I49.3 Ventricular premature depolarization; I70.0 Atherosclerosis of aorta; L27.0 Generalized skin eruption due to drugs and medicaments taken internally; R33.9 Retention of urine, unspecified; N13.9 Obstructive and reflux uropathy, unspecified; R06.09 Other forms of dyspnea; Z79.899 Other long term (current) drug therapy; D63.0 Anemia in neoplastic disease
CPT/HCPCS: 71046; 80048; 80053; 82247; 82306; 82330; 82607; 82728; 82746; 83519; 83540; 83550; 83735; 83880; 83970; 84100; 84450; 84460; 84484; 84550; 85025; 85027; 85610; 85730; 86140; 86850; 86900; 86901; 86920; 87040; 87045; 87046; 87070; 87077; 87147; 87154; 87186; 87205; 87324; 87427; 87449; 92526; 92610; 93005; 93306; 93970; 96361; 96374; 97116; 97163; 97167; 97530; 97535; 99291; P9016

== ENCOUNTER → 2025-01-24 17:23 | Outpatient (REF) | payer MEDICARE, SELFPAY ==
[2025-01-24 18:55] LABS: ALT (SGPT) 36 U/L (0-50); AST (SGOT) 25 U/L (17-59); Albumin 3.7 g/dl (3.5-5.0); Alkaline Phosphatase 126 U/L (38-126); Blood Urea Nitrogen 27 mg/dl (9-20); Calcium 9.2 mg/dl (8.4-10.2); Carbon Dioxide 23 mmol/L (22-30); Chloride 105 mmol/L (98-107); Glucose 141 mg/dl (70-99); Potassium 5.3 mmol/L (3.5-5.1); Sodium 133 mmol/L (135-145); Total Protein 6.6 g/dl (6.3-8.2); eGFR > 60.00
[2025-01-24 18:57] LABS: Hematocrit 33.6 % (39.0-52.0); Hemoglobin 10.6 g/dL (13.0-18.0); Mean Corp Hgb Conc. 31.5 g/dL (33.0-37.0); Mean Corpuscular Volume 93.1 fL (80.0-94.0); Nucleated Red Blood Cells % 0 % (-); Platelet Count 239 10^3/uL (130-400); Red Cell Dist. Width 23.9 % (11.5-14.5)
[2025-01-24 19:05] LABS: Anisocytosis 1+; Normal RBC Morphology No
[2025-01-24 19:06] LABS: Acanthocytes 1+; Hypochromasia Slight; Ovalocytes FEW; Polychromasia 1+
== END ==
LOC: CLAB 17:23
PROVIDERS: ATTENDING PHYSICIAN Family Medicine; OTHER PHYSICIAN Internal Medicine Cardiovascular Disease
DX: N17.9 Acute kidney failure, unspecified (principal)
CPT/HCPCS: 36415; 80053; 85025

== ENCOUNTER → 2025-01-31 13:25 | Outpatient (REF) | payer MEDICARE, SELFPAY ==
[2025-01-31 19:13] LABS: Blood Urea Nitrogen 27 mg/dl (9-20); Calcium 8.4 mg/dl (8.4-10.2); Carbon Dioxide 21 mmol/L (22-30); Chloride 107 mmol/L (98-107); Glucose 158 mg/dl (70-99); Magnesium 2.0 mg/dl (1.6-2.3); Potassium 4.9 mmol/L (3.5-5.1); Sodium 134 mmol/L (135-145); eGFR > 60.00
== END ==
LOC: CLAB 13:25
PROVIDERS: ATTENDING PHYSICIAN Internal Medicine Cardiovascular Disease; FAMILY PHYSICIAN Family Medicine
DX: N17.9 Acute kidney failure, unspecified (principal)
CPT/HCPCS: 80048; 82330; 83735

== ENCOUNTER → 2025-02-18 11:27 | Outpatient (REF) | payer MEDICARE, SELFPAY ==
[2025-02-18 12:23] LABS: Hematocrit 33.7 % (39.0-52.0); Hemoglobin 10.7 g/dL (13.0-18.0); Mean Corp Hgb Conc. 31.8 g/dL (33.0-37.0); Mean Corpuscular Volume 96.6 fL (80.0-94.0); Nucleated Red Blood Cells % 0 % (-); Platelet Count 271 10^3/uL (130-400); Red Cell Dist. Width 18.1 % (11.5-14.5)
[2025-02-18 13:02] LABS: ALT (SGPT) 20 U/L (0-50); AST (SGOT) 23 U/L (17-59); Albumin 3.7 g/dl (3.5-5.0); Alkaline Phosphatase 113 U/L (38-126); Blood Urea Nitrogen 21 mg/dl (9-20); Calcium 9.0 mg/dl (8.4-10.2); Carbon Dioxide 30 mmol/L (22-30); Chloride 105 mmol/L (98-107); Glucose 55 mg/dl (70-99); Potassium 4.5 mmol/L (3.5-5.1); Sodium 138 mmol/L (135-145); Total Protein 6.6 g/dl (6.3-8.2); eGFR > 60.00
[2025-02-18 13:23] LABS: TSH 1.46 uIU/ml (0.47-4.68)
== END ==
LOC: REG 11:27
PROVIDERS: ATTENDING PHYSICIAN Internal Medicine; FAMILY PHYSICIAN Family Medicine
DX: C66.2 Malignant neoplasm of left ureter (principal); C78.7 Secondary malignant neoplasm of liver and intrahepatic bile duct; C79.51 Secondary malignant neoplasm of bone; C79.72 Secondary malignant neoplasm of left adrenal gland; R53.83 Other fatigue
CPT/HCPCS: 36415; 80053; 84443; 85025

== ENCOUNTER → 2025-02-25 11:20 | Outpatient (REF) | payer MEDICARE, SELFPAY ==
[2025-02-25 13:15] LABS: Hematocrit 34.4 % (39.0-52.0); Hemoglobin 11.2 g/dL (13.0-18.0); Mean Corp Hgb Conc. 32.6 g/dL (33.0-37.0); Mean Corpuscular Volume 95.0 fL (80.0-94.0); Nucleated Red Blood Cells % 0.3 % (-); Platelet Count 296 10^3/uL (130-400); Red Cell Dist. Width 16.4 % (11.5-14.5)
[2025-02-25 13:29] LABS: ALT (SGPT) 17 U/L (0-50); AST (SGOT) 26 U/L (17-59); Albumin 3.8 g/dl (3.5-5.0); Alkaline Phosphatase 109 U/L (38-126); Blood Urea Nitrogen 23 mg/dl (9-20); Calcium 9.0 mg/dl (8.4-10.2); Carbon Dioxide 28 mmol/L (22-30); Chloride 106 mmol/L (98-107); Glucose 83 mg/dl (70-99); Potassium 4.4 mmol/L (3.5-5.1); Sodium 140 mmol/L (135-145); Total Protein 6.8 g/dl (6.3-8.2); eGFR > 60.00
== END ==
LOC: REG 11:20
PROVIDERS: ATTENDING PHYSICIAN Internal Medicine; FAMILY PHYSICIAN Family Medicine
DX: C66.2 Malignant neoplasm of left ureter (principal); C78.7 Secondary malignant neoplasm of liver and intrahepatic bile duct; C79.51 Secondary malignant neoplasm of bone; C79.72 Secondary malignant neoplasm of left adrenal gland; Z51.11 Encounter for antineoplastic chemotherapy; Z51.12 Encounter for antineoplastic immunotherapy
CPT/HCPCS: 36415; 80053; 85025

== ENCOUNTER → 2025-03-11 09:07 | Outpatient (REF) | payer MEDICARE, SELFPAY ==
[2025-03-11 10:21] LABS: Hematocrit 36.6 % (39.0-52.0); Hemoglobin 11.7 g/dL (13.0-18.0); Mean Corp Hgb Conc. 32.0 g/dL (33.0-37.0); Mean Corpuscular Volume 96.8 fL (80.0-94.0); Nucleated Red Blood Cells % 0 % (-); Platelet Count 275 10^3/uL (130-400); Red Cell Dist. Width 15.5 % (11.5-14.5)
[2025-03-11 10:57] LABS: ALT (SGPT) 17 U/L (0-50); AST (SGOT) 25 U/L (17-59); Albumin 3.8 g/dl (3.5-5.0); Alkaline Phosphatase 97 U/L (38-126); Blood Urea Nitrogen 20 mg/dl (9-20); Calcium 8.8 mg/dl (8.4-10.2); Carbon Dioxide 30 mmol/L (22-30); Chloride 106 mmol/L (98-107); Glucose 108 mg/dl (70-99); Potassium 4.7 mmol/L (3.5-5.1); Sodium 141 mmol/L (135-145); Total Protein 6.9 g/dl (6.3-8.2); eGFR > 60.00
[2025-03-11 11:18] LABS: TSH 32.50 uIU/ml (0.47-4.68)
== END ==
LOC: REG 09:07
PROVIDERS: ATTENDING PHYSICIAN Internal Medicine; FAMILY PHYSICIAN Family Medicine
DX: C66.2 Malignant neoplasm of left ureter (principal); C78.7 Secondary malignant neoplasm of liver and intrahepatic bile duct; C79.51 Secondary malignant neoplasm of bone; C79.72 Secondary malignant neoplasm of left adrenal gland; Z51.11 Encounter for antineoplastic chemotherapy; Z51.12 Encounter for antineoplastic immunotherapy; I50.20 Unspecified systolic (congestive) heart failure
CPT/HCPCS: 36415; 80053; 84443; 85025

== ENCOUNTER → 2025-03-18 09:56 | Outpatient (REF) | payer MEDICARE, SELFPAY ==
[2025-03-18 11:22] LABS: Hematocrit 38.5 % (39.0-52.0); Hemoglobin 12.4 g/dL (13.0-18.0); Mean Corp Hgb Conc. 32.2 g/dL (33.0-37.0); Mean Corpuscular Volume 99.0 fL (80.0-94.0); Nucleated Red Blood Cells % 0 % (-); Platelet Count 239 10^3/uL (130-400); Red Cell Dist. Width 14.7 % (11.5-14.5)
[2025-03-18 11:46] LABS: ALT (SGPT) 14 U/L (0-50); AST (SGOT) 27 U/L (17-59); Albumin 3.6 g/dl (3.5-5.0); Alkaline Phosphatase 83 U/L (38-126); Blood Urea Nitrogen 18 mg/dl (9-20); Calcium 9.4 mg/dl (8.4-10.2); Carbon Dioxide 30 mmol/L (22-30); Chloride 106 mmol/L (98-107); Glucose 90 mg/dl (70-99); Potassium 4.8 mmol/L (3.5-5.1); Sodium 140 mmol/L (135-145); Total Protein 6.5 g/dl (6.3-8.2); eGFR > 60.00
== END ==
LOC: REG 09:56
PROVIDERS: ATTENDING PHYSICIAN Internal Medicine; FAMILY PHYSICIAN Family Medicine
DX: C66.2 Malignant neoplasm of left ureter (principal); C78.7 Secondary malignant neoplasm of liver and intrahepatic bile duct; C79.51 Secondary malignant neoplasm of bone
CPT/HCPCS: 36415; 80053; 85025

== ENCOUNTER → 2025-04-01 10:13 | Outpatient (REF) | payer MEDICARE, SELFPAY ==
[2025-04-01 11:21] LABS: Hematocrit 39.4 % (39.0-52.0); Hemoglobin 13.0 g/dL (13.0-18.0); Mean Corp Hgb Conc. 33.0 g/dL (33.0-37.0); Mean Corpuscular Volume 93.8 fL (80.0-94.0); Nucleated Red Blood Cells % 0 % (-); Platelet Count 266 10^3/uL (130-400); Red Cell Dist. Width 14.6 % (11.5-14.5)
[2025-04-01 11:48] LABS: ALT (SGPT) 18 U/L (0-50); AST (SGOT) 30 U/L (17-59); Albumin 4.0 g/dl (3.5-5.0); Alkaline Phosphatase 71 U/L (38-126); Blood Urea Nitrogen 19 mg/dl (9-20); Calcium 8.6 mg/dl (8.4-10.2); Carbon Dioxide 30 mmol/L (22-30); Chloride 103 mmol/L (98-107); Glucose 114 mg/dl (70-99); Potassium 4.7 mmol/L (3.5-5.1); Sodium 138 mmol/L (135-145); Total Protein 7.3 g/dl (6.3-8.2); eGFR 53.74
== END ==
LOC: REG 10:13
PROVIDERS: ATTENDING PHYSICIAN Internal Medicine
DX: C66.2 Malignant neoplasm of left ureter (principal); C78.7 Secondary malignant neoplasm of liver and intrahepatic bile duct; C79.51 Secondary malignant neoplasm of bone; C79.72 Secondary malignant neoplasm of left adrenal gland; Z51.11 Encounter for antineoplastic chemotherapy; Z51.12 Encounter for antineoplastic immunotherapy
CPT/HCPCS: 36415; 80053; 85025

== ENCOUNTER → 2025-04-08 09:34 | Outpatient (REF) | payer MEDICARE, SELFPAY ==
[2025-04-08 10:44] LABS: Hematocrit 39.6 % (39.0-52.0); Hemoglobin 13.3 g/dL (13.0-18.0); Mean Corp Hgb Conc. 33.6 g/dL (33.0-37.0); Mean Corpuscular Volume 93.2 fL (80.0-94.0); Nucleated Red Blood Cells % 0 % (-); Platelet Count 237 10^3/uL (130-400); Red Cell Dist. Width 14.4 % (11.5-14.5)
[2025-04-08 11:58] LABS: ALT (SGPT) 19 U/L (0-50); AST (SGOT) 36 U/L (17-59); Albumin 4.2 g/dl (3.5-5.0); Alkaline Phosphatase 76 U/L (38-126); Blood Urea Nitrogen 27 mg/dl (9-20); Calcium 9.2 mg/dl (8.4-10.2); Carbon Dioxide 30 mmol/L (22-30); Chloride 100 mmol/L (98-107); Glucose 141 mg/dl (70-99); Potassium 4.9 mmol/L (3.5-5.1); Sodium 137 mmol/L (135-145); Total Protein 7.6 g/dl (6.3-8.2); eGFR 37.25
== END ==
LOC: REG 09:34
PROVIDERS: ATTENDING PHYSICIAN Internal Medicine; FAMILY PHYSICIAN Family Medicine
DX: C66.2 Malignant neoplasm of left ureter (principal); Z51.11 Encounter for antineoplastic chemotherapy; Z51.12 Encounter for antineoplastic immunotherapy; C79.51 Secondary malignant neoplasm of bone; C78.7 Secondary malignant neoplasm of liver and intrahepatic bile duct
CPT/HCPCS: 36415; 80053; 85025

== ENCOUNTER → 2025-04-22 09:58 | Outpatient (REF) | payer MEDICARE, SELFPAY ==
[2025-04-22 10:56] LABS: Hematocrit 37.9 % (39.0-52.0); Hemoglobin 12.8 g/dL (13.0-18.0); Mean Corp Hgb Conc. 33.8 g/dL (33.0-37.0); Mean Corpuscular Volume 95.2 fL (80.0-94.0); Nucleated Red Blood Cells % 0 % (-); Platelet Count 258 10^3/uL (130-400); Red Cell Dist. Width 14.3 % (11.5-14.5)
[2025-04-22 11:42] LABS: ALT (SGPT) 26 U/L (0-50); AST (SGOT) 48 U/L (17-59); Albumin 4.4 g/dl (3.5-5.0); Alkaline Phosphatase 53 U/L (38-126); Blood Urea Nitrogen 18 mg/dl (9-20); Calcium 9.2 mg/dl (8.4-10.2); Carbon Dioxide 30 mmol/L (22-30); Chloride 101 mmol/L (98-107); Glucose 110 mg/dl (70-99); Magnesium 2.1 mg/dl (1.6-2.3); Potassium 4.7 mmol/L (3.5-5.1); Sodium 138 mmol/L (135-145); Total Protein 7.9 g/dl (6.3-8.2); eGFR 39.75
[2025-04-22 12:50] LABS: TSH 151.00 uIU/ml (0.47-4.68)
== END ==
LOC: REG 09:58
PROVIDERS: ATTENDING PHYSICIAN Internal Medicine
DX: C79.51 Secondary malignant neoplasm of bone (principal); C78.7 Secondary malignant neoplasm of liver and intrahepatic bile duct; I50.20 Unspecified systolic (congestive) heart failure
CPT/HCPCS: 36415; 80053; 83735; 84443; 85025

== ENCOUNTER → 2025-04-29 10:43 | Outpatient (REF) | payer MEDICARE, SELFPAY ==
[2025-04-29 11:43] LABS: Hematocrit 39.2 % (39.0-52.0); Hemoglobin 13.0 g/dL (13.0-18.0); Mean Corp Hgb Conc. 33.2 g/dL (33.0-37.0); Mean Corpuscular Volume 95.8 fL (80.0-94.0); Nucleated Red Blood Cells % 0 % (-); Platelet Count 241 10^3/uL (130-400); Red Cell Dist. Width 14.3 % (11.5-14.5)
[2025-04-29 12:12] LABS: ALT (SGPT) 28 U/L (0-50); AST (SGOT) 53 U/L (17-59); Albumin 4.4 g/dl (3.5-5.0); Alkaline Phosphatase 54 U/L (38-126); Blood Urea Nitrogen 21 mg/dl (9-20); Calcium 9.7 mg/dl (8.4-10.2); Carbon Dioxide 32 mmol/L (22-30); Chloride 101 mmol/L (98-107); Glucose 94 mg/dl (70-99); Potassium 4.4 mmol/L (3.5-5.1); Sodium 138 mmol/L (135-145); Total Protein 8.1 g/dl (6.3-8.2); eGFR 37.25
[2025-04-30 18:29] LABS: TSH 138.00 uIU/ml (0.47-4.68)
== END ==
LOC: REG 10:43
PROVIDERS: ATTENDING PHYSICIAN Registered Nurse Oncology
DX: C68.9 Malignant neoplasm of urinary organ, unspecified (principal); R53.0 Neoplastic (malignant) related fatigue
CPT/HCPCS: 36415; 80053; 84439; 84443; 85025

== ENCOUNTER → 2025-05-20 13:14 | Outpatient (REF) | payer MEDICARE, SELFPAY ==
[2025-05-20 13:44] LABS: Hematocrit 40.3 % (39.0-52.0); Hemoglobin 13.7 g/dL (13.0-18.0); Mean Corp Hgb Conc. 34.0 g/dL (33.0-37.0); Mean Corpuscular Volume 91.4 fL (80.0-94.0); Nucleated Red Blood Cells % 0 % (-); Platelet Count 291 10^3/uL (130-400); Red Cell Dist. Width 14.6 % (11.5-14.5)
[2025-05-20 14:10] LABS: ALT (SGPT) 25 U/L (0-50); AST (SGOT) 35 U/L (17-59); Albumin 4.9 g/dl (3.5-5.0); Alkaline Phosphatase 82 U/L (38-126); Blood Urea Nitrogen 28 mg/dl (9-20); Calcium 10.1 mg/dl (8.4-10.2); Carbon Dioxide 32 mmol/L (22-30); Chloride 99 mmol/L (98-107); Glucose 87 mg/dl (70-99); Potassium 4.7 mmol/L (3.5-5.1); Sodium 139 mmol/L (135-145); Total Protein 9.0 g/dl (6.3-8.2); eGFR 39.75
[2025-05-20 14:26] LABS: Vitamin D, 25-OH*** 71.5 ng/mL (30-80)
== END ==
LOC: REG 13:14
PROVIDERS: ATTENDING PHYSICIAN Registered Nurse Oncology; FAMILY PHYSICIAN Family Medicine
DX: E55.9 Vitamin D deficiency, unspecified (principal); C66.2 Malignant neoplasm of left ureter
CPT/HCPCS: 36415; 80053; 82306; 85025